=== PATIENT | male | born 1960 | race African-American/Black ===

== ENCOUNTER 2019-07-31 05:07 | Inpatient (IN) | payer OTHER, SELFPAY ==
[2019-07-31 05:28] LABS: Actual Bicarbonate (HCO3a) 11.4 mEq/L (22-28); Analyzer IN Cardio ER; Base Excess (BEa) -13.4 mEq/L (-2.0 to +3.0); Calcium, Ionized 0.99 mmol/L (1.12-1.30); Hemoglobin (Hb) 9.7 g/dL (14.0-18.0); O2 Tension (PaO2) 83.8 mmHg (80.0-100.0)
[2019-07-31 05:43] LABS: CO2 Tension 23.9 mmHg (35.0-45.0)
[2019-07-31 05:44] LABS: Puncture Site LRA
[2019-07-31 05:45] LABS: ALV-art Gradient 135.875 (0-20)
[2019-07-31 05:46] LABS: Bacteria/HPF 3+ HPF (None Seen); Bilirubin Negative (Negative); Blood, Urine 1+ (Negative); Clarity Turbid (Clear); Glucose, Urine (Dipstick) 100 mg/dL (Negative); Leukocyte 75 Leu/uL (Negative); Nitrite Negative (Negative); Protein, Urine (Dipstick) 300 mg/dL (Neg-Trace); Squamous Epithelial None Seen HPF (0-3); Urobilinogen Normal mg/dL (Less than 2)
[2019-07-31 05:52] LABS: Yeast-Budding None Seen HPF (None Seen)
--- NOTE | 2019-07-31 06:02 | PDOC.FPRHP ---
- History of Present Illness Chief Complaint: SOB History of Present Illness: Mr. Pereira is a 59yo AAM with a PMH of HTN, CHF, DMII, and renal disease who presents to the [facility] ER via transfer from [place] for respiratory distress and hypertensive emergency. He reports increasing shortness of breath over the last 3 days that acutely worsened and woke him from sleep last night and increasing LE edema over the last week. He is in town from [place] visiting his mother. He has a known history of CHF and was recently increased to 80mg po Lasix BID. He states he has had an upper respiratory infection with cough and sputum production for the last 1-2 weeks. He is currently wearing BiPAP and breathing well, but appears uncomfortable. ED Course: In [place]: Solumedrol 125mg, DuoNeb x3, Zosyn, Lasix 160mg IV, Nitro drip , ASA 325 In [place]: Nitro drip - Allergies/Adverse Reactions Allergies Allergy/AdvReac Type Severity Reaction Status Date / Time No Known Drug Allergies Allergy Verified 07/31/19 07:27 - Home Medications Medication Instructions Recorded Confirmed Type Atorvastatin Calcium [Lipitor] 10 mg PO DAILY 07/31/19 07/31/19 History Calcium Acetate [Phoslo] 1,334 mg PO TID-WM 07/31/19 07/31/19 History Furosemide [Lasix] 80 mg PO BID 07/31/19 07/31/19 History Insulin NPH Hum/Reg Insulin HM 20 unit SC AC 07/31/19 07/31/19 History [Novolin 70/30] Insulin NPH Hum/Reg Insulin HM 25 unit SC AC 07/31/19 07/31/19 History [Novolin 70/30] Sodium Bicarbonate 650 mg PO TID 07/31/19 07/31/19 History - History PMHx: HTN Diabetes mellitus (on 70/30 12am, 10pm) HLD CHF, diagnosed a couple months ago PSHx: None FHx: Diabetes and HTN run in the family. Social: Lives in [place], PCP is in [place] (Dr. Burch). Visiting his mother who lives in [place]. Current tobacco use, 1 pack q 2 days x 45 years. No illicit drug use. Former alcohol use. - Review of Systems General: denies: fever/chills, weight/appetite/sleep changes Eyes: denies: eye pain, vision changes ENT: reports: nasal congestion, rhinorrhea Respiratory: reports: cough, congestion, shortness of breath Cardiovascular: reports: edema, paroxysmal nocturnal dyspnea, orthopnea. denies : chest pain, palpitation Gastrointestinal: denies: nausea, vomiting, diarrhea, constipation Genitourinary: denies: incontinence, dysuria, polyuria Skin: denies: rashes, lesions Musculoskeletal: denies: pain, tenderness, stiffness Neurological: denies: numbness, syncope, seizure, weakness Psychological: denies: anxiety, depression - Vital signs Pulse: 87 (Regular), Resp: 22 (Labored), Temp: 98.0 (Oral), Pain: 0 (Constant), O2 sat: 100 on (Bipap), Time: 07/31/2019 05:09. Weight 72.5kg - Physical Exam Constitutional: awake, alert and oriented -Constitutional: Visibly working to breath, speaking in short sentences, unable to lie in the bed. HEENT: normocephalic and atraumatic, PERRLA, EOMI, conjunctiva clear, grossly normal vision, grossly normal hearing, MMM Neck: supple, trachea midline -Neck: Elevated JVD Heart: RRR, normal S1/S2, no murmurs/rubs/gallops, pulses present -Heart: Pitting edema to the level of the abdomen -Lungs: Labored breathing on CPAP, Tachypneic, Expiratory wheezes heard throughout, coarse breath sounds with significant upper airway noise due to CPAP/BiPap Abdomen: soft, non-tender Musculoskeletal: normal structure, normal tone, ROM grossly normal Neurological: no focal deficit, normal sensation Skin: no rash/lesions, good turgor, capillary refill <2 seconds Heme/Lymphatic: no unusual bruising or bleeding, no purpura, no petechia Psychiatric: normal mood and affect, good judgment and insight, intact recent and remote memory FMR H&P: Results - Labs Result Diagrams: 07/31/19 05:51 Lab results: ABG pH 7.30 (7.35-7.45) L 07/31/19 05:24 ABG pCO2 23.9 mmHg (35.0-45.0) L* 07/31/19 05:24 ABG pO2 83.8 mmHg (80.0-100.0) 07/31/19 05:24 Urine Ketones Negative mg/dL (Negative) 07/31/19 05:30 Urine Blood 1+ (Negative) A 07/31/19 05:30 Urine Nitrite Negative (Negative) 07/31/19 05:30 Ur Leukocyte Esterase 75 Marcus/uL (Negative) A 07/31/19 05:30 Urine RBC 4-6 HPF (0-3) A 07/31/19 05:30 Urine WBC 11-20 HPF (0-3) A 07/31/19 05:30 Ur Squamous Epith Cells None Seen HPF (0-3) 07/31/19 05:30 Urine Bacteria 3+ HPF (None Seen) A 07/31/19 05:30 - EKG Interpretation EKG: Nonspecific T wave changes, t wave inversions anteriorly, prolonged AZ interval with 1st degree AV block FMR H&P: A/P - Problem List (1) Acute respiratory failure Current Visit: Yes Status: Acute Code(s): J96.00 - ACUTE RESPIRATORY FAILURE , UNSP W HYPOXIA OR HYPERCAPNIA (2) Acute exacerbation of CHF (congestive heart failure) Current Visit: Yes Status: Acute Code(s): I50.9 - HEART FAILURE, UNSPECIFIED (3) Suspected chronic obstructive pulmonary disease based on initial evaluation Current Visit: Yes Status: Acute Code(s): J44.9 - CHRONIC OBSTRUCTIVE PULMONARY DISEASE, UNSPECIFIED (4) Hypertensive emergency Current Visit: Yes Status: Acute Code(s): I16.1 - HYPERTENSIVE EMERGENCY (5) Metabolic acidosis Current Visit: Yes Status: Acute Code(s): E87.2 - ACIDOSIS (6) Chronic kidney disease (CKD) Current Visit: Yes Status: Acute Code(s): N18.9 - CHRONIC KIDNEY DISEASE, UNSPECIFIED (7) Diabetes mellitus Current Visit: Yes Status: Acute Code(s): E11.9 - TYPE 2 DIABETES MELLITUS WITHOUT COMPLICATIONS - Plan Acute respiratory failure 2/2 CHF exacerbation -Patient in obvious respiratory failure on arrival to [place] ER, arrived to [facility] on BiPap. -On Lasix 80mg po BID at home, started on 80mg IV BID. Will closely monitor fluid status -Strict I/O, Daily weights, HF consult. -BiPap for ventilatory support. Discussed intubation with the patient and he desires all resuscitative measures. -ECHO ordered Hypertensive emergency -BP 220s/120s on arrival, elevated troponin of 0.099 -On Nitroglycerine drip to be titrated with goal of SBP of 160. -Will continue home medications, hold BB NSTEMI type II -Demand ischemia evident with elevated troponin and end organ damage, likely 2/ 2 CHF exacerbation. -Trend troponins -Consider cardiology consult if troponin continues to trend upwards. -EKG changes - T wave inversions, and 1st degree heart block (unknown if acute) Suspected COPD -Patient has 20-30 pack year history. No formal diagnosis of COPD has been made that he is aware of -Scheduled DuoNebs, prn albuterol nebs for wheezing -IV solumedrol -Levaquin (also covering for suspected PNA) Suspected RLL PNA -CXR has not been read, however clinical and historical findings suggestive of PNA. -Will cover with Levaquin, renally dosed Chronic kidney disease, stage V vs acute renal failure vs acute on chronic -He has known kidney disease, however stage is not known. -Will monitor BMP closely -FeUrea ordered -Nephrology consulted -Discussed potential need for dialysis with patient. -Phosphorous pending Type II Diabetes -A1c pending. Will restart home insulin regimen, mod SSI and hypoglycemia protocol. Non-anion gap metabolic acidosis -Lactic acid 1.6. Continue to monitor bicarb. -Nephrology consulted Normocytic anemia -Iron studies pending -Hb electrophoresis ordered -Risk factors for colon cancer, patient will need colonoscopy outpatient on discharge. HLD -Continue home medications HTN -Continue home medications -hold BB in acute HF exacerbation First degree heart block Noted on EKG. Monitor on telemetry. Disposition/LOS: Dispo: Guarded, inpatient, LOS likely > 48 hours. Code: Full PCP: VINCENT Burch in [place] VTE: SCDs FMR H&P: Upper Level - Pertinent history 59 year old AA male presents with sudden onset respiratory distress. Patient reports that he has had a cough productive of green sputum for the last 2 weeks. He denies associated fever or chills. Patient states that for the last week he has noted increase in lower extremity swelling. He is taking Lasix BID, but reports missing an occasional dose. Patient states that he woke up in the middle of the night acutely short of breath which prompted his visit to the ED. Patient lives in [place] but is in town visiting family. He states that he has never become short of breath like this before. He has never required BiPAP or intubation. Patient states that he was diagnosed with HF months ago at a hospital in [place]. He reports good compliance with medications. He states that he has elevated BP and is on medications. His BPs at home run upwards of 160 s. Patient denies any chest pain, N/V/D, dysuria, muscle aches or pains. Patient is a current -1 PPD every 2 day smoker. He has been smoking since he was 15 years old. He denies a diagnosis of COPD and is not currently on any inhalers at home. Patient does not follow with a formal service waiter or marketing executive. Patient reports known kidney disease. He follows with nephrology in [place], but he reports no recent discussion regarding need for dialysis. He states that he urinates approximately 4x/day and has been urinating about the same as normal over the last several days. - Pertinent findings General: Alert and oriented x3. Mild respiratory distress. HEENT: MMM. Sclera clear. Card: RRR. No appreciable murmurs. Resp: Wheezing diffusely throughout. Rales in right anterior lung base. Abdomen: Soft, non-tender, palpable fluid wave Extremities: 2+ pitting edema to level of abdomen bilaterally Skin: No ecchymosis noted - Plan Date/Time: 07/31/19 0600 IPatty, have evaluated this patient and agree with findings/plan as outlined by international relations professor resident. Pertinent changes/additions are listed here. A/P: Hypertensive emergency: Patient with fulminant heart failure, non-specific EKG changes, and elevated troponins. Will continue to trend troponins. Patient started on nitro drip with goal BP at 1 hr 180/120 and goal BP <160/110 for the remaining 23 hours. Will restart oral medications and titrate off of drip as tolerated. Suspect poor compliance with medications at home. Will order echo to further evaluate functional cardiac status. Acute respiratory failure 2/2 acute CHF exacerbation and pulmonary edema/COPD exacerbation: Patient on high dose IV Lasix. Monitor urine output closely. Strict I/Os. If not having adequate urine output, may need to consider dialysis. Discussed potential need for dialysis with patient. Patient currently on BiPAP. Discussed potential need for intubation should respiratory status worsen. Patient agreeable to intubation if necessary. Pulmonology consulted, appreciate recs. Will start patient on levoquin for suspected RLL PNA and COPD exacerbation. Will initiate steroids and duoneb treatments. Continue home medications for heart failure. Hold BB in acute exacerbation. BNP 1999. Suspect RLL PNA: Physical exam and CXR consistent with RLL PNA. Infiltrate noted on CXR. Started patient on levoquin, renally dosed. Procal pending. Continue to monitor respiratory status. Metabolic acidosis, non-anion gap: Lactic acid 1.6. Continue to monitor bicarb. Nephrology consulted, appreciate recs. NSTEMI type II: Demand ischemia, likely 2/2 heart failure exacerbation. Continue to trend troponin. CKD stage V vs. Acute renal failure: Uncertain of baseline kidney function. May be acute on chronic renal failure. Discussed potential need for dialysis. Continue to monitor electrolytes and fluid status. Nephrology consulted; appreciate recs. Will check phosphorous. Continue home medications. First degree heart block: Noted on EKG. Monitor on telemetry. Normocytic anemia: Will obtain iron studies. H/H 05/02. Will also obtain electrophoresis given AA and normocytic anemia. Continue to trend. Patient in need of outpatient screening colonoscopy. HLD: Continue home medications HTN: See above for hypertensive emergency. Diabetes type II: Will check HgA1c. Continue home medications. SSI. CC diet. Code status: Full, discussed with patient DVT PPX: SCD's Dispo: Admit to ICU. Continue to monitor respiratory status closely.
[2019-07-31 06:20] LABS: Anion Gap 18 mmol/L (10-20); BUN (Urea Nitrogen) 71 mg/dL (8.4-25.7); Calc. Creatinine Clearance 0 mL/min (70-130); Calcium 7.3 mg/dL (7.8-10.44); Carbon Dioxide 15 mmol/L (22-29); Chloride 105 mmol/L (98-107); Estimated GFR-MDRD 7; Glucose 245 mg/dL (70-105); Potassium 5.4 mmol/L (3.5-5.1); Sodium 133 mmol/L (136-145)
[2019-07-31 06:25] LABS: Troponin I 0.172 ng/mL (< 0.028)
[2019-07-31] MEDS ORDERED: Albuterol Sulfate 2.5 mg/3 ml Neb NEB PRN (06:27)
[2019-07-31] MEDS ORDERED: Ondansetron ODT 4 MG TAB PO PRN (06:27)
[2019-07-31] MEDS ORDERED: Acetaminophen 325 MG TAB PO PRN (06:27)
[2019-07-31] MEDS ORDERED: Acetaminophen 325 MG Suppository PR PRN (06:27)
[2019-07-31] MEDS ORDERED: Nitroglycerin 50 MG/250 ML BOT 250 ML IVPB SCH (06:45)
[2019-07-31] MEDS ORDERED: Dextrose 50% Abboject 50 ML SYRINGE SLOW IVP PRN ×2 (07:41→13:18)
[2019-07-31] MEDS ORDERED: Dextrose 5% in Water 1,000 ML IV PRN (07:41)
[2019-07-31 07:45] LABS: Medtox Reader # READER 1
[2019-07-31 07:46] LABS: Amphetamine Not Detected (NotDetected); Barbiturates Screen Not Detected (NotDetected); Benzodiazepine Screen Not Detected (NotDetected); Cocaine Metabolite Screen Not Detected (NotDetected); Medtox Control Line Valid? VALID (VALID); Methadone Not Detected (NotDetected); Methamphetamine Not Detected (NotDetected); Opiate Screen Not Detected (NotDetected); Oxycodone Screen Not Detected (NotDetected); Phencyclidine (PCP) Not Detected (NotDetected); THC/Cannabinoid Screen Not Detected (NotDetected); Tricyclic Screen Not Detected (NotDetected)
[2019-07-31] MEDS: Calcium Acetate 667 MG CAP PO SCH ×3 (08:52→16:55)
[2019-07-31] MEDS: Atorvastatin Calcium 10 MG TAB PO SCH (08:56)
[2019-07-31] MEDS: Sodium Bicarbonate Tab 325 MG TAB PO SCH ×3 (08:56→22:03)
[2019-07-31] MEDS ORDERED: Amlodipine 10 MG TAB PO SCH (09:00)
[2019-07-31] MEDS: HumuLIN 70/30 (300 UNITS/3 ML VIAL) SC SCH ×2 (09:07→22:04)
[2019-07-31 09:39] LABS: Troponin I 0.296 ng/mL (< 0.028)
[2019-07-31 09:42] LABS: Iron 37 ug/dL (65-175); Iron Binding Capacity, Total 239 mcg/dL (261-462)
[2019-07-31 09:55] LABS: Anion Gap 20 mmol/L (10-20); BUN (Urea Nitrogen) 76 mg/dL (8.4-25.7); Calc. Creatinine Clearance 10 mL/min (70-130); Calcium 7.5 mg/dL (7.8-10.44); Carbon Dioxide 12 mmol/L (22-29); Chloride 106 mmol/L (98-107); Estimated GFR-MDRD 7; Glucose 287 mg/dL (70-105); Potassium 5.6 mmol/L (3.5-5.1); Sodium 132 mmol/L (136-145)
[2019-07-31] MEDS: niCARdipine 25 MG in Sodium Chloride 0.9% 250 ML 240 ML IVPB SCH ×3 (10:44→17:02)
[2019-07-31] MEDS: HumaLOG 300 UNITS/3 ML VIAL SC PRN ×2 (11:29→16:59)
[2019-07-31] MEDS ORDERED: HumuLIN 70/30 (300 UNITS/3 ML VIAL) SC SCH (11:30)
[2019-07-31 11:58] LABS: Phosphorus 5.3 mg/dL (2.3-4.7)
[2019-07-31] MEDS ORDERED: methylPREDNISolone Sod Succ 40 MG VIAL IVP SCH (12:00)
[2019-07-31 12:09] LABS: Anion Gap 21 mmol/L (10-20); BUN (Urea Nitrogen) 78 mg/dL (8.4-25.7); Calc. Creatinine Clearance 10 mL/min (70-130); Calcium 7.6 mg/dL (7.8-10.44); Carbon Dioxide 10 mmol/L (22-29); Chloride 106 mmol/L (98-107); Estimated GFR-MDRD 7; Glucose 351 mg/dL (70-105); Potassium 4.8 mmol/L (3.5-5.1); Sodium 132 mmol/L (136-145)
[2019-07-31 12:11] LABS: Troponin I 0.369 ng/mL (< 0.028)
[2019-07-31 13:20] LABS: Hemoglobin A1c 6.3 % (4.0-6.0)
[2019-07-31] MEDS: Furosemide 40 MG/4 ML VIAL SLOW IVP SCH (13:33)
--- NOTE | 2019-07-31 13:35 | CON ---
DATE OF CONSULTATION: 07/31/2019 TIME SPENT: 35 minutes of critical care time. REASON FOR CONSULTATION: Respiratory failure related to fluid overload. HISTORY OF PRESENT ILLNESS: This is a 59-year-old male, who presented to the [facility] with shortness of breath and acute on chronic renal failure. He was placed on BiPAP, but that has now been weaned off. He has been on a nitroglycerin drip for control of elevated blood pressure. PAST MEDICAL HISTORY: 1. Hypertension. 2. Diabetes mellitus. 3. Hyperlipidemia. 4. Congestive heart failure. PAST SURGICAL HISTORY: None. FAMILY MEDICAL HISTORY: Remarkable for diabetes and hypertension. SOCIAL HISTORY: He smokes a pack per day for the last 45 years. He lives in [place]. Gets medical care in [place] when he can. Does not consume alcohol. Does not use illicit drugs. He is retired. REVIEW OF SYSTEMS: Remarkable for shortness of breath and chills. Otherwise, 12-point review of systems negative. MEDICATIONS: Prior to admission; 1. Carvedilol. 2. Norvasc. 3. Furosemide. 4. Lipitor. 5. 70/30 insulin. PHYSICAL EXAMINATION: VITAL SIGNS: Temperature 98, pulse 67, blood pressure 163/83, and O2 saturation 99%. HEENT: Unremarkable. NECK: No adenopathy or JVD. LUNGS: Coarse breath sounds with crackles bilaterally. CARDIOVASCULAR: S1 and S2. Regular. ABDOMEN: Soft and nontender to palpation. EXTREMITIES: No clubbing or cyanosis. Trace edema throughout. LABORATORY DATA: ABG; pH of 7.30, pCO2 of 23, and pO2 of 83. Sodium 132, potassium 5.6, chloride 106, CO2 of 12, BUN 76, creatinine 9.1, and glucose 287. Troponin 0.02. Urinalysis shows active sediment with proteinuria and glucosuria. ASSESSMENT: 1. Acute on chronic renal failure with hyperkalemia and fluid overload as well as metabolic acidosis. 2. Acute respiratory failure, fluid overload. RECOMMENDATIONS: 1. Nephrology consultation and consideration for dialysis. 2. Switch the nitroglycerin to nicardipine for blood pressure control. 3. Discontinue the methylprednisolone as that will adversely affect his blood pressure and make his diabetes worse. I do not think we are dealing with the COPD exacerbation. 4. Nebulization treatments as needed. Job ID: [id number]
[2019-07-31 16:10] LABS: Troponin I 0.411 ng/mL (< 0.028)
--- NOTE | 2019-07-31 16:17 | CON ---
DATE OF CONSULTATION: 07/31/2019 CONSULTING PHYSICIAN: Dr. Loyd. REASON FOR CONSULTATION: Chronic kidney disease. REASON FOR ADMISSION: Shortness of breath. HISTORY OF PRESENT ILLNESS: This is a 59-year-old male, who has history of hypertension, CAD, type 2 diabetes, who came to the hospital with shortness of breath. He does have chronic kidney disease. He is a poor historian. He had been following with a physician from [place] and he was told that his kidneys are not doing well, but he has been admitted for few days and his creatinine was not getting better and Nephrology consulted. The patient is also fluid overloaded. PAST MEDICAL HISTORY: Positive for CKD, hypertension, type 2 diabetes, and CHF. PAST SURGICAL HISTORY: None. HOME MEDICATIONS: Include; 1. Lipitor. 2. PhosLo. 3. Lasix. 4. Insulin 70/30. 5. Sodium bicarbonate. ALLERGIES: NO KNOWN DRUG ALLERGIES. SOCIAL HISTORY: No smoking, alcohol, or illicit drugs abuse. FAMILY HISTORY: No history of any kidney disease. REVIEW OF SYSTEMS: CONSTITUTIONAL: Negative for weight loss or gain, ability to conduct usual activities. SKIN: Negative for rash, itching. EYES: Negative for double vision, pain. ENT/MOUTH: Negative for nose bleeding, neck stiffness, pain, tenderness. CARDIOVASCULAR: Negative for palpitations, dyspnea on exertion, orthopnea. RESPIRATORY: Negative for shortness of breath, wheezing, cough, hemoptysis, fever or night sweats. GASTROINTESTINAL: Negative for poor appetite, abdominal pain, heartburn, nausea, vomiting, constipation, or diarrhea. GENITOURINARY: Negative for urgency, frequency, dysuria, nocturia. MUSCULOSKELETAL: Negative for pain, swelling. NEUROLOGIC/PSYCHIATRIC: Negative for anxiety, depression. ALLERGY/IMMUNOLOGIC: Negative for skin rash, bleeding tendency. PHYSICAL EXAMINATION: GENERAL: Reveals a well-built male, in no apparent distress. VITAL SIGNS: Temperature 97.5, pulse 73, respiratory rate 20, and blood pressure 148/67. HEENT: Atraumatic, normocephalic. Oral mucosa is moist. NECK: Supple. CARDIOVASCULAR: S1 and S2. Rate and rhythm regular. RESPIRATORY: Clear. GASTROINTESTINAL: Abdomen is soft. MUSCULOSKELETAL: 1+ edema. DERMATOLOGIC: No skin rash. NEUROLOGIC: Alert and awake. PSYCHIATRIC: Mood and affect are normal. LABORATORY DATA: Potassium 4.8, BUN is 78, creatinine is 9.02, and GFR of 7. ASSESSMENT AND PLAN: 1. Chronic kidney disease, stage 5, most likely not getting better. The patient needs dialysis at this point. We will check renal ultrasound. We will consult Surgery. 2. Acidosis. 3. Hyponatremia. 4. Edema, controlled. 5. Anemia. Plan is to start on dialysis. We will consult Surgery. We will follow. We will check renal ultrasound. Thank you for the consult. Job ID: [id number]
[2019-07-31] MEDS ORDERED: NIFEdipine XL 60 MG TAB PO SCH (17:30)
[2019-07-31] MEDS ORDERED: Aspirin 81 mg Enteric Coated Tablet PO SCH (17:45)
[2019-07-31] MEDS ORDERED: Carvedilol 6.25 MG TAB PO SCH (17:45)
[2019-07-31] MEDS: hydrALAZINE 25 MG TAB PO SCH ×2 (17:51→23:55)
[2019-07-31 18:18] LABS: Anion Gap 18 mmol/L (10-20); BUN (Urea Nitrogen) 77 mg/dL (8.4-25.7); Calc. Creatinine Clearance 10 mL/min (70-130); Calcium 7.8 mg/dL (7.8-10.44); Carbon Dioxide 14 mmol/L (22-29); Chloride 105 mmol/L (98-107); Estimated GFR-MDRD 7; Glucose 221 mg/dL (70-105); Potassium 4.6 mmol/L (3.5-5.1); Sodium 132 mmol/L (136-145)
--- NOTE | 2019-07-31 19:44 | ULT ---
BILATERAL RENAL ULTARSOUND: History: Acute kidney injury. Evaluate for obstruction. Technique: Multiplanar grayscale and color doppler images were obtained in a renal ultrasound. FINDINGS: The kidneys are normal in echogenicity without hydronephrosis or calculi and measure 9.7 and 10.0 cm in length on the right and left, respectively. There is a small anechoic cyst in the left kidney werner uring 1.7 cm in size. The urinary bladder is decompressed by a Duran catheter. A small right pleural effusion is incidental ly seen. A trace amount of ascites is seen adjacent to the liver. IMPRESSION: Left renal cyst. POS: C
--- NOTE | 2019-07-31 19:57 | CON ---
DATE OF CONSULTATION: 07/31/2019 REASON FOR CONSULTATION: Depressed left ventricular function, abnormal echocardiogram, shortness of breath, end-stage renal disease. HISTORY OF PRESENT ILLNESS: Mr. Montero is a delightful 59-year-old gentleman. He has a history of renal insufficiency in the past and according to the chart, some history of congestive heart failure. The patient states he has been doing well up until the last three days he has been progressively more short of breath and finally, difficulty breathing woke him from sleep and he came to the emergency room. The patient has been maintained on Lasix 80 mg twice a day as an outpatient. He also had upper respiratory infection with cough and sputum production. He does smoke. He says he has decided he is going to quit smoking now. Does not use any alcohol. In the emergency room, he got Solu-Medrol, DuoNeb, Lasix, nitroglycerin drip. The patient had no chest pain or pressure. He has never had this similar episode of difficulty breathing according to the patient. MEDICATIONS: At home included: 1. Insulin. 2. Sodium bicarbonate. 3. Furosemide. 4. Atorvastatin. 5. Amlodipine 10 mg a day. 6. Carvedilol 25 mg twice a day. REVIEW OF SYSTEMS: CONSTITUTIONAL: No significant weight gain or loss. VISION: No changes. HEARING: No changes. PULMONARY: Positive shortness of breath. CARDIAC: No chest pain. Positive for shortness of breath. GASTROINTESTINAL: No nausea, vomiting, or diarrhea. SKIN: No rashes. NEUROLOGICAL: No unilateral weakness or numbness. PSYCHIATRIC: No unusual depression or anxiety. PHYSICAL EXAMINATION: GENERAL: This is a very pleasant gentleman. He is on a nicardipine drip. Despite that, his blood pressure is 159/75, pulse is 77. LUNGS: Clear. CARDIAC: Normal S1, normal S2. ABDOMEN: Soft, nontender. EXTREMITIES: No clubbing or cyanosis. He has mild to moderate peripheral edema. SKIN: Warm and dry. PERTINENT LABORATORY DATA: Troponin level peak so far is 0.411. His creatinine is 9 and potassium is 4.8. Sodium 132. Hemoglobin A1c 6.3, glucose 251. EKG, sinus rhythm, looks like an old anterior infarct with Q-waves in leads V2 through V4. The echocardiogram showed ejection fraction of 35% to 40%. The apex is akinetic. ASSESSMENT: 1. Acute renal failure. 2. Congestive heart failure with apex akinesis, ejection fraction 35% to 40%. 3. Increased troponin, probably demand ischemia on top of renal failure. Troponin is normally renally cleared; therefore, the levels are slightly increased. Almost certainly, he has coronary artery disease with the location of akinesis of his heart. 4. Hypertension. PLAN: 1. Add Procardia XL. 2. Add hydralazine. 3. Can resume carvedilol. 4. Dialysis tomorrow. 5. Ultimately consider catheterization. Presently, the patient is in some degree of heart failure with some rales on examination. It does not appear like he has had an acute occlusion, looks like he probably has had an occlusion of his LAD at some time in the past. We will follow with you. Job ID: [id number]
--- NOTE | 2019-07-31 20:28 | ULT ---
UPPER EXTREMITY VEIN MAPPING: Date: 07-31-19 History: Dialysis access planning. Technique: Multiplanar grayscale sonographic imaging of the vascular structures of bilateral upper ex tremities obtained with color flow and spectral analysis. FINDINGS: The internal jugular vein, subclavian vein, and axillary vein is patent bilaterally. RIGHT UPPER EXTREMITY BRACHIAL ARTERY: 5.7 mm RADIAL ARTERY: 3.1 mm ULNAR ARTERY: 2.2 mm CEPHALIC VEIN Proximal Arm: 2.3 mm Mid Arm: 0.5 mm Distal Arm: 0.7 mm Antecubital Fossa: 1.1 mm Proximal Forearm: 0.6 mm Mid Forearm: 0.7 mm Distal Forearm: 0.6 mm BASILIC VEIN Proximal Arm: 5.2 mm Mid Arm: 5.8 mm Distal Arm: 6.4 mm Antecubital Fossa: 4.9 mm Proximal Forearm: 2.1 mm Mid Forearm: 0.5 mm Distal Forearm: 1.1 mm LEFT UPPER EXTREMITY BRACHIAL ARTERY: 5.6 mm RADIAL ARTERY: 3.1 mm ULNAR ARTERY: 1.5 mm BASILAR VEIN Proximal Arm: 4.2 mm Mid Arm: 8.3 mm Distal Arm: 3.3 mm Antecubital Fossa: 3.2 mm Proximal Forearm: 0.8 mm Mid Forearm: 0.7 mm Distal Forearm: 0.7 mm CEPHALIC VEIN Proximal Arm: 3.5 mm Mid Arm: 3.1 mm Distal Arm: 2.8 mm Antecubital Fossa: thrombosis with thickened quezada and IV in place Proximal Forearm: not seen secondary to IV bandaging Mid Forearm: 0.6 mm Distal Forearm: 0.7 mm IMPRESSION: Vascular mapping of bilateral upper extremities as detailed above. Of note, there is an IV within the cephalic vein in the left antecubital fossa with associated thrombus and thickened quezada. The cephal ic vein on the left distal to the elbow proximally is not well seen secondary to IV bandaging. POS: [facility]
[2019-08-01] MEDS: HumaLOG 300 UNITS/3 ML VIAL SC PRN ×2 (01:04→18:22)
[2019-08-01 04:23] LABS: Anion Gap 16 mmol/L (10-20); BUN (Urea Nitrogen) 81 mg/dL (8.4-25.7); Calc. Creatinine Clearance 10 mL/min (70-130); Calcium 7.8 mg/dL (7.8-10.44); Carbon Dioxide 15 mmol/L (22-29); Chloride 106 mmol/L (98-107); Estimated GFR-MDRD 7; Glucose 97 mg/dL (70-105); Potassium 4.5 mmol/L (3.5-5.1); Sodium 132 mmol/L (136-145)
[2019-08-01 04:35] LABS: HBSAB Concentration 1.59 mIU/mL; HBSAg Index 0.23 S/CO (0-0.99); Hep B Core Total Ab Non-Reactive (NonReactive); Hep B Core Total Index 0.07 S/CO (0-0.79); Hep B Surf AB Non-Reactive (NonReactive); Hep B Surf Ag Non-Reactive S/CO (NonReactive); Hep C IgG Ab Non-Reactive (NonReactive); Hep C Index 0.07 S/CO (0-0.79)
[2019-08-01] MEDS: Furosemide 40 MG/4 ML VIAL SLOW IVP SCH ×2 (05:05→17:22)
--- NOTE | 2019-08-01 06:48 | PDOC.FM ---
- Subjective Subjective: pt resting comfortably in bed, dyspnea has improved. denies any cough or chest pain - Objective Vital Signs & Weight: Vital Signs (12 hours) Temp Pulse Resp BP Pulse Ox 08/01/19 04:00 97.8 F 08/01/19 03:05 76 16 100 08/01/19 00:00 98.0 F 07/31/19 23:55 75 143/70 H 07/31/19 23:30 75 18 97 07/31/19 20:00 98.1 F 98 07/31/19 19:17 72 20 98 Weight Weight 84 kg Most Recent Monitor Data Heart Rate from ECG 76 NIBP 151/74 NIBP BP-Mean 99 Respiration from ECG 25 SpO2 98 I&O: 07/30/19 07/31/19 08/01/19 06:59 06:59 06:59 Intake Total 2299 Output Total 1360 Balance 939 Result Diagrams: 08/01/19 03:12 Phys Exam - Physical Examination Constitutional: NAD HEENT: moist MMs Neck: no JVD rales Cardiovascular: RRR Gastrointestinal: no distention Musculoskeletal: no edema, pulses present Neurological: moves all 4 limbs Psychiatric: normal affect Skin: no rash Dx/Plan (1) Acute exacerbation of CHF (congestive heart failure) Code(s): I50.9 - HEART FAILURE, UNSPECIFIED Status: Acute (2) Acute respiratory failure Code(s): J96.00 - ACUTE RESPIRATORY FAILURE, UNSP W HYPOXIA OR HYPERCAPNIA Status: Acute (3) Chronic kidney disease (CKD) Code(s): N18.9 - CHRONIC KIDNEY DISEASE, UNSPECIFIED Status: Acute (4) Diabetes mellitus Code(s): E11.9 - TYPE 2 DIABETES MELLITUS WITHOUT COMPLICATIONS Status: Acute (5) Hypertensive emergency Code(s): I16.1 - HYPERTENSIVE EMERGENCY Status: Acute (6) Metabolic acidosis Code(s): E87.2 - ACIDOSIS Status: Acute (7) Suspected chronic obstructive pulmonary disease based on initial evaluation Code(s): J44.9 - CHRONIC OBSTRUCTIVE PULMONARY DISEASE, UNSPECIFIED Status: Acute - Plan Plan: Acute respiratory failure 2/2 CHF exacerbation, improved - POA with CXR + for fluid overload, BNP>2000 - Echo reveals EF 35-40%, akinetic apex - lasix 80mg IV BID - Cardiology consulted, considering cath Hypertensive emergency, resolved -BP 220s/120s on arrival, elevated troponin -Nicardipine, BB resumed NSTEMI - elevated on admission, continues to be elevated. - most likely from fluid overload, C is being considered COPD -Patient has 20-30 pack year history. No formal diagnosis of COPD has been made that he is aware of -Scheduled DuoNebs, prn albuterol nebs for wheezing FAUSTINO on CKDIV vs CKDV -not improved - dialysis today TIIDM - insulin 70/30, mod SSI - hyperglycemia, increase basal Non-anion gap metabolic acidosis -Lactic acid 1.6. Continue to monitor bicarb. -Nephrology consulted Normocytic anemia -Iron studies, Hb electrophoresis ordered -Risk factors for colon cancer, patient will need colonoscopy outpatient on discharge. HLD -Continue home medications HTN -Continue home medications First degree heart block - monitor Disposition/LOS: dialysis today, continue supportive care Code: Full PCP: VINCENT Burch in [place] VTE: SCDs
[2019-08-01] MEDS ORDERED: CEFAZOLIN 2 GM in Premix Bag 1 BAG IVPB SCH (07:45)
[2019-08-01] MEDS: NIFEdipine XL 60 MG TAB PO SCH (08:07)
[2019-08-01] MEDS: Calcium Acetate 667 MG CAP PO SCH ×3 (08:07→17:21)
[2019-08-01] MEDS: Carvedilol 6.25 MG TAB PO SCH ×2 (08:07→17:21)
[2019-08-01] MEDS: Aspirin 81 mg Enteric Coated Tablet PO SCH (08:08)
[2019-08-01] MEDS: HumuLIN 70/30 (300 UNITS/3 ML VIAL) SC SCH ×2 (08:08→19:44)
[2019-08-01] MEDS: hydrALAZINE 25 MG TAB PO SCH ×3 (08:08→19:41)
[2019-08-01] MEDS: Atorvastatin Calcium 10 MG TAB PO SCH (08:11)
[2019-08-01] MEDS: Sodium Bicarbonate Tab 325 MG TAB PO SCH ×3 (08:15→19:58)
--- NOTE | 2019-08-01 08:54 | PRG ---
DATE OF SERVICE: 08/01/2019 SUBJECTIVE: The patient is doing reasonably well. He is expecting dialysis catheter placement later today. He has no complaints at the current time and is off oxygen. OBJECTIVE: VITAL SIGNS: His temperature is 98.6, pulse 69, blood pressure 154/75, O2 saturation 97%. HEENT: Unremarkable. NECK: No adenopathy or JVD. CHEST: Clear anteriorly. CARDIAC: S1 and S2. Regular. ABDOMEN: Soft. EXTREMITIES: No edema. LABORATORY DATA: Sodium 132, potassium 4.5, BUN 81, creatinine 9.2, and bicarbonate 15. ASSESSMENT: 1. Acute on chronic renal failure. 2. Status post respiratory failure from fluid overload. 3. Possible underlying chronic obstructive pulmonary disease. 4. Systolic heart failure with EF 35% to 40%. PLAN: Dialysis catheter is going to be placed today, and he will start on dialysis. He can be transferred to the telemetry unit. We will follow peripherally. Job ID: [id number]
[2019-08-01] MEDS ORDERED: NIFEdipine XL 60 MG TAB PO SCH (09:00)
[2019-08-01] MEDS ORDERED: Lidocaine 1% PF 5 ML VIAL ONE (09:52)
[2019-08-01] MEDS ORDERED: PROPOFOL 200 MG/20 ML VIAL ONE (09:52)
[2019-08-01] MEDS ORDERED: CEFAZOLIN 1 GM VIAL ONE (09:53)
--- NOTE | 2019-08-01 11:42 | PRG ---
DATE OF SERVICE: 08/01/2019 SUBJECTIVE: Patient was seen and examined at bedside and overnight events noted. Patient denies any shortness of breath or chest pain or palpitation. No history of nausea or vomiting or diarrhea or fever or chills or cramps. OBJECTIVE: GENERAL: This is a well-built male, in no apparent distress. VITAL SIGNS: Temperature 98.6. Heart rate 74. Respiratory rate . Blood pressure 160/84. HEENT: Atraumatic, normocephalic. Oral mucosa is moist NECK: Supple. CARDIOVASCULAR: S1, S2 heard. Rate and rhythm regular. RESPIRATORY: Clear to auscultation. GASTROINTESTINAL: Abdomen is soft. MUSCULOSKELETAL: No tenderness. No edema. DERMATOLOGIC: No skin rash. NEUROLOGIC: Alert and awake and oriented X3. No focal neurologic deficits. Moving all the extremities. PSYCHIATRIC: Mood and affect normal. LABORATORY DATA: Potassium 4.5, BUN is 81, and creatinine is 9.2. ASSESSMENT AND PLAN: 1. End-stage renal disease. Plan to start on dialysis today. Dialysis access will be placed by Surgery. Surgery consulted, vein mapping done. 2. Acidosis. 3. Hyponatremia. 4. Edema. 5. Anemia of chronic disease. 6. Plan to start on dialysis. Dialysis nurse notified. Job ID: [id number]
--- NOTE | 2019-08-01 14:56 | CON ---
DATE OF CONSULTATION: HISTORY OF PRESENT ILLNESS: Randall Montero is a 59-year-old black male with diabetes and hypertension, presents with fluid overload, renal failure, in need of dialysis access. He has been seen by Dr. Gonzalez and Dr. Valdovinos. I have been asked to see him regarding placement of a hemodialysis catheter. He had ultrasound vein mapping performed yesterday. He had an antecubital IV left removed. Ultrasound vein mapping yesterday revealed cephalic vein, right 2.3 mm x 0.5 mm x 0.7 mm x 1.1 mm, AC basilic vein 5.2 x 5.8 x 6.4 x 4.9 mm. Left upper extremity cephalic vein 3.5 x 3.1 x 2.8 thrombus thickened [place]. IV in place antecubital left. Basilic vein, left, 4.2 x 8.3 x 3.3. SOCIAL HISTORY: Tobacco, 1/2 pack per day. He quit a few days ago. Alcohol, none for 6 months. OUTPATIENT MEDICATIONS: Carvedilol 25 mg b.i.d., amlodipine 10 mg daily, insulin 25 units subcu a.c., insulin 20 subcu a.c., sodium bicarbonate 650 t.i.d., PhosLo 1334 mg p.o. t.i.d. with meals, furosemide 80 mg b.i.d., atorvastatin 10 mg a day. PAST SURGICAL HISTORY: Noncontributory. PAST MEDICAL HISTORY: Diabetes mellitus, hypertension, end-stage renal disease. REVIEW OF SYSTEMS: Noncontributory. PHYSICAL EXAMINATION: VITAL SIGNS: Height 5 foot 10 inches, weight 185 pounds, blood pressure 165/74, pulse 75. HEAD, EARS, EYES, NOSE, AND THROAT: Unremarkable. LUNGS: Clear to auscultation. CARDIAC: Rhythm rate without murmur or gallop. ABDOMEN: Soft, nontender. EXTREMITIES: No radial pulses. Bandage, left AC. IV, left hand. LABORATORY DATA: As noted above. ASSESSMENT/PLAN: 1. End-stage renal disease. Plan placement of a hemodialysis catheter in a central line. We will plan this today. Later this hospitalization or as an outpatient, plan placement of left arm fistula, possible graft. It is unfortunate that iatrogenic thrombus of his AC due to antecubital IV that I asked to be removed immediately as I was consulted today. This may be obligate him to a prosthetic graft or staged procedure. 2. Diabetes mellitus. 3. Hypertension. Job ID: [id number]
[2019-08-01] MEDS ORDERED: Midazolam HCl 2 mg/2 ml Vial ONE (15:04)
[2019-08-01] MEDS ORDERED: Fentanyl 100 MCG/2 ML VIAL ONE (15:04)
[2019-08-01] MEDS ORDERED: Heparin 10,000 UNITS/1 ML VIAL ONE (15:05)
[2019-08-01] MEDS ORDERED: Lidocaine 1% w/Epinephrine 1:100K 20 ML VIAL ONE (15:05)
[2019-08-01] MEDS ORDERED: Bupivacaine PF 0.5% 30 ML VIAL ONE (15:05)
[2019-08-01] MEDS ORDERED: Sodium Chloride 0.9% 30 ML ONE (15:06)
[2019-08-01] MEDS ORDERED: Dextrose 50% Abboject 50 ML SYRINGE ONE (15:40)
[2019-08-01] MEDS ORDERED: Promethazine HCl 25 MG/ML VIAL IM PRN (16:26)
[2019-08-01] MEDS ORDERED: Ondansetron HCl/PF 4 MG/2 ML Vial IVP PRN (16:26)
[2019-08-01] MEDS ORDERED: Promethazine HCl 25 MG/ML VIAL SLOW IVP PRN (16:26)
--- NOTE | 2019-08-01 16:48 | OP ---
DATE OF PROCEDURE: 08/01/2019 PREOPERATIVE DIAGNOSES: 1. End-stage renal disease. 2. Needs to initiate dialysis. POSTOPERATIVE DIAGNOSES: 1. End-stage renal disease. 2. Needs to initiate dialysis. PROCEDURES PERFORMED: 1. Right IJ cuffed tunneled hemodialysis catheter. 2. Left IJ central line. ANESTHESIA: TIVA and local with 0.5% Marcaine 30 mL, mixed with 1% Xylocaine with epinephrine 30 mL, fluoroscopy and ultrasound used. DESCRIPTION OF PROCEDURE: The patient was taken to the operating room, where under intravenous sedation, neck and chest were prepared with ChloraPrep and draped in routine fashion. Local anesthetic mixture was infiltrated into the skin and subcutaneous tissue about the operative site. Using ultrasound guidance, the left and right internal jugular veins were cannulated with trocar and catheter. J-wire was threaded. Trocar and catheter were removed. Skin site was enlarged sharply on both sides. Stab incision was made over the right chest. On the left side, Seldinger technique used to place a triple-lumen catheter, removing the J-wire, securing with 3-0 nylon suture and each port aspirated blood, flushed with saline solution and sterile dressing applied. On the right side, cuffed tunneled hemodialysis catheter was tunneled between the 2 incisions, placed the fabric cuff beneath the skin exit site and catheter was secured with 2 interrupted sutures of 3-0 nylon and sterile dressing applied. Smaller and medium size dilators placed over the J-wire into the internal jugular vein, removed. Dilator and Peel-Away sheath placed over the J-wire into the superior vena cava. Dilator and J-wire were removed. Catheter placed with Peel-Away sheath. Peel-Away sheath removed. Fluoroscopically, both catheters were noted to be in good position. Each port aspirated blood, flushed with saline solution and heparinized saline solution with 1000 units of heparin per mL, indicating the volume of the port. Platysma was approximated with 4-0 Monocryl, skin with subdermal 4-0 Monocryl, and [place] glue applied. The patient tolerated the procedure well. Job ID: [id number]
--- NOTE | 2019-08-01 16:51 | RAD ---
EXAM: CHEST ONE VIEW HISTORY: Central line placement. COMPARISON: 07/31/2019 FINDINGS: There has been interval placement of a left internal jugular vein central venous catheter with tip ov erlying the cavoatrial junction. There has also been interval placement of a tunneled right internal jugular vein hemodialysis catheter with tip overlying the expected location of the SVC. The cardiac silhouette is magnified by projection but stable in size. Pulmonary vasculature is at the upper limits of normal. There is mild increase in right perihilar interstitial and alveolar opacities which may be related to asymmetric pulmonary edema versus pneumonia. Follow-up to resolution is recommended. Vascular calcifications are seen in the thoracic aorta. Metallic density overlies the lo wer mediastinum likely due to overlying artifact. No other interval change. IMPRESSION: 1. Interval placement of tunneled right internal jugular vein hemodialysis catheter and left internal jugular vein central venous catheter without evidence of a pneumothorax. 2. Right perihilar interstitial and alveolar opacities which may be related to asymmetric pulmonary e antonio versus pneumonia. Follow-up to resolution is recommended.
[2019-08-01] MEDS ORDERED: Acetaminophen 500 MG TAB PO PRN (19:14)
[2019-08-01] MEDS ORDERED: traMADol HCl 50 MG TAB PO PRN (19:14)
[2019-08-01] MEDS ORDERED: Atorvastatin Calcium 20 MG TAB PO SCH (21:30)
--- NOTE | 2019-08-01 22:05 | PRG ---
DATE OF SERVICE: 08/01/2019 SUBJECTIVE: Mr. Montero is doing well. No complaints. He has accesses placed today. OBJECTIVE: VITAL SIGNS: His blood pressure is improved 142/73, pulse is 70 and sinus. LUNGS: Clear. CARDIAC: Normal S1, normal S2. ASSESSMENT: 1. End-stage renal disease. 2. Hypertension, markedly improved. 3. Likely has underlying coronary artery disease with a previous apical infarct. PLAN: 1. He is on carvedilol 12.5 mg twice a day. 2. He is on hydralazine 25 mg 3 times a day. 3. He is on Procardia XL 60 mg a day. 4. He is on aspirin. 5. He is on statins. Job ID: [id number]
[2019-08-02 04:47] LABS: Anion Gap 14 mmol/L (10-20); BUN (Urea Nitrogen) 87 mg/dL (8.4-25.7); Calc. Creatinine Clearance 10 mL/min (70-130); Calcium 7.5 mg/dL (7.8-10.44); Carbon Dioxide 18 mmol/L (22-29); Cardiac Risk 2.2 (Less than 4.5); Chloride 108 mmol/L (98-107); Cholesterol 110 mg/dl (< 200 Desired); Estimated GFR-MDRD 7; Glucose 69 mg/dL (70-105); HDL Cholesterol 49 mg/dL (>60 Neg Risk); LDL Cholesterol, Calculated 53 mg/dL; Potassium 4.9 mmol/L (3.5-5.1); Sodium 135 mmol/L (136-145); Triglycerides 42 mg/dL (Less than 150)
[2019-08-02] MEDS: Furosemide 40 MG/4 ML VIAL SLOW IVP SCH (05:14)
--- NOTE | 2019-08-02 07:10 | PDOC.FM ---
- Subjective Subjective: pt resting comfortably in bed, receiving a breathing treatment. denies SOB or chest pain - Objective Vital Signs & Weight: Vital Signs (12 hours) Temp Pulse Resp BP Pulse Ox 08/02/19 03:00 97.8 F 08/02/19 02:29 73 16 98 08/01/19 23:00 98 F 08/01/19 22:26 70 16 96 08/01/19 20:00 97 08/01/19 19:41 71 142/75 H 08/01/19 19:15 71 18 99 Weight Weight 82.9 kg Most Recent Monitor Data Heart Rate from ECG 71 NIBP 154/76 NIBP BP-Mean 102 Respiration from ECG 14 SpO2 99 I&O: 08/01/19 08/02/19 08/03/19 06:59 06:59 06:59 Intake Total 2299 1400 Output Total 1360 1975 Balance 939 -575 Result Diagrams: 08/03/19 04:40 08/03/19 04:40 Phys Exam - Physical Examination Constitutional: NAD HEENT: moist MMs Neck: supple ronchi Cardiovascular: RRR Gastrointestinal: soft Musculoskeletal: pulses present, edema present Neurological: moves all 4 limbs Lymphatic: no nodes Psychiatric: normal affect Skin: no rash Dx/Plan (1) Acute exacerbation of CHF (congestive heart failure) Code(s): I50.9 - HEART FAILURE, UNSPECIFIED Status: Acute (2) Acute respiratory failure Code(s): J96.00 - ACUTE RESPIRATORY FAILURE, UNSP W HYPOXIA OR HYPERCAPNIA Status: Acute (3) Chronic kidney disease (CKD) Code(s): N18.9 - CHRONIC KIDNEY DISEASE, UNSPECIFIED Status: Acute (4) Diabetes mellitus Code(s): E11.9 - TYPE 2 DIABETES MELLITUS WITHOUT COMPLICATIONS Status: Acute (5) Hypertensive emergency Code(s): I16.1 - HYPERTENSIVE EMERGENCY Status: Acute (6) Metabolic acidosis Code(s): E87.2 - ACIDOSIS Status: Acute (7) Suspected chronic obstructive pulmonary disease based on initial evaluation Code(s): J44.9 - CHRONIC OBSTRUCTIVE PULMONARY DISEASE, UNSPECIFIED Status: Acute - Plan Plan: Acute respiratory failure 2/2 CHF exacerbation, improved - POA with CXR + for fluid overload, BNP>2000 - Echo reveals EF 35-40%, akinetic apex - lasix 80mg IV BID - Cardiology consulted, considering cath Hypertensive emergency, resolved -BP 220s/120s on arrival, elevated troponin -Nifedipine, BB resumed NSTEMI - elevated on admission, continues to be elevated. - most likely from fluid overload, C is being considered COPD -Patient has 20-30 pack year history. No formal diagnosis of COPD has been made that he is aware of -Scheduled DuoNebs, prn albuterol nebs for wheezing FAUSTINO on CKDIV vs CKDV -not improved -nephro consulted, dialysis initiated TIIDM - insulin 70/30, mod SSI - accuchecks ACHS Non-anion gap metabolic acidosis -Lactic acid 1.6. Continue to monitor bicarb. Normocytic anemia -Iron studies, Hb electrophoresis ordered -Risk factors for colon cancer, patient will need colonoscopy outpatient on discharge. HLD -Continue home medications HTN -Continue home medications First degree heart block - monitor Dispo: dialysis for fluid removal Code: Full PCP: VINCENT - Dr Burch in [place] VTE: SCDs Addendum - Attending - Attending Attestation Date/Time: 08/04/19 [id number] I personally evaluated the patient and discussed the management with Dr. Garcia I agree with the History, Examination, Assessment and Plan documented above with any addition or exceptions noted below.
[2019-08-02] MEDS: Calcium Acetate 667 MG CAP PO SCH ×3 (08:04→15:47)
[2019-08-02] MEDS: Aspirin 81 mg Enteric Coated Tablet PO SCH (08:04)
[2019-08-02] MEDS: HumuLIN 70/30 (300 UNITS/3 ML VIAL) SC SCH ×2 (09:21→21:25)
[2019-08-02] MEDS: Carvedilol 6.25 MG TAB PO SCH ×2 (09:21→11:01)
[2019-08-02] MEDS: Sodium Bicarbonate Tab 325 MG TAB PO SCH ×3 (09:22→21:25)
[2019-08-02] MEDS: hydrALAZINE 25 MG TAB PO SCH ×5 (09:22→21:24)
[2019-08-02] MEDS: NIFEdipine XL 60 MG TAB PO SCH ×2 (09:22→11:01)
[2019-08-02] MEDS ORDERED: Tuberculin PPD 0.1 ML VIAL I-DERMAL SCH ×2 (12:45→14:00)
--- NOTE | 2019-08-02 13:15 | PRG ---
DATE OF SERVICE: 08/02/2019 SUBJECTIVE: Patient was seen and examined at bedside and overnight events noted. Patient denies any shortness of breath or chest pain or palpitation. No history of nausea or vomiting or diarrhea or fever or chills or cramps. OBJECTIVE: GENERAL: This is a well-built male, in no apparent distress. VITAL SIGNS: Temperature 98.3. Heart rate 82. Respiratory rate blood pressure 188/90. HEENT: Atraumatic, normocephalic. Oral mucosa is moist NECK: Supple. CARDIOVASCULAR: S1, S2 heard. Rate and rhythm regular. RESPIRATORY: Clear to auscultation. GASTROINTESTINAL: Abdomen is soft. MUSCULOSKELETAL: No tenderness. No edema. DERMATOLOGIC: No skin rash. NEUROLOGIC: Alert and awake and oriented X3. No focal neurologic deficits. Moving all the extremities. PSYCHIATRIC: Mood and affect normal. LABORATORY DATA: Potassium 4.9, BUN is 87, and creatinine is 9.5. ASSESSMENT AND PLAN: 1. End-stage renal disease. Plan to start on dialysis. I appreciate help from Surgery. 2. Acidosis. 3. Hyponatremia. 4. Edema. 5. Anemia of chronic disease. Plan to continue dialysis as tolerated. Follow with Case Management for outpatient placement. Job ID: [id number]
[2019-08-02] MEDS ORDERED: hydrALAZINE 25 MG TAB PO SCH ×2 (14:00→17:15)
[2019-08-02] MEDS: HumaLOG 300 UNITS/3 ML VIAL SC PRN (15:48)
[2019-08-02] MEDS ORDERED: CEFAZOLIN 2 GM in Premix Bag 1 BAG IVPB SCH (18:00)
--- NOTE | 2019-08-02 19:28 | PDOC.CPN ---
- Subjective Date: 08/02/19 Time: 19:32 Interval history: The pt seen and examined. No overnight events. No cardiac complaints. - Objective Allergies/Adverse Reactions: Allergies Allergy/AdvReac Type Severity Reaction Status Date / Time No Known Drug Allergies Allergy Verified 07/31/19 07:27 Visit Medications: Current Medications Acetaminophen (Tylenol) 1,000 mg PO Q6H PRN PRN Reason: Moderate to Severe Pain (6-10) Albuterol Sulfate (Ventolin) 2.5 mg NEB [id number] PRN PRN Reason: SOB &/or Wheezing Albuterol/Ipratropium (Duoneb) 3 ml NEB [id number] [facility] Last Admin: 08/02/19 19:17 Dose: 3 ml Aspirin (Ecotrin) 81 mg PO DAILY [facility] Last Admin: 08/02/19 08:04 Dose: 81 mg Atorvastatin Calcium (Lipitor) 20 mg PO HS [facility] Calcium Acetate (Phoslo) 1,334 mg PO TID-WM [facility] Last Admin: 08/02/19 15:47 Dose: 1,334 mg Carvedilol (Coreg) 25 mg PO BID [facility] Dextrose/Water (Dextrose 50%) 25 gm SLOW IVP PRN PRN PRN Reason: Hypoglycemia Dextrose/Water (Dextrose 50%) 25 gm SLOW IVP PRN PRN PRN Reason: Hypoglycemia Epoetin Quincy-epbx (Retacrit) 10,000 unit IVP MoWeFr [facility] Glucagon (Glucagon) 1 mg IM PRN PRN PRN Reason: Hypoglycemia Hydralazine HCl (Apresoline) 50 mg PO TID [facility] Dextrose/Water (D5w) 1,000 mls @ 0 mls/hr IV .Q0M PRN PRN Reason: Hypoglycemia Nicardipine HCl 25 mg/ Sodium (Chloride) 250 mls @ 0 mls/hr IVPB INF CAROLY[facility]; Protocol Last Admin: 07/31/19 17:02 Dose: 250 mls Cefazolin Sodium/Dextrose 2 gm (/ Device) 50 mls @ 100 mls/hr IVPB ONCALL-OR [facility] Stop: 08/03/19 23:59 Insulin Human Isoph/Insulin Regular (Humulin 70/30) 25 units SC HS [facility] Last Admin: 08/01/19 19:44 Dose: 25 unit Insulin Human Isoph/Insulin Regular (Humulin 70/30) 20 units SC QAM [facility] Last Admin: 08/02/19 09:21 Dose: Not Given Insulin Human Lispro (Humalog) 0 units SC .MODERATE SLIDING SC PRN PRN Reason: Moderate Correctional Scale Last Admin: 08/01/19 18:22 Dose: 4 units Insulin Human Lispro (Humalog) 0 units SC .AGGRESSIVE SLIDING PRN PRN Reason: Aggressive Correctional Scale Last Admin: 08/02/19 15:48 Dose: 6 unit Nifedipine (Procardia Xl) 60 mg PO DAILY [facility] Last Admin: 08/02/19 11:01 Dose: 60 mg Read Ppd Test Site 0 each PO 0900 [facility] Stop: 08/04/19 09:01 Ondansetron HCl (Zofran Odt) 4 mg PO Q6H PRN PRN Reason: Nausea/Vomiting Sodium Bicarbonate (Bicarbonate, Sodium) 650 mg PO TID [facility] Last Admin: 08/02/19 15:47 Dose: 650 mg Tramadol HCl (Ultram) 50 mg PO Q4H PRN PRN Reason: Severe Pain (7-10) Vital Signs & Weight: Vital Signs Temp Pulse Resp BP BP Pulse Ox 08/02/19 19:17 88 16 98 08/02/19 16:49 98.7 F 79 10 L 167/79 H 99 08/02/19 15:11 80 18 08/02/19 14:09 77 172/84 H 08/02/19 13:56 77 172/84 H 08/02/19 11:13 98.3 F 08/02/19 11:07 77 20 08/02/19 11:01 76 194/89 H 08/02/19 10:57 76 194/89 H 08/02/19 08:00 98.2 F 08/02/19 07:45 98 08/02/19 07:44 71 16 Weight 180 lb 1.883 oz - Physical Exam General: alert & oriented x3 HEENT: mucus membranes moist Neck: supple neck Cardiac: regular rate and rhythm, S1/S2 Lungs: clear to auscultation, decreased breath sounds Neuro: cranial nerve 2-12 intact Abdomen: unremarkable Extremities: other: (swelling Lt arm) - Labs Result Diagrams: 08/02/19 03:30 Troponin/CKMB Troponin I 0.411 ng/mL (< 0.028) H* 07/31/19 15:36 - Telemetry Sinus rhythms and dysrhythmias: other (SR with 1st AVB) - Assessment/Plan Assessment/Plan: 1. Acute on chronic Systolic HF with EF 35-40% - Stable; on Coreg; on HD; not on DIANA/ARB due to hx of CKD 2. HTN - Coreg was increased to 25mg BID and Hydralazine was increased to 50mg TID from tonight 3. ESRD with HD - 4. DM - 5. COPD - 6. Current Smoker - smoking cessation education given to the pt MAR reviewed * Dr Gonzalez's pt * Echo in 07/2019 with EF 35-40%, akinetic [place], mod LVH, mod dilated LA, mild MR and TR, and dilated IVC * possible cardiac cath by Dr Babin? Pt. seen and eval. by me. I agree with the A/P by the [employer].Chest clear. RRR.Continue to adjust meds for maximal therapy.
[2019-08-02] MEDS: Carvedilol 25 MG TAB PO SCH (21:24)
[2019-08-02] MEDS: Atorvastatin Calcium 20 MG TAB PO SCH (21:24)
[2019-08-03 05:38] LABS: #Eosinphils 0.1 thou/uL (0.0-0.7); #Lymphocytes 1.2 thou/uL (1.20-3.40); #Monocytes 0.6 thou/uL (0.11-0.59); #Neutrophils 5.1 thou/uL (1.40-6.50); %Basophils 0.5 % (0.0-1.0); %Eosinophils 1.9 % (0.0-10.0); %Lymphocytes 16.6 % (21.0-51.0); %Monocytes 7.8 % (0.0-10.0); %Neutrophils 73.1 % (42.0-75.0); Hemoglobin 7.2 g/dL (14.0-18.0); Mean Corpuscular HGB CONC 31.8 g/dL (32.0-36.0); Mean Corpuscular Hemoglobin 26.8 pg (27.0-31.0); Mean Corpuscular Volume 84.2 fL (78.0-98.0); Mean Platelet Volume 9.3 fL (7.4-10.4); Platelet Count 231 thou/uL (130-400); RBC Distribution Width 17.3 % (11.5-14.5); Red Blood Cell (RBC) Count 2.68 mill/uL (4.70-6.10)
[2019-08-03 05:42] LABS: Anion Gap 12 mmol/L (10-20); BUN (Urea Nitrogen) 67 mg/dL (8.4-25.7); Calc. Creatinine Clearance 11 mL/min (70-130); Carbon Dioxide 22 mmol/L (22-29); Chloride 106 mmol/L (98-107); Estimated GFR-MDRD 8; Glucose 259 mg/dL (70-105); Potassium 4.4 mmol/L (3.5-5.1); Sodium 136 mmol/L (136-145)
--- NOTE | 2019-08-03 07:03 | PDOC.FM ---
- Subjective Subjective: pt resting comfortably in bed, denies chest pain/sob - Objective Vital Signs & Weight: Vital Signs (12 hours) Temp Pulse Resp BP BP Pulse Ox 08/03/19 03:15 98.8 F 74 18 173/81 H 99 08/03/19 02:51 18 08/02/19 22:38 74 20 98 08/02/19 21:24 76 156/73 H 08/02/19 19:28 98.2 F 76 18 156/73 H 100 08/02/19 19:17 88 16 98 Weight Weight 82.282 kg Most Recent Monitor Data Heart Rate from ECG 78 NIBP 156/71 NIBP BP-Mean 99 Respiration from ECG 20 SpO2 100 I&O: 08/02/19 08/03/19 08/04/19 06:59 06:59 06:59 Intake Total 1400 760 Output Total 1975 750 Balance -575 10 Result Diagrams: 08/03/19 04:40 08/03/19 04:40 Phys Exam - Physical Examination Constitutional: NAD HEENT: moist MMs Neck: supple Respiratory: clear to auscultation bilateral Cardiovascular: RRR Musculoskeletal: no edema Neurological: moves all 4 limbs Psychiatric: normal affect Dx/Plan (1) Acute exacerbation of CHF (congestive heart failure) Code(s): I50.9 - HEART FAILURE, UNSPECIFIED Status: Acute (2) Acute respiratory failure Code(s): J96.00 - ACUTE RESPIRATORY FAILURE, UNSP W HYPOXIA OR HYPERCAPNIA Status: Acute (3) Chronic kidney disease (CKD) Code(s): N18.9 - CHRONIC KIDNEY DISEASE, UNSPECIFIED Status: Acute (4) Diabetes mellitus Code(s): E11.9 - TYPE 2 DIABETES MELLITUS WITHOUT COMPLICATIONS Status: Acute (5) Hypertensive emergency Code(s): I16.1 - HYPERTENSIVE EMERGENCY Status: Acute (6) Metabolic acidosis Code(s): E87.2 - ACIDOSIS Status: Acute (7) Suspected chronic obstructive pulmonary disease based on initial evaluation Code(s): J44.9 - CHRONIC OBSTRUCTIVE PULMONARY DISEASE, UNSPECIFIED Status: Acute - Plan Plan: Acute respiratory failure 2/2 CHF exacerbation, improved - POA with CXR + for fluid overload, BNP>2000 - Echo reveals EF 35-40%, akinetic apex - lasix 80mg IV BID - Cardiology consulted, considering cath Hypertensive emergency, resolved -BP 220s/120s on arrival, elevated troponin -Nifedipine, BB resumed NSTEMI - elevated on admission, continues to be elevated. - most likely from fluid overload, [facility] is being considered COPD -Patient has 20-30 pack year history. No formal diagnosis of COPD has been made that he is aware of -Scheduled DuoNebs, prn albuterol nebs for wheezing FAUSTINO on CKDIV vs CKDV -not improved -nephro consulted, dialysis initiated TIIDM - insulin 70/30, mod SSI - accuchecks ACHS Non-anion gap metabolic acidosis -Lactic acid 1.6. Continue to monitor bicarb. Normocytic anemia -Iron studies, Hb electrophoresis ordered -Risk factors for colon cancer, patient will need colonoscopy outpatient on discharge. HLD -Continue home medications HTN -Continue home medications First degree heart block - monitor Dispo: dialysis for fluid removal Code: Full PCP: VINCENT Burch in [place] VTE: SCDs
[2019-08-03] MEDS: NIFEdipine XL 60 MG TAB PO SCH ×2 (09:31→20:49)
[2019-08-03] MEDS: Sodium Bicarbonate Tab 325 MG TAB PO SCH ×3 (09:31→20:49)
[2019-08-03] MEDS: Carvedilol 25 MG TAB PO SCH ×2 (09:32→20:49)
[2019-08-03] MEDS: Aspirin 81 mg Enteric Coated Tablet PO SCH (09:32)
[2019-08-03] MEDS: Calcium Acetate 667 MG CAP PO SCH ×3 (09:32→17:17)
[2019-08-03] MEDS: HumuLIN 70/30 (300 UNITS/3 ML VIAL) SC SCH ×2 (09:33→21:51)
[2019-08-03] MEDS: hydrALAZINE 25 MG TAB PO SCH ×3 (11:08→20:48)
[2019-08-03] MEDS: EPOETIN ALFA-EPBX (ESRD) 10,000 UNIT/ML VIAL IVP SCH (12:50)
--- NOTE | 2019-08-03 13:53 | PRG ---
DATE OF SERVICE: 08/03/2019 SUBJECTIVE: Patient was seen and examined at bedside and overnight events noted. Patient denies any shortness of breath or chest pain or palpitation. No history of nausea or vomiting or diarrhea or fever or chills or cramps. OBJECTIVE: GENERAL: This is a well-built male, in no apparent distress. VITAL SIGNS: Temperature 98.2. Heart rate 75. Respiratory rate 18. Blood pressure 211/91. HEENT: Atraumatic, normocephalic. Oral mucosa is moist NECK: Supple. CARDIOVASCULAR: S1, S2 heard. Rate and rhythm regular. RESPIRATORY: Clear to auscultation. GASTROINTESTINAL: Abdomen is soft. MUSCULOSKELETAL: No tenderness. No edema. DERMATOLOGIC: No skin rash. NEUROLOGIC: Alert and awake and oriented X3. No focal neurologic deficits. Moving all the extremities. PSYCHIATRIC: Mood and affect normal. LABORATORY DATA: Potassium is 4.4, BUN is 67, and creatinine is 8.3. ASSESSMENT AND PLAN: 1. End-stage renal disease. Continue on dialysis as tolerated. 2. Acidosis, hyponatremia. 3. Edema. 4. Anemia of chronic disease. 5. Hypertension. We will titrate medication. Plan to continue on dialysis. Follow with Case Management for outpatient placement. Plan to place PD catheter also during this admission as the patient is interested in PD. Job ID: [id number]
--- NOTE | 2019-08-03 15:38 | PDOC.CPN ---
- Subjective Date: 08/03/19 Time: 15:39 Interval history: The pt seen and examined. No overnight events. No cardiac complaints. - Objective Allergies/Adverse Reactions: Allergies Allergy/AdvReac Type Severity Reaction Status Date / Time No Known Drug Allergies Allergy Verified 07/31/19 07:27 Visit Medications: Current Medications Acetaminophen (Tylenol) 1,000 mg PO Q6H PRN PRN Reason: Moderate to Severe Pain (6-10) Albuterol Sulfate (Ventolin) 2.5 mg NEB [id number] PRN PRN Reason: SOB &/or Wheezing Albuterol/Ipratropium (Duoneb) 3 ml NEB D1OH-UI [facility] Last Admin: 08/03/19 14:52 Dose: Not Given Aspirin (Ecotrin) 81 mg PO DAILY [facility] Last Admin: 08/03/19 09:32 Dose: 81 mg Atorvastatin Calcium (Lipitor) 20 mg PO HS [facility] Last Admin: 08/02/19 21:24 Dose: 20 mg Calcium Acetate (Phoslo) 1,334 mg PO TID-WM [facility] Last Admin: 08/03/19 11:25 Dose: Not Given Carvedilol (Coreg) 25 mg PO BID [facility] Last Admin: 08/03/19 09:32 Dose: 25 mg Dextrose/Water (Dextrose 50%) 25 gm SLOW IVP PRN PRN PRN Reason: Hypoglycemia Dextrose/Water (Dextrose 50%) 25 gm SLOW IVP PRN PRN PRN Reason: Hypoglycemia Epoetin Quincy-epbx (Retacrit) 10,000 unit IVP MoWeFr [facility] Last Admin: 08/03/19 12:50 Dose: 10,000 unit Glucagon (Glucagon) 1 mg IM PRN PRN PRN Reason: Hypoglycemia Hydralazine HCl (Apresoline) 100 mg PO TID [facility] Dextrose/Water (D5w) 1,000 mls @ 0 mls/hr IV .Q0M PRN PRN Reason: Hypoglycemia Nicardipine HCl 25 mg/ Sodium (Chloride) 250 mls @ 0 mls/hr IVPB INF [facility]; Protocol Last Admin: 07/31/19 17:02 Dose: 250 mls Cefazolin Sodium/Dextrose 2 gm (/ Device) 50 mls @ 100 mls/hr IVPB ONCALL-OR [facility] Stop: 08/03/19 23:59 Insulin Human Isoph/Insulin Regular (Humulin 70/30) 25 units SC HS [facility] Last Admin: 08/02/19 21:25 Dose: Not Given Insulin Human Isoph/Insulin Regular (Humulin 70/30) 20 units SC QAM [facility] Last Admin: 08/03/19 09:33 Dose: Not Given Insulin Human Lispro (Humalog) 0 units SC .MODERATE SLIDING SC PRN PRN Reason: Moderate Correctional Scale Last Admin: 08/01/19 18:22 Dose: 4 units Insulin Human Lispro (Humalog) 0 units SC .AGGRESSIVE SLIDING PRN PRN Reason: Aggressive Correctional Scale Last Admin: 08/02/19 15:48 Dose: 6 unit Nifedipine (Procardia Xl) 60 mg PO BID [facility] Read Ppd Test Site 0 each PO 0900 [facility] Stop: 08/04/19 09:01 Ondansetron HCl (Zofran Odt) 4 mg PO Q6H PRN PRN Reason: Nausea/Vomiting Sodium Bicarbonate (Bicarbonate, Sodium) 650 mg PO TID [facility] Last Admin: 08/03/19 15:33 Dose: 650 mg Tramadol HCl (Ultram) 50 mg PO Q4H PRN PRN Reason: Severe Pain (7-10) Vital Signs & Weight: Vital Signs Temp Pulse Pulse Pulse Resp BP BP 08/03/19 15:34 76 204/93 H 08/03/19 15:29 98.0 F 76 18 08/03/19 13:01 77 80 226/102 H 08/03/19 11:41 98.2 F 75 18 08/03/19 11:08 76 209/98 H 08/03/19 10:55 76 20 08/03/19 09:31 76 200/93 H 08/03/19 09:10 98.2 F 76 18 08/03/19 08:22 08/03/19 07:38 08/03/19 07:36 78 20 BP BP Pulse Ox 08/03/19 15:34 08/03/19 15:29 204/93 H 99 08/03/19 13:01 190/87 H 08/03/19 11:41 211/91 H 98 08/03/19 11:08 08/03/19 10:55 97 08/03/19 09:31 08/03/19 09:10 200/93 H 99 08/03/19 08:22 99 08/03/19 07:38 98 08/03/19 07:36 98 Weight 181 lb 6.4 oz - Physical Exam General: alert & oriented x3 HEENT: mucus membranes moist Neck: supple neck Cardiac: regular rate and rhythm, S1/S2 Lungs: clear to auscultation Neuro: cranial nerve 2-12 intact Extremities: no edema - Labs Result Diagrams: 08/03/19 04:40 08/03/19 04:40 Troponin/CKMB Troponin I 0.411 ng/mL (< 0.028) H* 07/31/19 15:36 - Telemetry Sinus rhythms and dysrhythmias: sinus rhythm - Assessment/Plan Assessment/Plan: 1. Acute on chronic Systolic HF with EF 35-40% - Stable; on Coreg; on HD; not on DIANA/ARB due to hx of CKD 2. HTN - will increase from 50mg to 100mg TID from tonight 3. ESRD with HD - HD today 4. DM - 5. COPD - stable with RA 6. Current Smoker - smoking cessation education given to the pt MAR reviewed * Dr Gonzalez's pt * Echo in 07/2019 with EF 35-40%, akinetic [place], mod LVH, mod dilated LA, mild MR and TR, and dilated IVC * possible cardiac cath by Dr Gonzalez? Pt. seen and eval. by me. I agree with the A/P by the [employer].Tolerating dialysis. Decreased lower leg edema. Chest clear. RRR. gjmays
[2019-08-03] MEDS: Atorvastatin Calcium 20 MG TAB PO SCH (20:49)
[2019-08-03] MEDS: HumaLOG 300 UNITS/3 ML VIAL SC PRN (22:12)
--- NOTE | 2019-08-04 07:02 | PDOC.FM ---
- Subjective Subjective: pt resting comfortably in bed, denies chest pain or sob - Objective Vital Signs & Weight: Vital Signs (12 hours) Temp Pulse Resp BP BP Pulse Ox 08/04/19 05:15 98.4 F 71 18 153/71 H 96 08/04/19 02:33 75 16 93 L 08/03/19 22:40 68 16 97 08/03/19 20:49 76 168/76 H 08/03/19 20:48 76 168/76 H 08/03/19 20:20 98.6 F 76 18 168/76 H Weight Weight 80.83 kg Most Recent Monitor Data Heart Rate from ECG 78 NIBP 156/71 NIBP BP-Mean 99 Respiration from ECG 20 SpO2 100 I&O: 08/02/19 08/03/19 08/04/19 06:59 06:59 06:59 Intake Total 1400 1240 1100 Output Total 1975 1300 2240 Balance - Result Diagrams: 08/03/19 04:40 08/03/19 04:40 Phys Exam - Physical Examination Constitutional: NAD HEENT: moist MMs Neck: no JVD Respiratory: clear to auscultation bilateral Cardiovascular: no significant murmur Gastrointestinal: no distention Musculoskeletal: no edema, pulses present Psychiatric: normal affect Skin: no rash Dx/Plan (1) Acute exacerbation of CHF (congestive heart failure) Code(s): I50.9 - HEART FAILURE, UNSPECIFIED Status: Acute (2) Acute respiratory failure Code(s): J96.00 - ACUTE RESPIRATORY FAILURE, UNSP W HYPOXIA OR HYPERCAPNIA Status: Acute (3) Chronic kidney disease (CKD) Code(s): N18.9 - CHRONIC KIDNEY DISEASE, UNSPECIFIED Status: Acute (4) Diabetes mellitus Code(s): E11.9 - TYPE 2 DIABETES MELLITUS WITHOUT COMPLICATIONS Status: Acute (5) Hypertensive emergency Code(s): I16.1 - HYPERTENSIVE EMERGENCY Status: Acute (6) Metabolic acidosis Code(s): E87.2 - ACIDOSIS Status: Acute (7) Suspected chronic obstructive pulmonary disease based on initial evaluation Code(s): J44.9 - CHRONIC OBSTRUCTIVE PULMONARY DISEASE, UNSPECIFIED Status: Acute - Plan Plan: Acute respiratory failure 2/2 CHF exacerbation, improved - POA with CXR + for fluid overload, BNP>2000 - Echo reveals EF 35-40%, akinetic apex - lasix 80mg IV BID - Cardiology consulted, considering cath Hypertensive emergency, resolved -BP 220s/120s on arrival, elevated troponin -Nifedipine, BB resumed NSTEMI - elevated on admission, continues to be elevated. - most likely from fluid overload, C is being considered COPD -Patient has 20-30 pack year history. No formal diagnosis of COPD has been made that he is aware of -Scheduled DuoNebs, prn albuterol nebs for wheezing FAUSTINO on CKDIV vs CKDV -not improved -nephro consulted, dialysis initiated TIIDM - insulin 70/30, mod SSI - accuchecks ACHS Non-anion gap metabolic acidosis -Lactic acid 1.6. Continue to monitor bicarb. Normocytic anemia -Iron studies, Hb electrophoresis ordered -Risk factors for colon cancer, patient will need colonoscopy outpatient on discharge. HLD -Continue home medications HTN -Continue home medications First degree heart block - monitor Dispo: set up outpt dialysis Code: Full PCP: VINCENT Burch in [place] VTE: SCDs
[2019-08-04] MEDS: Sodium Bicarbonate Tab 325 MG TAB PO SCH ×3 (08:57→20:33)
[2019-08-04] MEDS: Calcium Acetate 667 MG CAP PO SCH ×3 (08:58→16:48)
[2019-08-04] MEDS: Carvedilol 25 MG TAB PO SCH ×2 (08:58→20:35)
[2019-08-04] MEDS: NIFEdipine XL 60 MG TAB PO SCH ×2 (08:58→20:33)
[2019-08-04] MEDS: Aspirin 81 mg Enteric Coated Tablet PO SCH (08:58)
[2019-08-04] MEDS: hydrALAZINE 25 MG TAB PO SCH ×3 (08:58→20:35)
[2019-08-04] MEDS: HumuLIN 70/30 (300 UNITS/3 ML VIAL) SC SCH ×2 (08:59→21:35)
[2019-08-04] MEDS ORDERED: READ PPD TEST SITE PO SCH (09:00)
[2019-08-04] MEDS ORDERED: Morphine 2 MG/ML SYRINGE ONE (10:16)
[2019-08-04 12:31] LABS: #Eosinphils 0.2 thou/uL (0.0-0.7); #Lymphocytes 0.8 thou/uL (1.20-3.40); #Monocytes 0.4 thou/uL (0.11-0.59); #Neutrophils 4.6 thou/uL (1.40-6.50); %Basophils 0.3 % (0.0-1.0); %Eosinophils 3.4 % (0.0-10.0); %Lymphocytes 13.6 % (21.0-51.0); %Monocytes 7.1 % (0.0-10.0); %Neutrophils 75.5 % (42.0-75.0); White Blood Cell (WBC) Count 6.1 thou/uL (4.8-10.8)
[2019-08-04 12:54] LABS: Anion Gap 11 mmol/L (10-20); BUN (Urea Nitrogen) 33 mg/dL (8.4-25.7); Calc. Creatinine Clearance 16 mL/min (70-130); Calcium 6.7 mg/dL (7.8-10.44); Carbon Dioxide 27 mmol/L (22-29); Chloride 100 mmol/L (98-107); Estimated GFR-MDRD 12; Glucose 227 mg/dL (70-105); Potassium 4.4 mmol/L (3.5-5.1); Sodium 134 mmol/L (136-145)
[2019-08-04 13:03] LABS: Hemoglobin 7.4 g/dL (14.0-18.0); Mean Corpuscular HGB CONC 31.9 g/dL (32.0-36.0); Mean Corpuscular Hemoglobin 26.4 pg (27.0-31.0); Mean Corpuscular Volume 82.8 fL (78.0-98.0); Mean Platelet Volume 9.5 fL (7.4-10.4); Platelet Count 201 thou/uL (130-400); RBC Distribution Width 16.5 % (11.5-14.5); Red Blood Cell (RBC) Count 2.81 mill/uL (4.70-6.10)
[2019-08-04 13:04] LABS: Hypochromia SLIGHT = 6-15 cells (100X) (0-5/hpf); MDiff Complete? YES; Platelet Morphology Comment Appears Adequate; Polychromasia SLIGHT = 2-3 cells (100X) (0-2/hpf); Schistocytes MODERATE= 6-15 cells (100X) (0-1/hpf)
[2019-08-04] MEDS: HumaLOG 300 UNITS/3 ML VIAL SC PRN (13:22)
[2019-08-04 15:10] LABS: Hemoglobin A2 1.8 % (1.8-3.2); Hemoglobin F 0 % (0.0-2.0); Interpretation Note: (.)
--- NOTE | 2019-08-04 15:33 | PRG ---
DATE OF SERVICE: 08/04/2019 SUBJECTIVE: Patient was seen and examined at bedside and overnight events noted. Patient denies any shortness of breath or chest pain or palpitation. No history of nausea or vomiting or diarrhea or fever or chills or cramps. OBJECTIVE: GENERAL: This is a well-built male, in no apparent distress. VITAL SIGNS: Temperature 97.7. Heart rate 69. Respiratory rate 16. Blood pressure 152/72. HEENT: Atraumatic, normocephalic. Oral mucosa is moist NECK: Supple. CARDIOVASCULAR: S1, S2 heard. Rate and rhythm regular. RESPIRATORY: Clear to auscultation. GASTROINTESTINAL: Abdomen is soft. MUSCULOSKELETAL: No tenderness. No edema. DERMATOLOGIC: No skin rash. NEUROLOGIC: Alert and awake and oriented X3. No focal neurologic deficits. Moving all the extremities. PSYCHIATRIC: Mood and affect normal. LABORATORY DATA: Potassium is 4.4, BUN is 33, creatinine is 5.8. ASSESSMENT AND PLAN: 1. End-stage renal disease. Continue on hemodialysis as tolerated. 2. Acidosis, edema. 3. Anemia of chronic disease. 4. History of hypertension. Plan to continue on dialysis. We will have PD catheter if tolerated. Job ID: [id number]
--- NOTE | 2019-08-04 15:44 | PDOC.CPN ---
- Subjective Date: 08/04/19 Time: 15:44 Interval history: No new issues. No angina, no SOB. - Review of Systems General: denies: fever/chills, weight/appetite/sleep changes, night sweats, fatigue Respiratory: denies: cough, congestion, shortness of breath, exercise intolerance Cardiovascular: denies: chest pain, palpitation, edema, paroxysmal nocturnal dyspnea, orthopnea Gastrointestinal: denies: nausea, vomiting, diarrhea, constipation, abd pain, GI bleeding Musculoskeletal: denies: pain, tenderness, stiffness, swelling, arthritis/ arthralgias Neurological: denies: numbness, syncope, seizure, weakness - Objective Allergies/Adverse Reactions: Allergies Allergy/AdvReac Type Severity Reaction Status Date / Time No Known Drug Allergies Allergy Verified 07/31/19 07:27 Visit Medications: Current Medications Acetaminophen (Tylenol) 1,000 mg PO Q6H PRN PRN Reason: Moderate to Severe Pain (6-10) Albuterol Sulfate (Ventolin) 2.5 mg NEB [id number] PRN PRN Reason: SOB &/or Wheezing Albuterol/Ipratropium (Duoneb) 3 ml NEB [id number] [facility] Last Admin: 08/04/19 14:55 Dose: 3 ml Aspirin (Ecotrin) 81 mg PO DAILY [facility] Last Admin: 08/04/19 08:58 Dose: 81 mg Atorvastatin Calcium (Lipitor) 20 mg PO HS [facility] Last Admin: 08/03/19 20:49 Dose: 20 mg Calcium Acetate (Phoslo) 1,334 mg PO TID-[facility] [place] Last Admin: 08/04/19 12:08 Dose: 1,334 mg Carvedilol (Coreg) 25 mg PO BID [facility] Last Admin: 08/04/19 08:58 Dose: 25 mg Dextrose/Water (Dextrose 50%) 25 gm SLOW IVP PRN PRN PRN Reason: Hypoglycemia Dextrose/Water (Dextrose 50%) 25 gm SLOW IVP PRN PRN PRN Reason: Hypoglycemia Epoetin Quincy-epbx (Retacrit) 10,000 unit IVP MoWeFr [facility] Last Admin: 08/03/19 12:50 Dose: 10,000 unit Glucagon (Glucagon) 1 mg IM PRN PRN PRN Reason: Hypoglycemia Hydralazine HCl (Apresoline) 100 mg PO TID [facility] Last Admin: 08/04/19 15:23 Dose: 100 mg Dextrose/Water (D5w) 1,000 mls @ 0 mls/hr IV .Q0M PRN PRN Reason: Hypoglycemia Nicardipine HCl 25 mg/ Sodium (Chloride) 250 mls @ 0 mls/hr IVPB INF [facility]; Protocol Last Admin: 07/31/19 17:02 Dose: 250 mls Insulin Human Isoph/Insulin Regular (Humulin 70/30) 25 units SC HS [facility] Last Admin: 08/03/19 21:51 Dose: Not Given Insulin Human Isoph/Insulin Regular (Humulin 70/30) 20 units SC QAM [facility] Last Admin: 08/04/19 08:59 Dose: Not Given Insulin Human Lispro (Humalog) 0 units SC .AGGRESSIVE SLIDING PRN PRN Reason: Aggressive Correctional Scale Last Admin: 08/04/19 13:22 Dose: 6 unit Insulin Human Lispro (Humalog) 0 units SC .BEDTIME SLIDING SC PRN; Protocol PRN Reason: BEDTIME SLIDING SCALE Last Admin: 08/03/19 22:12 Dose: 3 unit Nifedipine (Procardia Xl) 60 mg PO BID [facility] Last Admin: 08/04/19 08:58 Dose: 60 mg Ondansetron HCl (Zofran Odt) 4 mg PO Q6H PRN PRN Reason: Nausea/Vomiting Sodium Bicarbonate (Bicarbonate, Sodium) 650 mg PO TID [facility] Last Admin: 08/04/19 15:22 Dose: 650 mg Tramadol HCl (Ultram) 50 mg PO Q4H PRN PRN Reason: Severe Pain (7-10) Vital Signs & Weight: Vital Signs Temp Pulse Resp BP BP Pulse Ox 08/04/19 15:25 98.4 F 70 18 168/79 H 99 08/04/19 15:23 70 168/79 H 08/04/19 14:55 70 18 100 08/04/19 11:55 97.7 F 69 16 152/72 H 97 08/04/19 11:33 68 20 100 08/04/19 08:58 78 157/72 H 08/04/19 08:52 98.7 F 78 18 157/72 H 97 08/04/19 08:35 97 08/04/19 07:30 69 18 100 08/04/19 05:15 98.4 F 71 18 153/71 H 96 Weight 178 lb 3.2 oz - Physical Exam General: alert & oriented x3 HEENT: mucus membranes moist Neck: supple neck Cardiac: regular rate and rhythm Lungs: clear to auscultation Neuro: grossly intact Abdomen: active bowel sounds Extremities: 1+ LE edema Skin: clear Musculoskeletal: no pain - Labs Result Diagrams: 08/04/19 12:17 08/04/19 12:17 Troponin/CKMB Troponin I 0.411 ng/mL (< 0.028) H* 07/31/19 15:36 - Telemetry Sinus rhythms and dysrhythmias: sinus rhythm - Assessment/Plan Assessment/Plan: 1. Acute on chronic Systolic HF with EF 35-40% 2. HTN 3. ESRD on HD 4. DM 5. COPD 6. Current Smoker PLAN: - CV stable. - Plan to do fistula tomorrow. - Will need further risk stratification once more stable. Currently asymptomatic. - Currently prohibitive to do LHC given anemia.
--- NOTE | 2019-08-04 16:40 | PRG ---
DATE OF SERVICE: 08/04/2019 Mr. Montero is seen today. Plan is for a right arm dialysis fistula. He reminds me today that he is left-handed. His ultrasound vein mapping reveals a thrombus, iatrogenic, for IV access, left antecubital area. Cephalic vein is superior on the left. Cephalic vein is poor on the right, although there is no thrombus. Basilic vein is superior on the right. Plan is for right arm primary fistula, possible dialysis graft. It is possible he may need a secondary stage basilic vein transposition pending operative findings. He understands risks and benefits and consents. Job ID: [id number]
[2019-08-04] MEDS: Atorvastatin Calcium 20 MG TAB PO SCH (20:35)
[2019-08-05] MEDS: hydrALAZINE 25 MG TAB PO SCH ×3 (05:32→21:04)
[2019-08-05] MEDS: Aspirin 81 mg Enteric Coated Tablet PO SCH (05:33)
[2019-08-05] MEDS: Sodium Bicarbonate Tab 325 MG TAB PO SCH ×3 (05:33→21:03)
[2019-08-05] MEDS: Carvedilol 25 MG TAB PO SCH ×2 (05:33→21:03)
[2019-08-05] MEDS: NIFEdipine XL 60 MG TAB PO SCH ×2 (05:34→21:04)
[2019-08-05] MEDS: Calcium Acetate 667 MG CAP PO SCH ×3 (07:40→19:43)
[2019-08-05] MEDS: HumuLIN 70/30 (300 UNITS/3 ML VIAL) SC SCH ×2 (07:41→21:06)
[2019-08-05 08:07] LABS: #Eosinphils 0.3 thou/uL (0.0-0.7); #Monocytes 0.3 thou/uL (0.11-0.59); #Neutrophils 4.9 thou/uL (1.40-6.50); %Basophils 0.5 % (0.0-1.0); %Eosinophils 4.9 % (0.0-10.0); %Lymphocytes 15.6 % (21.0-51.0); %Neutrophils 75.1 % (42.0-75.0); Hemoglobin 7.4 g/dL (14.0-18.0); Mean Corpuscular HGB CONC 33.6 g/dL (32.0-36.0); Mean Corpuscular Hemoglobin 28.2 pg (27.0-31.0); Mean Platelet Volume 9.2 fL (7.4-10.4); Platelet Count 214 thou/uL (130-400); RBC Distribution Width 16.2 % (11.5-14.5); Red Blood Cell (RBC) Count 2.61 mill/uL (4.70-6.10); White Blood Cell (WBC) Count 6.5 thou/uL (4.8-10.8)
[2019-08-05 08:18] LABS: Anion Gap 13 mmol/L (10-20); BUN (Urea Nitrogen) 30 mg/dL (8.4-25.7); Calc. Creatinine Clearance 18 mL/min (70-130); Calcium 7.2 mg/dL (7.8-10.44); Carbon Dioxide 26 mmol/L (22-29); Chloride 101 mmol/L (98-107); Estimated GFR-MDRD 14; Glucose 146 mg/dL (70-105); Potassium 3.6 mmol/L (3.5-5.1); Sodium 136 mmol/L (136-145)
--- NOTE | 2019-08-05 08:29 | PDOC.FM ---
- Subjective Subjective: pt undergoing fistula creation this morning. no acute events overnight - Objective Vital Signs & Weight: Vital Signs (12 hours) Temp Pulse Resp BP BP Pulse Ox 08/05/19 05:34 68 174/83 H 08/05/19 05:32 68 174/83 H 08/05/19 03:51 98.0 F 68 18 174/83 H 98 08/05/19 02:10 68 16 99 08/04/19 23:48 68 163/77 H 08/04/19 22:10 69 16 98 08/04/19 20:35 74 175/83 H 08/04/19 20:33 74 175/83 H Weight Weight 81.329 kg Most Recent Monitor Data Heart Rate from ECG 78 NIBP 156/71 NIBP BP-Mean 99 Respiration from ECG 20 SpO2 100 I&O: 08/04/19 08/05/19 08/06/19 06:59 06:59 06:59 Intake Total 1415 1520 Output Total 2540 1200 Balance -1125 320 Result Diagrams: 08/05/19 07:34 08/05/19 07:34 Dx/Plan (1) Acute exacerbation of CHF (congestive heart failure) Code(s): I50.9 - HEART FAILURE, UNSPECIFIED Status: Acute (2) Acute respiratory failure Code(s): J96.00 - ACUTE RESPIRATORY FAILURE, UNSP W HYPOXIA OR HYPERCAPNIA Status: Acute (3) Chronic kidney disease (CKD) Code(s): N18.9 - CHRONIC KIDNEY DISEASE, UNSPECIFIED Status: Acute (4) Diabetes mellitus Code(s): E11.9 - TYPE 2 DIABETES MELLITUS WITHOUT COMPLICATIONS Status: Acute (5) Hypertensive emergency Code(s): I16.1 - HYPERTENSIVE EMERGENCY Status: Acute (6) Metabolic acidosis Code(s): E87.2 - ACIDOSIS Status: Acute (7) Suspected chronic obstructive pulmonary disease based on initial evaluation Code(s): J44.9 - CHRONIC OBSTRUCTIVE PULMONARY DISEASE, UNSPECIFIED Status: Acute - Plan Plan: Acute respiratory failure 2/2 CHF exacerbation, improved - POA with CXR + for fluid overload, BNP>2000 - Echo reveals EF 35-40%, akinetic apex - lasix 80mg IV BID - Cardiology consulted, appreciate recs Hypertensive emergency, resolved -BP 220s/120s on arrival, elevated troponin -Nifedipine, BB resumed NSTEMI - trop elevated on admission - most likely from fluid overload COPD -nebs prn CKDV -not improved -nephro consulted, dialysis initiated - R arm fistula today, set up for outpt PD TIIDM - insulin 70/30, mod SSI - accuchecks ACHS Normocytic anemia -Iron studies, Hb electrophoresis ordered -Risk factors for colon cancer, patient will need colonoscopy outpatient on discharge. HLD -Continue home medications HTN -Continue home medications Dispo: set up outpt dialysis Code: Full PCP: VINCENT Burch in [place] VTE: SCDs
[2019-08-05] MEDS ORDERED: Bupivacaine PF 0.5% 30 ML VIAL ONE ×2 (09:18→15:59)
[2019-08-05] MEDS ORDERED: Heparin 10,000 UNITS/1 ML VIAL ONE ×2 (09:49→17:05)
[2019-08-05] MEDS ORDERED: PROPOFOL 200 MG/20 ML VIAL ONE (10:47)
[2019-08-05] MEDS ORDERED: Lidocaine 1% PF 5 ML VIAL ONE ×2 (10:47→16:29)
[2019-08-05] MEDS ORDERED: Lidocaine 1% w/Epinephrine 1:100K 20 ML VIAL ONE (15:59)
[2019-08-05] MEDS ORDERED: Protamine Sulfate 250 MG/25 ML VIAL ONE (15:59)
[2019-08-05] MEDS ORDERED: Ioversol 68 % 50 ML VIAL ONE (15:59)
[2019-08-05] MEDS ORDERED: Heparin 5,000 UNITS/ML VIAL ONE (15:59)
[2019-08-05] MEDS ORDERED: Fentanyl 100 MCG/2 ML VIAL ONE (16:29)
--- NOTE | 2019-08-05 17:01 | PRG ---
DATE OF SERVICE: 08/05/2019 SUBJECTIVE: Patient was seen and examined at bedside and overnight events noted. Patient denies any shortness of breath or chest pain or palpitation. No history of nausea or vomiting or diarrhea or fever or chills or cramps. OBJECTIVE: GENERAL: This is a well-built male, in no apparent distress. VITAL SIGNS: Temperature 97.5. Heart rate 72. Respiratory rate 18. Blood pressure 137/66. HEENT: Atraumatic, normocephalic. Oral mucosa is moist NECK: Supple. CARDIOVASCULAR: S1, S2 heard. Rate and rhythm regular. RESPIRATORY: Clear to auscultation. GASTROINTESTINAL: Abdomen is soft. MUSCULOSKELETAL: No tenderness. No edema. DERMATOLOGIC: No skin rash. NEUROLOGIC: Alert and awake and oriented X3. No focal neurologic deficits. Moving all the extremities. PSYCHIATRIC: Mood and affect normal. LABORATORY DATA: Potassium is 3.6, BUN is 30, and creatinine 5.1. ASSESSMENT AND PLAN: 1. End-stage renal disease. Continue dialysis as tolerated. 2. Edema, controlled. 3. Hypertension. 4. Anemia. We will continue on dialysis as tolerated. Job ID: [id number]
[2019-08-05] MEDS ORDERED: Midazolam HCl 2 mg/2 ml Vial ONE (17:03)
[2019-08-05] MEDS ORDERED: Protamine Sulfate 50 MG/5 ML VIAL ONE (18:33)
[2019-08-05] MEDS ORDERED: Ondansetron HCl/PF 4 MG/2 ML Vial IVP PRN (18:51)
[2019-08-05] MEDS: Atorvastatin Calcium 20 MG TAB PO SCH (21:03)
[2019-08-05] MEDS: EPOETIN ALFA-EPBX (ESRD) 10,000 UNIT/ML VIAL IVP SCH (21:08)
--- NOTE | 2019-08-05 21:44 | OP ---
DATE OF PROCEDURE: 08/05/2019 PREOPERATIVE DIAGNOSIS: End-stage renal disease. POSTOPERATIVE DIAGNOSIS: End-stage renal disease. PROCEDURE: Right arm primary arteriovenous fistula, perforating branch antecubital vein to proximal radial artery outflow primary cephalic vein although communication to the basilic vein. Note cephalic vein on gross exam appeared to be small, although it accepted a coronary dilator up to 3.5. Basilic vein communication left intact due to uncertainty about the more proximal cephalic vein based on vein mapping, we will await to see how it matures. ANESTHESIA: Regional, TIVA. DESCRIPTION OF PROCEDURE: The patient was taken to the operating room where under intravenous sedation and regional anesthesia, right upper extremity was prepared with ChloraPrep and draped in routine fashion. A longitudinal incision was made in the proximal volar forearm below the antecubital fossa, carried down through skin and subcutaneous tissue, antecubital vein dissected free. There seemed to be a larger basilic vein then appreciated on ultrasound vein mapping preoperatively. The perforating branch antecubital vein dissected free and there seemed to be some obstruction when I probed it after dividing branches with clips and spatulating it. There was an acute obstruction as it communicated with the confluence of the cephalic and basilic vein. For this reason, the antecubital vein was dissected free and interrogated, passing coronary dilators from 2 mm to a 3.5 mm coronary dilator without obstruction. It had more than adequate backflow. The patient had been given 6000 units heparin intravenously and antecubital vein proximal artery anastomosis created after an arteriotomy of 2 cm made with using continuous suture of 6-0 Prolene for the anastomosis, released the clamps noting good Doppler signal throughout the cephalic vein outflow. The patient tolerated the procedure well without complications. Good hemostasis noted. The patient given 25 mg of protamine intravenously by Anesthesia. Subcutaneous tissue was approximated with 3-0 Monocryl, skin with subdermal 4-0 Monocryl and Olean glue applied. Job ID: [id number]
[2019-08-05] MEDS ORDERED: HumuLIN 70/30 (300 UNITS/3 ML VIAL) SC SCH ×3 (22:30→23:45)
[2019-08-06] MEDS ORDERED: hydrALAZINE 10 MG TAB PO PRN (00:17)
[2019-08-06 02:19] LABS: Bacteria/HPF None Seen HPF (None Seen); Bilirubin Negative (Negative); Blood, Urine 1+ (Negative); Clarity Clear (Clear); Glucose, Urine (Dipstick) 200 mg/dL (Negative); Leukocyte Negative Leu/uL (Negative); Nitrite Negative (Negative); Protein, Urine (Dipstick) Greater than 600 mg/dL (Neg-Trace); Squamous Epithelial 0-3 HPF (0-3); Urobilinogen Normal mg/dL (Less than 2)
[2019-08-06 02:26] LABS: Anion Gap 11 mmol/L (10-20); BUN (Urea Nitrogen) 22 mg/dL (8.4-25.7); Calc. Creatinine Clearance 21 mL/min (70-130); Calcium 7.1 mg/dL (7.8-10.44); Carbon Dioxide 29 mmol/L (22-29); Chloride 101 mmol/L (98-107); Estimated GFR-MDRD 17; Glucose 178 mg/dL (70-105); Potassium 4.5 mmol/L (3.5-5.1); Sodium 136 mmol/L (136-145)
[2019-08-06 02:46] LABS: Anisocytosis SLIGHT = 6-15 cells (100X) (0-5/hpf); Band 17 % (5-11); Eosinophils 1 % (0-10); Hemoglobin 7.3 g/dL (14.0-18.0); Lymphocytes 1 % (21-51); MDiff Complete? YES; Mean Corpuscular HGB CONC 31.7 g/dL (32.0-36.0); Mean Corpuscular Hemoglobin 26.2 pg (27.0-31.0); Mean Corpuscular Volume 82.6 fL (78.0-98.0); Mean Platelet Volume 9.9 fL (7.4-10.4); Neutrophil 81 % (42-75); Platelet Count 203 thou/uL (130-400); RBC Distribution Width 16.4 % (11.5-14.5); Red Blood Cell (RBC) Count 2.78 mill/uL (4.70-6.10); White Blood Cell (WBC) Count 10.9 thou/uL (4.8-10.8)
--- NOTE | 2019-08-06 06:40 | PDOC.FM ---
- Subjective Subjective: pt resting comfortably in bed, denies chest pain or sob - Objective Vital Signs & Weight: Vital Signs (12 hours) Temp Pulse Resp BP BP Pulse Ox 08/06/19 06:00 99.1 F 08/06/19 03:36 100.5 F H 99 18 165/75 H 98 08/06/19 01:15 101 F H 85 20 156/71 H 08/06/19 00:40 88 175/81 H 08/05/19 23:55 100.7 F H 86 24 H 189/87 H 08/05/19 23:30 98.5 F 87 22 H 08/05/19 23:00 98.5 F 87 24 H 179/79 H 94 L 08/05/19 21:04 74 163/74 H 08/05/19 19:45 97.3 F L 70 20 169/81 H 97 Weight Weight 79.1 kg Most Recent Monitor Data Heart Rate from ECG 78 NIBP 156/71 NIBP BP-Mean 99 Respiration from ECG 20 SpO2 100 I&O: 08/04/19 08/05/19 08/06/19 06:59 06:59 06:59 Intake Total 1415 1520 480 Output Total 2540 1200 350 Balance -1125 320 130 Result Diagrams: 08/06/19 01:41 08/06/19 01:41 Phys Exam - Physical Examination Constitutional: NAD HEENT: moist MMs Neck: no JVD Respiratory: clear to auscultation bilateral Cardiovascular: no significant murmur Gastrointestinal: non-tender Musculoskeletal: pulses present Neurological: moves all 4 limbs Psychiatric: normal affect Dx/Plan (1) Acute exacerbation of CHF (congestive heart failure) Code(s): I50.9 - HEART FAILURE, UNSPECIFIED Status: Acute (2) Acute respiratory failure Code(s): J96.00 - ACUTE RESPIRATORY FAILURE, UNSP W HYPOXIA OR HYPERCAPNIA Status: Acute (3) Chronic kidney disease (CKD) Code(s): N18.9 - CHRONIC KIDNEY DISEASE, UNSPECIFIED Status: Acute (4) Diabetes mellitus Code(s): E11.9 - TYPE 2 DIABETES MELLITUS WITHOUT COMPLICATIONS Status: Acute (5) Hypertensive emergency Code(s): I16.1 - HYPERTENSIVE EMERGENCY Status: Acute (6) Metabolic acidosis Code(s): E87.2 - ACIDOSIS Status: Acute (7) Suspected chronic obstructive pulmonary disease based on initial evaluation Code(s): J44.9 - CHRONIC OBSTRUCTIVE PULMONARY DISEASE, UNSPECIFIED Status: Acute - Plan Plan: Acute respiratory failure 2/2 CHF exacerbation, improved - POA with CXR + for fluid overload, BNP>2000 - Echo reveals EF 35-40%, akinetic apex - lasix 80mg IV BID - Cardiology consulted, appreciate recs Hypertensive emergency, resolved -BP 220s/120s on arrival, elevated troponin -Nifedipine, BB resumed NSTEMI - trop elevated on admission - most likely from fluid overload COPD -nebs prn CKDV -not improved -nephro consulted, dialysis initiated - R arm fistula, set up for outpt PD TIIDM - insulin 70/30, mod SSI - accuchecks ACHS Normocytic anemia -Iron studies, Hb electrophoresis ordered -Risk factors for colon cancer, patient will need colonoscopy outpatient on discharge. HLD -Continue home medications HTN -Continue home medications Dispo: set up outpt dialysis Code: Full PCP: VINCENT Burch in [place] VTE: SCDs
[2019-08-06] MEDS: HumuLIN 70/30 (300 UNITS/3 ML VIAL) SC SCH ×2 (09:27→21:46)
[2019-08-06] MEDS: Calcium Acetate 667 MG CAP PO SCH ×3 (09:28→17:27)
[2019-08-06] MEDS: Aspirin 81 mg Enteric Coated Tablet PO SCH (09:29)
[2019-08-06] MEDS: hydrALAZINE 25 MG TAB PO SCH ×3 (09:29→21:46)
[2019-08-06] MEDS: NIFEdipine XL 60 MG TAB PO SCH ×2 (09:29→21:46)
[2019-08-06] MEDS: Carvedilol 25 MG TAB PO SCH ×2 (09:30→21:46)
[2019-08-06] MEDS: Sodium Bicarbonate Tab 325 MG TAB PO SCH ×3 (09:30→21:45)
--- NOTE | 2019-08-06 10:29 | RAD ---
PORTABLE CHEST ONE VIEW: 08/06/2019 12:47 a.m. HISTORY: Fever and cough. COMPARISON: 08/01/2019 FINDINGS: A right sided dialysis catheter and a left sided central line are again seen. The heart size is enlar ged but stable. Interstitial and alveolar opacities in the lower lung zones show no significant inter telma change. No pneumothoraces or large effusions are seen. POS: [facility]
--- NOTE | 2019-08-06 11:50 | PRG ---
DATE OF SERVICE: 08/06/2019 I have examined the patient and discussed the case with Dr. Felix Garcia. I agree with his assessment and plan. Job ID: [id number]
[2019-08-06] MEDS: HumaLOG 300 UNITS/3 ML VIAL SC PRN ×2 (12:25→21:40)
--- NOTE | 2019-08-06 14:50 | PRG ---
DATE OF SERVICE: 08/06/2019 SUBJECTIVE: Patient was seen and examined at bedside and overnight events noted. Patient denies any shortness of breath or chest pain or palpitation. No history of nausea or vomiting or diarrhea or fever or chills or cramps. OBJECTIVE: GENERAL: This is a well-built male, in no apparent distress. VITAL SIGNS: Temperature 98.2. Heart rate 71. Respiratory rate 18. Blood pressure 138/67. HEENT: Atraumatic, normocephalic. Oral mucosa is moist NECK: Supple. CARDIOVASCULAR: S1, S2 heard. Rate and rhythm regular. RESPIRATORY: Clear to auscultation. GASTROINTESTINAL: Abdomen is soft. MUSCULOSKELETAL: No tenderness. No edema. DERMATOLOGIC: No skin rash. NEUROLOGIC: Alert and awake and oriented X3. No focal neurologic deficits. Moving all the extremities. PSYCHIATRIC: Mood and affect normal. LABORATORY DATA: Potassium 4.5, BUN is 22, creatinine is 4.4. ASSESSMENT AND PLAN: 1. End-stage renal disease. Continue on hemodialysis as tolerated. 2. Edema, we will remove fluid. 3. Hypertension. 4. Anemia of chronic disease. Plan to continue on dialysis as tolerated. Job ID: [id number]
[2019-08-06] MEDS: Atorvastatin Calcium 20 MG TAB PO SCH (21:46)
[2019-08-07 05:31] LABS: Anion Gap 11 mmol/L (10-20); BUN (Urea Nitrogen) 27 mg/dL (8.4-25.7); Calc. Creatinine Clearance 15 mL/min (70-130); Calcium 7.4 mg/dL (7.8-10.44); Carbon Dioxide 27 mmol/L (22-29); Chloride 101 mmol/L (98-107); Estimated GFR-MDRD 12; Glucose 151 mg/dL (70-105); Potassium 4.1 mmol/L (3.5-5.1); Sodium 135 mmol/L (136-145)
[2019-08-07 05:32] LABS: #Eosinphils 0.4 thou/uL (0.0-0.7); #Lymphocytes 0.7 thou/uL (1.20-3.40); #Monocytes 0.6 thou/uL (0.11-0.59); #Neutrophils 4.5 thou/uL (1.40-6.50); %Basophils 0.1 % (0.0-1.0); %Eosinophils 5.9 % (0.0-10.0); %Lymphocytes 12.1 % (21.0-51.0); %Monocytes 9.3 % (0.0-10.0); %Neutrophils 72.5 % (42.0-75.0); Hemoglobin 6.9 g/dL (14.0-18.0); Mean Corpuscular HGB CONC 31.8 g/dL (32.0-36.0); Mean Corpuscular Hemoglobin 26.8 pg (27.0-31.0); Mean Corpuscular Volume 84.3 fL (78.0-98.0); Mean Platelet Volume 9.4 fL (7.4-10.4); Platelet Count 201 thou/uL (130-400); RBC Distribution Width 16.4 % (11.5-14.5); Red Blood Cell (RBC) Count 2.59 mill/uL (4.70-6.10); White Blood Cell (WBC) Count 6.1 thou/uL (4.8-10.8)
--- NOTE | 2019-08-07 06:42 | PDOC.FM ---
- Subjective Subjective: pt resting comfortably in bed, denies fever/chills, sob - Objective Vital Signs & Weight: Vital Signs (12 hours) Temp Pulse Resp BP BP Pulse Ox 08/07/19 03:52 98.5 F 69 16 142/68 H 94 L 08/06/19 21:46 76 183/85 H 08/06/19 20:00 99.8 F H 75 16 183/85 H 98 Weight Weight 79.878 kg Most Recent Monitor Data Heart Rate from ECG 78 NIBP 156/71 NIBP BP-Mean 99 Respiration from ECG 20 SpO2 100 I&O: 08/05/19 08/06/19 08/07/19 06:59 06:59 06:59 Intake Total 0620 049 0900 Output Total 1200 350 500 Balance 320 130 700 Result Diagrams: 08/07/19 04:43 08/07/19 04:43 Phys Exam - Physical Examination Constitutional: NAD HEENT: moist MMs Neck: no JVD Respiratory: clear to auscultation bilateral Cardiovascular: no significant murmur Gastrointestinal: no distention Musculoskeletal: no edema Neurological: non-focal Psychiatric: normal affect Skin: no rash Dx/Plan (1) Acute exacerbation of CHF (congestive heart failure) Code(s): I50.9 - HEART FAILURE, UNSPECIFIED Status: Acute (2) Acute respiratory failure Code(s): J96.00 - ACUTE RESPIRATORY FAILURE, UNSP W HYPOXIA OR HYPERCAPNIA Status: Acute (3) Chronic kidney disease (CKD) Code(s): N18.9 - CHRONIC KIDNEY DISEASE, UNSPECIFIED Status: Acute (4) Diabetes mellitus Code(s): E11.9 - TYPE 2 DIABETES MELLITUS WITHOUT COMPLICATIONS Status: Acute (5) Hypertensive emergency Code(s): I16.1 - HYPERTENSIVE EMERGENCY Status: Acute (6) Metabolic acidosis Code(s): E87.2 - ACIDOSIS Status: Acute (7) Suspected chronic obstructive pulmonary disease based on initial evaluation Code(s): J44.9 - CHRONIC OBSTRUCTIVE PULMONARY DISEASE, UNSPECIFIED Status: Acute - Plan Plan: Acute respiratory failure 2/2 CHF exacerbation, improved - POA with CXR + for fluid overload, BNP>2000 - Echo reveals EF 35-40%, akinetic apex - lasix 80mg IV BID - Cardiology consulted, appreciate recs Fever - labs wnl, U/BCx NGTD - monitor and give tylenol Hypertensive emergency, resolved -BP 220s/120s on arrival, elevated troponin -Nifedipine, BB resumed NSTEMI - trop elevated on admission - most likely from fluid overload COPD -nebs prn CKDV -not improved -nephro consulted, dialysis initiated - R arm fistula, set up for outpt PD TIIDM - insulin 70/30, mod SSI - accuchecks ACHS Normocytic anemia -Iron studies, Hb electrophoresis wnl -Risk factors for colon cancer, patient will need colonoscopy outpatient on discharge. - below 7, consider replacement with dialysis HLD -Continue home medications HTN -Continue home medications Dispo: set up outpt dialysis Code: Full PCP: VINCENT Burch in [place] VTE: SCDs
[2019-08-07] MEDS: Calcium Acetate 667 MG CAP PO SCH ×2 (08:56→12:04)
[2019-08-07] MEDS: hydrALAZINE 25 MG TAB PO SCH ×3 (09:00→19:58)
[2019-08-07] MEDS: Aspirin 81 mg Enteric Coated Tablet PO SCH (09:00)
[2019-08-07] MEDS: NIFEdipine XL 60 MG TAB PO SCH ×2 (09:00→19:58)
[2019-08-07] MEDS: Sodium Bicarbonate Tab 325 MG TAB PO SCH ×2 (09:01→15:19)
[2019-08-07] MEDS: Carvedilol 25 MG TAB PO SCH ×2 (09:01→19:57)
[2019-08-07] MEDS: HumuLIN 70/30 (300 UNITS/3 ML VIAL) SC SCH ×2 (09:01→20:00)
[2019-08-07] MEDS: HumaLOG 300 UNITS/3 ML VIAL SC PRN ×3 (09:04→20:54)
--- NOTE | 2019-08-07 10:49 | PRG ---
DATE OF SERVICE: 08/07/2019 I have examined the patient. I have discussed his care with Dr. Felix Garcia and agree with his assessment and plan. Job ID: [id number]
[2019-08-07] MEDS: Isosorbide Dinitrate 20 MG TAB PO SCH ×2 (15:20→19:59)
--- NOTE | 2019-08-07 16:48 | PRG ---
DATE OF SERVICE: 08/07/2019 SUBJECTIVE: Patient was seen and examined at bedside and overnight events noted. Patient denies any shortness of breath or chest pain or palpitation. No history of nausea or vomiting or diarrhea or fever or chills or cramps. OBJECTIVE: GENERAL: This is a well-built male, in no apparent distress. VITAL SIGNS: Temperature 98.2, heart rate 65, respiratory rate 18, and blood pressure 132/65. HEENT: Atraumatic, normocephalic. Oral mucosa is moist NECK: Supple. CARDIOVASCULAR: S1, S2 heard. Rate and rhythm regular. RESPIRATORY: Clear to auscultation. GASTROINTESTINAL: Abdomen is soft. MUSCULOSKELETAL: No tenderness. No edema. DERMATOLOGIC: No skin rash. NEUROLOGIC: Alert and awake and oriented X3. No focal neurologic deficits. Moving all the extremities. PSYCHIATRIC: Mood and affect normal. LABORATORY DATA: Potassium 4.1, BUN is 27, and creatinine is 5.9. ASSESSMENT AND PLAN: 1. End-stage renal disease. Continue on dialysis as tolerated. We will continue dialysis on Thursday, Thursday, and Thursday. 2. Anemia. Plan is to transfuse tomorrow. We will plan for 2 units, but most likely may need only 1 unit. 3. Edema, controlled. 4. Hypertension. 5. Continue KIMBERLY as tolerated. 6. We will consider to have a blood transfusion tomorrow. Job ID: [id number]
[2019-08-07] MEDS: Atorvastatin Calcium 20 MG TAB PO SCH (19:58)
[2019-08-08 04:31] LABS: #Eosinphils 0.3 thou/uL (0.0-0.7); #Lymphocytes 1.1 thou/uL (1.20-3.40); #Monocytes 0.6 thou/uL (0.11-0.59); #Neutrophils 4.3 thou/uL (1.40-6.50); %Basophils 0.3 % (0.0-1.0); %Eosinophils 5.4 % (0.0-10.0); %Lymphocytes 16.7 % (21.0-51.0); %Monocytes 9.4 % (0.0-10.0); %Neutrophils 68.3 % (42.0-75.0); Hemoglobin 6.7 g/dL (14.0-18.0); Mean Corpuscular HGB CONC 31.6 g/dL (32.0-36.0); Mean Corpuscular Hemoglobin 26.6 pg (27.0-31.0); Mean Corpuscular Volume 84.5 fL (78.0-98.0); Mean Platelet Volume 9.5 fL (7.4-10.4); Platelet Count 197 thou/uL (130-400); RBC Distribution Width 16.3 % (11.5-14.5); White Blood Cell (WBC) Count 6.3 thou/uL (4.8-10.8)
[2019-08-08 04:34] LABS: Anion Gap 10 mmol/L (10-20); BUN (Urea Nitrogen) 32 mg/dL (8.4-25.7); Calc. Creatinine Clearance 13 mL/min (70-130); Calcium 7.2 mg/dL (7.8-10.44); Carbon Dioxide 27 mmol/L (22-29); Chloride 99 mmol/L (98-107); Estimated GFR-MDRD 10; Glucose 179 mg/dL (70-105); Potassium 4.4 mmol/L (3.5-5.1); Sodium 132 mmol/L (136-145)
--- NOTE | 2019-08-08 07:11 | PDOC.FM ---
- Subjective Subjective: pt resting comfortably in bed, denies chest pain. reports increasing fatigue/ sob while walking - Objective Vital Signs & Weight: Vital Signs (12 hours) Temp Pulse Resp BP BP BP Pulse Ox 08/08/19 04:20 98.1 F 68 16 131/63 97 08/08/19 00:00 62 18 133/62 97 08/07/19 20:00 98.9 F 75 18 134/65 97 08/07/19 19:58 79 137/65 Weight Weight 80.739 kg Most Recent Monitor Data Heart Rate from ECG 78 NIBP 156/71 NIBP BP-Mean 99 Respiration from ECG 20 SpO2 100 I&O: 08/07/19 08/08/19 08/09/19 06:59 06:59 06:59 Intake Total 1200 1280 Output Total 500 350 Balance 700 930 Result Diagrams: 08/08/19 03:35 08/08/19 03:35 Phys Exam - Physical Examination Constitutional: NAD HEENT: moist MMs Neck: no JVD Respiratory: clear to auscultation bilateral Cardiovascular: no significant murmur Gastrointestinal: no distention Musculoskeletal: pulses present Neurological: moves all 4 limbs Psychiatric: normal affect Skin: no rash Dx/Plan (1) Acute exacerbation of CHF (congestive heart failure) Code(s): I50.9 - HEART FAILURE, UNSPECIFIED Status: Acute (2) Acute respiratory failure Code(s): J96.00 - ACUTE RESPIRATORY FAILURE, UNSP W HYPOXIA OR HYPERCAPNIA Status: Acute (3) Chronic kidney disease (CKD) Code(s): N18.9 - CHRONIC KIDNEY DISEASE, UNSPECIFIED Status: Acute (4) Diabetes mellitus Code(s): E11.9 - TYPE 2 DIABETES MELLITUS WITHOUT COMPLICATIONS Status: Acute (5) Hypertensive emergency Code(s): I16.1 - HYPERTENSIVE EMERGENCY Status: Acute (6) Metabolic acidosis Code(s): E87.2 - ACIDOSIS Status: Acute (7) Suspected chronic obstructive pulmonary disease based on initial evaluation Code(s): J44.9 - CHRONIC OBSTRUCTIVE PULMONARY DISEASE, UNSPECIFIED Status: Acute - Plan Plan: Acute respiratory failure 2/2 CHF exacerbation, improved - POA with CXR + for fluid overload, BNP>2000 - Echo reveals EF 35-40%, akinetic apex - lasix 80mg IV BID - Cardiology consulted, appreciate recs Fever - labs wnl, U/BCx NGTD - monitor and give tylenol Hypertensive emergency, resolved -BP 220s/120s on arrival, elevated troponin -Nifedipine, BB resumed NSTEMI - trop elevated on admission - most likely from fluid overload COPD -nebs prn CKDV -not improved -nephro consulted, dialysis initiated - R arm fistula, set up for outpt TIIDM - insulin 70/30, mod SSI - accuchecks ACHS Normocytic anemia -Iron studies, Hb electrophoresis wnl -Risk factors for colon cancer, patient will need colonoscopy outpatient on discharge. - below 7, transfuse with dialysis today HLD -Continue home medications HTN -Continue home medications Dispo: transfuse with dialysis today, otherwise stable for dc with outpt dialysis Code: Full PCP: VINCENT Burch in [place] VTE: SCDs Addendum - Attending - Attending Attestation Date/Time: 08/08/19 2645 I personally evaluated the patient and discussed the management with Dr. Garcia. I agree with the History, Examination, Assessment and Plan documented above with any addition or exceptions noted below. Seen in dialysis and doing well, in good spirits.
[2019-08-08] MEDS ORDERED: Heparin 10,000 UNITS/1 ML VIAL ONE (09:29)
[2019-08-08] MEDS: EPOETIN ALFA-EPBX (ESRD) 10,000 UNIT/ML VIAL IVP SCH (13:01)
[2019-08-08] MEDS: Aspirin 81 mg Enteric Coated Tablet PO SCH (13:44)
[2019-08-08] MEDS: NIFEdipine XL 60 MG TAB PO SCH ×2 (13:44→20:05)
[2019-08-08] MEDS: Carvedilol 25 MG TAB PO SCH ×2 (13:44→20:05)
[2019-08-08] MEDS: Isosorbide Dinitrate 20 MG TAB PO SCH ×3 (13:45→20:06)
[2019-08-08] MEDS: hydrALAZINE 25 MG TAB PO SCH ×3 (13:45→20:05)
[2019-08-08] MEDS: HumuLIN 70/30 (300 UNITS/3 ML VIAL) SC SCH ×2 (13:45→23:07)
--- NOTE | 2019-08-08 16:30 | PRG ---
DATE OF SERVICE: 08/08/2019 SUBJECTIVE: Patient was seen and examined at bedside and overnight events noted. Patient denies any shortness of breath or chest pain or palpitation. No history of nausea or vomiting or diarrhea or fever or chills or cramps. OBJECTIVE: GENERAL: This is a well-built male, in no apparent distress. VITAL SIGNS: Temperature 97.9. Heart rate 80. Respiratory rate 16. Blood pressure 168/79. HEENT: Atraumatic, normocephalic. Oral mucosa is moist NECK: Supple. CARDIOVASCULAR: S1, S2 heard. Rate and rhythm regular. RESPIRATORY: Clear to auscultation. GASTROINTESTINAL: Abdomen is soft. MUSCULOSKELETAL: No tenderness. No edema. DERMATOLOGIC: No skin rash. NEUROLOGIC: Alert and awake and oriented X3. No focal neurologic deficits. Moving all the extremities. PSYCHIATRIC: Mood and affect normal. LABORATORY DATA: Potassium 4.4, BUN is 32, and creatinine is 6.8. Hemoglobin is 6.7. ASSESSMENT AND PLAN: 1. End-stage renal disease, started on hemodialysis. The patient is also interested in peritoneal dialysis. Plan is to put peritoneal dialysis catheter tomorrow. I did talk with Dr. Shukla. 2. Anemia, status post transfusion. Monitor hemoglobin. 3. Edema, controlled. 4. Hypertension. 5. Overall stable. Had dialysis today, tolerated, was seen during dialysis. Follow with Surgery for PD catheter placement and follow with Case Management for outpatient placement for dialysis. Most likely, the clinic will be ready for him on Thursday. Plan is to have PD catheter tomorrow on 08/09/2019 and dialysis on Thursday and possible discharge if stable. We will follow. Job ID: [id number]
[2019-08-08] MEDS: HumaLOG 300 UNITS/3 ML VIAL SC PRN (17:36)
[2019-08-08] MEDS: Atorvastatin Calcium 20 MG TAB PO SCH (20:06)
[2019-08-09 04:05] LABS: #Eosinphils 0.3 thou/uL (0.0-0.7); #Lymphocytes 1.2 thou/uL (1.20-3.40); #Monocytes 0.7 thou/uL (0.11-0.59); #Neutrophils 5.3 thou/uL (1.40-6.50); %Basophils 0.4 % (0.0-1.0); %Eosinophils 4.2 % (0.0-10.0); %Lymphocytes 16.2 % (21.0-51.0); %Monocytes 9.1 % (0.0-10.0); %Neutrophils 70.2 % (42.0-75.0); Hemoglobin 8.7 g/dL (14.0-18.0); Mean Corpuscular HGB CONC 32.3 g/dL (32.0-36.0); Mean Corpuscular Hemoglobin 27.3 pg (27.0-31.0); Mean Corpuscular Volume 84.4 fL (78.0-98.0); Mean Platelet Volume 9.6 fL (7.4-10.4); Platelet Count 181 thou/uL (130-400); RBC Distribution Width 15.2 % (11.5-14.5); White Blood Cell (WBC) Count 7.6 thou/uL (4.8-10.8)
[2019-08-09 04:23] LABS: Anion Gap 10 mmol/L (10-20); BUN (Urea Nitrogen) 17 mg/dL (8.4-25.7); Calc. Creatinine Clearance 19 mL/min (70-130); Calcium 7.4 mg/dL (7.8-10.44); Carbon Dioxide 30 mmol/L (22-29); Chloride 101 mmol/L (98-107); Estimated GFR-MDRD 15; Glucose 154 mg/dL (70-105); Potassium 4.5 mmol/L (3.5-5.1); Sodium 136 mmol/L (136-145)
--- NOTE | 2019-08-09 06:57 | PDOC.FM ---
- Subjective Subjective: pt out of room for PD catheter placement. no events reported overnight - Objective Vital Signs & Weight: Vital Signs (12 hours) Temp Pulse Resp BP BP Pulse Ox 08/09/19 03:21 98.4 F 69 16 156/75 H 96 08/08/19 23:54 69 157/74 H 08/08/19 20:05 80 165/86 H 08/08/19 20:00 98.5 F 75 18 165/86 H 96 Weight Weight 78.3 kg Most Recent Monitor Data Heart Rate from ECG 78 NIBP 156/71 NIBP BP-Mean 99 Respiration from ECG 20 SpO2 100 I&O: 08/07/19 08/08/19 08/09/19 06:59 06:59 06:59 Intake Total 1200 1280 460 Output Total 500 350 550 Balance 700 930 -90 Result Diagrams: 08/09/19 03:50 08/09/19 03:50 Dx/Plan (1) Acute exacerbation of CHF (congestive heart failure) Code(s): I50.9 - HEART FAILURE, UNSPECIFIED Status: Acute (2) Acute respiratory failure Code(s): J96.00 - ACUTE RESPIRATORY FAILURE, UNSP W HYPOXIA OR HYPERCAPNIA Status: Acute (3) Chronic kidney disease (CKD) Code(s): N18.9 - CHRONIC KIDNEY DISEASE, UNSPECIFIED Status: Acute (4) Diabetes mellitus Code(s): E11.9 - TYPE 2 DIABETES MELLITUS WITHOUT COMPLICATIONS Status: Acute (5) Hypertensive emergency Code(s): I16.1 - HYPERTENSIVE EMERGENCY Status: Acute (6) Metabolic acidosis Code(s): E87.2 - ACIDOSIS Status: Acute (7) Suspected chronic obstructive pulmonary disease based on initial evaluation Code(s): J44.9 - CHRONIC OBSTRUCTIVE PULMONARY DISEASE, UNSPECIFIED Status: Acute - Plan Plan: Acute respiratory failure 2/2 CHF exacerbation, improved - POA with CXR + for fluid overload, BNP>2000 - Echo reveals EF 35-40%, akinetic apex - lasix 80mg IV BID - Cardiology consulted, appreciate recs Fever - labs wnl, U/BCx NGTD - monitor and give tylenol Hypertensive emergency, resolved -BP 220s/120s on arrival, elevated troponin -Nifedipine, BB resumed NSTEMI - trop elevated on admission - most likely from fluid overload COPD -nebs prn CKDV -not improved -nephro consulted, dialysis initiated - R arm fistula, set up for outpt TIIDM - insulin 70/30, mod SSI - accuchecks ACHS Normocytic anemia -Iron studies, Hb electrophoresis wnl -Risk factors for colon cancer, patient will need colonoscopy outpatient on discharge. - hb improved after transfusion HLD -Continue home medications HTN -Continue home medications Dispo: otherwise stable for dc when outpt dialysis available Code: Full PCP: VINCENT Burch in [place] VTE: SCDs Addendum - Attending - Attending Attestation Date/Time: 08/09/19 8684 I personally evaluated the patient and discussed the management with the team. I agree with the History, Examination, Assessment and Plan documented above with any addition or exceptions noted below. Cardiology planning on cath tomorrow d/t low EF and suspicion for vessel disease. PD cath also planned. Patient doing well, without cp/sob/n/v/f/c. Unremarkable CV/plum exam.
[2019-08-09] MEDS: hydrALAZINE 25 MG TAB PO SCH ×3 (07:09→20:50)
[2019-08-09] MEDS: HumuLIN 70/30 (300 UNITS/3 ML VIAL) SC SCH ×2 (07:10→20:55)
[2019-08-09] MEDS: Isosorbide Dinitrate 20 MG TAB PO SCH ×3 (07:10→20:49)
[2019-08-09] MEDS: Carvedilol 25 MG TAB PO SCH ×2 (07:10→20:50)
[2019-08-09] MEDS: Aspirin 81 mg Enteric Coated Tablet PO SCH (07:10)
[2019-08-09] MEDS: NIFEdipine XL 60 MG TAB PO SCH ×2 (07:10→20:49)
[2019-08-09] MEDS ORDERED: Communication Order-Pharmacy FS SCH (10:30)
--- NOTE | 2019-08-09 10:50 | PRG ---
DATE OF SERVICE: 08/09/2019 SUBJECTIVE: Mr. Montero is doing well. No chest pain or pressure. The patient underwent transfusion with 2 units of packed red blood cells yesterday. His hemoglobin is now up to 8.7. OBJECTIVE: VITAL SIGNS: On examination, his blood pressure 145/70 and pulse 68 and regular. LUNGS: Clear. CARDIAC: Normal S1 and normal S2. ABDOMEN: Soft and nontender. EXTREMITIES: Warm and dry. No clubbing or cyanosis. There is no edema. Pedal pulses are palpable. ASSESSMENT: 1. End-stage renal disease. 2. Depressed left ventricular function with ejection fraction 35% to 40% with akinesis of the apex. 3. Hypertension, controlled. 4. Anemia, improved after packed red blood cells. PLAN: Recommend cardiac catheterization to define the coronary anatomy. The echocardiogram suggests coronary artery disease with regional wall motion abnormalities with akinesis of the apex. Discussed risks of catheterization including stroke, heart attack, iodine allergy, loss of blood supply to leg or kidney, stent thrombosis, stent restenosis. Serious complications including even myocardial infarction and . The patient understands and wished to proceed. Also discussed that he is making a small amount of urine, this could reduce his urine output in the future, but however, looks like the patient has end-stage renal disease. Therefore, he will need long-term dialysis regardless whether he has a catheterization or not. Job ID: [id number]
[2019-08-09] MEDS: HumaLOG 300 UNITS/3 ML VIAL SC PRN ×2 (11:29→17:21)
--- NOTE | 2019-08-09 12:56 | PRG ---
DATE OF SERVICE: 08/09/2019 SUBJECTIVE: Patient was seen and examined at bedside and overnight events noted. Patient denies any shortness of breath or chest pain or palpitation. No history of nausea or vomiting or diarrhea or fever or chills or cramps. OBJECTIVE: GENERAL: This is a well-built male, in no apparent distress. VITAL SIGNS: Temperature 97. Heart rate 65. Respiratory rate 16. Blood pressure 134/66. HEENT: Atraumatic, normocephalic. Oral mucosa is moist NECK: Supple. CARDIOVASCULAR: S1, S2 heard. Rate and rhythm regular. RESPIRATORY: Clear to auscultation. GASTROINTESTINAL: Abdomen is soft. MUSCULOSKELETAL: No tenderness. No edema. DERMATOLOGIC: No skin rash. NEUROLOGIC: Alert and awake and oriented X3. No focal neurologic deficits. Moving all the extremities. PSYCHIATRIC: Mood and affect normal. LABORATORY DATA: Potassium is 4.5, BUN is 17, creatinine is 4.7. ASSESSMENT AND PLAN: 1. End-stage renal disease. Continue on hemodialysis as tolerated. 2. Anemia. 3. Edema. 4. Hypertension. The patient refused to have PD dialysis catheter placement. Follow up with Case Management for outpatient placement. We will follow. Job ID: [id number]
--- NOTE | 2019-08-09 17:51 | PRG ---
DATE OF SERVICE: 08/09/2019 Randall Montero is doing well today. He has a good thrill and a bruit in his right arm fistula, placed on 08/05/2019, outflow cephalic vein only, although there is communication in basilic vein retrograde, but anatomically, primary outflow is cephalic vein, inflow proximal radial artery. Dr. Valdovinos contacted me and asked me to consider placing a laparoscopic peritoneal dialysis catheter. The patient, however, did not want to do this at this time, although he is interested in peritoneal dialysis. Dr. Gonzalez is planning cardiac catheterization in the morning. The patient is having dialysis tomorrow. At this point, I will see him as needed. He should follow up in my office in 3 to 4 weeks. At that time, we can discuss peritoneal dialysis. Please call if necessary. Central line should be removed prior to discharge. Job ID: [id number]
[2019-08-09] MEDS: Atorvastatin Calcium 20 MG TAB PO SCH (20:50)
[2019-08-10] MEDS: NIFEdipine XL 60 MG TAB PO SCH (05:37)
[2019-08-10] MEDS: hydrALAZINE 25 MG TAB PO SCH ×3 (05:37→20:47)
[2019-08-10] MEDS: Aspirin 81 mg Enteric Coated Tablet PO SCH (05:37)
[2019-08-10] MEDS: Carvedilol 25 MG TAB PO SCH ×2 (05:38→20:47)
[2019-08-10] MEDS: Isosorbide Dinitrate 20 MG TAB PO SCH ×3 (05:38→20:47)
[2019-08-10] MEDS ORDERED: Diazepam 5 MG TAB PO SCH (06:00)
[2019-08-10] MEDS ORDERED: Sodium Chloride 0.9% 1,000 ML IV SCH (06:00)
[2019-08-10] MEDS ORDERED: Heparin (Artline) 1,000 ML ONE (06:32)
[2019-08-10] MEDS ORDERED: Midazolam HCl 2 mg/2 ml Vial ONE (07:09)
[2019-08-10] MEDS ORDERED: Fentanyl 100 MCG/2 ML VIAL ONE (07:10)
[2019-08-10] MEDS ORDERED: Nitroglycerin 100MG/250ML BOT 0 ML ONE (07:25)
[2019-08-10] MEDS ORDERED: Acetaminophen/Codeine 30-300mg Tablet PO PRN (07:55)
[2019-08-10] MEDS ORDERED: Sodium Chloride 0.9% 200 ML IV PRN (07:55)
[2019-08-10] MEDS ORDERED: Nitroglycerin 0.4 MG TAB (25 Tab Bottle) SL PRN (07:55)
--- NOTE | 2019-08-10 08:12 | PDOC.FM ---
- Subjective Subjective: pt resting comfortably in bed, denies chest pain or sob - Objective Vital Signs & Weight: Vital Signs (12 hours) Temp Pulse Resp BP BP BP Pulse Ox 08/10/19 08:05 97.7 F 63 17 144/73 H 100 08/10/19 05:37 66 162/74 H 08/10/19 03:26 99.2 F 66 18 128/64 97 08/09/19 20:50 71 143/67 H 08/09/19 20:49 71 143/67 H Weight Weight 79.197 kg Most Recent Monitor Data Heart Rate from ECG 78 NIBP 156/71 NIBP BP-Mean 99 Respiration from ECG 20 SpO2 100 I&O: 08/09/19 08/10/19 08/11/19 06:59 06:59 06:59 Intake Total 460 Output Total 550 30 Balance -90 -30 Result Diagrams: 08/11/19 04:40 08/11/19 04:40 Phys Exam - Physical Examination Constitutional: NAD HEENT: moist MMs Respiratory: clear to auscultation bilateral Cardiovascular: RRR Gastrointestinal: no distention Psychiatric: normal affect Dx/Plan (1) Acute exacerbation of CHF (congestive heart failure) Code(s): I50.9 - HEART FAILURE, UNSPECIFIED Status: Acute (2) Acute respiratory failure Code(s): J96.00 - ACUTE RESPIRATORY FAILURE, UNSP W HYPOXIA OR HYPERCAPNIA Status: Acute (3) Chronic kidney disease (CKD) Code(s): N18.9 - CHRONIC KIDNEY DISEASE, UNSPECIFIED Status: Acute (4) Diabetes mellitus Code(s): E11.9 - TYPE 2 DIABETES MELLITUS WITHOUT COMPLICATIONS Status: Acute (5) Hypertensive emergency Code(s): I16.1 - HYPERTENSIVE EMERGENCY Status: Acute (6) Metabolic acidosis Code(s): E87.2 - ACIDOSIS Status: Acute (7) Suspected chronic obstructive pulmonary disease based on initial evaluation Code(s): J44.9 - CHRONIC OBSTRUCTIVE PULMONARY DISEASE, UNSPECIFIED Status: Acute - Plan Plan: Acute respiratory failure 2/2 CHF exacerbation, improved - POA with CXR + for fluid overload, BNP>2000 - Echo reveals EF 35-40%, akinetic apex - lasix 80mg IV BID - Cardiology consulted, appreciate recs - cath today Fever - labs wnl, U/BCx NGTD - monitor and give tylenol Hypertensive emergency, resolved -BP 220s/120s on arrival, elevated troponin -Nifedipine, BB resumed NSTEMI - trop elevated on admission - most likely from fluid overload COPD -nebs prn CKDV -not improved -nephro consulted, dialysis initiated - R arm fistula, set up for outpt TIIDM - insulin 70/30, mod SSI - accuchecks ACHS Normocytic anemia -Iron studies, Hb electrophoresis wnl -Risk factors for colon cancer, patient will need colonoscopy outpatient on discharge. - hb improved after transfusion HLD -Continue home medications HTN -Continue home medications Dispo: cath today, likely dc tomorrow with outpt dialysis placement Code: Full PCP: VINCENT - Dr Burch in [place] VTE: SCDs Addendum - Attending - Attending Attestation Date/Time: 08/11/19 1201 I personally evaluated the patient and discussed the management with Dr. Garcia on 08/10. I agree with the History, Examination, Assessment and Plan documented above with any addition or exceptions noted below.
[2019-08-10 08:41] LABS: #Eosinphils 0.3 thou/uL (0.0-0.7); #Lymphocytes 1.1 thou/uL (1.20-3.40); #Monocytes 0.5 thou/uL (0.11-0.59); #Neutrophils 6.5 thou/uL (1.40-6.50); %Basophils 0.4 % (0.0-1.0); %Eosinophils 3.3 % (0.0-10.0); %Neutrophils 77.3 % (42.0-75.0); Hemoglobin 8.4 g/dL (14.0-18.0); Mean Corpuscular HGB CONC 32.3 g/dL (32.0-36.0); Mean Corpuscular Volume 86.7 fL (78.0-98.0); Platelet Count 188 thou/uL (130-400); RBC Distribution Width 15.2 % (11.5-14.5); Red Blood Cell (RBC) Count 3.01 mill/uL (4.70-6.10); White Blood Cell (WBC) Count 8.3 thou/uL (4.8-10.8)
[2019-08-10 08:57] LABS: Anion Gap 11 mmol/L (10-20); BUN (Urea Nitrogen) 25 mg/dL (8.4-25.7); Calc. Creatinine Clearance 15 mL/min (70-130); Calcium 6.9 mg/dL (7.8-10.44); Carbon Dioxide 27 mmol/L (22-29); Chloride 100 mmol/L (98-107); Estimated GFR-MDRD 12; Glucose 150 mg/dL (70-105); Potassium 4.5 mmol/L (3.5-5.1); Sodium 133 mmol/L (136-145)
[2019-08-10] MEDS ORDERED: Heparin 10,000 UNITS/1 ML VIAL ONE (13:17)
[2019-08-10] MEDS ORDERED: Iopamidol 370 76% 100 ML VIAL ONE (13:28)
[2019-08-10] MEDS: EPOETIN ALFA-EPBX (ESRD) 10,000 UNIT/ML VIAL IVP SCH (14:34)
--- NOTE | 2019-08-10 18:51 | PRG ---
DATE OF SERVICE: 08/10/2019 SUBJECTIVE: Patient was seen and examined at bedside and overnight events noted. Patient denies any shortness of breath or chest pain or palpitation. No history of nausea or vomiting or diarrhea or fever or chills or cramps. OBJECTIVE: GENERAL: This is a well-built male, in no apparent distress. VITAL SIGNS: Temperature 97. Heart rate 70. Respiratory rate 16. Blood pressure 175/84. HEENT: Atraumatic, normocephalic. Oral mucosa is moist NECK: Supple. CARDIOVASCULAR: S1, S2 heard. Rate and rhythm regular. RESPIRATORY: Clear to auscultation. GASTROINTESTINAL: Abdomen is soft. MUSCULOSKELETAL: No tenderness. No edema. DERMATOLOGIC: No skin rash. NEUROLOGIC: Alert and awake and oriented X3. No focal neurologic deficits. Moving all the extremities. PSYCHIATRIC: Mood and affect normal. LABORATORY DATA: Potassium 4.5, BUN is 25, and creatinine is 5.8. ASSESSMENT AND PLAN: 1. End-stage renal disease, continue dialysis as tolerated. 2. Anemia of chronic disease. 3. Edema, we will remove fluid with dialysis. 4. Hypertension. We will titrate medications. Plan to continue on dialysis. We will up titrate blood pressure medications. Job ID: [id number]
[2019-08-10] MEDS: NIFEdipine XL 90 MG TAB PO SCH (20:47)
[2019-08-10] MEDS: Atorvastatin Calcium 20 MG TAB PO SCH (20:48)
[2019-08-11 05:15] LABS: #Eosinphils 0.2 thou/uL (0.0-0.7); #Lymphocytes 1.4 thou/uL (1.20-3.40); #Monocytes 0.6 thou/uL (0.11-0.59); #Neutrophils 6.4 thou/uL (1.40-6.50); %Basophils 0.5 % (0.0-1.0); %Eosinophils 1.8 % (0.0-10.0); %Lymphocytes 15.9 % (21.0-51.0); %Monocytes 7.5 % (0.0-10.0); %Neutrophils 74.3 % (42.0-75.0); Hemoglobin 8.6 g/dL (14.0-18.0); Mean Corpuscular HGB CONC 32.7 g/dL (32.0-36.0); Mean Corpuscular Hemoglobin 28.3 pg (27.0-31.0); Mean Corpuscular Volume 86.6 fL (78.0-98.0); Mean Platelet Volume 9.2 fL (7.4-10.4); Platelet Count 198 thou/uL (130-400); RBC Distribution Width 15.4 % (11.5-14.5); Red Blood Cell (RBC) Count 3.05 mill/uL (4.70-6.10); White Blood Cell (WBC) Count 8.6 thou/uL (4.8-10.8)
[2019-08-11 05:37] LABS: Anion Gap 10 mmol/L (10-20); BUN (Urea Nitrogen) 13 mg/dL (8.4-25.7); Calc. Creatinine Clearance 22 mL/min (70-130); Calcium 7.3 mg/dL (7.8-10.44); Carbon Dioxide 30 mmol/L (22-29); Chloride 98 mmol/L (98-107); Estimated GFR-MDRD 18; Glucose 191 mg/dL (70-105); Potassium 3.8 mmol/L (3.5-5.1); Sodium 134 mmol/L (136-145)
--- NOTE | 2019-08-11 08:34 | PDOC.FM ---
- Subjective Subjective: pt sitting up eating at bedside, denies chest pain or sob - Objective Vital Signs & Weight: Vital Signs (12 hours) Temp Pulse Resp BP Pulse Ox 08/11/19 03:41 98.5 F 69 18 139/66 94 L 08/10/19 20:47 80 Weight Weight 81.4 kg Most Recent Monitor Data Heart Rate from ECG 78 NIBP 156/71 NIBP BP-Mean 99 Respiration from ECG 20 SpO2 100 I&O: 08/10/19 08/11/19 08/12/19 06:59 06:59 06:59 Intake Total 360 Output Total 30 500 Balance -30 -140 Result Diagrams: 08/11/19 04:40 08/11/19 04:40 Phys Exam - Physical Examination Constitutional: NAD HEENT: moist MMs Neck: no JVD Gastrointestinal: no distention Musculoskeletal: no edema Neurological: moves all 4 limbs Psychiatric: normal affect Skin: no rash Dx/Plan (1) Acute exacerbation of CHF (congestive heart failure) Code(s): I50.9 - HEART FAILURE, UNSPECIFIED Status: Acute (2) Acute respiratory failure Code(s): J96.00 - ACUTE RESPIRATORY FAILURE, UNSP W HYPOXIA OR HYPERCAPNIA Status: Acute (3) Chronic kidney disease (CKD) Code(s): N18.9 - CHRONIC KIDNEY DISEASE, UNSPECIFIED Status: Acute (4) Diabetes mellitus Code(s): E11.9 - TYPE 2 DIABETES MELLITUS WITHOUT COMPLICATIONS Status: Acute (5) Hypertensive emergency Code(s): I16.1 - HYPERTENSIVE EMERGENCY Status: Acute (6) Metabolic acidosis Code(s): E87.2 - ACIDOSIS Status: Acute (7) Suspected chronic obstructive pulmonary disease based on initial evaluation Code(s): J44.9 - CHRONIC OBSTRUCTIVE PULMONARY DISEASE, UNSPECIFIED Status: Acute - Plan Plan: Acute respiratory failure 2/2 CHF exacerbation, improved - POA with CXR + for fluid overload, BNP>2000 - Echo reveals EF 35-40%, akinetic apex - lasix 80mg IV BID - Cardiology consulted, appreciate recs - [facility] wnl Hypertensive emergency, resolved -BP 220s/120s on arrival, elevated troponin -Nifedipine, BB resumed NSTEMI - trop elevated on admission - most likely from fluid overload COPD -nebs prn CKDV -not improved -nephro consulted, dialysis initiated - R arm fistula, set up for outpt TIIDM - insulin 70/30, mod SSI - accuchecks ACHS Normocytic anemia -Iron studies, Hb electrophoresis wnl - stable hb HLD -Continue home medications HTN -Continue home medications Dispo: stable for dc when outpt dialysis is available Code: Full PCP: VINCENT - Dr Burch in [place] VTE: SCDs Addendum - Attending - Attending Attestation Date/Time: 08/11/19 1202 I personally evaluated the patient and discussed the management with Dr. Garcia. I agree with the History, Examination, Assessment and Plan documented above with any addition or exceptions noted below. D/c today if possible.
[2019-08-11] MEDS: Isosorbide Dinitrate 20 MG TAB PO SCH ×3 (09:46→21:14)
[2019-08-11] MEDS: Carvedilol 25 MG TAB PO SCH ×2 (09:46→21:14)
[2019-08-11] MEDS: hydrALAZINE 25 MG TAB PO SCH ×3 (09:46→21:14)
[2019-08-11] MEDS: NIFEdipine XL 90 MG TAB PO SCH (09:46)
[2019-08-11] MEDS ORDERED: traMADol HCl 50 MG TAB PO PRN (10:18)
--- NOTE | 2019-08-11 10:49 | PRG ---
DATE OF SERVICE: SUBJECTIVE: Mr. Montero is feeling well. He underwent hemodialysis yesterday. No complaints. His blood pressure was high yesterday, did not get his morning medicines, but pressure this morning was 139/66 and then 165/78. OBJECTIVE: LUNGS: Clear. CARDIAC: Normal S1 and S2. ASSESSMENT: 1. Hypertension with hypertensive heart disease. 2. No obstructive coronary artery disease by catheterization. No significant atherosclerotic disease in the coronaries. 3. Mild peripheral vascular disease. 4. End-stage renal disease. PLAN: The patient is on, 1. Procardia XL 60 mg twice a day. His pressure was high yesterday because he did not get his morning medicines. 2. Coreg 25 mg twice a day. 3. Hydralazine 100 mg 3 times a day. 4. Isosorbide 20 mg 3 times a day. Okay with me to be released home. See us in the office in about 3 weeks. Job ID: [id number]
[2019-08-11] MEDS: HumaLOG 300 UNITS/3 ML VIAL SC PRN (12:10)
[2019-08-11 12:49] VITALS: BMI 25.7
--- NOTE | 2019-08-11 13:06 | PRG ---
DATE OF SERVICE: 08/11/2019 SUBJECTIVE: Patient was seen and examined at bedside and overnight events noted. Patient denies any shortness of breath or chest pain or palpitation. No history of nausea or vomiting or diarrhea or fever or chills or cramps. OBJECTIVE: GENERAL: This is a well-built male, in no acute distress. VITAL SIGNS: Temperature 98.1. Heart rate 68. Respiratory rate 16. Blood pressure 147/70. HEENT: Atraumatic, normocephalic. Oral mucosa is moist NECK: Supple. CARDIOVASCULAR: S1, S2 heard. Rate and rhythm regular. RESPIRATORY: Clear to auscultation. GASTROINTESTINAL: Abdomen is soft. MUSCULOSKELETAL: No tenderness. No edema. DERMATOLOGIC: No skin rash. NEUROLOGIC: Alert and awake and oriented X3. No focal neurologic deficits. Moving all the extremities. PSYCHIATRIC: Mood and affect normal. LABORATORY DATA: Potassium 3.8, BUN is 13, and creatinine is 4.1. ASSESSMENT AND PLAN: 1. End-stage renal disease. Continue dialysis as tolerated. 2. Anemia of chronic disease. 3. Edema, controlled. 4. Hypertension. Follow with Case Management for outpatient dialysis placement. I encouraged the patient to have call the admissions department to give necessary financial information to expedite the discharge process and outpatient dialysis placement, bedside nurse also notified. Job ID: [id number]
[2019-08-11] MEDS: NIFEdipine XL 60 MG TAB PO SCH (21:14)
[2019-08-11] MEDS: Atorvastatin Calcium 20 MG TAB PO SCH (21:14)
[2019-08-12 03:58] LABS: #Eosinphils 0.2 thou/uL (0.0-0.7); #Lymphocytes 1.5 thou/uL (1.20-3.40); #Monocytes 0.7 thou/uL (0.11-0.59); %Basophils 0.5 % (0.0-1.0); %Eosinophils 2.5 % (0.0-10.0); %Lymphocytes 15.4 % (21.0-51.0); %Monocytes 7.3 % (0.0-10.0); %Neutrophils 74.2 % (42.0-75.0); Hemoglobin 8.7 g/dL (14.0-18.0); Mean Corpuscular HGB CONC 32.2 g/dL (32.0-36.0); Mean Corpuscular Hemoglobin 27.6 pg (27.0-31.0); Mean Platelet Volume 9.5 fL (7.4-10.4); Platelet Count 185 thou/uL (130-400); RBC Distribution Width 15.9 % (11.5-14.5); Red Blood Cell (RBC) Count 3.14 mill/uL (4.70-6.10); White Blood Cell (WBC) Count 9.4 thou/uL (4.8-10.8)
[2019-08-12 04:17] LABS: Anion Gap 10 mmol/L (10-20); BUN (Urea Nitrogen) 18 mg/dL (8.4-25.7); Calc. Creatinine Clearance 17 mL/min (70-130); Carbon Dioxide 28 mmol/L (22-29); Chloride 97 mmol/L (98-107); Estimated GFR-MDRD 14; Glucose 132 mg/dL (70-105); Potassium 3.9 mmol/L (3.5-5.1); Sodium 131 mmol/L (136-145)
--- NOTE | 2019-08-12 08:24 | PDOC.FM ---
- Subjective Subjective: pt eating at bedside, denies cp or sob - Objective Vital Signs & Weight: Vital Signs (12 hours) Temp Pulse Resp BP BP Pulse Ox 08/12/19 07:34 97.7 F 67 16 167/79 H 99 08/12/19 03:39 98 F 68 18 149/71 H 97 08/11/19 21:14 73 Weight Admit Weight 83.3 kg Weight 81 kg Most Recent Monitor Data Heart Rate from ECG 78 NIBP 156/71 NIBP BP-Mean 99 Respiration from ECG 20 SpO2 100 I&O: 08/11/19 08/12/19 08/13/19 06:59 06:59 06:59 Intake Total 360 970 Output Total 500 Balance -140 970 Result Diagrams: 08/12/19 03:45 08/12/19 03:45 Phys Exam - Physical Examination Constitutional: NAD HEENT: moist MMs Neck: no JVD Gastrointestinal: no distention Musculoskeletal: no edema Neurological: moves all 4 limbs Psychiatric: normal affect Skin: no rash Dx/Plan (1) Acute exacerbation of CHF (congestive heart failure) Code(s): I50.9 - HEART FAILURE, UNSPECIFIED Status: Acute (2) Acute respiratory failure Code(s): J96.00 - ACUTE RESPIRATORY FAILURE, UNSP W HYPOXIA OR HYPERCAPNIA Status: Acute (3) Chronic kidney disease (CKD) Code(s): N18.9 - CHRONIC KIDNEY DISEASE, UNSPECIFIED Status: Acute (4) Diabetes mellitus Code(s): E11.9 - TYPE 2 DIABETES MELLITUS WITHOUT COMPLICATIONS Status: Acute (5) Hypertensive emergency Code(s): I16.1 - HYPERTENSIVE EMERGENCY Status: Acute (6) Metabolic acidosis Code(s): E87.2 - ACIDOSIS Status: Acute (7) Suspected chronic obstructive pulmonary disease based on initial evaluation Code(s): J44.9 - CHRONIC OBSTRUCTIVE PULMONARY DISEASE, UNSPECIFIED Status: Acute - Plan Plan: Acute respiratory failure 2/2 CHF exacerbation, improved - POA with CXR + for fluid overload, BNP>2000 - Echo reveals EF 35-40%, akinetic apex - lasix 80mg IV BID - Cardiology consulted, appreciate recs - [facility] wnl Hypertensive emergency, resolved -BP 220s/120s on arrival, elevated troponin -Nifedipine, BB resumed NSTEMI - trop elevated on admission - most likely from fluid overload COPD -nebs prn CKDV -not improved -nephro consulted, dialysis initiated - R arm fistula, set up for outpt TIIDM - insulin 70/30, mod SSI - accuchecks ACHS Normocytic anemia -Iron studies, Hb electrophoresis wnl - stable hb HLD -Continue home medications HTN -Continue home medications Dispo: stable for dc when outpt dialysis is available Code: Full PCP: VINCENT Burch in [place] VTE: SCDs Addendum - Attending - Attending Attestation Date/Time: 08/12/19 0904 I personally evaluated the patient and discussed the management with Dr. Garcia. I agree with the History, Examination, Assessment and Plan documented above with any addition or exceptions noted below. No cp/sob/n/v/f/c. Still ok for d /c pending dialysis chair outpatient.
[2019-08-12] MEDS: EPOETIN ALFA-EPBX (ESRD) 10,000 UNIT/ML VIAL IVP SCH (12:15)
[2019-08-12] MEDS: hydrALAZINE 25 MG TAB PO SCH ×3 (12:51→21:37)
[2019-08-12] MEDS: Isosorbide Dinitrate 20 MG TAB PO SCH ×3 (12:51→21:38)
[2019-08-12] MEDS: NIFEdipine XL 60 MG TAB PO SCH ×2 (12:58→21:40)
[2019-08-12] MEDS: Carvedilol 25 MG TAB PO SCH ×2 (12:58→21:37)
--- NOTE | 2019-08-12 14:36 | PRG ---
DATE OF SERVICE: 08/12/2019 SUBJECTIVE: Patient was seen and examined at bedside and overnight events noted. Patient denies any shortness of breath or chest pain or palpitation. No history of nausea or vomiting or diarrhea or fever or chills or cramps. OBJECTIVE: GENERAL: This is a well-built man in no apparent distress. VITAL SIGNS: Temperature 97.7. Heart rate 67. Respiratory rate 18. Blood pressure 169/67. HEENT: Atraumatic, normocephalic. Oral mucosa is moist NECK: Supple. CARDIOVASCULAR: S1, S2 heard. Rate and rhythm regular. RESPIRATORY: Clear to auscultation. GASTROINTESTINAL: Abdomen is soft. MUSCULOSKELETAL: No tenderness. No edema. DERMATOLOGIC: No skin rash. NEUROLOGIC: Alert and awake and oriented X3. No focal neurologic deficits. Moving all the extremities. PSYCHIATRIC: Mood and affect normal. LABORATORY DATA: Potassium 3.9, BUN is 18, creatinine is 5.2. ASSESSMENT AND PLAN: 1. End-stage renal disease. Continue dialysis as tolerated. 2. Edema. 3. Hypertension. 4. Anemia. 5. We will continue to monitor renal function. Continue dialysis as tolerated. Follow with Case Management for outpatient placement. Job ID: [id number]
[2019-08-12] MEDS ORDERED: Heparin 10,000 UNITS/ 10 ML VIAL ONE (15:06)
[2019-08-12] MEDS: HumaLOG 300 UNITS/3 ML VIAL SC PRN (17:55)
[2019-08-12] MEDS: Atorvastatin Calcium 20 MG TAB PO SCH (21:37)
[2019-08-13] MEDS: HumaLOG 300 UNITS/3 ML VIAL SC PRN ×2 (05:47→18:02)
[2019-08-13 06:37] LABS: #Eosinphils 0.2 thou/uL (0.0-0.7); #Lymphocytes 1.3 thou/uL (1.20-3.40); #Monocytes 0.6 thou/uL (0.11-0.59); #Neutrophils 7.6 thou/uL (1.40-6.50); %Basophils 0.5 % (0.0-1.0); %Eosinophils 2.1 % (0.0-10.0); %Lymphocytes 13.5 % (21.0-51.0); %Monocytes 5.8 % (0.0-10.0); %Neutrophils 78.1 % (42.0-75.0); Hemoglobin 9.1 g/dL (14.0-18.0); Mean Corpuscular HGB CONC 31.6 g/dL (32.0-36.0); Mean Corpuscular Hemoglobin 27.9 pg (27.0-31.0); Mean Corpuscular Volume 88.2 fL (78.0-98.0); Mean Platelet Volume 9.6 fL (7.4-10.4); Platelet Count 197 thou/uL (130-400); RBC Distribution Width 16.5 % (11.5-14.5); Red Blood Cell (RBC) Count 3.24 mill/uL (4.70-6.10); White Blood Cell (WBC) Count 9.7 thou/uL (4.8-10.8)
[2019-08-13 06:58] LABS: Anion Gap 12 mmol/L (10-20); BUN (Urea Nitrogen) 18 mg/dL (8.4-25.7); Calc. Creatinine Clearance 19 mL/min (70-130); Calcium 7.2 mg/dL (7.8-10.44); Carbon Dioxide 26 mmol/L (22-29); Chloride 101 mmol/L (98-107); Estimated GFR-MDRD 16; Glucose 178 mg/dL (70-105); Potassium 4.6 mmol/L (3.5-5.1); Sodium 134 mmol/L (136-145)
--- NOTE | 2019-08-13 07:46 | PDOC.FM ---
- Subjective Subjective: Seen at bedside. Pt in good spirits today. No new complaints - Objective Vital Signs & Weight: Vital Signs (12 hours) Temp Pulse Resp BP BP BP Pulse Ox 08/13/19 04:30 98.9 F 77 19 172/74 H 96 08/12/19 23:50 98.2 F 77 19 158/77 H 97 08/12/19 21:40 80 08/12/19 21:37 80 08/12/19 21:15 96 08/12/19 20:00 98.4 F 80 20 177/78 H 96 Weight Admit Weight 83.3 kg Weight 77.7 kg Most Recent Monitor Data Heart Rate from ECG 78 NIBP 156/71 NIBP BP-Mean 99 Respiration from ECG 20 SpO2 100 I&O: 08/12/19 08/13/19 08/14/19 06:59 06:59 06:59 Intake Total 970 1050 Balance 970 1050 Result Diagrams: 08/13/19 06:03 08/13/19 06:03 Phys Exam - Physical Examination Constitutional: NAD HEENT: moist MMs Neck: no JVD Respiratory: clear to auscultation bilateral Cardiovascular: RRR, no significant murmur Gastrointestinal: positive bowel sounds Neurological: moves all 4 limbs Psychiatric: A&O x 3 Dx/Plan (1) Acute exacerbation of CHF (congestive heart failure) Code(s): I50.9 - HEART FAILURE, UNSPECIFIED Status: Acute (2) Acute respiratory failure Code(s): J96.00 - ACUTE RESPIRATORY FAILURE, UNSP W HYPOXIA OR HYPERCAPNIA Status: Acute (3) Chronic kidney disease (CKD) Code(s): N18.9 - CHRONIC KIDNEY DISEASE, UNSPECIFIED Status: Acute (4) Diabetes mellitus Code(s): E11.9 - TYPE 2 DIABETES MELLITUS WITHOUT COMPLICATIONS Status: Acute (5) Hypertensive emergency Code(s): I16.1 - HYPERTENSIVE EMERGENCY Status: Acute (6) Metabolic acidosis Code(s): E87.2 - ACIDOSIS Status: Acute (7) Suspected chronic obstructive pulmonary disease based on initial evaluation Code(s): J44.9 - CHRONIC OBSTRUCTIVE PULMONARY DISEASE, UNSPECIFIED Status: Acute - Plan Plan: ESRD - Outpt bed pending -nephro consulted, dialysis initiated Acute respiratory failure 2/2 CHF exacerbation, resolved Hypertensive emergency, resolved -continue current meds NSTEMI, resolved - trop elevated on admission - most likely from fluid overload COPD -nebs prn TIIDM - insulin 70/30, mod SSI - accuchecks ACHS Normocytic anemia - stable hb HLD -Continue home medications HTN -Continue home medications Code: Full PCP: VINCENT Burch in [place] VTE: SCDs Dispo: stable for dc when outpt dialysis is available Addendum - Attending - Attending Attestation Date/Time: 08/13/19 1207 I personally evaluated the patient and discussed the management with Dr. High I agree with the History, Examination, Assessment and Plan documented above with any addition or exceptions noted below.
[2019-08-13] MEDS: NIFEdipine XL 60 MG TAB PO SCH ×2 (08:21→20:43)
[2019-08-13] MEDS: hydrALAZINE 25 MG TAB PO SCH ×3 (08:21→20:44)
[2019-08-13] MEDS: Isosorbide Dinitrate 20 MG TAB PO SCH ×3 (08:21→20:43)
[2019-08-13] MEDS: Carvedilol 25 MG TAB PO SCH ×2 (08:21→20:44)
--- NOTE | 2019-08-13 14:06 | PRG ---
DATE OF SERVICE: 08/13/2019 SUBJECTIVE: Patient was seen and examined at bedside and overnight events noted. Patient denies any shortness of breath or chest pain or palpitation. No history of nausea or vomiting or diarrhea or fever or chills or cramps. OBJECTIVE: GENERAL: This is a well-built male, in no apparent distress. VITAL SIGNS: Temperature 98.2. Heart rate 65. Respiratory rate 18. Blood pressure 133/65. HEENT: Atraumatic, normocephalic. Oral mucosa is moist NECK: Supple. CARDIOVASCULAR: S1, S2 heard. Rate and rhythm regular. RESPIRATORY: Clear to auscultation. GASTROINTESTINAL: Abdomen is soft. MUSCULOSKELETAL: No tenderness. No edema. DERMATOLOGIC: No skin rash. NEUROLOGIC: Alert and awake and oriented X3. No focal neurologic deficits. Moving all the extremities. PSYCHIATRIC: Mood and affect normal. LABORATORY DATA: Potassium 4.6, BUN is 18, creatinine is 4.5. ASSESSMENT AND PLAN: 1. End-stage renal disease. Continue dialysis as tolerated. 2. Edema, we will remove fluid. 3. Hypertension. 4. Anemia. Plan to continue on dialysis as tolerated. Job ID: [id number]
[2019-08-13] MEDS: Atorvastatin Calcium 20 MG TAB PO SCH (20:44)
[2019-08-14 06:44] LABS: #Basophils 0.1 thou/uL (0.0-0.2); #Eosinphils 0.2 thou/uL (0.0-0.7); #Lymphocytes 1.1 thou/uL (1.20-3.40); #Monocytes 0.6 thou/uL (0.11-0.59); %Basophils 0.7 % (0.0-1.0); %Eosinophils 2.2 % (0.0-10.0); %Lymphocytes 12.3 % (21.0-51.0); %Neutrophils 77.8 % (42.0-75.0); Hemoglobin 8.9 g/dL (14.0-18.0); Mean Corpuscular HGB CONC 32.3 g/dL (32.0-36.0); Mean Corpuscular Hemoglobin 28.5 pg (27.0-31.0); Mean Corpuscular Volume 88.2 fL (78.0-98.0); Mean Platelet Volume 9.4 fL (7.4-10.4); Platelet Count 203 thou/uL (130-400); RBC Distribution Width 16.8 % (11.5-14.5); Red Blood Cell (RBC) Count 3.11 mill/uL (4.70-6.10)
--- NOTE | 2019-08-14 06:48 | PDOC.FM ---
- Subjective Subjective: Seen at bedside, no specific complaints. No concerns from pt. - Objective Vital Signs & Weight: Vital Signs (12 hours) Temp Pulse Resp BP BP Pulse Ox 08/14/19 05:00 98.7 F 68 16 162/73 H 98 08/13/19 20:44 66 08/13/19 20:43 66 08/13/19 19:30 98 08/13/19 19:12 97.7 F 66 20 162/75 H 98 Weight Admit Weight 83.3 kg Weight 80.739 kg Most Recent Monitor Data Heart Rate from ECG 78 NIBP 156/71 NIBP BP-Mean 99 Respiration from ECG 20 SpO2 100 I&O: 08/12/19 08/13/19 08/14/19 06:59 06:59 06:59 Intake Total 970 1050 2130 Output Total 80 Balance 970 1050 2049 Result Diagrams: 08/14/19 06:30 08/14/19 06:30 Phys Exam - Physical Examination Constitutional: NAD HEENT: moist MMs Respiratory: clear to auscultation bilateral Cardiovascular: RRR, no significant murmur Gastrointestinal: no distention Musculoskeletal: no edema Neurological: moves all 4 limbs Psychiatric: A&O x 3 Dx/Plan (1) Acute exacerbation of CHF (congestive heart failure) Code(s): I50.9 - HEART FAILURE, UNSPECIFIED Status: Acute (2) Acute respiratory failure Code(s): J96.00 - ACUTE RESPIRATORY FAILURE, UNSP W HYPOXIA OR HYPERCAPNIA Status: Acute (3) Chronic kidney disease (CKD) Code(s): N18.9 - CHRONIC KIDNEY DISEASE, UNSPECIFIED Status: Acute (4) Diabetes mellitus Code(s): E11.9 - TYPE 2 DIABETES MELLITUS WITHOUT COMPLICATIONS Status: Acute (5) Hypertensive emergency Code(s): I16.1 - HYPERTENSIVE EMERGENCY Status: Acute (6) Metabolic acidosis Code(s): E87.2 - ACIDOSIS Status: Acute (7) Suspected chronic obstructive pulmonary disease based on initial evaluation Code(s): J44.9 - CHRONIC OBSTRUCTIVE PULMONARY DISEASE, UNSPECIFIED Status: Acute - Plan Plan: ESRD - Outpt bed pending - continue HD here until he is able to dc Acute respiratory failure 2/2 CHF exacerbation, resolved Hypertensive emergency, resolved NSTEMI, resolved COPD -nebs prn DM2 - insulin 70/30, mod SSI - accuchecks ACHS Normocytic anemia - stable hb HLD -Continue home medications HTN -Continue home medications Code: Full PCP: VINCENT Burch in [place] VTE: SCDs Dispo: stable for dc when outpt dialysis is available Addendum - Attending - Attending Attestation Date/Time: 08/14/19 1116 I personally evaluated the patient and discussed the management with I agree with the History, Examination, Assessment and Plan documented above with any addition or exceptions noted below.Awaiting outpatient chair for dialysis looking at [facility].
[2019-08-14 07:01] LABS: Anion Gap 13 mmol/L (10-20); BUN (Urea Nitrogen) 27 mg/dL (8.4-25.7); Calc. Creatinine Clearance 16 mL/min (70-130); Calcium 7.2 mg/dL (7.8-10.44); Carbon Dioxide 24 mmol/L (22-29); Chloride 100 mmol/L (98-107); Estimated GFR-MDRD 13; Glucose 164 mg/dL (70-105); Potassium 4.9 mmol/L (3.5-5.1); Sodium 132 mmol/L (136-145)
[2019-08-14] MEDS: NIFEdipine XL 60 MG TAB PO SCH ×2 (08:00→20:04)
[2019-08-14] MEDS: Carvedilol 25 MG TAB PO SCH ×2 (08:00→20:02)
[2019-08-14] MEDS: hydrALAZINE 25 MG TAB PO SCH ×3 (08:00→20:03)
[2019-08-14] MEDS: Isosorbide Dinitrate 20 MG TAB PO SCH ×3 (08:00→20:04)
[2019-08-14] MEDS: HumaLOG 300 UNITS/3 ML VIAL SC PRN (11:53)
--- NOTE | 2019-08-14 12:12 | PRG ---
DATE OF SERVICE: 08/14/2019 SUBJECTIVE: Patient was seen and examined at bedside and overnight events noted. Patient denies any shortness of breath or chest pain or palpitation. No history of nausea or vomiting or diarrhea or fever or chills or cramps. OBJECTIVE: GENERAL: This is a well-built male, in no apparent distress. VITAL SIGNS: Temperature 98.4. Heart rate 65. Respiratory rate 18. Blood pressure 145/60. HEENT: Atraumatic, normocephalic. Oral mucosa is moist. NECK: Supple. CARDIOVASCULAR: S1, S2 heard. Rate and rhythm regular. RESPIRATORY: Clear to auscultation. GASTROINTESTINAL: Abdomen is soft. MUSCULOSKELETAL: No tenderness. No edema. DERMATOLOGIC: No skin rash. NEUROLOGIC: Alert and awake and oriented x3. No focal neurologic deficits. Moving all the extremities. PSYCHIATRIC: Mood and affect normal. LABORATORY DATA: Potassium 4.9, BUN is 27, and creatinine is 5.5. ASSESSMENT AND PLAN: 1. End-stage renal disease. Continue on dialysis Thursday, Thursday, and Thursday. 2. Edema, remove fluid. 3. Hypertension. 4. Anemia of chronic disease. Plan to continue on dialysis as tolerated. Job ID: [id number]
[2019-08-14] MEDS: Atorvastatin Calcium 20 MG TAB PO SCH (20:02)
--- NOTE | 2019-08-15 06:26 | PDOC.FM ---
- Subjective Subjective: NAEO. Patient reports he is feeling well this AM. Reports some LE edema but denies any chest pain or SOB. Is ready for dialysis today. - Objective MAR Reviewed: Yes Vital Signs & Weight: Vital Signs (12 hours) Temp Pulse Resp BP BP BP Pulse Ox 08/15/19 00:00 97 08/14/19 23:43 98.5 F 64 18 149/70 H 97 08/14/19 20:04 67 138/67 08/14/19 20:03 67 138/67 08/14/19 20:00 98.2 F 67 18 138/67 95 Weight Admit Weight 83.3 kg Weight 81.1 kg Most Recent Monitor Data Heart Rate from ECG 78 NIBP 156/71 NIBP BP-Mean 99 Respiration from ECG 20 SpO2 100 I&O: 08/13/19 08/14/19 08/15/19 06:59 06:59 06:59 Intake Total 1050 2129 2039 Output Total 80 30 Balance 1050 2049 2009 Result Diagrams: 08/15/19 06:14 08/15/19 06:45 Phys Exam - Physical Examination Constitutional: NAD HEENT: moist MMs Neck: supple, full ROM Respiratory: no wheezing, no rales, no rhonchi, clear to auscultation bilateral Cardiovascular: RRR, no significant murmur Musculoskeletal: edema present (trace pitting edema up to mid calves in B/L LEs) Neurological: non-focal, moves all 4 limbs Psychiatric: normal affect, A&O x 3 Skin: no rash, normal turgor Dx/Plan (1) ESRD (end stage renal disease) on dialysis Code(s): N18.6 - END STAGE RENAL DISEASE; Z99.2 - DEPENDENCE ON RENAL DIALYSIS Status: Acute (2) Suspected chronic obstructive pulmonary disease based on initial evaluation Code(s): J44.9 - CHRONIC OBSTRUCTIVE PULMONARY DISEASE, UNSPECIFIED Status: Acute - Plan Plan: ESRD - Outpt bed pending - continue HD here until he is able to dc COPD -nebs prn DM2 - A1c 6.3 on 07/31. Per home meds take NPH 20U AC but patient reports he - insulin 70/30, mod SSI - accuchecks ACHS Normocytic anemia - Likely 2/2 ESRD - stable hgb since admission HLD -Continue home medications HTN -Continue home medications Acute respiratory failure 2/2 CHF exacerbation, resolved Hypertensive emergency, resolved NSTEMI, resolved Code: Full PCP: VINCENT Burch in [place] VTE: SCDs Dispo: D/c today with plans for HD at [facility] in [place] later this afternoon.
[2019-08-15 06:28] LABS: RBC Distribution Width 16.5 % (11.5-14.5)
[2019-08-15 07:06] LABS: Hemoglobin 8.9 g/dL (14.0-18.0); Red Blood Cell (RBC) Count 3.11 mill/uL (4.70-6.10)
[2019-08-15 07:07] LABS: Mean Corpuscular Volume 88.5 fL (78.0-98.0)
[2019-08-15 07:08] LABS: Mean Corpuscular HGB CONC 32.2 g/dL (32.0-36.0); Mean Corpuscular Hemoglobin 28.5 pg (27.0-31.0); Platelet Count 207 thou/uL (130-400)
[2019-08-15 07:09] LABS: %Neutrophils 74.9 % (42.0-75.0); Mean Platelet Volume 8.9 fL (7.4-10.4)
[2019-08-15 07:10] LABS: %Basophils 0.9 % (0.0-1.0); %Lymphocytes 12.2 % (21.0-51.0)
[2019-08-15 07:11] LABS: #Monocytes 0.7 thou/uL (0.11-0.59)
[2019-08-15 07:12] LABS: #Basophils 0.1 thou/uL (0.0-0.2); #Eosinphils 0.2 thou/uL (0.0-0.7)
[2019-08-15 07:20] LABS: Anion Gap 13 mmol/L (10-20); BUN (Urea Nitrogen) 36 mg/dL (8.4-25.7); Calc. Creatinine Clearance 14 mL/min (70-130); Calcium 7.1 mg/dL (7.8-10.44); Carbon Dioxide 23 mmol/L (22-29); Chloride 98 mmol/L (98-107); Estimated GFR-MDRD 11; Glucose 190 mg/dL (70-105); Potassium 4.9 mmol/L (3.5-5.1); Sodium 129 mmol/L (136-145)
[2019-08-15] MEDS ORDERED: NPH, Human Insulin Isophane 300 UNIT/3 ML VIAL SC SCH (07:30)
[2019-08-15] MEDS: hydrALAZINE 25 MG TAB PO SCH (07:59)
[2019-08-15] MEDS: Isosorbide Dinitrate 20 MG TAB PO SCH (07:59)
[2019-08-15] MEDS: Carvedilol 25 MG TAB PO SCH (07:59)
[2019-08-15 08:59] VITALS: TEMP 98.6
[2019-08-15] MEDS: NIFEdipine XL 60 MG TAB PO SCH (10:29)
[2019-08-15 10:35] VITALS: BP 146/77
--- NOTE | 2019-08-15 11:08 | PRG ---
DATE OF SERVICE: 08/15/2019 SUBJECTIVE: A 59-year-old male, being seen for end-stage renal disease. The patient denied nausea, vomiting, or chest pain. OBJECTIVE: CONSTITUTIONAL: On exam, the patient is awake and alert. VITAL SIGNS: Afebrile. Pulse 64, breathing 16, blood pressure 146/77. GENERAL APPEARANCE AND MENTAL STATUS: Fair. HEAD/NECK: Normocephalic. Atraumatic. EYES: EOMI. No deformity. EARS: Clear. No ulcers. NOSE: Intact. No lesions. MOUTH: Clear. No discharge. THROAT: Clear. No exudate. LUNGS: Clear. No crackles. CARDIAC: S1, S2. No rub. ABDOMEN: Benign. Bowel sounds positive. GENITALIA/RECTUM: Duran absent. BACK/EXTREMITIES: Edema 0+. NEUROLOGICAL: Alert and motor intact. SKIN: LYMPHATICS: LABORATORY DATA: Reviewed. ASSESSMENT AND PLAN: 1. Stage 6 chronic kidney disease, continue hemodialysis. 2. Hypertension, stable. 3. Anemia, stable. 4. Medication based on GFR, appropriate. Job ID: [id number]
--- NOTE | 2019-08-16 11:30 | DIS ---
DATE OF ADMISSION: 07/31/2019 DATE OF DISCHARGE: 08/15/2019 RESIDENT: Angeles Concepcion MD ADMITTING ATTENDING: Juan Griggs MD DISCHARGE ATTENDING: George Haji MD CONSULTS: 1. Cardiology, Dr. Viet Gonzalez. 2. General Surgery, Dr. Jeff Shukla. 3. Nephrology, Dr. Jhony Valdovinos. 4. Pulmonology, Dr. Júnior Flor. PROCEDURES: 1. Left heart catheterization on 07/31/2019, which was notable for normal coronary arteries and 40% stenosis of the right iliac artery, nonobstructive. 2. Renal ultrasound on 07/31/2019, which showed a small anechoic 1.7 cm left renal cyst. 3. Marking ultrasound obtained for dialysis access planning. 4. Echocardiogram on 07/31/2019, which was notable for an ejection fraction estimated at 35% to 40% with an akinetic apex and moderate concentric left ventricular hypertrophy as well as mild dilatation of the left atrium. Mild MR was present without evidence of mitral valve stenosis as well as mild TR. 5. Chest x-ray obtained on 08/01/2019, which was notable for interval placement of a tunneled right IJ hemodialysis catheter and left IJ central venous catheter without evidence of pneumothorax. Right perihilar interstitial alveolar opacities, which may be related to asymmetric pulmonary edema versus pneumonia. A followup resolution recommended. 6. Right IJ cuffed tunneled hemodialysis catheter and left IJ central line placement done on 08/01/2019. 7. Right arm primary arteriovenous fistula, perforating branch antecubital vein to proximal radial artery outflow primary cephalic vein, although communication to the basilic vein. Procedure was done on 08/05/2019. 8. Chest x-ray on 08/06/2019 significant for an enlarged, but stable heart with interstitial alveolar opacities in the lower lung zones showing no significant interval change. No pneumothoraces or large effusions are seen. PRIMARY DIAGNOSES: 1. Acute hypoxic respiratory failure secondary to a congestive heart failure exacerbation. 2. Hypertensive emergency. 3. Dxt-SW-ncrxryxdd myocardial infarction, type 2. 4. Suspected chronic obstructive pulmonary disease. 5. First-degree heart block. 6. Suspected right lower lobe pneumonia. SECONDARY DIAGNOSES: 1. Normocytic anemia. 2. Type 2 diabetes. 3. Hyperlipidemia. 4. Hypertension. DISCHARGE MEDICATIONS: 1. Calcium acetate 1334 mg p.o. t.i.d. with meals. 2. Sodium bicarbonate 650 mg p.o. t.i.d. 3. Lasix 80 mg p.o. b.i.d. 4. Atorvastatin 10 mg p.o. daily. 5. Carvedilol 25 mg p.o. b.i.d. 6. Hydralazine 100 mg p.o. t.i.d. 7. Isordil 20 mg p.o. t.i.d. 8. Nifedipine 60 mg p.o. b.i.d. 9. Nitroglycerin 0.4 mg sublingual q.5 minutes p.r.n. 10. Insulin NPH or Novolin 70/30, 10 units subcu before meals. 11. Novolin 70/30, 6 units subcu at bedtime. DISCONTINUED MEDICATIONS: 1. Novolin 70/30, 20 units subcu before meals. 2. Novolin 70/30, 25 units subcu before meals. 3. Amlodipine 10 mg p.o. daily. HOSPITAL COURSE: The patient is a 59-year-old gentleman with past medical history significant for hypertension, CHF, diabetes mellitus 2, and CKD, who presented to [facility] Emergency Department via transfer from [place] after presenting there with a chief complaint of respiratory distress in association with a productive cough for the last 2 weeks. In addition, the patient noticed that over the course of the week prior to presentation, he had increased edema in his lower extremities. On the night of presentation, the patient reports he woke up acutely short of breath, which prompted his visit to the [place] ER, where he was initially found to be extremely hypertensive with a blood pressure of 225/128 and tachypneic, breathing approximately 30 times a minute. Initially, he was noted to be saturating 100% on CPAP, which had to be placed en route to the ER as the patient was in significant respiratory distress upon arrival of EMS with labored breathing and rales in his bilateral lungs. Upon arrival in the ER, a chest x-ray was obtained, which showed a right hilar infiltrate and routine lab work including a CBC, ABG, CMP, UA, and UDS, were obtained, which were notable for hemoglobin of 9, metabolic acidosis with pH 7.3, pCO2 of 23.9, a PO2 of 83.8, and a bicarb of 11.4, BUN and creatinine of 70 and 9.29. Estimated GFR of 7, a troponin of 0.099 and a BNP of 2930.5. He was therefore given 125 mg of Solu-Medrol, 3 nebulized DuoNebs, IV Zosyn, 160 mg of IV Lasix, 325 of aspirin and placed on a nitroglycerin drip due to his extremely elevated blood pressure. The decision was then made to transfer the patient to [facility] in [place] for continued management. The patient arrived to [facility] on BiPAP and a nitroglycerin drip and was admitted to the ICU for close monitoring of his respiratory status. Later that day, the patient was seen by Pulmonology, Nephrology, and Cardiology for his respiratory distress, acute renal failure and CHF exacerbation with possible NSTEMI as his troponins up trended over the course of the day. Regarding his possible COPD exacerbation, Pulmonology was consulted, who did not feel the patient was suffering from COPD, but actually acute on chronic renal failure with fluid overload in conjunction with a CHF exacerbation, all of which were contributing to his acute respiratory failure. Regarding his acute renal failure on CKD, Nephrology was consulted, who recommended planning to start the patient on hemodialysis and General Surgery, Dr. Jeff Shukla was consulted to obtain hemodialysis access for the patient. On 08/01/2019, temporary dialysis access was placed in the patient's right IJ as noted above, and on 08/05/2019, the patient had a permanent access obtained via a right arm primary AV fistula. The patient was continually dialyzed as per the records of Nephrology for the remainder of his hospital stay and was discharged once accepted at [facility] in [place] for continued outpatient hemodialysis. Regarding his CHF exacerbation and NSTEMI, the patient underwent a right heart catheterization on 07/31/[address] Viet Gonzalez and no coronary artery disease was detected. In addition, he also had an echo obtained on 07/31/2019, which did show a heart failure with reduced ejection fraction estimated to be 35% to 40%. The patient was followed closely by Cardiology for the remainder of his hospital stay. He was aggressively diuresed with both medications and hemodialysis. By the date of discharge, he was stable on the medical floor with no signs of volume overload and was instructed to follow up with cardiac rehab in [place] within 1 to 2 weeks of discharge as well as Dr. Viet Gonzalez on 08/18/2019 at 1:00 p.m. DISPOSITION: Stable. DISCHARGE INSTRUCTIONS: 1. Location: Home. 2. Diet: Heart healthy diet, low-sodium diet, fluid restriction diet, renal diet, diabetic diet. 3. Activity: As tolerated, no restrictions. 4. Followup: The patient was instructed to follow up with his PCP within 10 days of discharge, [facility] clinic at 4:45 p.m. on the date of discharge, Cardiac rehab within 1 to 2 weeks of discharge, Dr. Jeff Shukla within 2 to 3 weeks of discharge, Dr. Júnior Flor when convenient for the patient, and Dr. Jhony Valdovinos as instructed, and Dr. Viet Gonzalez on 08/18/2019 at 1:00 p.m. Job ID: [id number]
== END 2019-08-15 11:51 | disposition home or self-care (01) | DRG 264 ==
LOC: ERS 05:07 → CCU 06:51 → 2NO 08-02 17:06 → T4-B 08-12 21:15
PROVIDERS: ADMIT Family Medicine; ATTEND Family Medicine
PROC: 0JH63XZ Insertion of Tunneled Vascular Access Device into Chest Subcutaneous Tissue and Fascia, Percutaneous Approach (ICD-10-PCS; 2019-08-01)
PROC: 05HN33Z Insertion of Infusion Device into Left Internal Jugular Vein, Percutaneous Approach (ICD-10-PCS; 2019-08-01)
PROC: 05HM33Z Insertion of Infusion Device into Right Internal Jugular Vein, Percutaneous Approach (ICD-10-PCS; 2019-08-01)
PROC: 031B0ZF Bypass Right Radial Artery to Lower Arm Vein, Open Approach (ICD-10-PCS; principal; 2019-08-05)
PROC: 5A1D70Z Performance of Urinary Filtration, Intermittent, Less than 6 Hours Per Day (ICD-10-PCS; 2019-08-05)
PROC: 30233N1 Transfusion of Nonautologous Red Blood Cells into Peripheral Vein, Percutaneous Approach (ICD-10-PCS; 2019-08-08)
PROC: B2111ZZ Fluoroscopy of Multiple Coronary Arteries using Low Osmolar Contrast (ICD-10-PCS; 2019-08-10)
DX: I13.2 Hypertensive heart and chronic kidney disease with heart failure and with stage 5 chronic kidney disease, or end stage renal disease (principal); J96.00 Acute respiratory failure, unspecified whether with hypoxia or hypercapnia; I21.A1 Myocardial infarction type 2; J18.9 Pneumonia, unspecified organism; N18.6 End stage renal disease; I50.23 Acute on chronic systolic (congestive) heart failure; I16.1 Hypertensive emergency; E87.2 Acidosis; N17.9 Acute kidney failure, unspecified; E87.1 Hypo-osmolality and hyponatremia; E11.22 Type 2 diabetes mellitus with diabetic chronic kidney disease; E78.00 Pure hypercholesterolemia, unspecified; I25.10 Atherosclerotic heart disease of native coronary artery without angina pectoris; E87.5 Hyperkalemia; E78.5 Hyperlipidemia, unspecified; J44.9 Chronic obstructive pulmonary disease, unspecified; D63.1 Anemia in chronic kidney disease; I44.0 Atrioventricular block, first degree; F17.210 Nicotine dependence, cigarettes, uncomplicated; Z79.4 Long term (current) use of insulin
CPT/HCPCS: 36415; 36416; 36430; 51702; 71045; 76770; 76942; 80048; 80061; 80306; 81001; 81003; 81015; 82010; 82570; 82728; 82805; 83021; 83036; 83540; 83550; 83970; 84100; 84145; 84540; 85025; 86580; 86704; 86706; 86803; 86850; 86900; 86901; 87040; 87086; 87340; 90935; 93005; 93306; 93454; 93798; 93970; 94640; 94660; 96365; 99152; C1752; C1769; G0257; G0365; J0690; J1644; J1815; J1940; J1956; J2001; J2250; J2270; J2704; J2720; J3010; J7050; J7620; P9016; Q5105; Q9967; S0020

== ENCOUNTER 2019-09-08 07:00 | Day surgery (SDC) | payer OTHER ==
[2019-09-07 08:25] VITALS: BMI 24.4
[2019-09-08] MEDS ORDERED: FLU VACC QS2019-20(6MOS UP)/PF 60 MCG/0.5 ML SYRINGE IM ONE (09:00)
--- NOTE | 2019-09-08 10:06 | SPC ---
Dialysis fistulogram right upper arm Sonographic guided vascular access HISTORY: Renal failure. New right upper arm dialysis fistula FINDINGS: After explaining the procedure and answering all questions, sonographic survey of the right upper arm was performed. A large patent cephalic vein and large patent basilic vein were imaged sonographically. Some collaterals were seen but were not felt to be significant based on sonogram. The arterial anastomosis was seen to be widely patent sonographically. Sterile technique, buffered local anesthesia, sonographic guidance, and a 22-gauge needle were used i n attempts to access the cephalic vein fistula at the level of the antecubital fossa. This location was chosen for best visualization of the entirety of the cephalic fistula and best ability to reflux the antecubital vein, arterial anastomosis, and basilic outflow. Good blood return was obtained with a 22-gauge needle. As wire was placed, however, it would never fo llowed the expected course of the cephalic fistula. The [place] dilator/sheath was carefully placed and a small amount of contrast injected. The catheter tip was not within the cephalic fistula. It may have been within a tiny branch or outside of the vein. Small amount of contrast was used to confirm this. The [place] sheath was removed. Blood immediately began to accumulate under the skin surface and adrien und the cephalic fistula, significantly compressing the lumen. Additional attempts to access the cephalic vein were unsuccessful, likely due to significant luminal compression. Eventually, a total of 4000 units heparin was administered IV due to the luminal compression. Sonographic guidance was then used to access the basilic outflow at the level of the distal humeral s haft. 4 [place] sheath was placed for imaging. The basilic fistula is widely patent with a small collateral vein immediately superior to the main basilic vein. Superior vena cava was patent. Reflux angiography showed limited visualization of the arterial anastomosis, but this was because of the vigorous arterial inflow. The arterial anastomosis was seen to be widely patent at sonography. The antecubital vein was partially opacified, although the cephalic fistula was not well opacified. T he sheath was removed and hemostasis obtained using direct pressure. Patient tolerated the procedure well and was dismissed in good condition. Fluoroscopy time 4.5 minutes. IMPRESSION: Basilic vein and outflow of the dialysis fistula is widely patent on sonography and angio graphy. No evidence of venous outflow obstruction. While the cephalic vein fistula was seen to be widely patent on sonogram, successful access for angio graphy was never achieved. As detailed above, early manipulation with access attempt caused hematoma around the vein and likely compressed the lumen to a point that it was not accessible. The c ause for difficulty in access is not clear, possibly the wire extending into a small collateral. As we go forward, if the cephalic vein matures appropriately, no short-term follow-up imaging would l ikely be necessary. Otherwise, however, please consider repeat fistulogram of the cephalic vein. At that time, access more centrally, at the level of the mid to distal humeral shaft, should be consider ed, as the access at the level of the distal humeral shaft was unsuccessful today.
[2019-09-08] MEDS ORDERED: Iopamidol 300 61% 100 ML VIAL FS ONE (13:27)
== END 2019-09-08 09:40 | disposition home or self-care (01) ==
LOC: SPEC 07:00
PROVIDERS: ATTEND Specialist
PROC: B51W1ZZ Fluoroscopy of Dialysis Shunt/Fistula using Low Osmolar Contrast (ICD-10-PCS; principal; 2019-09-08)
DX: I13.2 Hypertensive heart and chronic kidney disease with heart failure and with stage 5 chronic kidney disease, or end stage renal disease (principal); E11.22 Type 2 diabetes mellitus with diabetic chronic kidney disease; N18.6 End stage renal disease; I50.9 Heart failure, unspecified; D63.1 Anemia in chronic kidney disease; F17.200 Nicotine dependence, unspecified, uncomplicated; E78.5 Hyperlipidemia, unspecified; I25.2 Old myocardial infarction; I25.10 Atherosclerotic heart disease of native coronary artery without angina pectoris; Z79.4 Long term (current) use of insulin; Z79.899 Other long term (current) drug therapy
CPT/HCPCS: 36901; Q9967

== ENCOUNTER 2019-10-18 09:21 | Day surgery (SDC) | payer OTHER ==
--- NOTE | 2019-10-17 08:06 | HP ---
HISTORY OF PRESENT ILLNESS: Randall Montero is a 59-year-old male patient. On August 05, had a right arm fistula established with a small cephalic vein noted. He had a recent fistulogram noting inadequate cephalic vein and basilic vein transposition fistula as necessary. He dialyzes on Thursday, Thursday, and Thursday at 1 to 2 p.m. at [facility] in [place]. He understands the risks and benefits of the procedure and consents. Plan under regional anesthesia, TIVA versus general anesthetic choice. Followed by Dr. Valdovinos, surety bond agent. MEDICATIONS: 1. Carvedilol. 2. . 3. Hydralazine. 4. Insulin. 5. Isosorbide. 6. Nifedipine. PAST MEDICAL HISTORY: End-stage renal disease, on maintenance dialysis; diabetes mellitus; hypertension. PAST SURGICAL HISTORY: Laparoscopic PD catheter catheter placement, right arm fistula on August 05, September 08, 2019. SOCIAL HISTORY: Tobacco cessation. Alcohol, none. Drug use, none. REVIEW OF SYSTEMS: Noncontributory. PHYSICAL EXAMINATION: VITAL SIGNS: 165 pounds, 70 inches, 147/67, heart rate 68, 98.4 degrees. HEAD, EARS, EYES, NOSE, AND THROAT: Unremarkable. LUNGS: Clear to auscultation. No wheezing. CARDIAC: Regular rhythm without murmur or gallop. ABDOMEN: Soft and nontender. EXTREMITIES: Unremarkable. Right upper extremity, good thrill and bruit, basilic vein outflow. Poor cephalic vein structures. ASSESSMENT AND PLAN: End-stage renal disease, needs basilic vein transposition fistula in right arm. Anesthesia is discussed. Risks and benefits discussed. Questions answered. Job ID: [id number]
[2019-10-17 15:43] VITALS: BMI 23.6
[2019-10-18] MEDS ORDERED: Lidocaine 1% PF 5 ML VIAL ONE (10:04)
[2019-10-18] MEDS ORDERED: Ondansetron PF 4 MG/2 ML Vial ONE (10:04)
[2019-10-18] MEDS ORDERED: Glycopyrrolate 0.2 MG/ML 5 ML SYRINGE ONE (10:04)
[2019-10-18] MEDS ORDERED: Rocuronium Bromide 10 MG/ML (10ML VIAL) ONE (10:04)
[2019-10-18] MEDS ORDERED: PROPOFOL 200 MG/20 ML VIAL ONE (10:04)
[2019-10-18 10:11] LABS: #Basophils 0.1 thou/uL (0.0-0.2); #Eosinphils 0.1 thou/uL (0.0-0.7); #Lymphocytes 1.1 thou/uL (1.20-3.40); #Monocytes 0.4 thou/uL (0.11-0.59); #Neutrophils 4.3 thou/uL (1.40-6.50); %Basophils 0.9 % (0.0-1.0); %Eosinophils 2.2 % (0.0-10.0); %Monocytes 6.8 % (0.0-10.0); %Neutrophils 72.2 % (42.0-75.0); Hemoglobin 11.4 g/dL (14.0-18.0); Mean Corpuscular HGB CONC 31.9 g/dL (32.0-36.0); Mean Corpuscular Hemoglobin 28.7 pg (27.0-31.0); Mean Corpuscular Volume 89.8 fL (78.0-98.0); Mean Platelet Volume 9.4 fL (7.4-10.4); Platelet Count 158 thou/uL (130-400); RBC Distribution Width 15.9 % (11.5-14.5); Red Blood Cell (RBC) Count 3.99 mill/uL (4.70-6.10)
[2019-10-18 10:23] LABS: Anion Gap 14 mmol/L (10-20); BUN (Urea Nitrogen) 30 mg/dL (8.4-25.7); Calc. Creatinine Clearance 13 mL/min (70-130); Calcium 8.6 mg/dL (7.8-10.44); Carbon Dioxide 27 mmol/L (22-29); Chloride 102 mmol/L (98-107); Estimated GFR-MDRD 10; Glucose 194 mg/dL (70-105); Potassium 4.2 mmol/L (3.5-5.1); Sodium 139 mmol/L (136-145)
[2019-10-18] MEDS ORDERED: Bupivacaine PF 0.5% 30 ML VIAL ONE (11:28)
[2019-10-18] MEDS ORDERED: Heparin 5,000 UNITS/ML VIAL ONE (11:28)
[2019-10-18] MEDS ORDERED: Protamine Sulfate 50 MG/5 ML VIAL ONE (11:28)
[2019-10-18] MEDS ORDERED: Lidocaine 1% w/Epinephrine 1:100K 20 ML VIAL ONE (11:28)
[2019-10-18] MEDS ORDERED: Fentanyl 250 MCG/5 ML VIAL ONE (11:39)
[2019-10-18] MEDS ORDERED: Bupivacaine 0.25% HCL 30 ML VIAL ONE (12:36)
[2019-10-18] MEDS ORDERED: Heparin 10,000 UNITS/1 ML VIAL ONE (12:43)
--- NOTE | 2019-10-18 15:41 | OP ---
DATE OF PROCEDURE: 10/18/2019 PREOPERATIVE DIAGNOSES: Desires peritoneal dialysis, end-stage renal disease, malfunction of dialysis fistula right arm, and need a basilic vein transposition fistula. POSTOPERATIVE DIAGNOSES: Desires peritoneal dialysis, end-stage renal disease, malfunction of dialysis fistula right arm, and need a basilic vein transposition fistula. PROCEDURES PERFORMED: Laparoscopic peritoneal dialysis catheter. Double cuffed pigtail. Right arm basilic vein transposition fistula. ANESTHESIA: General, local 0.5% Marcaine 30 mL mixed with 0.25% Marcaine with 30 mL mixed with 1% Xylocaine with epinephrine 20 mL. DESCRIPTION OF PROCEDURE: The patient was taken to the operating room, where under general anesthesia, abdomen and right upper extremity were prepared with ChloraPrep and draped in routine fashion. Local anesthetic was infiltrated in the skin and subcutaneous tissue about the operative sites. Bilateral subcostal far lateral incision was made. Pneumoperitoneum to 15 mmHg was obtained with a Veress needle, replaced with a 5 port, video laparoscope inserted. There were omental adhesions to the upper abdomen, preventing the omentum reach into the pelvis. Thus, omentopexy was not necessary. A stab incision was made in the left lower quadrant, and a counter incision was made periumbilical. An 8 mm port was placed under laparoscopic visualization directed caudally in the subcutaneous tissue of the rectus sheath, penetrating the abdominal wall inferiorly and caudally and threading the double cuffed pigtail peritoneal dialysis catheter through this port, placing the internal cuff in the rectus sheath and removed with an 8 mm port. Through the counter incision, [place] dissected was placed through the planned exit site into the counter incision. The [place] dissector was placed grasping the catheter placed in external cuff beneath the skin exit site. Subcutaneous tissue was approximated with 4-0 Monocryl, skin with subdermal 4-0 Monocryl and catheter was flushed with heparinized saline solution 1000 units of heparin per mL, 10 mL, and sterile dressing applied as pneumoperitoneum reduced. All instruments were removed, and all skin incisions were approximated with interrupted subdermal 4-0 Monocryl and [place] glue applied. Attention was then turned to the right upper arm, where incision was made from the proximal volar forearm to the axilla, carried down through skin and subcutaneous tissue, and medial upper arm preserving nerves, dissecting the basilic vein, dividing branches between 4-0 silk ties and clips, mobilized the vein marking it with a marker, and creating a new tunnel anteriorly with a 12 mm head on a Teetee-Wick tunneler. Once a new tunnel was created, the patient was given 6000 units of heparin intravenously. After adequate circulation time, the origin of the basilic vein beyond the arterial anastomosis, transected, ligated with 2-0 silk ties and flushed with heparinized saline solution, noting to be patent and it was brought up to the tunneler and brought through the no tunnel and injected with heparinized saline solution and it flushed well without problems. The stump of the cephalic vein had been dissected free and stump ligated with 2-0 silk ties and branches were divided between clips and stump mobilized for lengthening and end-to-end vein anastomosis was created with continuous suture of 6-0 Prolene after spatulating both ends. After completing the anastomosis, vascular clamps were released and there was good flow in the fistula. The patient given 50 mg of protamine by Anesthesia. Good hemostasis ensured with cautery and clips and 4-0 silk ties and Surgicel applied. Subcutaneous tissue was approximated with 3-0 Monocryl, skin with marianela. Sterile dressing was applied. The patient tolerated the procedure well. Job ID: [id number]
== END 2019-10-18 16:18 | disposition home or self-care (01) ==
LOC: SDC 09:21
PROVIDERS: ATTEND Specialist
PROC: 0WHG43Z Insertion of Infusion Device into Peritoneal Cavity, Percutaneous Endoscopic Approach (ICD-10-PCS; principal; 2019-10-18)
PROC: 05S Upper Veins, Reposition (ICD-10-PCS; principal; 2019-10-18)
DX: T82.9XXA Unspecified complication of cardiac and vascular prosthetic device, implant and graft, initial encounter (principal); I12.0 Hypertensive chronic kidney disease with stage 5 chronic kidney disease or end stage renal disease; E11.22 Type 2 diabetes mellitus with diabetic chronic kidney disease; N18.6 End stage renal disease; Z79.4 Long term (current) use of insulin; Z79.899 Other long term (current) drug therapy
CPT/HCPCS: 36415; 36416; 80048; 85025; J0690; J1644; J2001; J2405; J2704; J2720; J3010; S0020

== ENCOUNTER 2020-06-15 19:31 | Inpatient (IN) | payer OTHER ==
[2020-06-15 20:39] LABS: #Basophils 0.1 thou/uL (0.0-0.2); #Eosinphils 0.1 thou/uL (0.0-0.7); #Lymphocytes 1.1 thou/uL (1.20-3.40); #Monocytes 0.3 thou/uL (0.11-0.59); #Neutrophils 4.5 thou/uL (1.40-6.50); %Basophils 0.9 % (0.0-1.0); %Eosinophils 1.9 % (0.0-10.0); %Lymphocytes 17.9 % (21.0-51.0); %Monocytes 4.9 % (0.0-10.0); %Neutrophils 74.4 % (42.0-75.0); Hemoglobin 11.2 g/dL (14.0-18.0); Mean Corpuscular HGB CONC 32.8 g/dL (32.0-36.0); Mean Corpuscular Hemoglobin 29.2 pg (27.0-31.0); Mean Platelet Volume 9.6 fL (7.4-10.4); Platelet Count 183 thou/uL (130-400); RBC Distribution Width 13.5 % (11.5-14.5); Red Blood Cell (RBC) Count 3.85 mill/uL (4.70-6.10)
[2020-06-15 21:01] LABS: ALT (SGPT) 19 U/L (8-55); AST (SGOT) 23 U/L (5-34); Alkaline Phosphatase 46 U/L (40-110); Anion Gap 16 mmol/L (10-20); BUN (Urea Nitrogen) 51 mg/dL (8.4-25.7); Bilirubin, Total 0.2 mg/dL (0.2-1.2); Calc. Creatinine Clearance 0 mL/min (70-130); Calcium 8.4 mg/dL (7.8-10.44); Carbon Dioxide 23 mmol/L (22-29); Chloride 93 mmol/L (98-107); Estimated GFR-MDRD 5; Globulin 2.5 g/dL (2.4-3.5); Glucose 511 mg/dL (70-105); Magnesium 1.8 mg/dL (1.6-2.6); Potassium 3.2 mmol/L (3.5-5.1); Protein, Total 5.5 g/dL (6.0-8.3); Sodium 129 mmol/L (136-145)
[2020-06-15 21:04] LABS: Bilirubin Negative (Negative); Blood, Urine 1+ (Negative); Clarity Turbid (Clear); Glucose, Urine (Dipstick) Greater than 1000 mg/dL (Negative); Ketone, Urine Negative (Negative); Leukocyte 500 Leu/uL (Negative); Nitrite Negative (Negative); Protein, Urine (Dipstick) 200 mg/dL (Neg-Trace); Renal Epithelial 0-3 HPF (None Seen); Specific Gravity, Urine 1.011 (1.002-1.036); Urobilinogen Normal mg/dL (Less than 2); WBC/HPF Greater than 50 HPF (0-3)
--- NOTE | 2020-06-15 21:06 | RAD ---
CHEST ONE VIEW: 08/15/19 COMPARISON: 08/06/19. HISTORY: Shortness of breath. FINDINGS: Atherosclerosis of the aortic knob. Normal cardiac silhouette. Pulmonary vessels and hilum are normal . Costophrenic angles are clear. Stable aeration of the left lung. Patchy opacities in the right lung base may represent developing interstitial edema. No pneumothorax or acute osseous abnormalities. IMPRESSION: Possible developing interstitial edema in the right lung base. In the appropriate clinical setting, i nterstitial pneumonitis cannot be excluded. POS: PPP
[2020-06-15 21:08] LABS: Bacteria/HPF 1+ HPF (None Seen)
[2020-06-15 21:10] LABS: Trichomonas/HPF 1+ HPF (None Seen)
--- NOTE | 2020-06-15 21:15 | CT ---
PET CT WITHOUT CONTRAST: 06/15/20 COMPARISON: 06/13/20 HISTORY: Altered mental status. FINDINGS: No parenchymal hemorrhage. No extra-axial hematoma. No midline shift. Basilar cisterns are patent. Br ain volume is age appropriate. Cortical cruz-white matter differentiation is preserved. No hydrocepha marly. Remote lacunar infarct involving the right castillo radiata, left aspect of the mid brain and flash . Adequate aeration of the paranasal sinuses. Stable sclerosis of the bilateral mastoid air cells. Intact calvarium. IMPRESSION: No acute intracranial process. POS: PPP
[2020-06-15 21:22] LABS: CKMB 3.1 ng/mL (0-6.6)
[2020-06-15] MEDS ORDERED: cefTRIAXone\\ROCEPHIN 1 GM VIAL ONE (21:36)
[2020-06-15] MEDS ORDERED: Insulin Regular 300 UNITS/3 ML VIAL ONE (21:36)
[2020-06-15] MEDS ORDERED: Potassium Chloride 20 MEQ TAB ONE (21:50)
[2020-06-15] MEDS ORDERED: Aspirin 325 MG TAB ONE (22:04)
[2020-06-15 23:59] LABS: Troponin I 0.178 ng/mL (< 0.028)
[2020-06-16 00:29] VITALS: BMI 22.9
[2020-06-16] MEDS ORDERED: NIFEdipine XL 60 MG TAB PO SCH (01:00)
[2020-06-16] MEDS ORDERED: hydrALAZINE 25 MG TAB PO SCH (01:00)
[2020-06-16] MEDS ORDERED: Insulin Glargine 10 UNITS in Pre-Filled Syringe 1 EACH SC SCH (01:00)
[2020-06-16] MEDS ORDERED: Labetalol HCl 100 MG/20 ML VIAL SLOW IVP PRN (01:52)
[2020-06-16] MEDS ORDERED: Acetaminophen 650 MG Suppository PR PRN (01:52)
[2020-06-16] MEDS ORDERED: Ondansetron PF 4 MG/2 ML Vial IVP PRN (01:52)
[2020-06-16] MEDS ORDERED: Calcium Carbonate 500 MG ChewTAB PO PRN (01:52)
[2020-06-16] MEDS ORDERED: Acetaminophen 325 MG TAB PO PRN (01:52)
[2020-06-16] MEDS ORDERED: HYDROcodone/Acetaminophen 5/325 mg Tablet PO PRN (01:52)
[2020-06-16] MEDS ORDERED: Ondansetron ODT 4 MG TAB PO PRN (01:52)
--- NOTE | 2020-06-16 02:02 | PDOC.HHP ---
Hospitalist HPI - History of Present Illness altered mental state History of Present Illness: Case of an 60y/o male with pmhx of esrd on P/D, hypertension, diabetes type 2, hyperlipidemia and CHF who comes to hospital due to episode of altered mental state. Patient was on his usual state of health until today when reports that they were eating dinner and patient began to stare off into space and buck me unresponsive with a blank stare. She thought he may be having an episode of hypoglycemia since this has happened before and gave him some food. she states his mental status improve, however once again had another episode. She says he had a episode similar last year and they thought it was related to his blood sugar. EMS reported blood sugar of 467 upon arrival. They also reported the patient was hypertensive and given 3 sprays of nitroglycerin, nitroglycerin paste was applied to his chest wall and labetalol 10 mg IV was given. during my evaluation pt was alert and ox3. he states that he does remember feeling confused and dizzy before becoming unresponsive. denies any slur speech or motor/ sensorial focal deficit Hospitalist ROS - Review of Systems All other systems reviewed; all pertinent +/- noted in HPI/Subj Hospitalist History - Past Surgical History Other Surgical History: polyp removed - Family History Family History: reports: diabetes mellitus, hypertension - Social History Smoking Status: Former smoker Alcohol: reports: Occassional Drugs: reports: none Living Situation: With Family - Exam General Appearance: NAD, awake alert Eye: PERRL, anicteric sclera ENT: normocephalic atraumatic, no oropharyngeal lesions Neck: supple, symmetric, no JVD Heart: RRR, no murmur, no gallops Respiratory: CTAB, no wheezes, no rales, no ronchi Gastrointestinal: soft, non-tender, non-distended, normal bowel sounds Gastrointestinal - other findings: peritoneal dyalysis Extremities: no cyanosis, no clubbing, no edema Skin: normal turgor, no lesions, no rashes Neurological: cranial nerve grossly intact, normal sensation to touch, no weakness Musculoskeletal: normal tone, normal strength, no muscle wasting Psychiatric: normal affect, normal behavior, A&O x 3 Hospitalist Results - Labs Result Diagrams: 06/15/20 20:25 06/15/20 20:25 Lab results: WBC 6.0 thou/uL (4.8-10.8) 06/15/20 20:25 Hgb 11.2 g/dL (14.0-18.0) L 06/15/20 20:25 Hct 34.2 % (42.0-52.0) L 06/15/20 20:25 MCV 89.0 fL (78.0-98.0) 06/15/20 20:25 Plt Count 183 thou/uL (130-400) 06/15/20 20:25 Neutrophils % 74.4 % (42.0-75.0) 06/15/20 20:25 Sodium 129 mmol/L (136-145) L 06/15/20 20:25 Potassium 3.2 mmol/L (3.5-5.1) L 06/15/20 20:25 Chloride 93 mmol/L (98-107) L 06/15/20 20:25 Carbon Dioxide 23 mmol/L (22-29) 06/15/20 20:25 BUN 51 mg/dL (8.4-25.7) H 06/15/20 20:25 Creatinine 11.87 mg/dL (0.7-1.3) H 06/15/20 20:25 Glucose 511 mg/dL (70-105) H 06/15/20 20:25 Calcium 8.4 mg/dL (7.8-10.44) 06/15/20 20:25 Total Bilirubin 0.2 mg/dL (0.2-1.2) 06/15/20 20:25 AST 23 U/L (5-34) 06/15/20 20:25 ALT 19 U/L (8-55) 06/15/20 20:25 Alkaline Phosphatase 46 U/L (40-110) 06/15/20 20:25 CK-MB (CK-2) 3.1 ng/mL (0-6.6) 06/15/20 20:25 Troponin I 0.178 ng/mL (< 0.028) H 06/15/20 23:23 Serum Total Protein 5.5 g/dL (6.0-8.3) L 06/15/20 20:25 Albumin 3.0 g/dL (3.5-5.0) L 06/15/20 20:25 Urine Ketones Negative mg/dL (Negative) 06/15/20 20:45 Urine Blood 1+ (Negative) A 06/15/20 20:45 Urine Nitrite Negative (Negative) 06/15/20 20:45 Ur Leukocyte Esterase 500 Marcus/uL (Negative) A 06/15/20 20:45 Urine RBC 4-6 HPF (0-3) A 06/15/20 20:45 Urine WBC Greater than 50 HPF (0-3) A 06/15/20 20:45 Ur Squamous Epith Cells 4-6 HPF (0-3) A 06/15/20 20:45 Urine Bacteria 1+ HPF (None Seen) A 06/15/20 20:45 Hospitalist H&P A/P - Problem (1) Altered mental state Code(s): R41.82 - ALTERED MENTAL STATUS, UNSPECIFIED Status: Acute (2) Diabetes mellitus Code(s): E11.9 - TYPE 2 DIABETES MELLITUS WITHOUT COMPLICATIONS Status: Acute (3) ESRD (end stage renal disease) on dialysis Code(s): N18.6 - END STAGE RENAL DISEASE; Z99.2 - DEPENDENCE ON RENAL DIALYSIS Status: Acute (4) UTI (urinary tract infection) Status: Acute (5) HLD (hyperlipidemia) Code(s): E78.5 - HYPERLIPIDEMIA, UNSPECIFIED Status: Acute (6) CHF (congestive heart failure) Code(s): I50.9 - HEART FAILURE, UNSPECIFIED Status: Acute - Plan Plan: Case of an 60y/o male with the stated pmhx who presents with episode of altered mental stated altered mental state - unclear source for episode. could be TIA vs metabolic vs seizure vs infection - head ct negative. does show all lacunar infarcts - will r/o TIA w mri, echo and carotid doppler - started on secondary prevention w asa + statin - neurologist consulted - pt / ot / speech - evaluated metabolic causes with cmp, tsh ammonia - cardiac monitoring - permissive htn uti - u/a consistent with uti - could be the cause for disorientation - on rocephin - f/u u/c DM - long acting insulin - ss + acc esrd on P/D - continue tx - nephrology consulted elevated troponin - likely chronically elevated in setting on esrd - will trend
[2020-06-16 03:13] LABS: Troponin I 0.233 ng/mL (< 0.028)
[2020-06-16] MEDS ORDERED: Dextrose 5% in Water 1,000 ML IV PRN (03:49)
[2020-06-16] MEDS ORDERED: HumaLOG 300 UNITS/3 ML VIAL SC PRN (03:49)
[2020-06-16] MEDS ORDERED: Dextrose 50% Abboject 50 ML SYRINGE SLOW IVP PRN (03:49)
[2020-06-16 05:13] LABS: Hemoglobin A1c 9.9 % (4.0-6.0)
[2020-06-16 05:29] LABS: ALT (SGPT) 16 U/L (8-55); AST (SGOT) 21 U/L (5-34); Albumin 2.6 g/dL (3.5-5.0); Alkaline Phosphatase 38 U/L (40-110); Anion Gap 14 mmol/L (10-20); BUN (Urea Nitrogen) 54 mg/dL (8.4-25.7); Bilirubin, Total 0.2 mg/dL (0.2-1.2); Calc. Creatinine Clearance 7 mL/min (70-130); Carbon Dioxide 21 mmol/L (22-29); Chloride 98 mmol/L (98-107); Cholesterol 134 mg/dl (< 200 Desired); Estimated GFR-MDRD 5; Globulin 2.4 g/dL (2.4-3.5); Glucose 125 mg/dL (70-105); HDL Cholesterol 44 mg/dL (>60 Neg Risk); LDL Cholesterol, Calculated 74 mg/dL; Sodium 130 mmol/L (136-145); Triglycerides 82 mg/dL (Less than 150)
[2020-06-16 05:44] LABS: Potassium 2.9 mmol/L (3.5-5.1)
[2020-06-16 06:00] LABS: Band 6 % (5-11); Eosinophils 3 % (0-10); Hemoglobin 10.4 g/dL (14.0-18.0); Lymphocytes 24 % (21-51); MDiff Complete? YES; Mean Corpuscular HGB CONC 32.3 g/dL (32.0-36.0); Mean Corpuscular Volume 89.8 fL (78.0-98.0); Mean Platelet Volume 9.4 fL (7.4-10.4); Monocytes 4 % (0-10); Neutrophil 63 % (42-75); Platelet Count 173 thou/uL (130-400); RBC Distribution Width 13.5 % (11.5-14.5); Red Blood Cell (RBC) Count 3.56 mill/uL (4.70-6.10); White Blood Cell (WBC) Count 6.5 thou/uL (4.8-10.8)
[2020-06-16] MEDS: Potassium Chloride 20 MEQ TAB PO SCH ×2 (07:46→10:54)
[2020-06-16] MEDS ORDERED: Enoxaparin Sodium 30 MG/0.3 ML SYRINGE SC SCH (09:00)
--- NOTE | 2020-06-16 09:21 | ULT ---
BILATERAL CAROTID DUPLEX ULTRASOUND: HISTORY: Transient ischemic attack TECHNIQUE: Grayscale, color-flow and spectral Doppler ultrasound imaging of the extracranial carotid artery syst ems and vertebral arteries was performed bilaterally. FINDINGS: Cardiac: Significant atherosclerotic disease involving the carotid artery. There is a combination of calcified and noncalcified plaque. Left carotid: Significant atherosclerotic disease involving the carotid artery. This combination of c alcified and noncalcified plaque. The peak systolic velocity in the right ICA measures 58.3 cm/s. The peak systolic velocity in the ri ght CCA measures 79.5 cm/s. The peak systolic velocity in the left ICA measures 59.4 cm/s. The peak systolic velocity in the l eft CCA measures 100.5 cm/s. The right IC/CC ration is0.73. The left IC/CC ratio is 0.59. Vertebral flow: Neither vertebral arteries appreciated . IMPRESSION: 1. No hemodynamically significant stenosis of the left or right carotid artery. 2. Neither vertebral artery is appreciated.
[2020-06-16] MEDS: Aspirin 325 mg Enteric Coated Tablet PO SCH (10:54)
[2020-06-16 13:34] LABS: Hep B Surf Ag Non-Reactive S/CO (NonReactive)
--- NOTE | 2020-06-16 13:39 | PDOC.EEG ---
Neurology EEG Report - Report Report: This EEG was performed using 24 channel [employer] video digital EEG machine with 24 disc electrodes. This was an extended 2 hours 6 minutes of EEG recording. Digital analysis of the EEG was done for Ronny and seizure detection which revealed no abnormalities. Background: The posterior background rhythm is 7-8 Hz. Minimal reactivity with eye opening and closure. Photic stimulation: No response seen with photic stimulation. Hyperventilation: Not performed. Sleep: No stage change was observed. EEG diagnosis: Irregular theta activity seen throughout the recording. Clinical Interpretation: This EEG is consistent with mild to moderate generalized cerebral dysfunction.
--- NOTE | 2020-06-16 13:47 | PDOC.HOSPP ---
- Subjective Encounter Date: 06/16/20 - Objective Vital Signs & Weight: Vital Signs (12 hours) Temp Pulse Resp BP Pulse Ox 06/16/20 11:56 98 F 71 14 97 06/16/20 10:30 98 06/16/20 08:00 98 F 58 L 12 175/83 H 98 06/16/20 03:59 97.9 F 64 18 176/81 H 98 Weight Weight 155 lb 9.6 oz I&O: 06/15/20 06/16/20 06/17/20 06:59 06:59 06:59 Intake Total 240 Balance 240 Result Diagrams: 06/16/20 04:52 06/16/20 04:52 Additional Labs: Accuchecks 06/16/20 06/16/20 06/15/20 10:25 05:34 23:59 POC Glucose 106 H 108 H 241 H 06/15/20 06/15/20 06/15/20 22:24 21:17 20:11 POC Glucose 379 H 443 H 469 H Hospitalist ROS - Medication Medications: Active Medications Generic Name Dose Route Start Last Admin Trade Name Mauricioq PRN Reason Stop Dose Admin Aspirin 325 mg 06/16/20 09:00 06/16/20 10:54 Aspirin 325 Mg Enteric Coated Tablet PO 325 mg DAILY CAROLYNN Administration - Exam General Appearance: awake alert ENT: normocephalic atraumatic Neck: supple, no JVD Heart - other findings: Bradycardia Respiratory: CTAB, normal chest expansion Gastrointestinal: soft, non-tender Neurological: cranial nerve grossly intact, no new deficit Hosp A/P (1) Acute metabolic encephalopathy Code(s): G93.41 - METABOLIC ENCEPHALOPATHY Status: Acute (2) Hypertensive urgency Code(s): I16.0 - HYPERTENSIVE URGENCY Status: Acute (3) Bradycardia Code(s): R00.1 - BRADYCARDIA, UNSPECIFIED Status: Acute (4) Diabetes mellitus Code(s): E11.9 - TYPE 2 DIABETES MELLITUS WITHOUT COMPLICATIONS Status: Acute (5) ESRD (end stage renal disease) on dialysis Code(s): N18.6 - END STAGE RENAL DISEASE; Z99.2 - DEPENDENCE ON RENAL DIALYSIS Status: Acute (6) UTI (urinary tract infection) Status: Acute - Plan MRI of the brain is pending. EEG did not show any seizure activity. Continue permissive hypertension until CVA is ruled out. Continue IV Rocephin and follow urine culture results. Bradycardia is present intermittently. Check twelve-lead EKG.
--- NOTE | 2020-06-16 14:19 | CON ---
NEUROLOGY CONSULTATION DATE OF CONSULTATION: 06/16/2020 REASON FOR CONSULTATION: Altered mental status. HISTORY OF PRESENT ILLNESS: Mr. Randall Knowles is a 60-year-old male with medical history significant for end-stage renal disease on peritoneal dialysis, hypertension, diabetes mellitus type 2, hyperlipidemia, congestive heart failure, presented to the hospital with altered mental status. The patient was in his usual health until yesterday when he was eating at the dinner table and started staring off in space and became unresponsive with a blank stare. The history is taken from the at the bedside. Per , she thought he was having an episode of hypoglycemia and gave him some food, where she says the mental status improved and then he had another episode of confusion which she thought was related to the blood sugars, she called the EMS. EMS reported the blood sugar was 467 on arrival. He was also hypertensive and was given nitroglycerin paste and presented to the emergency room, where he is back to the baseline. The patient denies any focal weakness, focal paresthesias, nausea, vomiting, headache, chest pain, abdominal pain, recent illness or recent exposure to COVID or vertigo associated with the episode. REVIEW OF SYSTEMS: All systems were reviewed and were negative except the pertinent positives and negatives mentioned in the HPI. PAST MEDICAL HISTORY: End-stage renal disease, hypertension, diabetes mellitus, hyperlipidemia, congestive heart failure. PAST SURGICAL HISTORY: Polyp removal. FAMILY HISTORY: Diabetes, hypertension. SOCIAL HISTORY: Former smoker. Lives with family. Denies illegal drug use. ALLERGIES: NKDA Vital Signs & Weight: Vital Signs (12 hours) Temp Pulse Resp BP Pulse Ox 06/16/20 11:56 98 F 71 14 97 06/16/20 10:30 98 06/16/20 08:00 98 F 58 L 12 175/83 H 98 06/16/20 03:59 97.9 F 64 18 176/81 H 98 Weight Weight 155 lb 9.6 oz I&O: 06/15/20 06/16/20 06/17/20 06:59 06:59 06:59 Intake Total 240 Balance 240 Additional Labs: Accuchecks 06/16/20 06/16/20 06/15/20 10:25 05:34 23:59 POC Glucose 106 H 108 H 241 H 06/15/20 06/15/20 06/15/20 22:24 21:17 20:11 POC Glucose 379 H 443 H 469 H Active Medications Generic Name Dose Route Start Last Admin Trade Name Nena PRN Reason Stop Dose Admin Aspirin 325 mg 06/16/20 09:00 06/16/20 10:54 Aspirin 325 Mg Enteric Coated Tablet PO 325 mg DAILY CAROLYNN Administration - Exam General Appearance: awake alert ENT: normocephalic atraumatic Neck: supple, no JVD Heart - other findings: Bradycardia Respiratory: CTAB, normal chest expansion Gastrointestinal: soft, non-tender Neurological: Mental status; the patient is alert and oriented to person, time, and his date of , but he thinks he is at some place which according to the where he is staying. Speech is clear. Motor; muscle tone and bulk are normal. Moving all 4 extremities equally and symmetrically. Strength 5/5 bilaterally. Sensory intact. Cerebellar, finger-nose testing intact. Gait deferred due to patient's safety reasons. Cranial nerves 2 through 12 intact. DATA REVIEWED: I reviewed the labs which were significant for anemia. Hemoglobin of 11.2, hematocrit of 34.2. Hyponatremia, sodium 129 and hypokalemia, potassium 3.2. He also has high BUN 51 and creatinine 11.87 and hyperglycemia of 511. Lab results: WBC 6.0 thou/uL (4.8-10.8) 06/15/20 20:25 Hgb 11.2 g/dL (14.0-18.0) L 06/15/20 20:25 Hct 34.2 % (42.0-52.0) L 06/15/20 20:25 MCV 89.0 fL (78.0-98.0) 06/15/20 20:25 Plt Count 183 thou/uL (130-400) 06/15/20 20:25 Neutrophils % 74.4 % (42.0-75.0) 06/15/20 20:25 Sodium 129 mmol/L (136-145) L 06/15/20 20:25 Potassium 3.2 mmol/L (3.5-5.1) L 06/15/20 20:25 Chloride 93 mmol/L (98-107) L 06/15/20 20:25 Carbon Dioxide 23 mmol/L (22-29) 06/15/20 20:25 BUN 51 mg/dL (8.4-25.7) H 06/15/20 20:25 Creatinine 11.87 mg/dL (0.7-1.3) H 06/15/20 20:25 Glucose 511 mg/dL (70-105) H 06/15/20 20:25 Calcium 8.4 mg/dL (7.8-10.44) 06/15/20 20:25 Total Bilirubin 0.2 mg/dL (0.2-1.2) 06/15/20 20:25 AST 23 U/L (5-34) 06/15/20 20:25 ALT 19 U/L (8-55) 06/15/20 20:25 Alkaline Phosphatase 46 U/L (40-110) 06/15/20 20:25 CK-MB (CK-2) 3.1 ng/mL (0-6.6) 06/15/20 20:25 Troponin I 0.178 ng/mL (< 0.028) H 06/15/20 23:23 Serum Total Protein 5.5 g/dL (6.0-8.3) L 06/15/20 20:25 Albumin 3.0 g/dL (3.5-5.0) L 06/15/20 20:25 Urine Ketones Negative mg/dL (Negative) 06/15/20 20:45 Urine Blood 1+ (Negative) A 06/15/20 20:45 Urine Nitrite Negative (Negative) 06/15/20 20:45 Ur Leukocyte Esterase 500 Marcus/uL (Negative) A 06/15/20 20:45 Urine RBC 4-6 HPF (0-3) A 06/15/20 20:45 Urine WBC Greater than 50 HPF (0-3) A 06/15/20 20:45 Ur Squamous Epith Cells 4-6 HPF (0-3) A 06/15/20 20:45 Urine Bacteria 1+ HPF (None Seen) A 06/15/20 20:45 ASSESSMENT AND PLAN: (1) Acute metabolic encephalopathy Code(s): G93.41 - METABOLIC ENCEPHALOPATHY Status: Acute (2) Hypertensive urgency Code(s): I16.0 - HYPERTENSIVE URGENCY Status: Acute (3) Bradycardia Code(s): R00.1 - BRADYCARDIA, UNSPECIFIED Status: Acute (4) Diabetes mellitus Code(s): E11.9 - TYPE 2 DIABETES MELLITUS WITHOUT COMPLICATIONS Status: Acute (5) ESRD (end stage renal disease) on dialysis Code(s): N18.6 - END STAGE RENAL DISEASE; Z99.2 - DEPENDENCE ON RENAL DIALYSIS Status: Acute (6) UTI (urinary tract infection) Status: Acute This is a 60-year-old male with a history of end-stage renal disease, hypertension, hyperlipidemia, and diabetes mellitus, presented with episodes of altered mental status. Altered mental status seems to be multifactorial, most likely secondary to metabolic abnormalities including hyperglycemia, hyponatremia, and hypokalemia, and also infectious etiology of the UTI, however, intracranial pathology could not be completely ruled out. EEG completed and reviewed, which was negative for underlying seizure activity. Consider MRI of the brain to rule out acute intracranial process. Neuro checks every 4 4 hours. Strict control of blood pressure and blood glucose. Continue home medications. Continue medical management per primary team and Nephrology. We will continue to follow. Thank you for the consult. Job ID: [id number] MTDD
[2020-06-16] MEDS ORDERED: hydrALAZINE 20 MG/ML VIAL SLOW IVP STA (14:58)
[2020-06-16] MEDS ORDERED: Potassium Chloride 20 MEQ TAB PO SCH (15:00)
[2020-06-16] MEDS: hydrALAZINE 25 MG TAB PO SCH ×2 (15:05→20:58)
[2020-06-16 15:12] LABS: #Basophils 0.1 thou/uL (0.0-0.2); #Eosinphils 0.2 thou/uL (0.0-0.7); #Lymphocytes 1.8 thou/uL (1.20-3.40); #Monocytes 0.4 thou/uL (0.11-0.59); #Neutrophils 5.3 thou/uL (1.40-6.50); %Basophils 1.1 % (0.0-1.0); %Eosinophils 2.1 % (0.0-10.0); %Lymphocytes 23.2 % (21.0-51.0); %Monocytes 5.5 % (0.0-10.0); %Neutrophils 68.1 % (42.0-75.0); Hemoglobin 13.2 g/dL (14.0-18.0); Mean Corpuscular HGB CONC 32.7 g/dL (32.0-36.0); Mean Corpuscular Hemoglobin 28.6 pg (27.0-31.0); Mean Corpuscular Volume 87.7 fL (78.0-98.0); Mean Platelet Volume 9.7 fL (7.4-10.4); Platelet Count 226 thou/uL (130-400); RBC Distribution Width 13.5 % (11.5-14.5); Red Blood Cell (RBC) Count 4.61 mill/uL (4.70-6.10); White Blood Cell (WBC) Count 7.7 thou/uL (4.8-10.8)
[2020-06-16 15:21] LABS: INR-International Normal Ratio 0.9; PTT 25.3 sec (22.9-36.1); Prothrombin Time 12.3 sec (12.0-14.7)
[2020-06-16 15:22] LABS: D-Dimer Test 1.45 *mcg/mL (0.27-0.43)
[2020-06-16 15:23] LABS: Lactic Acid 1.2 mmol/L (0.5-2.2)
[2020-06-16 15:44] LABS: ALT (SGPT) 22 U/L (8-55); AST (SGOT) 27 U/L (5-34); Albumin 3.4 g/dL (3.5-5.0); Alkaline Phosphatase 53 U/L (40-110); Anion Gap 20 mmol/L (10-20); BUN (Urea Nitrogen) 53 mg/dL (8.4-25.7); Bilirubin, Total 0.3 mg/dL (0.2-1.2); CK (CPK) 215 U/L (30-200); Calc. Creatinine Clearance 7 mL/min (70-130); Carbon Dioxide 20 mmol/L (22-29); Chloride 96 mmol/L (98-107); Estimated GFR-MDRD 5; Globulin 3.3 g/dL (2.4-3.5); Glucose 197 mg/dL (70-105); Potassium 3.7 mmol/L (3.5-5.1); Protein, Total 6.7 g/dL (6.0-8.3); Sodium 132 mmol/L (136-145)
--- NOTE | 2020-06-16 16:26 | MRI ---
EXAM: BRAIN MRI WITHOUT CONTRAST: 06/16/20 HISTORY: Transient ischemic attack. COMPARISON: None. FINDINGS: There is motion degradation on multiple sequences, limiting evaluation. Calvarium has a normal t1 marrow signal intensity. Midline brain parenchymal structures are unremarka ble. There is evidence of cavitation involving the mid brain and flash likely due to remote lacunar in farct. No evidence of hemorrhage on the axial gradient echo sequence. No parenchymal mass, mass effec t or midline shift. Age appropriate atrophy. Cortical cruz-white matter differentiation is preserved. There are T2 and FLAIR white matter hyperintensities compatible with chronic small vessel ischemic ch edison. Central arterial flow voids are maintained. Absent restricted diffusion. IMPRESSION: 1. Absent restricted diffusion. No acute infarct. 2. Age appropriate atrophy. 3. Chronic small vessel ischemic change in the white matter. POS: OFF
[2020-06-16] MEDS ORDERED: Amlodipine 10 MG TAB PO SCH ×2 (17:45→21:00)
[2020-06-16 20:50] LABS: SARS-CoV-2 MS2 Positive; SARS-CoV-2 N Gene Negative; SARS-CoV-2 S Gene Negative; SARS-CoV-2 by NAA Not Detected (NotDetected); SARS-CoV-2 orf1ab Negative
[2020-06-16] MEDS: Atorvastatin Calcium 40 MG TAB PO SCH (20:58)
[2020-06-16] MEDS: Enoxaparin Sodium 30 MG/0.3 ML SYRINGE SC SCH (20:59)
--- NOTE | 2020-06-16 21:02 | CON ---
DATE OF CONSULTATION: 06/16/2020 REASON FOR CONSULTATION: End-stage renal disease evaluation. REASON FOR ADMISSION: Altered mentation. HISTORY OF PRESENT ILLNESS: A 60-year-old male with history of end-stage renal disease, on peritoneal dialysis; hypertension; diabetes; hyperlipidemia, came to the hospital with altered mentation and speech problems. The patient started having some slurring of speech and family called EMS and was sent to the hospital. He recently had hypercalcemia, this seems to be resolved, but his sugar was also elevated and he gets PD at home. This morning when I saw him, he was feeling better. He was talking. He is not confused. He said he probably got some dizzy, was not sure what is happening. PAST MEDICAL HISTORY: Positive for end-stage renal disease, on peritoneal dialysis; diabetes; hypertension; hyperlipidemia; CHF. PAST SURGICAL HISTORY: PD catheter placement. HOME MEDICATIONS: Reviewed. ALLERGIES: NO KNOWN DRUG ALLERGIES. SOCIAL HISTORY: No smoking, alcohol, or illicit drugs. FAMILY HISTORY: No history of kidney disease. REVIEW OF SYSTEMS: CONSTITUTIONAL: Negative for weight loss or gain, ability to conduct usual activities. SKIN: Negative for rash, itching. EYES: Negative for double vision, pain. ENT/MOUTH: Negative for nose bleeding, neck stiffness, pain, tenderness. CARDIOVASCULAR: Negative for palpitations, dyspnea on exertion, orthopnea. RESPIRATORY: Negative for shortness of breath, wheezing, cough, hemoptysis, fever or night sweats. GASTROINTESTINAL: Negative for poor appetite, abdominal pain, heartburn, nausea, vomiting, constipation, or diarrhea. GENITOURINARY: Negative for urgency, frequency, dysuria, nocturia. MUSCULOSKELETAL: Negative for pain, swelling. NEUROLOGIC/PSYCHIATRIC: Negative for anxiety, depression. ALLERGY/IMMUNOLOGIC: Negative for skin rash, bleeding tendency. PHYSICAL EXAMINATION: GENERAL: This is a well-built man, in no apparent distress. VITAL SIGNS: blood pressure 166/79. HEENT: Atraumatic, normocephalic. Oral mucosa moist. NECK: Supple. CV: S1, S2. Rate and rhythm regular. RESPIRATORY: Clear. GI: Abdomen is soft. MUSCULOSKELETAL: No tenderness. No edema. DERMATOLOGIC: No skin rash. NEUROLOGIC: Alert and awake. PSYCHIATRIC: Normal mood and affect LABORATORY DATA: Hemoglobin is 13.2, potassium 3.7, BUN is 53, and creatinine is 11.1. ASSESSMENT AND PLAN: 1. End-stage renal disease. We will have PD tonight. PD orders given. We will also ask the nurse to send PD fluid for Gram stain culture per protocol given the possibility of UTI. 2. Pyuria. Follow up cultures and continue antibiotics. 3. Edema. 4. Hypertension. 5. Anemia of chronic disease. PLAN: Adjust blood pressure medicines and PD fluid for culture and sensitivity and Gram stain. We will continue to follow. We will have PD as tolerated. Job ID: [id number]
[2020-06-16] MEDS: cefTRIAXone\\ROCEPHIN 1 GM in Sodium Chloride 0.9% 100 ML IVPB SCH (22:21)
[2020-06-16] MEDS: Insulin Glargine 20 UNITS in Pre-Filled Syringe 1 EACH SC SCH (22:22)
[2020-06-17 05:40] LABS: #Eosinphils 0.1 thou/uL (0.0-0.7); #Lymphocytes 1.2 thou/uL (1.20-3.40); #Monocytes 0.4 thou/uL (0.11-0.59); #Neutrophils 4.2 thou/uL (1.40-6.50); %Basophils 0.1 % (0.0-1.0); %Eosinophils 2.4 % (0.0-10.0); %Lymphocytes 19.7 % (21.0-51.0); %Monocytes 6.1 % (0.0-10.0); %Neutrophils 71.6 % (42.0-75.0); Mean Corpuscular HGB CONC 32.9 g/dL (32.0-36.0); Mean Corpuscular Hemoglobin 29.1 pg (27.0-31.0); Mean Corpuscular Volume 88.3 fL (78.0-98.0); Mean Platelet Volume 9.4 fL (7.4-10.4); Platelet Count 204 thou/uL (130-400); RBC Distribution Width 13.5 % (11.5-14.5); Red Blood Cell (RBC) Count 3.79 mill/uL (4.70-6.10); White Blood Cell (WBC) Count 5.9 thou/uL (4.8-10.8)
[2020-06-17 06:03] LABS: Anion Gap 16 mmol/L (10-20); BUN (Urea Nitrogen) 51 mg/dL (8.4-25.7); Calc. Creatinine Clearance 7 mL/min (70-130); Calcium 7.7 mg/dL (7.8-10.44); Carbon Dioxide 19 mmol/L (22-29); Chloride 98 mmol/L (98-107); Estimated GFR-MDRD 6; Glucose 309 mg/dL (70-105); Potassium 3.5 mmol/L (3.5-5.1); Sodium 129 mmol/L (136-145)
[2020-06-17] MEDS: Amlodipine 10 MG TAB PO SCH (07:59)
[2020-06-17] MEDS: hydrALAZINE 25 MG TAB PO SCH ×3 (07:59→20:32)
[2020-06-17] MEDS: Aspirin 325 mg Enteric Coated Tablet PO SCH (07:59)
[2020-06-17] MEDS ORDERED: FLU VACC QS2020-21(6MOS UP)/PF 60 MCG/0.5 ML SYRINGE IM ONE (09:00)
[2020-06-17 11:06] LABS: RBC Count-Automated (BF) 11 /cu.mm; WBC/Nucleated-Auto (BF) 0 uL
[2020-06-17 11:10] LABS: BF Color Colorless; Body Fluid Source Peritoneal Fluid; Clarity Clear (Clear); Tube # EDTA
--- NOTE | 2020-06-17 12:14 | PDOC.HOSPP ---
- Subjective Encounter Date: 06/17/20 Subjective: The patient is alert and able to follow commands today. - Objective Vital Signs & Weight: Vital Signs (12 hours) Temp Pulse Resp BP Pulse Ox 06/17/20 10:26 202/93 H 06/17/20 08:08 98.1 F 69 20 201/88 H 97 06/17/20 07:59 72 06/17/20 04:00 97.8 F 72 16 182/84 H 98 06/17/20 02:45 66 184/87 H Weight Weight 155 lb 9.6 oz I&O: 06/16/20 06/17/20 06/18/20 06:59 06:59 06:59 Intake Total 240 Balance 240 Result Diagrams: 06/17/20 04:41 06/17/20 04:41 Additional Labs: Accuchecks 06/17/20 06/17/20 06/16/20 10:26 06:27 21:18 POC Glucose 213 H 261 H 280 H 06/16/20 06/16/20 16:50 14:51 POC Glucose 276 H 189 H Hospitalist ROS - Medication Medications: Active Medications Generic Name Dose Route Start Last Admin Trade Name Freq PRN Reason Stop Dose Admin Amlodipine Besylate 10 mg 06/17/20 09:00 06/17/20 07:59 Amlodipine 10 Mg Tab PO 10 mg DAILY CAROLYNN Administration Aspirin 325 mg 06/16/20 09:00 06/17/20 07:59 Aspirin 325 Mg Enteric Coated Tablet PO 325 mg DAILY CAROLYNN Administration Atorvastatin Calcium 40 mg 06/16/20 21:00 06/16/20 20:58 Atorvastatin Calcium 40 Mg Tab PO 40 mg HS CAROLYNN Administration Enoxaparin Sodium 30 mg 06/16/20 21:00 06/16/20 20:59 Enoxaparin Sodium 30 Mg/0.3 Ml Syringe SC 30 mg 2100 CAROLYNN Administration Ceftriaxone Sodium 1 gm/ 100 mls @ 200 mls/hr 06/16/20 22:00 06/16/20 22:21 Sodium Chloride IVPB 100 mls Q24HR CAROLYNN Administration Insulin Glargine 20 units/ 0.2 mls @ 0 mls/hr 06/16/20 21:00 06/16/20 22:22 Miscellaneous Medication SC 0.2 mls HS CAROLYNN Administration Isosorbide Mononitrate 30 mg 06/17/20 09:00 06/17/20 08:00 Isosorbide Mononitrate Er 30 Mg Tab PO 30 mg DAILY CAROLYNN Administration - Exam General Appearance: awake alert ENT: normocephalic atraumatic Neck: supple, no JVD Respiratory: normal chest expansion, no tachypnea Neurological: cranial nerve grossly intact Hosp A/P (1) Acute metabolic encephalopathy Code(s): G93.41 - METABOLIC ENCEPHALOPATHY Status: Acute (2) Hypertensive urgency Code(s): I16.0 - HYPERTENSIVE URGENCY Status: Acute (3) Bradycardia Code(s): R00.1 - BRADYCARDIA, UNSPECIFIED Status: Acute (4) Diabetes mellitus Code(s): E11.9 - TYPE 2 DIABETES MELLITUS WITHOUT COMPLICATIONS Status: Acute (5) ESRD (end stage renal disease) on dialysis Code(s): N18.6 - END STAGE RENAL DISEASE; Z99.2 - DEPENDENCE ON RENAL DIALYSIS Status: Acute (6) UTI (urinary tract infection) Status: Acute - Plan MRI of the brain did not show any acute abnormalities. EEG did not show any seizure activity. His altered mental status likely due to hypertensive encephalopathy. Continue amlodipine, Imdur, hydralazine, and add minoxidil. We are trying to avoid chronotropic medications due to the patient's first- degree heart block. Continue IV Rocephin and follow urine culture results.
[2020-06-17] MEDS ORDERED: Minoxidil 2.5 MG TAB PO SCH (12:30)
--- NOTE | 2020-06-17 14:53 | PRG ---
DATE OF SERVICE: 06/17/2020 SUBJECTIVE: Patient was seen and examined at bedside and overnight events noted. Patient denies any shortness of breath or chest pain or palpitation. No history of nausea or vomiting or diarrhea or fever or chills or cramps. OBJECTIVE: GENERAL: This is well-built male, in no apparent distress. He is feeling much better. was at the bedside. VITAL SIGNS: Temperature 98.1. Heart Rate 69. Respiratory rate 24. Blood pressure 172/79. HEENT: Atraumatic, normocephalic. Oral mucosa is moist. NECK: Supple. CARDIOVASCULAR: S1, S2 heard. Rate and rhythm regular. RESPIRATORY: Clear to auscultation. GASTROINTESTINAL: Abdomen is soft. MUSCULOSKELETAL: No tenderness. No edema. DERMATOLOGIC: No skin rash. NEUROLOGIC: Alert and awake and oriented x3. No focal neurologic deficits. Moving all the extremities. PSYCHIATRIC: Mood and affect normal. LABORATORY DATA: Potassium 3.5, sodium 129, BUN is 51, creatinine is 10.7. ASSESSMENT AND PLAN: 1. End-stage renal disease. We will continue on PD as tolerated. 2. Hyponatremia, limit fluid intake. 3. Pyuria. 4. Edema. 5. Hypertension, getting better. We will remove fluid with dialysis also. 6. Anemia of chronic disease. The patient is feeling better. Continue dialysis. PD fluid also sent for Gram stain and culture to rule out any PD-associated peritonitis, which clinically seems to be less likely. Job ID: [id number]
--- NOTE | 2020-06-17 18:16 | PDOC.NEUPN ---
- Subjective Encounter Date: 06/17/20 Subjective: Patient feels better today. - Objective Vital Signs & Weight: Vital Signs (12 hours) Temp Pulse Resp BP BP Pulse Ox 06/17/20 16:47 97.6 F 80 26 H 175/81 H 99 06/17/20 15:19 74 174/81 H 06/17/20 13:11 98.1 F 69 24 H 172/79 H 98 06/17/20 10:26 202/93 H 06/17/20 08:08 98.1 F 69 20 201/88 H 97 06/17/20 07:59 72 Weight Weight 155 lb 9.6 oz I&O: 06/16/20 06/17/20 06/18/20 06:59 06:59 06:59 Intake Total 240 800 Output Total 2100 Balance 240 -1300 Result Diagrams: 06/17/20 04:41 06/17/20 04:41 Additional Labs: Accuchecks 06/17/20 06/17/20 06/17/20 16:00 10:26 06:27 POC Glucose 118 H 213 H 261 H 06/16/20 21:18 POC Glucose 280 H Radiology Reviewed by me: Yes EKG Reviewed by me: Yes ROS - Review of Systems ROS unobtainable: due to mental status - Medication Medications: Active Medications Generic Name Dose Route Start Last Admin Trade Name Frenataliya PRN Reason Stop Dose Admin Amlodipine Besylate 10 mg 06/17/20 09:00 06/17/20 07:59 Amlodipine 10 Mg Tab PO 10 mg DAILY CAROLYNN Administration Aspirin 325 mg 06/16/20 09:00 06/17/20 07:59 Aspirin 325 Mg Enteric Coated Tablet PO 325 mg DAILY CAROLYNN Administration Atorvastatin Calcium 40 mg 06/16/20 21:00 06/16/20 20:58 Atorvastatin Calcium 40 Mg Tab PO 40 mg HS CAROLYNN Administration Enoxaparin Sodium 30 mg 06/16/20 21:00 06/16/20 20:59 Enoxaparin Sodium 30 Mg/0.3 Ml Syringe SC 30 mg 2100 CAROLYNN Administration Hydralazine HCl 100 mg 06/17/20 15:00 06/17/20 15:19 Hydralazine 25 Mg Tab PO 100 mg TID CAROLYNN Administration Ceftriaxone Sodium 1 gm/ 100 mls @ 200 mls/hr 06/16/20 22:00 06/16/20 22:21 Sodium Chloride IVPB 100 mls Q24HR CAROLYNN Administration Insulin Glargine 20 units/ 0.2 mls @ 0 mls/hr 06/16/20 21:00 06/16/20 22:22 Miscellaneous Medication SC 0.2 mls HS CAROLYNN Administration Insulin Human Lispro 0 units 06/16/20 03:49 06/17/20 12:23 Humalog 300 Units/3 Ml Vial SC 4 unit .MODERATE SLIDING SC PRN Administration Moderate Correctional Scale Isosorbide Mononitrate 30 mg 06/17/20 09:00 06/17/20 08:00 Isosorbide Mononitrate Er 30 Mg Tab PO 30 mg DAILY CAROLYNN Administration - Exam General Appearance: awake alert Eye: PERRL ENT: normocephalic atraumatic Neck: supple Respiratory: CTAB Cardiovascular: RRR Gastrointestinal: soft Extremities: no cyanosis Skin: normal turgor Neurological: no new deficit Musculoskeletal: normal tone, normal strength, no muscle wasting PSYCH: normal affect, normal behavior, oriented to person, oriented to place Results - Labs Result Diagrams: 06/17/20 04:41 06/17/20 04:41 Lab results: WBC 5.9 thou/uL (4.8-10.8) 06/17/20 04:41 Hgb 11.0 g/dL (14.0-18.0) L 06/17/20 04:41 Hct 33.5 % (42.0-52.0) L 06/17/20 04:41 MCV 88.3 fL (78.0-98.0) 06/17/20 04:41 Plt Count 204 thou/uL (130-400) 06/17/20 04:41 Neutrophils % 71.6 % (42.0-75.0) 06/17/20 04:41 Band Neuts % (Manual) 6 % (5-11) 06/16/20 04:52 Sodium 129 mmol/L (136-145) L 06/17/20 04:41 Potassium 3.5 mmol/L (3.5-5.1) 06/17/20 04:41 Chloride 98 mmol/L (98-107) 06/17/20 04:41 Carbon Dioxide 19 mmol/L (22-29) L 06/17/20 04:41 BUN 51 mg/dL (8.4-25.7) H 06/17/20 04:41 Creatinine 10.72 mg/dL (0.7-1.3) H 06/17/20 04:41 Glucose 309 mg/dL (70-105) H 06/17/20 04:41 Lactic Acid 1.2 mmol/L (0.5-2.2) 06/16/20 14:55 Calcium 7.7 mg/dL (7.8-10.44) L 06/17/20 04:41 Total Bilirubin 0.3 mg/dL (0.2-1.2) 06/16/20 14:55 AST 27 U/L (5-34) 06/16/20 14:55 ALT 22 U/L (8-55) 06/16/20 14:55 Alkaline Phosphatase 53 U/L (40-110) 06/16/20 14:55 Ammonia 47 umol/L (18-72) 06/16/20 04:52 Creatine Kinase 215 U/L (30-200) H 06/16/20 14:55 CK-MB (CK-2) 5.0 ng/mL (0-6.6) 06/16/20 14:55 Troponin I 0.251 ng/mL (< 0.028) H 06/16/20 14:55 Serum Total Protein 6.7 g/dL (6.0-8.3) 06/16/20 14:55 Albumin 3.4 g/dL (3.5-5.0) L 06/16/20 14:55 Urine Ketones Negative mg/dL (Negative) 06/15/20 20:45 Urine Blood 1+ (Negative) A 06/15/20 20:45 Urine Nitrite Negative (Negative) 06/15/20 20:45 Ur Leukocyte Esterase 500 Marcus/uL (Negative) A 06/15/20 20:45 Urine RBC 4-6 HPF (0-3) A 06/15/20 20:45 Urine WBC Greater than 50 HPF (0-3) A 06/15/20 20:45 Ur Squamous Epith Cells 4-6 HPF (0-3) A 06/15/20 20:45 Urine Bacteria 1+ HPF (None Seen) A 06/15/20 20:45 - Radiology Interpretation MRI - head Additional Comment: Negative for acute intracranial pathology. PN A/P (1) Acute metabolic encephalopathy Code(s): G93.41 - METABOLIC ENCEPHALOPATHY Status: Acute (2) Altered mental state Code(s): R41.82 - ALTERED MENTAL STATUS, UNSPECIFIED Status: Acute (3) Bradycardia Code(s): R00.1 - BRADYCARDIA, UNSPECIFIED Status: Acute (4) CHF (congestive heart failure) Code(s): I50.9 - HEART FAILURE, UNSPECIFIED Status: Acute (5) HLD (hyperlipidemia) Code(s): E78.5 - HYPERLIPIDEMIA, UNSPECIFIED Status: Acute (6) UTI (urinary tract infection) Status: Acute (7) Acute exacerbation of CHF (congestive heart failure) Code(s): I50.9 - HEART FAILURE, UNSPECIFIED Status: Acute - Plan Daily Plan: PT/OT 60 year old male presented with altered mental status which seems multifactorial due to metabolic and infectious etiology. MRI BRAIN reviewed which was negative for acute intracranial pathology. EEG reviewed which was negative for seizure activity. Neurochecks every 4 hours. Continue home medications. 2D echo showed LVEF 55-60 with no thrombus or PFO. Continue medical management per primary team Strict control of BP and BG. PT/OT/Speech. DVT prophylaxis Plan discussed in detail with the patient and the nursing staff.
[2020-06-17] MEDS: Atorvastatin Calcium 40 MG TAB PO SCH (20:33)
[2020-06-17] MEDS: Insulin Glargine 20 UNITS in Pre-Filled Syringe 1 EACH SC SCH (20:33)
[2020-06-17] MEDS: Enoxaparin Sodium 30 MG/0.3 ML SYRINGE SC SCH (20:33)
[2020-06-17] MEDS: cefTRIAXone\\ROCEPHIN 1 GM in Sodium Chloride 0.9% 100 ML IVPB SCH (22:22)
[2020-06-18 05:50] LABS: #Eosinphils 0.1 thou/uL (0.0-0.7); #Monocytes 0.6 thou/uL (0.11-0.59); #Neutrophils 8.3 thou/uL (1.40-6.50); %Basophils 0.2 % (0.0-1.0); %Eosinophils 0.5 % (0.0-10.0); %Lymphocytes 9.5 % (21.0-51.0); %Monocytes 5.7 % (0.0-10.0); Mean Corpuscular HGB CONC 32.2 g/dL (32.0-36.0); Mean Corpuscular Hemoglobin 28.7 pg (27.0-31.0); Mean Platelet Volume 9.9 fL (7.4-10.4); Platelet Count 236 thou/uL (130-400); RBC Distribution Width 13.7 % (11.5-14.5); Red Blood Cell (RBC) Count 4.52 mill/uL (4.70-6.10); White Blood Cell (WBC) Count 9.9 thou/uL (4.8-10.8)
[2020-06-18 06:03] LABS: Anion Gap 18 mmol/L (10-20); BUN (Urea Nitrogen) 47 mg/dL (8.4-25.7); Calc. Creatinine Clearance 7 mL/min (70-130); Calcium 8.2 mg/dL (7.8-10.44); Carbon Dioxide 20 mmol/L (22-29); Chloride 97 mmol/L (98-107); Estimated GFR-MDRD 6; Glucose 106 mg/dL (70-105); Potassium 3.5 mmol/L (3.5-5.1); Sodium 131 mmol/L (136-145)
[2020-06-18] MEDS: Aspirin 325 mg Enteric Coated Tablet PO SCH (08:03)
[2020-06-18] MEDS: hydrALAZINE 25 MG TAB PO SCH (08:04)
[2020-06-18] MEDS: Amlodipine 10 MG TAB PO SCH (08:05)
[2020-06-18] MEDS ORDERED: Minoxidil 2.5 MG TAB PO SCH (09:00)
--- NOTE | 2020-06-18 11:16 | PRG ---
DATE OF SERVICE: 06/18/2020 SUBJECTIVE: A 60-year-old gentleman being seen for end-stage renal disease. The patient denied nausea, vomiting, or chest pain. PHYSICAL EXAMINATION: General: The patient is awake and alert. Vital Signs: Afebrile, pulse 75, breathing at 16, blood pressure 133/63. HEENT: Head normocephalic and atraumatic. Eyes intact, no ulcers. Nose intact, no ulcers. Ears intact, no ulcers. Neck: Supple. No JVD. Chest: Symmetrical and clear. Cardiovascular: Shows S1 and S2, no rub, no murmur. Gastrointestinal: Abdomen is soft, bowel sounds positive. Extremities: Show no edema or ulcers. Skin: Shows no rash or petechiae. Musculoskeletal: Shows no joint swelling or stiffness. Genitourinary: Shows no Duran or CVA tenderness. Neurologic: Motor intact. Cranial nerves intact. LABORATORY DATA: Labs reviewed. ASSESSMENT AND PLAN: 1. Stage 6 chronic kidney disease, continue PD. 2. Hypertension, stable. 3. Anemia, stable. 4. Medication based on GFR appropriate. Job ID: [id number]
[2020-06-18 11:38] VITALS: TEMP 98.5
--- NOTE | 2020-06-18 12:53 | PDOC.NEUPN ---
- Subjective Encounter Date: 06/18/20 Subjective: Mr. Montero feels much better today. He is oriented to person and place. Blood pressure control has been better since the last 24 hours. at bedside - Objective Vital Signs & Weight: Vital Signs (12 hours) Temp Pulse Resp BP Pulse Ox 06/18/20 11:37 98.5 F 100 16 136/65 99 06/18/20 10:15 133/63 06/18/20 07:46 97.9 F 91 16 212/91 H 98 06/18/20 04:00 97.9 F 84 16 177/79 H 98 Weight Weight 155 lb 9.6 oz I&O: 06/17/20 06/18/20 06/19/20 06:59 06:59 06:59 Intake Total 240 800 Output Total 2100 Balance 240 -1300 Result Diagrams: 06/18/20 05:12 06/18/20 05:12 Additional Labs: Accuchecks 06/18/20 06/17/20 10:43 16:00 POC Glucose 110 H 118 H Radiology Reviewed by me: Yes EKG Reviewed by me: Yes ROS - Review of Systems Constitutional: denies: fever, chills, sweats, weakness, malaise, other Eyes: denies: pain, vision change, conjunctivae inflammation, eyelid inf lammation, redness, other Gastrointestinal: denies: nausea, vomiting, abdominal pain, diarrhea, constipation, melena, hematochezia, other Musculoskeletal: denies: neck pain, shoulder pain, arm pain, back pain, hand pain, leg pain, foot pain, other Neurological: denies: weakness, numbness, incoordination, change in speech, c onfusion, seizures, other All Systems: All other systems reviewed; all pertinent +/- noted in HPI/Subj - Medication Medications: Active Medications Generic Name Dose Route Start Last Admin Trade Name Freq PRN Reason Stop Dose Admin Amlodipine Besylate 10 mg 06/17/20 09:00 06/18/20 08:05 Amlodipine 10 Mg Tab PO 10 mg DAILY CAROLYNN Administration Aspirin 325 mg 06/16/20 09:00 06/18/20 08:03 Aspirin 325 Mg Enteric Coated Tablet PO 325 mg DAILY CAROLYNN Administration Atorvastatin Calcium 40 mg 06/16/20 21:00 06/17/20 20:33 Atorvastatin Calcium 40 Mg Tab PO 40 mg HS CAROLYNN Administration Enoxaparin Sodium 30 mg 06/16/20 21:00 06/17/20 20:33 Enoxaparin Sodium 30 Mg/0.3 Ml Syringe SC 30 mg 2100 CAROLYNN Administration Hydralazine HCl 100 mg 06/17/20 15:00 06/18/20 08:04 Hydralazine 25 Mg Tab PO 100 mg TID CAROLYNN Administration Ceftriaxone Sodium 1 gm/ 100 mls @ 200 mls/hr 06/16/20 22:00 06/17/20 22:22 Sodium Chloride IVPB 100 mls Q24HR CAROLYNN Administration Insulin Glargine 20 units/ 0.2 mls @ 0 mls/hr 06/16/20 21:00 06/17/20 20:33 Miscellaneous Medication SC 0.2 mls HS CAROLYNN Administration Insulin Human Lispro 0 units 06/16/20 03:49 06/17/20 12:23 Humalog 300 Units/3 Ml Vial SC 4 unit .MODERATE SLIDING SC PRN Administration Moderate Correctional Scale Isosorbide Mononitrate 30 mg 06/17/20 09:00 06/18/20 08:05 Isosorbide Mononitrate Er 30 Mg Tab PO 30 mg DAILY CAROLYNN Administration Minoxidil 5 mg 06/18/20 09:00 06/18/20 08:05 Minoxidil 2.5 Mg Tab PO 5 mg DAILY CAROLYNN Administration - Exam General Appearance: awake alert Eye: PERRL ENT: normocephalic atraumatic Neck: supple Respiratory: CTAB Cardiovascular: RRR Gastrointestinal: soft Extremities: no cyanosis Skin: normal turgor Neurological: no focal deficits, no new deficit Musculoskeletal: normal tone, normal strength, no muscle wasting PSYCH: normal affect, normal behavior, oriented to person, oriented to place Results - Labs Result Diagrams: 06/18/20 05:12 06/18/20 05:12 Lab results: WBC 9.9 thou/uL (4.8-10.8) 06/18/20 05:12 Hgb 13.0 g/dL (14.0-18.0) L 06/18/20 05:12 Hct 40.2 % (42.0-52.0) L 06/18/20 05:12 MCV 89.0 fL (78.0-98.0) 06/18/20 05:12 Plt Count 236 thou/uL (130-400) 06/18/20 05:12 Neutrophils % 84.0 % (42.0-75.0) H 06/18/20 05:12 Band Neuts % (Manual) 6 % (5-11) 06/16/20 04:52 Sodium 131 mmol/L (136-145) L 06/18/20 05:12 Potassium 3.5 mmol/L (3.5-5.1) 06/18/20 05:12 Chloride 97 mmol/L (98-107) L 06/18/20 05:12 Carbon Dioxide 20 mmol/L (22-29) L 06/18/20 05:12 BUN 47 mg/dL (8.4-25.7) H 06/18/20 05:12 Creatinine 10.47 mg/dL (0.7-1.3) H 06/18/20 05:12 Glucose 106 mg/dL (70-105) H 06/18/20 05:12 Lactic Acid 1.2 mmol/L (0.5-2.2) 06/16/20 14:55 Calcium 8.2 mg/dL (7.8-10.44) 06/18/20 05:12 Total Bilirubin 0.3 mg/dL (0.2-1.2) 06/16/20 14:55 AST 27 U/L (5-34) 06/16/20 14:55 ALT 22 U/L (8-55) 06/16/20 14:55 Alkaline Phosphatase 53 U/L (40-110) 06/16/20 14:55 Ammonia 47 umol/L (18-72) 06/16/20 04:52 Creatine Kinase 215 U/L (30-200) H 06/16/20 14:55 CK-MB (CK-2) 5.0 ng/mL (0-6.6) 06/16/20 14:55 Troponin I 0.251 ng/mL (< 0.028) H 06/16/20 14:55 Serum Total Protein 6.7 g/dL (6.0-8.3) 06/16/20 14:55 Albumin 3.4 g/dL (3.5-5.0) L 06/16/20 14:55 Urine Ketones Negative mg/dL (Negative) 06/15/20 20:45 Urine Blood 1+ (Negative) A 06/15/20 20:45 Urine Nitrite Negative (Negative) 06/15/20 20:45 Ur Leukocyte Esterase 500 Marcus/uL (Negative) A 06/15/20 20:45 Urine RBC 4-6 HPF (0-3) A 06/15/20 20:45 Urine WBC Greater than 50 HPF (0-3) A 06/15/20 20:45 Ur Squamous Epith Cells 4-6 HPF (0-3) A 06/15/20 20:45 Urine Bacteria 1+ HPF (None Seen) A 06/15/20 20:45 - Radiology Interpretation MRI - head Additional Comment: Negative for acute intracranial pathology PN A/P (1) Acute metabolic encephalopathy Code(s): G93.41 - METABOLIC ENCEPHALOPATHY Status: Acute (2) Altered mental state Code(s): R41.82 - ALTERED MENTAL STATUS, UNSPECIFIED Status: Acute (3) Bradycardia Code(s): R00.1 - BRADYCARDIA, UNSPECIFIED Status: Acute (4) CHF (congestive heart failure) Code(s): I50.9 - HEART FAILURE, UNSPECIFIED Status: Acute (5) HLD (hyperlipidemia) Code(s): E78.5 - HYPERLIPIDEMIA, UNSPECIFIED Status: Acute (6) UTI (urinary tract infection) Status: Acute (7) Acute exacerbation of CHF (congestive heart failure) Code(s): I50.9 - HEART FAILURE, UNSPECIFIED Status: Acute - Plan Daily Plan: plan discussed w/ family, PT/OT, speech therapy, out of bed/ambulate 60 year old male presented with altered mental status which seems multifactorial due to metabolic and infectious etiology. Intracranial process less likely since the MRI of the brain and EEG were negative. Episodes of confusion most likely secondary to hypertensive emergency. Blood pressure control has been good since the last 24 hours. Mental status much improved. MRI BRAIN reviewed which was negative for acute intracranial pathology. EEG reviewed which was negative for seizure activity. Neurochecks every 4 hours. Continue home medications. 2D echo showed LVEF 55-60 with no thrombus or PFO. Continue medical management per primary team Strict control of BP and BG. PT/OT/Speech. DVT prophylaxis Plan discussed in detail with the patient , at bedside and the nursing staff.
[2020-06-18 13:18] VITALS: BP 133/63
--- NOTE | 2020-06-19 01:16 | DIS ---
DATE OF ADMISSION: 06/15/2020 DATE OF DISCHARGE: 06/18/2020 DISCHARGE DIAGNOSES: 1. Acute encephalopathy due to hypertensive emergency. 2. Hypertensive emergency. 3. Bradycardia. 4. Diabetes mellitus, type 2. 5. End-stage renal disease, on dialysis. 6. Urinary tract infection. DISCHARGE MEDICATIONS: 1. Carvedilol 25 mg orally twice daily. 2. Amlodipine 10 mg orally daily. 3. Aspirin 81 mg orally daily. 4. Atorvastatin 10 mg orally daily. 5. Hydralazine 50 mg orally t.i.d. 6. Levemir 10 units subcu b.i.d. 7. Isordil 20 mg orally t.i.d. 8. Minoxidil 5 mg orally daily. 9. Sevelamer 800 mg orally t.i.d. HISTORY OF PRESENT ILLNESS AND HOSPITAL COURSE: The patient is a 60-year-old male, with past medical history of end-stage renal disease, on peritoneal dialysis; diabetes mellitus; and hypertension, who presented to the hospital with episodes of altered mental status during which the patient stares blankly and does not follow commands. Upon arrival, he was found to be hypertensive and hyperglycemic. Workup for CVA was unremarkable, including MRI of the brain, echocardiogram, and CT scan of the head. The patient's blood pressure was brought under control with oral antihypertensive medications and this has led to resolution of his altered mental status. He was also treated for mild UTI that was asymptomatic. At this time, the patient is back to his baseline and all his medications were refilled for discharge. Job ID: [id number]
--- NOTE | 2020-06-19 10:55 | PQF ---
CLINICAL DOCUMENTATION CLARIFICATION FORM: Dear Dr. Abraham Mayberry Date: 06.19.20 Please exercise your independent, professional judgment in responding to the clarification form. Clinical indicators are provided on the bottom of this form for your review. Please check appropriate box(es): Conflicting documentation was noted in the Medical Record; please clarify if patient is being treated/monitored for: [ > ] Acute Exacerbation of CHF [ ] systolic [ ] diastolic [ ] combined systolic/ diastolic [ ] Chronic CHF [ ] systolic [ ] diastolic [ ] combined systolic/ diastolic [ ] Other diagnosis [ ] Unable to determine In addition, please specify: Present on Admission (POA): [ > ] Yes [ ] No [ ] Unable to determine For continuity of documentation, please document condition throughout progress notes and discharge summary. Thank You. To be completed by CDI/Coding staff for physician review: CLINICAL INDICATORS - SIGNS / SYMPTOMS/ LABS / RESULTS AND LOCATION IN EMR 11.14 H&P (FlorentinoPranav): CHF status acute 11.16 PN (Ninfa): Acute Exacerbation of CHF 11.14 Echo: LVEF 55-60% RISK FACTORS / RESULTS AND LOCATION IN EMR 11.14 H&P (GoodPranav): ESRD; HTN; DM TYPE 2; HLD; AND CHF TREATMENT / RESULTS AND LOCATION IN EMR 11.14 ECHO 11.14 H&P (Korey): cardiac monitoring; started on asa and statin; CDS Signature: Arelis Villegas RN, CCDS Phone #: [phone] This is a permanent part of the Medical Record [facility]
--- NOTE | 2020-06-20 06:59 | EKG ---
Test Reason : Blood Pressure : / mmHG Vent. Rate : 085 BPM Atrial Rate : 085 BPM P-R Int : 324 ms QRS Dur : 088 ms QT Int : 384 ms P-R-T Axes : 077 -46 034 degrees QTc Int : 456 ms Sinus rhythm with 1st degree A-V block with frequent Premature ventricular complexes Low voltage QRS Left anterior fascicular block Cannot rule out Anteroseptal infarct (cited on or before 15-JUN-2020) Abnormal ECG Confirmed by NATALIE GALICIA MD ([id number]) on 06/20/2020 6:59:10 AM Referred By: KASEY Confirmed By:NATALIE GALICIA MD
--- NOTE | 2020-06-21 05:54 | PQF ---
CLINICAL DOCUMENTATION CLARIFICATION FORM: Dear : Abraham Mayberry Date / Time: 06/21/2020 0554 Please exercise your independent, professional judgment in responding to the clarification form. Clinical indicators are provided on the bottom of this form for your reviee Please check appropriate box(es): HEART FAILURE: A. TYPE: [ ] Systolic / HFrEF [ >] Diastolic / HFpEF [ ] Combined Systolic / Diastolic [ ] Other diagnosis, please specify [ ] Unable to determine Physician Signature: Date/Time: For continuity of documentation, please document condition throughout progress notes and discharge summary. Thank You. To be completed by CDI/Coding staff for physician review: Present Clinical Indicators - Signs / Symptoms / Labs Results and Location in Medical Record [X] BP 208/98, Pulse 79, Resp 14, Temp 98.2 Vital signs 06/15 [X] CK-Mb 3.1, Troponin 0.1420;0.178 Laboratory 06/15 [X] EF 55-60% Echocardiogram 06/16 dr Ramirez [X] Elevated troponin H&P p4 06/15 Dr Nair [X] CHF exacerbation Physician Documentation 06/20 Dr mayberry [X] Chest Xray: possible developing interstitial edema in the right lung base Chest Xray 06/15 [X] Edema Consult 06/16 Present Risk Factors Results and Location in Medical Record [X] 60 year-old Male H&P p1 06/15 Dr Nair [X] ESRD on PD H&P p1 06/15 Dr Nair [X] HTN H&P p1 06/15 Dr Nair [X] DM H&P p1 06/15 Dr Nair [X] HLD ED Notes 06/15 [X] High cholesterol ED Notes 06/15 [X] Former Smoker ED Notes 06/15 Present Treatments Results and Location in Medical Record [X] Nifedipine 60 mg oral MAR 06/16 [X] Isosorbide Mononitrate 60 mg oral MAR 06/16 [X] Lipitor 40 mg oral MAR 06/16 [X] Aspirin 325 mg oral MAR 06/16 CDS/Gastrointestinal Technician Signature: Veronique Jenningsmahad Phone #: [phone] Date/Time: 06/20/2020 0579 This is a permanent part of the Medical Record [facility], [place]
== END 2020-06-18 13:39 | disposition home or self-care (01) | DRG 77 ==
LOC: ERS 19:31 → 2SE 22:30
PROVIDERS: ADMIT Internal Medicine; ATTEND Internal Medicine
PROC: 3E1M39Z Irrigation of Peritoneal Cavity using Dialysate, Percutaneous Approach (ICD-10-PCS; principal; 2020-06-16)
DX: I67.4 Hypertensive encephalopathy (principal); N18.6 End stage renal disease; I50.33 Acute on chronic diastolic (congestive) heart failure; I16.1 Hypertensive emergency; N39.0 Urinary tract infection, site not specified; I13.2 Hypertensive heart and chronic kidney disease with heart failure and with stage 5 chronic kidney disease, or end stage renal disease; E87.1 Hypo-osmolality and hyponatremia; Z79.4 Long term (current) use of insulin; R00.1 Bradycardia, unspecified; Z20.828 Contact with and (suspected) exposure to other viral communicable diseases; E11.22 Type 2 diabetes mellitus with diabetic chronic kidney disease; E11.65 Type 2 diabetes mellitus with hyperglycemia; E78.5 Hyperlipidemia, unspecified; E78.00 Pure hypercholesterolemia, unspecified; I50.9 Heart failure, unspecified; D63.1 Anemia in chronic kidney disease; Z28.21 Immunization not carried out because of patient refusal; Z99.2 Dependence on renal dialysis; Z87.891 Personal history of nicotine dependence; Z79.899 Other long term (current) drug therapy; Z79.82 Long term (current) use of aspirin
CPT/HCPCS: 36415; 36416; 70450; 70551; 71045; 80048; 80053; 80061; 81003; 81015; 82140; 82550; 82553; 83036; 83605; 83735; 84443; 84484; 85007; 85025; 85027; 85379; 85610; 85730; 87086; 87340; 87635; 89051; 90945; 93005; 93010; 93306; 93880; 95712; 95816; 95819; 95957; 96374; G0257; J0360; J0696; J1650; J1815; J3490; U0003

== ENCOUNTER 2020-06-18 21:57 | Inpatient (IN) | payer OTHER ==
[~2020-06-18 21:57] MED LIST: Iopamidol-370 76% 500 ML 1 ML ONE
[2020-06-18] MEDS ORDERED: Fentanyl 100 MCG/2 ML VIAL ONE (21:59)
[2020-06-18] MEDS ORDERED: Propofol 1,000 MG/100 ML VIAL IV ONE (22:02)
[2020-06-18] MEDS ORDERED: niCARdipine 20MG In NaCl 20 MG/200 ML BAG ONE (22:06)
[2020-06-18 22:25] LABS: Actual Bicarbonate (HCO3a) 19.8 mEq/L (22-28); Analyzer IN Cardio OR; Base Excess (BEa) -2.7 mEq/L (-2.0 to +3.0); Calcium, Ionized (arterial) 0.97 mmol/L (1.12-1.30); Carboxyhemoglobin (COHb) 0.3 gm% (0.0-3.0); Hemoglobin (Hb) 12.2 g/dL (14.0-18.0); O2 Tension (PaO2), arterial 177.8 mmHg (> 80.0); Potassium - ABG Lab 2.82 mmol/L (3.70-5.30); pH, Arterial 7.47 (7.35-7.45)
[2020-06-18 22:27] LABS: #Lymphocytes 0.8 thou/uL (1.20-3.40); #Monocytes 0.7 thou/uL (0.11-0.59); #Neutrophils 12.1 thou/uL (1.40-6.50); %Basophils 0.2 % (0.0-1.0); %Lymphocytes 5.7 % (21.0-51.0); %Monocytes 4.9 % (0.0-10.0); %Neutrophils 89.2 % (42.0-75.0); Hemoglobin 11.7 g/dL (14.0-18.0); Mean Corpuscular HGB CONC 32.6 g/dL (32.0-36.0); Mean Corpuscular Hemoglobin 28.7 pg (27.0-31.0); Mean Corpuscular Volume 88.1 fL (78.0-98.0); Mean Platelet Volume 9.2 fL (7.4-10.4); Platelet Count 225 thou/uL (130-400); RBC Distribution Width 13.7 % (11.5-14.5); Red Blood Cell (RBC) Count 4.08 mill/uL (4.70-6.10); White Blood Cell (WBC) Count 13.6 thou/uL (4.8-10.8)
--- NOTE | 2020-06-18 22:34 | RAD ---
RADIOGRAPH CHEST 1 VIEW: Supine DATE: 06/18/2020 HISTORY: 60-year-old male status post intubation FINDINGS: There is no pulmonary edema. No cardiomegaly.. Supine positioning makes this study insensitive for th e detection of pneumothorax. New endotracheal tube distal tip 6 to 6.5 cm superior to stacy. New esophagogastric tube with side-port visualized in left upper quadrant. New opacification of medial ba se of left lower lobe. The rest of the visualized lung morgan are clear. IMPRESSION: 1) status post intubation 2) new opacification at left lower lobe: Atelectasis versus aspiration. Recommend follow-up
[2020-06-18 22:37] LABS: INR-International Normal Ratio 0.9; Prothrombin Time 12.8 sec (12.0-14.7)
[2020-06-18 22:44] LABS: ALT (SGPT) 15 U/L (8-55); AST (SGOT) 23 U/L (5-34); Albumin 2.9 g/dL (3.5-5.0); Alkaline Phosphatase 42 U/L (40-110); Anion Gap 21 mmol/L (10-20); BUN (Urea Nitrogen) 44 mg/dL (8.4-25.7); Bilirubin, Total 0.2 mg/dL (0.2-1.2); Calc. Creatinine Clearance 0 mL/min (70-130); Calcium 7.3 mg/dL (7.8-10.44); Carbon Dioxide 18 mmol/L (22-29); Chloride 95 mmol/L (98-107); Estimated GFR-MDRD 7; Globulin 2.9 g/dL (2.4-3.5); Glucose 294 mg/dL (70-105); Potassium 3.2 mmol/L (3.5-5.1); Protein, Total 5.8 g/dL (6.0-8.3); Sodium 131 mmol/L (136-145)
--- NOTE | 2020-06-18 22:48 | CT ---
CT BRAIN NONCONTRAST: DATE: 06/18/2020 HISTORY: 60-year-old male with altered mental status. FINDINGS: There is no evidence of acute intra-axial or extra-axial hemorrhage. There is no midline shift or any other mass effect. There is no extra-axial fluid collection. There is no evidence of obstructive hydrocephalus. Calvarium is intact. There is diffuse brain parenchymal volume loss. There are low att enuation areas in the white matter. These are nonspecific, but in a patient of this age, they are probably chronic ischemic white matter changes due to microvascular atherosclerosis. There are old in farctions in the brainstem, more specifically in the flash. Tiny old lacunar infarction of white matter in right castillo radiata. Tiny old lacunar infarction in right thalamus. Asymmetric band of low attenuation around the trigone and occipital horn of right lateral ventricle. Nasopharyngeal airway filled with material, presumably secretions. No other interval change overall since 06/15/2020 . IMPRESSION: 1) No acute intracranial findings. 2) tiny old lacunar infarctions in right thalamus and right cerebral deep white matter. 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 4) involutional changes and chronic ischemic white matter changes. 5) nasopharyngeal airway filled with material, probably secretions.
[2020-06-18 23:05] LABS: CKMB 5.7 ng/mL (0-6.6)
--- NOTE | 2020-06-18 23:13 | CT ---
CT ANGIOGRAM OF BRAIN WITH AND WITHOUT CONTRAST: DATE: 06/18/2020 HISTORY: 60-year-old male with altered mental status COMPARISON: None TECHNIQUE: Noncontrast brain CT performed. Iodinated IV contrast injected. Bolus chasing technique scan performed through the head. Coronal and sagittal 3-D MIP reconstructions. FINDINGS: Heavy atherosclerotic calcification of bilateral carotid siphons. Difficult to evaluate degree of kyle nosis because of the calcifications. No high-grade stenosis, thrombosis, or occlusion, involving M1 segments of MCA's, A1 and A2 segments of ACAs, intracranial vertebrals, basilar or proximal portions of loadmaster and superior cerebellars. Heavy atherosclerotic calcification in bilateral proximal internal carotid arteries, including caroti d bulbs with moderate, approximately 50% stenosis at proximal right internal carotid, and mild stenosis at proximal left internal carotid. Brachiocephalic, bilateral subclavian, and bilateral common carotid arteries, show no high-grade sten osis. IMPRESSION: 1) heavy atherosclerosis of bilateral proximal internal carotid arteries. 2) moderate, 50% stenosis at proximal right internal carotid. 3) no other hemodynamically significant stenosis, thrombosis, or occlusion identified.
--- NOTE | 2020-06-18 23:19 | CT ---
CT ABDOMEN WITH CONTRAST CT PELVIS WITH CONTRAST: DATE: 06/18/2020 HISTORY: 60-year-old male with GI bleed. COMPARISON: None TECHNIQUE: IV injection of iodinated contrast media: administered. Oral contrast media:Not administered FINDINGS: There is a region of consolidation at the left lower lobe with air bronchogram, incompletely imaged. Stomach very distended with fluid. Esophagogastric tube distal tip is in proximal body of the stomach . Large amount of free intraperitoneal fluid throughout the abdominal cavity and pelvic cavity. No focal abnormality identified involving liver, spleen, or right adrenal. Peritoneal dialysis catheter coiled in pelvic cavity. Numerous small calcifications throughout the entire pancreas. Moderate to severe dilation of the entire pancreatic duct caliber of approximate 7 mm. Heavy atherosclerotic calcification of abdominal aorta and all of the iliac arteries, without aneurys m. Suture line around the right colon. No small bowel dilation. No pneumoperitoneum. 2 cm partially exophytic left renal midpole cortical cyst. No hydronephrosis bilaterally. IMPRESSION: 1) moderate to large volume ascites. 2) gastric distention. 3) left lower lobe consolidation: Pneumonia versus aspiration versus atelectasis. 4) signs of chronic pancreatitis: Diffuse pancreatic calcifications. 5) diffuse dilation of the pancreatic duct 6) peritoneal dialysis catheter.
[2020-06-18] MEDS ORDERED: cefTRIAXone\\ROCEPHIN 1 GM VIAL ONE (23:30)
[2020-06-18 23:32] LABS: Puncture Site LRA
[2020-06-18 23:36] LABS: Acetaminophen Less than 6.0 mcg/mL (10.0-30.0); Alcohol Less than 10 mg/dL (Less than 10); Salicylate Less than 8.0 mg/dL (15.0-30.0)
[2020-06-18 23:59] LABS: Bacteria/HPF None Seen HPF (None Seen); Bilirubin Negative (Negative); Blood, Urine 1+ (Negative); Clarity Turbid (Clear); Glucose, Urine (Dipstick) 200 mg/dL (Negative); Ketone, Urine Negative (Negative); Leukocyte 25 Leu/uL (Negative); Nitrite Negative (Negative); Protein, Urine (Dipstick) 200 mg/dL (Neg-Trace); Specific Gravity, Urine 1.013 (1.002-1.036); Squamous Epithelial 0-3 HPF (0-3); Urobilinogen Normal mg/dL (Less than 2); pH, Urine 5.5 (5.0-9.0)
[2020-06-19 00:05] LABS: Amphetamine Not Detected (NotDetected); Barbiturates Screen Not Detected (NotDetected); Benzodiazepine Screen Not Detected (NotDetected); Cocaine Metabolite Screen Not Detected (NotDetected); Medtox Control Line Valid? VALID (VALID); Medtox Reader # READER 4; Methadone Not Detected (NotDetected); Methamphetamine Not Detected (NotDetected); Opiate Screen Not Detected (NotDetected); Oxycodone Screen Not Detected (NotDetected); Phencyclidine (PCP) Not Detected (NotDetected); THC/Cannabinoid Screen Not Detected (NotDetected); Tricyclic Screen Not Detected (NotDetected)
[2020-06-19] MEDS ORDERED: Ventilator Sedation Protocol 1 EACH FS SCH (00:30)
[2020-06-19] MEDS ORDERED: Lorazepam 2 MG/ML VIAL ONE (00:36)
[2020-06-19] MEDS ORDERED: Lorazepam 2 MG/ML VIAL SLOW IVP PRN (01:00)
[2020-06-19] MEDS ORDERED: DISCONTINUE PREVIOUS NARCOTIC PAIN MEDICATIONS AND BENZODIAZEPINES FS SCH (01:00)
[2020-06-19] MEDS ORDERED: Fentanyl BOLUS 250 ML IVPB PRN (01:00)
[2020-06-19] MEDS ORDERED: Propofol BOLUS 1,000 MG/100 ML VIAL IV PRN (01:00)
[2020-06-19] MEDS ORDERED: Morphine 2 MG/ML VIAL SLOW IVP PRN (01:00)
[2020-06-19] MEDS ORDERED: Norepinephrine 8 MG in Dextrose 5% in Water 242 ML IVPB PRN (01:15)
[2020-06-19] MEDS ORDERED: EPINEPHrine 1 MG/10 ML Abboject SYRINGE ONE (01:15)
[2020-06-19 01:28] LABS: Lactic Acid 4.1 mmol/L (0.5-2.2)
[2020-06-19] MEDS ORDERED: Pantoprazole 80 MG, Admixture Fee 1 EACH in Sodium Chloride 0.9% 100 ML IVPB SCH (01:30)
[2020-06-19] MEDS ORDERED: Pantoprazole 40 MG VIAL ONE (01:32)
--- NOTE | 2020-06-19 01:39 | PDOC.BPN ---
- Brief Progress Note [id number] dictated
[2020-06-19] MEDS ORDERED: niCARdipine 25 MG in Sodium Chloride 0.9% 250 ML 240 ML IVPB SCH (02:30)
[2020-06-19] MEDS: Piperacillin/Tazobactam 2.25 GM in Sodium Chloride 0.9% 100 ML IVPB SCH ×3 (03:35→19:44)
[2020-06-19] MEDS: Sodium Chloride 0.9% 1,000 ML IV SCH ×2 (03:38→20:34)
--- NOTE | 2020-06-19 04:18 | HP ---
CHIEF COMPLAINT: Altered mental status. HISTORY OF PRESENT ILLNESS: Mr. Montero is a 60-year-old male with past medical history of end-stage renal disease, on dialysis, who was brought to the emergency room for altered mental status. The patient was just discharged from the hospital after pain admitted for stroke workup and altered mental status. Workup was unremarkable and was told that the patient had hypertensive emergency. Today, patient blood pressure was high with systolic blood pressure more than 200. The patient was intubated and brought to the emergency room. Workup in the emergency room including CT of the brain, no acute finding. The patient was started initially on Cardene drip for elevated blood pressure, but his blood pressure dropped, Cardene discontinued, fentanyl discontinued. ED physician is placing central venous catheter and starting the patient on Levophed. No further history can be obtained this point. It was noted in the emergency room, the patient had coffee-grounds emesis going through the NG tube. PAST MEDICAL HISTORY: Significant for: 1. Diabetes, on insulin. 2. Hyperlipidemia. 3. Hypertension. 4. Congestive heart failure. 5. End-stage renal disease, on peritoneal dialysis. PAST SURGICAL HISTORY: 1. Polyp removal. 2. Fistula to right arm. SOCIAL HISTORY: The patient drinks socially. Former tobacco smoker. Lives at home with family. ALLERGIES: NO KNOWN ALLERGIES. HOME MEDICATIONS: Please see home medication reconciliation form for updated medications. REVIEW OF SYSTEMS: Unable to obtain. The patient is intubated on the ventilator, unresponsive. PHYSICAL EXAMINATION: GENERAL: The patient is intubated and sedated on the ventilator. VITAL SIGNS: Blood pressure was as high as 200/140, latest blood pressure is 84/44, central venous catheter is being placed by ED and pressors will be started, heart rate is 70, temperature is 95.5, oxygen saturation is 100% on ventilator, respiratory rate is 18. HEAD AND NECK: Normocephalic, atraumatic. NECK: Supple. CHEST: Decreased air entry bilaterally. HEART: S1, S2. Regular. Abdomen distended. Bowel sounds present. NEUROLOGIC: Intubated, sedated, unable to assess. PSYCH: Unable to assess. EXTREMITIES: No clubbing or cyanosis. SKIN: No apparent rash. LABORATORY DATA: ABG: pH 7.47, pO2 28, paO2 [address] of the abdomen shows large volume ascites, gastric distention, right lower lobe consolidation, pneumonia versus aspiration, chronic pancreatitis, diffuse dilatation of pancreatic duct, peritoneal dialysis catheter in place. 2. CTA of the head and neck, moderate 50% stenosis of the proximal internal carotid artery. 3. CT of the brain, no acute intracranial findings. Tiny old lacunar infarction in the right thalamus and right cerebral deep white matter. LABORATORY DATA: Sodium was 131, potassium 3.2, BUN is 44, creatinine 9.9, glucose is 294, calcium is 7.3, WBC count is 13.6, hemoglobin 11.7, platelets 225. ASSESSMENT AND PLAN: 1. Acute respiratory failure. 2. Acute encephalopathy ? hypertensive emergency. 3. Hypertensive emergency. Currently patient is hypotensive after starting the Cardene drip. 4. Gastrointestinal bleed ? 5. Cerebrovascular accident, cannot be ruled out. The patient was recently admitted to the hospital and had stroke workup, which was unremarkable. It is possible that his symptoms related to hypertensive emergency. 6. Diabetes mellitus, hyperglycemia. 7. End-stage renal disease, on peritoneal dialysis. 8. Gastrointestinal bleed. PLAN: 1. Admit to ICU. 2. Central venous catheter is being placed by ED physician. 3. Start IV pressors. 4. Continue PPI drip for possible GI bleed. 5. Continue IV PPI drip. 6. Consult GI for evaluation and further recommendations. 7. Monitor hemoglobin and hematocrit. 8. Consult Pulmonary/Supervisor Packing Room for critical care and ventilator management. 9. Consult Neurology for evaluation of further management. 10. To consult Nephrology in a.m., patient is on dialysis. 11. Reconcile home medications. 12. DVT prophylaxis as appropriate. 13. GI prophylaxis, the patient is on IV PPI. 14. Expected length of stay, 2 midnights or more. 15. The patient's condition is critical. Case discussed with the ED physician and with the patient's . Job ID: [id number]
[2020-06-19] MEDS: Propofol 1,000 MG/100 ML VIAL IV PRN ×2 (05:53→23:49)
[2020-06-19] MEDS ORDERED: Piperacillin/Tazobactam 3.375 GM in Sodium Chloride 0.9% 100 ML IVPB SCH (06:00)
[2020-06-19] MEDS: fentaNYL Citrate/PF 2,000 MCG in Sodium Chloride 0.9% 60 ML IV SCH (07:24)
[2020-06-19 08:28] LABS: Actual Bicarbonate (HCO3a) 22.2 mEq/L (22-28); Analyzer IN Cardio ER; Base Excess (BEa) -0.3 mEq/L (-2.0 to +3.0); CO2 Tension 30.2 mmHg (35.0-45.0); Calcium, Ionized (arterial) 0.98 mmol/L (1.12-1.30); Carboxyhemoglobin (COHb) 0.3 gm% (0.0-3.0); Hemoglobin (Hb) 13.3 g/dL (14.0-18.0); O2 Tension (PaO2), arterial 141.2 mmHg (> 80.0); Potassium - ABG Lab 2.93 mmol/L (3.70-5.30); pH, Arterial 7.48 (7.35-7.45)
[2020-06-19 08:34] LABS: Puncture Site RRA
[2020-06-19 08:57] LABS: #Lymphocytes 1.5 thou/uL (1.20-3.40); #Monocytes 0.9 thou/uL (0.11-0.59); #Neutrophils 11.3 thou/uL (1.40-6.50); %Basophils 0.2 % (0.0-1.0); %Eosinophils 0.1 % (0.0-10.0); %Lymphocytes 10.7 % (21.0-51.0); %Monocytes 6.7 % (0.0-10.0); %Neutrophils 82.4 % (42.0-75.0); Hemoglobin 10.6 g/dL (14.0-18.0); Mean Corpuscular HGB CONC 33.3 g/dL (32.0-36.0); Mean Corpuscular Hemoglobin 29.6 pg (27.0-31.0); Mean Corpuscular Volume 88.8 fL (78.0-98.0); Platelet Count 206 thou/uL (130-400); RBC Distribution Width 13.8 % (11.5-14.5); Red Blood Cell (RBC) Count 3.59 mill/uL (4.70-6.10); White Blood Cell (WBC) Count 13.7 thou/uL (4.8-10.8)
[2020-06-19] MEDS ORDERED: Aspirin 300 MG Suppository PR SCH (09:00)
[2020-06-19 09:10] LABS: Lactic Acid 1.7 mmol/L (0.5-2.2)
[2020-06-19 09:17] LABS: ALT (SGPT) 9 U/L (8-55); AST (SGOT) 17 U/L (5-34); Albumin 2.5 g/dL (3.5-5.0); Alkaline Phosphatase 38 U/L (40-110); Anion Gap 15 mmol/L (10-20); BUN (Urea Nitrogen) 50 mg/dL (8.4-25.7); Bilirubin, Total 0.2 mg/dL (0.2-1.2); Calc. Creatinine Clearance 7 mL/min (70-130); Carbon Dioxide 23 mmol/L (22-29); Chloride 97 mmol/L (98-107); Estimated GFR-MDRD 6; Globulin 2.5 g/dL (2.4-3.5); Lipase 22 U/L (8-78); Sodium 132 mmol/L (136-145)
[2020-06-19 09:35] LABS: Glucose 47 mg/dL (70-105); Potassium 2.9 mmol/L (3.5-5.1)
[2020-06-19] MEDS ORDERED: Dextrose 50% Abboject 50 ML SYRINGE ONE ×2 (09:45→15:40)
[2020-06-19] MEDS: Famotidine/PF 20 mg/2ml Vial SLOW IVP SCH (09:48)
[2020-06-19] MEDS ORDERED: Dextrose 5% in Water 1,000 ML IV PRN (10:32)
[2020-06-19] MEDS ORDERED: Potassium Chloride 20 MEQ TAB PO SCH (10:45)
[2020-06-19] MEDS ORDERED: Potassium Chloride 10 MEQ/100 ML PREMIX BAG IVPB SCH (11:15)
--- NOTE | 2020-06-19 12:03 | CON ---
DATE OF CONSULTATION: REASON FOR CONSULTATION: End-stage renal disease, for maintenance dialysis. HISTORY OF PRESENT ILLNESS: This is a very pleasant 60-year-old gentleman, who is currently intubated, presented to the hospital this morning for altered mental status. The patient had a hemoglobin of 10.6 and a potassium of 2.9. PAST MEDICAL HISTORY: Significant for diabetes mellitus, hypertension, hyperlipidemia, congestive heart failure, end-stage renal disease on peritoneal dialysis, history of polyp removal, history of fistula. SOCIAL HISTORY: The patient drinks socially. REVIEW OF SYSTEMS: Unobtainable, the patient is intubated. MEDICATIONS: Home medications list reviewed. Hospital medications list reviewed. PHYSICAL EXAMINATION: GENERAL: The patient is resting, intubated. VITAL SIGNS: Afebrile, pulse 70, breathing 16, and blood pressure 92/46. HEENT: Head normocephalic and atraumatic. Eyes intact, no ulcers. Nose intact, no ulcers. Ears intact, no ulcers. Neck: Supple. No JVD. Chest: Symmetrical and clear. Cardiovascular: Shows S1 and S2, no rub, no murmur. Gastrointestinal: Abdomen is soft, bowel sounds positive. Extremities: Show no edema or ulcers. Skin: Shows no rash or petechiae. Musculoskeletal: Shows no joint swelling or stiffness. Genitourinary: Shows no Duran or CVA tenderness. Neurologic: The patient is resting. LABORATORY DATA: Show potassium is 2.9, sodium 132. ASSESSMENT: Stage 6 chronic kidney disease, continue PD. Hypokalemia, recommend potassium replacement. We will recheck potassium again today. Altered mental status, management per primary team. Job ID: [id number]
--- NOTE | 2020-06-19 12:13 | CT ---
CT ANGIOGRAM OF BRAIN WITH AND WITHOUT CONTRAST: CT ANGIOGRAM OF NECK WITH AND WITHOUT CONTRAST: DATE: 06/18/2020 HISTORY: 60-year-old male with altered mental status COMPARISON: None TECHNIQUE: Noncontrast brain CT performed. Iodinated IV contrast injected. Bolus chasing technique scan performed through the head. Coronal and sagittal 3-D MIP reconstructions. FINDINGS: Heavy atherosclerotic calcification of bilateral carotid siphons. Difficult to evaluate degree of kyle nosis because of the calcifications. No high-grade stenosis, thrombosis, or occlusion, involving M1 segments of MCA's, A1 and A2 segments of ACAs, intracranial vertebrals, basilar or proximal portions of crime victim specialist and superior cerebellars. Heavy atherosclerotic calcification in bilateral proximal internal carotid arteries, including caroti d bulbs with moderate, approximately 50% stenosis at proximal right internal carotid, and mild stenosis at proximal left internal carotid. Brachiocephalic, bilateral subclavian, and bilateral common carotid arteries, show no high-grade sten osis. IMPRESSION: 1) heavy atherosclerosis of bilateral proximal internal carotid arteries. 2) moderate, 50% stenosis at proximal right internal carotid. 3) no other hemodynamically significant stenosis, thrombosis, or occlusion identified. Transcribed Date/Time: 06/19/2020 12:11 PM
--- NOTE | 2020-06-19 12:33 | CON ---
NEUROLOGY CONSULTATION DATE OF CONSULTATION: 06/19/2020 REASON FOR CONSULTATION: Altered mental status. HISTORY OF PRESENT ILLNESS: Mr. Montero is a 60-year-old male with medical history significant for end-stage renal disease, on hemodialysis; hyperlipidemia; malignant hypertension; congestive heart failure; and diabetes mellitus, on insulin; presented to the hospital for altered mental status. The patient was recently discharged yesterday after being admitted for hypertensive emergency and altered mental status. An MRI of the brain was done at the prior visit, which was negative. EEG was also negative. He was also found to have UTI and was treated for labile hypertension, which also improved his mental status yesterday. He was discharged per . As soon as she took him home, he again became extremely confused and so she decided to bring him to the emergency room for further evaluation. In the emergency room, initial blood pressure was more than 200. He was initially started on Cardene drip for elevated blood pressure, but his blood pressure dropped, so Cardene was discontinued and he was started on Levophed and intubated and sedated because of increased agitation. It was also noted in the emergency room, he had coffee-grounds emesis going to the nasogastric tube. REVIEW OF SYSTEMS: Unobtainable due to the patient being intubated. PAST MEDICAL HISTORY: Diabetes mellitus, on insulin; hyperlipidemia; hypertension; congestive heart failure; end-stage renal disease, on peritoneal dialysis. PAST SURGICAL HISTORY: Polyp removal, fistula in the right arm. SOCIAL HISTORY: The patient drinks socially. Former smoker. Lives at home with family. . ALLERGIES: NO KNOWN DRUG ALLERGIES. HOME MEDICATIONS: Please see home medication reconciliation form for updated medications. PHYSICAL EXAMINATION: VITAL SIGNS: The initial blood pressure was 200/140, but however, blood pressure was 136/70, pulse 80, respiratory rate 18. CVS: Regular rate and rhythm. CHEST: Clear. ABDOMEN: Soft. NECK: Supple. NEUROLOGIC: Mental status, the patient is intubated and sedated. When the patient is intubated and has been off Levophed for 1 hour, he opens eyes to verbal stimuli. Follows commands intermittently. Cranial nerves, pupils 4 mm, round, and reactive to light. Face symmetric. Tongue midline. Corneals positive. Cough positive. Motor, muscle tone and bulk are normal. Minimal movement of all 4 extremities seen. Sensory withdraws all 4 extremities to nailbed pressure. Cerebellar, did not cooperate with the testing. Gait deferred due to the patient's safety reasons. DATA REVIEWED: CT scan of the brain, which did not reveal any acute intracranial pathology. He does have an old lacunar infarct in the right thalamus and right cerebral deep white matter. CTA of the head and neck showed moderate stenosis of the proximal internal carotid artery. A CT of the abdomen showed large volume ascites and peritoneal dialysis catheter in place. ASSESSMENT AND PLAN: Mr. Randall Montero is readmitted because of altered mental status secondary to hypertensive emergency. He is currently intubated and sedated. EEG ongoing, which did not reveal any acute ongoing seizure activity. Consider MRI of the brain to assess for acute intracranial process. Neuro checks every 4 hours. Monitor blood pressure and blood glucose. Continue medical management per primary team. Further recommendations will depend on the results of the testing. We will continue to follow. Plan discussed with the and the nursing staff. Thank you for the consult. Job ID: [id number] MTDD
--- NOTE | 2020-06-19 13:54 | MRI ---
MRI brain without IV contrast. Multiplanar and multisequential imaging of brain obtained according to protocol. INDICATIONS: Seizure. Syncopal episode. COMPARISON: MRI brain 06/16/2020 FINDINGS: Ventricles have normal size shape and position. No evidence of restricted diffusion. Mild to moderate chronic ischemic white matter changes appear stable. Evidence of old brainstem infar ct at the level of the flash is stable in appearance. No evidence of mass or edema. Intracranial internal carotid arteries, proximal cerebral arteries, and basilar arteries show normal flow voids. Dural venous sinuses appear patent. Mild mucosal edema in the ethmoid air cells and sphenoid air cells. Orbits appear unremarkable. Bony calvarium and soft tissues of the scalp appear unremarkable. IMPRESSION: Chronic ischemic white matter change and ischemic brainstem changes are stable. No acute process.
--- NOTE | 2020-06-19 14:55 | PDOC.EEG ---
Neurology EEG Report - Report Report: This EEG was performed using 24 channel [employer] video digital EEG machine with 24 disc electrodes. This was an extended 2 hours 5 minutes of EEG recording. Digital analysis of the EEG was done for Ronny and seizure detection which revealed no abnormalities. Background: The posterior background rhythm is not observed Photic stimulation: No response seen with photic stimulation. Hyperventilation: Not performed. Sleep: No stage change was observed. EEG diagnosis: Irregular theta activity seen throughout the recording. Absence of posterior background rhythm. Clinical interpretation: This EEG is consistent with moderate generalized nonspecific cerebral dysfuncti on.
[2020-06-19] MEDS: Dextrose 50% Abboject 50 ML SYRINGE SLOW IVP PRN (15:43)
[2020-06-19] MEDS: Dextrose 10% in Water 1,000 ML IV SCH (15:52)
[2020-06-19 19:06] LABS: Anion Gap 16 mmol/L (10-20); BUN (Urea Nitrogen) 48 mg/dL (8.4-25.7); Calc. Creatinine Clearance 7 mL/min (70-130); Carbon Dioxide 23 mmol/L (22-29); Chloride 98 mmol/L (98-107); Estimated GFR-MDRD 6; Glucose 79 mg/dL (70-105); Potassium 3.8 mmol/L (3.5-5.1); Sodium 133 mmol/L (136-145)
[2020-06-19] MEDS: Pantoprazole 40 MG VIAL IVP SCH (19:44)
[2020-06-19] MEDS ORDERED: Prevnar 13-Val Conj/PF 0.5 ML SYRINGE IM ONE (21:00)
[2020-06-19] MEDS ORDERED: FLU VACC QS2020-21(6MOS UP)/PF 60 MCG/0.5 ML SYRINGE IM ONE (21:00)
--- NOTE | 2020-06-19 22:15 | CON ---
DATE OF CONSULTATION: HISTORY OF PRESENT ILLNESS: The patient is a 60-year-old gentleman with a history of cardiomyopathy, who was admitted with elevated blood pressure, was noted to have an irregular heart rate. The patient has a history of cardiomyopathy. He had a previous ejection fraction in July 2019 of only 35%. The patient was placed on medical therapy. He had a marked improvement in his left ventricular systolic function. The patient has poorly controlled hypertension. He was admitted to the ICU markedly hypertensive. The patient is intubated,and unable to give a coherent history. PAST MEDICAL HISTORY: 1. Cardiomyopathy. 2. Hypertension. 3. Diabetes mellitus. 4. End-stage renal disease. PAST SURGICAL HISTORY: AV fistula surgery. SOCIAL HISTORY: Former smoker. MEDICATIONS: See nursing list. PHYSICAL EXAMINATION: GENERAL: This is an intubated gentleman, who is hypotensive. VITAL SIGNS: Blood pressure 84/40. NECK: No jugular venous distention. LUNGS: Clear to auscultation. HEART: Regular rate and rhythm. Normal S1, S2. ABDOMEN: Distended. EXTREMITIES: Showed trace edema. LABORATORY DATA: White blood count 13.7, hemoglobin 10.6, hematocrit 31.9, platelets are 206. Sodium was 129, potassium 2.9, chloride 97, bicarb 23, BUN 50, creatinine was 10. BNP was 936. EKG significant artifact with frequent premature ventricular contractions. Nonspecific ST-T wave changes. IMPRESSION: 1. Respiratory failure. 2. Hypertensive crisis. 3. History of cardiomyopathy. 4. End-stage renal disease. 5. Cerebrovascular disease. The patient presented with a hypertensive crisis and respiratory failure. At this time, his blood pressure is markedly low. I would restart him on Levophed. He should maintain a blood pressure closer to 120 to 140. We will follow this patient with you through his hospitalization. Critical care note time 30 minutes. Job ID: [id number] MTDD
--- NOTE | 2020-06-19 23:50 | CON ---
DATE OF CONSULTATION: 06/19/2020 HISTORY OF PRESENT ILLNESS: Mr. Montero is a 60-year-old male, who was admitted and required intubation prior to admission in the critical care unit for altered mental status. He is a dialysis patient. Was significantly hypertensive in the emergency department. PAST MEDICAL HISTORY: Remarkable for: 1. Diabetes. 2. Lipid disorder. 3. History of congestive heart failure. 4. End-stage renal disease, on dialysis. 5. History of polypectomy. 6. History of vascular access procedures. SOCIAL HISTORY: Does not smoke, smoked in the past. Does not drink on a daily basis. ALLERGIES: HE HAS NO REPORTED DRUG ALLERGIES. MEDICATIONS: Have been reviewed. FAMILY HISTORY: Negative for lung disease in early age. REVIEW OF SYSTEMS: Not obtainable. PHYSICAL EXAMINATION: VITAL SIGNS: Blood pressure 130/65, heart rate is 70, and respiratory rate is 20. HEENT: Pupils react. Sclerae are anicteric. NECK: Without lymphadenopathy. LUNGS: Clear. HEART: Regular rhythm. ABDOMEN: Soft and nontender. EXTREMITIES: Without asymmetry or edema. LABORATORY DATA: Sodium 132, potassium 2.9, chloride 97, bicarb 22, BUN 50, and creatinine 10.27. White count 13.7, hemoglobin 10.6, and platelets 206. PH 7.48, CO2 of 30, and PO2 of 141. Chest x-ray shows atelectatic changes of the left base. IMPRESSION: Respiratory failure associated with encephalopathy which the etiology is not entirely clear. We will follow the other physicians. He is not weanable until his mental status improves. He has been followed by Neurology as well. Critical care time 30 min. Job ID: [id number] MTDD
--- NOTE | 2020-06-20 04:36 | CON ---
DATE OF CONSULTATION: REASON FOR CONSULT: Coffee-grounds emesis. HISTORY OF PRESENT ILLNESS: Mr. Pereira is a 60-year-old, who recently begun on dialysis the past few months. He was just recently here for altered mental status which was felt related to hypertensive urgency with negative imaging of the brain, heart, and carotids. Apparently, he was back to his baseline as a family member who is with him states, but then after bringing him in just a few days, his symptoms recurred. He became confused and after this began to have some emesis as well and retching. Ultimately, EMS was called and he was brought in and intubated. Again imaging with no acute findings, but was found to have hypertensive urgency again. With his blood pressure medicines, including and then he was apparently placed on pressors at that time. The NG tube was placed and he also had about 700 mL of coffee-ground like emesis return. He has had no overt melena. According to the family, he has had brown stools recently at home. He was recently discharged home on aspirin 81 mg. He has been on no ulcer prophylaxis. No history of reflux or history of bleeding in the past. The patient's family notes that before these episodes recently, he had been eating well and seemed to be adapting to dialysis. He just recently started trying to do some peritoneal dialysis at home. PAST MEDICAL HISTORY: Diabetes, acute renal failure, chronic renal failure, hypertensive urgency, congestive heart failure. PAST SURGICAL HISTORY: Peritoneal dialysis catheter, peripheral dialysis catheter. He has had a polyp removed in the past as well. Surgical history is noted for dialysis fistula in right arm and also PD catheter. Colon surgery right side in the past. SOCIAL HISTORY: Patient drinks socially. Former smoker. Lives at home with family. ALLERGIES: NONE KNOWN. REVIEW OF SYSTEMS: Unable to obtain as he is intubated. MEDICATIONS: At home; 1. Hydralazine. 2. . 3. Minoxidil. 4. Isosorbide. 5. Levemir. 6. Coreg. 7. Lipitor. 8. . 9. Norvasc. Medications here: 1. Tylenol. 2. Pepcid. 3. Famotidine. 4. Fentanyl p.r.n. 5. Ativan. 6. Morphine. 7. Norepinephrine p.r.n. 8. Protonix 40 mg IV q.12. 9. Zosyn. 10. Diprivan. PHYSICAL EXAMINATION: GENERAL: The patient is intubated in the ICU. He cannot give any history. It comes from talking with the family. Nurse notes his pressors are being weaned off. VITAL SIGNS: Heart rate/pulse is 75, blood pressure is 119/57, respirations 18, temperature 98.5. HEENT: Nonicteric. Oropharynx without lesions. He has some black coffee-grounds emesis in the NG suction tube. LUNGS: Clear. HEART: Regular rate and rhythm without clicks, rubs, or murmurs. ABDOMEN: Soft and nontender. There is no rebound. There is no guarding. EXTREMITIES: No clubbing, cyanosis, or edema. LABORATORY DATA: White count last night was 9, yesterday morning it was 13.7 and 8 this morning. Hemoglobin on admission today it is 10.6, platelets are 206. No bands. INR is 1.45 on the , pH 7.48 today, PO2 of 142, bicarb 30.2. Sodium 132, potassium 2.9, BUN and creatinine are 50 and 10.27. Glucose 47, up to 83 now. Lactic acid was 5.6, now 1.7. Calcium 7. Iron was 37 in July 2019. TIBC was low at 239, ferritin was high at 240, all consistent with anemia of chronic disease. Albumin is 2.5, protein is 5. AST and ALT are 17 and 9, alkaline phosphatase 38, lipase is 22. PD fluid was clear on 06/17. Toxicology was negative on 06/18/20. COVID negative on 06/15/20. Abdomen and pelvis CAT scan yesterday at 2200, changes of chronic pancreatitis. Large amount of free intraperitoneal fluid throughout the abdominal cavity consistent with peritoneal dialysis, calcifications in pancreas, moderate to severe dilatation in the anterior pancreatic duct, atherosclerotic vascular disease of the abdominal aorta and iliac vessels. No pneumoperitoneum, suture line of right colon. ASSESSMENT: This is a 60-year-old gentleman, who has been readmitted for hypertensive urgency, for which he was just discharged. He had mental status changes which would make that a hypertensive crisis or emergency. It is unclear why he was readmitted. He has negative drug screen. He admits compliance to medications, although he is trying to start PD and maybe that is not going well. Here in the ER at this time, he had some coffee-grounds emesis. His hemoglobin is about the same as it was last time. I cannot tell what his ulcer prophylaxis was at his last visit. He shows no signs of overt hemorrhage. It seems that his relative hypotensive after getting to the emergency room is iatrogenic from fentanyl and his medications and being weaned off. RECOMMENDATIONS: 1. IV Protonix q.12 hours. We will follow along with you. 2. Chronic pancreatitis by CT, will be addressed at a later time. 3. Evidence of previous right colon resection. Job ID: [id number]
[2020-06-20 04:38] LABS: Band 10 % (5-11); Hemoglobin 9.3 g/dL (14.0-18.0); Hypochromia SLIGHT = 6-15 cells (100X) (0-5/hpf); Lymphocytes 4 % (21-51); MDiff Complete? YES; Mean Corpuscular HGB CONC 32.9 g/dL (32.0-36.0); Mean Corpuscular Volume 88.2 fL (78.0-98.0); Mean Platelet Volume 9.7 fL (7.4-10.4); Monocytes 9 % (0-10); Neutrophil 77 % (42-75); Platelet Count 160 thou/uL (130-400); Platelet Morphology Comment Appears Adequate; RBC Distribution Width 13.7 % (11.5-14.5); Red Blood Cell (RBC) Count 3.21 mill/uL (4.70-6.10); White Blood Cell (WBC) Count 10.4 thou/uL (4.8-10.8)
[2020-06-20 04:48] LABS: ALT (SGPT) 12 U/L (8-55); AST (SGOT) 28 U/L (5-34); Albumin 2.2 g/dL (3.5-5.0); Alkaline Phosphatase 41 U/L (40-110); Anion Gap 16 mmol/L (10-20); BUN (Urea Nitrogen) 45 mg/dL (8.4-25.7); Bilirubin, Total 0.2 mg/dL (0.2-1.2); Calc. Creatinine Clearance 7 mL/min (70-130); Calcium 6.8 mg/dL (7.8-10.44); Carbon Dioxide 22 mmol/L (22-29); Chloride 96 mmol/L (98-107); Estimated GFR-MDRD 6; Globulin 2.5 g/dL (2.4-3.5); Glucose 230 mg/dL (70-105); Potassium 3.6 mmol/L (3.5-5.1); Protein, Total 4.7 g/dL (6.0-8.3); Sodium 130 mmol/L (136-145)
[2020-06-20] MEDS: fentaNYL Citrate/PF 2,000 MCG in Sodium Chloride 0.9% 60 ML IV SCH (06:56)
--- NOTE | 2020-06-20 07:56 | RAD ---
Chest AP view INDICATION: Intubation COMPARISON: June 18, 2020 FINDINGS: Lungs: Left basilar pleural-parenchymal opacity has worsened Cardiac silhouette: Cardiomegaly persists Pulmonary vasculature: Normal Pleural spaces: No pleural effusion or pneumothorax is demonstrated. Upper abdomen: No abnormality seen. Osseous structures: No acute osseous abnormality. Additional findings: ET tube and gastric catheter are unchanged. IMPRESSION: Worsening opacity in the left lower lobe may reflect left lower lobe volume loss, aspiration or pneum onia.
--- NOTE | 2020-06-20 09:23 | PRG ---
DATE OF SERVICE: 06/20/2020 SUBJECTIVE: A 60-year-old gentleman, being seen for end-stage kidney disease. OBJECTIVE: GENERAL: The patient is resting. VITAL SIGNS: Afebrile, pulse 82, breathing at 16, blood pressure 110/60. HEENT: Head normocephalic and atraumatic. Eyes intact, no ulcers. Nose intact, no ulcers. Ears intact, no ulcers. NECK: Supple. No JVD. CHEST: Symmetrical and clear. CARDIOVASCULAR: Shows S1 and S2, no rub, no murmur. GASTROINTESTINAL: Abdomen is soft, bowel sounds positive. EXTREMITIES: Show no edema or ulcers. SKIN: Shows no rash or petechiae. MUSCULOSKELETAL: Shows no joint swelling or stiffness. GENITOURINARY: Shows no Duran or CVA tenderness. NEUROLOGIC: The patient is resting. LABORATORY DATA: Potassium 3.6. ASSESSMENT AND PLAN: 1. Stage 6 chronic kidney disease, stable. 2. Hypertension, stable. 3. Anemia, stable. Medication based on GFR appropriate. Job ID: [id number]
[2020-06-20] MEDS: Piperacillin/Tazobactam 2.25 GM in Sodium Chloride 0.9% 100 ML IVPB SCH ×2 (09:27→20:57)
[2020-06-20] MEDS: Famotidine/PF 20 mg/2ml Vial SLOW IVP SCH (09:28)
[2020-06-20] MEDS: Pantoprazole 40 MG VIAL IVP SCH ×2 (09:28→20:54)
[2020-06-20] MEDS: Aspirin 81 mg Enteric Coated Tablet PO SCH (09:29)
[2020-06-20] MEDS: Sevelamer Carbonate 800 MG TAB PO SCH ×3 (09:29→18:02)
[2020-06-20] MEDS: Atorvastatin Calcium 10 MG TAB PO SCH (09:29)
[2020-06-20] MEDS: Dextrose 10% in Water 1,000 ML IV SCH (12:29)
--- NOTE | 2020-06-20 12:38 | PDOC.NEUPN ---
- Subjective Encounter Date: 06/20/20 Subjective: Mr. Randall Montero is successfully extubated and he is calm and follows commands appropriately. He is oriented to himself and his date of . at bedside. - Objective Vital Signs & Weight: Vital Signs (12 hours) Temp Pulse Resp BP Pulse Ox 06/20/20 08:00 24 H 06/20/20 07:43 87 137/56 L 06/20/20 07:00 98.6 F 06/20/20 06:00 18 06/20/20 04:00 98.9 F 18 411 H 06/20/20 02:14 77 140/52 L 06/20/20 02:00 18 06/20/20 01:00 99 F Weight Admit Weight 143 lb Weight 143 lb 15.39 oz Most Recent Monitor Data Heart Rate from ECG 87 NIBP 164/70 NIBP BP-Mean 101 Respiration from ECG 12 SpO2 96 I&O: 06/19/20 06/20/20 06/21/20 06:59 06:59 06:59 Intake Total 267.6 1523 146 Output Total 830 40 45 Balance -562.4 1483 101 Result Diagrams: 06/20/20 04:00 06/20/20 04:00 Additional Labs: Accuchecks 06/20/20 06/19/20 06/19/20 00:10 22:09 19:20 POC Glucose 152 H 95 73 06/19/20 09:40 POC Glucose 52 L* Radiology Reviewed by me: Yes EKG Reviewed by me: Yes ROS - Review of Systems ROS unobtainable: due to mental status - Medication Medications: Active Medications Generic Name Dose Route Start Last Admin Trade Name Freq PRN Reason Stop Dose Admin Aspirin 81 mg 06/20/20 09:00 06/20/20 09:29 Aspirin 81 Mg Enteric Coated Tablet PO 81 mg DAILY CAROLYNN Administration Atorvastatin Calcium 10 mg 06/20/20 09:00 06/20/20 09:29 Atorvastatin Calcium 10 Mg Tab PO 10 mg DAILY CAROLYNN Administration Dextrose/Water 25 gm 06/19/20 10:32 06/19/20 15:43 Dextrose 50% Abboject 50 Ml Syringe SLOW IVP 25 gm PRN PRN Administration Hypoglycemia Famotidine 20 mg 06/19/20 09:00 06/20/20 09:28 Famotidine/Pf 20 Mg/2ml Vial SLOW IVP 20 mg DAILY CAROLYNN Administration Fentanyl Citrate 2,000 mcg/ 100 mls @ 0 mls/hr 06/18/20 22:15 06/20/20 06:56 Sodium Chloride IV 07/18/20 22:15 100 mls INF CAROLYNN Administration Protocol Per Protocol Sodium Chloride 1,000 mls @ 50 mls/hr 06/19/20 00:30 06/19/20 20:34 Normal Saline 0.9% IV Not Given .Q20H CAROLYNN Piperacillin Sod/Tazobactam 100 mls @ 200 mls/hr 06/19/20 21:00 06/20/20 09:27 Sod 2.25 gm/ Sodium Chloride IVPB 100 mls 0900,2100 CAROLYNN Administration Dextrose/Water 1,000 mls @ 50 mls/hr 06/19/20 16:00 06/20/20 12:29 Dextrose 10% In Water IV Not Given .Q20H CAROLYNN Lorazepam 2 mg 06/19/20 01:00 06/19/20 13:40 Lorazepam 2 Mg/Ml Vial SLOW IVP 07/19/20 01:00 2 mg Q1H PRN Administration Breakthrough agitation Pantoprazole Sodium 40 mg 06/19/20 21:00 06/20/20 09:28 Pantoprazole 40 Mg Vial IVP 40 mg BID CAROLYNN Administration Propofol 1,000 mg 06/19/20 01:00 06/19/20 23:49 Propofol 1,000 Mg/100 Ml Vial IV 07/19/20 01:00 1,000 mg INF PRN Administration TO ACHIEVE GOAL RASS Protocol Sevelamer Carbonate 800 mg 06/20/20 08:00 06/20/20 09:29 Sevelamer Carbonate 800 Mg Tab PO 800 mg TID-WM CAROLYNN Administration Sodium Chloride 10 ml 06/19/20 09:00 06/20/20 09:29 Flush - Normal Saline 10 Ml Syringe IVF Not Given Q12HR CAROLYNN - Exam General Appearance: awake alert Eye: PERRL ENT: normocephalic atraumatic Neck: supple Respiratory: CTAB Cardiovascular: RRR Gastrointestinal: soft Extremities: no cyanosis Skin: normal turgor Neurological: CN's grossly intact, normal sensation to touch, no focal deficits, no new deficit Musculoskeletal: normal tone, normal strength, no muscle wasting PSYCH: normal affect, normal behavior, oriented to person (Still confused at baseline) Results - Labs Result Diagrams: 06/20/20 04:00 06/20/20 04:00 Lab results: WBC 10.4 thou/uL (4.8-10.8) 06/20/20 04:00 Hgb 9.3 g/dL (14.0-18.0) L 06/20/20 04:00 Hct 28.3 % (42.0-52.0) L 06/20/20 04:00 MCV 88.2 fL (78.0-98.0) 06/20/20 04:00 Plt Count 160 thou/uL (130-400) 06/20/20 04:00 Neutrophils % 82.4 % (42.0-75.0) H 06/19/20 08:40 ABG pH 7.48 (7.35-7.45) H 06/19/20 08:16 ABG pCO2 30.2 mmHg (35.0-45.0) L 06/19/20 08:16 ABG pO2 141.2 mmHg (> 80.0) H 06/19/20 08:16 Sodium 130 mmol/L (136-145) L 06/20/20 04:00 Potassium 3.6 mmol/L (3.5-5.1) 06/20/20 04:00 Chloride 96 mmol/L (98-107) L 06/20/20 04:00 Carbon Dioxide 22 mmol/L (22-29) 06/20/20 04:00 BUN 45 mg/dL (8.4-25.7) H 06/20/20 04:00 Creatinine 10.06 mg/dL (0.7-1.3) H 06/20/20 04:00 Glucose 230 mg/dL (70-105) H 06/20/20 04:00 Lactic Acid 1.7 mmol/L (0.5-2.2) 06/19/20 08:40 Calcium 6.8 mg/dL (7.8-10.44) L 06/20/20 04:00 Total Bilirubin 0.2 mg/dL (0.2-1.2) 06/20/20 04:00 AST 28 U/L (5-34) 06/20/20 04:00 ALT 12 U/L (8-55) 06/20/20 04:00 Alkaline Phosphatase 41 U/L (40-110) 06/20/20 04:00 CK-MB (CK-2) 5.7 ng/mL (0-6.6) 06/18/20 21:41 Troponin I 0.226 ng/mL (< 0.028) H 06/18/20 21:41 C-Reactive Protein 2.50 mg/dL (= or < 0.5) H 06/19/20 08:40 B-Natriuretic Peptide 936.2 pg/mL (0-100) H 06/18/20 21:41 Serum Total Protein 4.7 g/dL (6.0-8.3) L 06/20/20 04:00 Albumin 2.2 g/dL (3.5-5.0) L 06/20/20 04:00 Lipase 22 U/L (8-78) 06/19/20 08:40 Urine Ketones Negative mg/dL (Negative) 06/18/20 23:42 Urine Blood 1+ (Negative) A 06/18/20 23:42 Urine Nitrite Negative (Negative) 06/18/20 23:42 Ur Leukocyte Esterase 25 Marcus/uL (Negative) A 06/18/20 23:42 Urine RBC 4-6 HPF (0-3) A 06/18/20 23:42 Urine WBC 4-6 HPF (0-3) A 06/18/20 23:42 Ur Squamous Epith Cells 0-3 HPF (0-3) 06/18/20 23:42 Urine Bacteria None Seen HPF (None Seen) 06/18/20 23:42 - Radiology Interpretation MRI - head Additional Comment: MRI of the brain reviewed which was negative for acute intracranial pathology. PN A/P (1) Altered mental state Code(s): R41.82 - ALTERED MENTAL STATUS, UNSPECIFIED Status: Acute (2) Acute metabolic encephalopathy Code(s): G93.41 - METABOLIC ENCEPHALOPATHY Status: Acute (3) Acute respiratory failure Code(s): J96.00 - ACUTE RESPIRATORY FAILURE, UNSP W HYPOXIA OR HYPERCAPNIA Status: Acute (4) Bradycardia Code(s): R00.1 - BRADYCARDIA, UNSPECIFIED Status: Acute (5) CHF (congestive heart failure) Code(s): I50.9 - HEART FAILURE, UNSPECIFIED Status: Acute (6) Chronic kidney disease (CKD) Code(s): N18.9 - CHRONIC KIDNEY DISEASE, UNSPECIFIED Status: Acute (7) Diabetes mellitus Code(s): E11.9 - TYPE 2 DIABETES MELLITUS WITHOUT COMPLICATIONS Status: Acute - Plan Daily Plan: plan discussed w/ family ( at bedside), PT/OT, speech therapy, DVT proph w/SCDs Mr. Montero is a 60-year-old male with history significant for end-stage renal disease on peritoneal dialysis, hypertension, diabetes, who presented with altered mental status in the setting of hypertensive emergency. He was discharged 2 days ago and came back again with the altered mental status with systolic blood pressure in 200s. He was intubated in the emergency room because he was unable to protect his airway. Currently, he is extubated and following commands appropriately. He still confused at baseline but oriented to his name and his date of . Altered mental status seem more likely secondary to hypertensive encephalopathy in the setting of underlying metabolic etiology. Intracranial process seems less likely because of negative MRI and the EEG. MRI of the brain reviewed which was negative for acute intracranial pathology. EEG reviewed which was negative for ongoing seizure activity. Neurochecks every 4 hours. PT/OT/speech. Continue home medications. Strict control of blood pressure and blood glucose. Continue medical management per primary team and nephrology. Plan discussed in detail with the patient and the patient's at bedside
--- NOTE | 2020-06-20 13:48 | PRG ---
DATE OF SERVICE: 06/20/2020 SUBJECTIVE: Mr. Montero has evidently had a significant improvement in mental status since yesterday. He has been extubated. He feels he is breathing comfortably. He is not currently having any abdominal pain or nausea. There has been no further emesis. He reports his last bowel movement was yesterday and appeared normal and brown in appearance. His hemoglobin did drop a bit further from 10.6 down to 9.3 today. OBJECTIVE: VITAL SIGNS: Temperature 98.6, heart rate 87, blood pressure 164/70, and 96% oxygen saturation on room air. GENERAL: In no acute distress. HEART: Regular rate and rhythm. LUNGS: Clear to auscultation bilaterally. ABDOMEN: Mild distention. Bowel sounds present. Soft, nontender to palpation. EXTREMITIES: 1+ bilateral lower extremity edema. LABORATORY STUDIES: Hemoglobin down to 9.3, WBC normalized to 10.4, and platelets 160. INR 0.9. Sodium 130, potassium 3.6, BUN 45, creatinine 10.06, and glucose 230. LFTs all normal with total bilirubin 0.2, alkaline phosphatase 41, AST 28, ALT 12. Lipase only 22. Urine culture shows no growth at 12 hours. ASSESSMENT AND PLAN: 1. Coffee-ground emesis, single episode. 2. Acute on chronic anemia. Overall, seems consistent with anemia of chronic disease, but he did have significant acute decline over the past couple of days in the context of coffee-ground emesis. 3. Altered mental status, significantly improved. I am not seeing any evidence of overt bleeding over the past day, but he did have significant drop in his H and H over the past couple of days after this episode of coffee-ground emesis. We will go ahead and plan for diagnostic EGD tomorrow. We will give the patient a full liquid diet today, then n.p.o. after midnight for the procedure. Continuing with IV pantoprazole 40 mg q.12 hours in the meantime. Job ID: [id number]
--- NOTE | 2020-06-20 15:32 | PRG ---
DATE OF SERVICE: 06/20/2020 SUBJECTIVE: Randall Montero is more alert today. He is cooperative. Heart rate is in 80s. Vital signs were stable. He passed a leak test. OBJECTIVE: LUNGS: He had bilateral equal breath sounds. HEART: Regular rhythm. ABDOMEN: Soft. EXTREMITIES: Without edema. LABORATORY DATA: White count 10.4, hemoglobin 9.3, platelets 160. Electrolytes are unremarkable. BUN 46, creatinine 10. IMPRESSION: Respiratory failure associated with an encephalopathy. His encephalopathy appears to be improved. There are no new infiltrates on today's chest x-ray. I felt he was a candidate for extubation and this has been done successfully. CRITICAL CARE TIME: 30 minutes. Job ID: [id number]
--- NOTE | 2020-06-20 17:07 | PDOC.HOSPP ---
- Subjective Encounter Date: 06/20/20 Encounter Time: 11:30 Subjective: Patient extubated this morning. Is doing well. - Objective Vital Signs & Weight: Vital Signs (12 hours) Temp Pulse Pulse Pulse Resp BP BP 06/20/20 14:05 94 89 129/46 L 06/20/20 12:00 99.0 F 06/20/20 08:00 24 H 06/20/20 07:43 87 137/56 L 06/20/20 07:00 98.6 F 06/20/20 06:00 18 BP Pulse Ox Pulse Ox 06/20/20 14:05 182/60 H 98 99 06/20/20 12:00 06/20/20 08:00 06/20/20 07:43 06/20/20 07:00 06/20/20 06:00 Weight Admit Weight 143 lb Weight 143 lb 15.39 oz Most Recent Monitor Data Heart Rate from ECG 94 NIBP 171/60 NIBP BP-Mean 97 Respiration from ECG 19 SpO2 100 I&O: 06/19/20 06/20/20 06/21/20 06:59 06:59 06:59 Intake Total 267.6 1523 146 Output Total 830 40 45 Balance -562.4 1483 101 Result Diagrams: 06/20/20 04:00 06/20/20 04:00 Additional Labs: Accuchecks 06/20/20 06/19/20 06/19/20 00:10 22:09 19:20 POC Glucose 152 H 95 73 06/19/20 16:30 POC Glucose 91 Hospitalist ROS - Review of Systems Cardiovascular: denies: chest pain, palpitations, orthopnea, paroxysmal noc. dyspnea, edema, light headedness, other Gastrointestinal: denies: nausea, vomiting, abdominal pain, diarrhea, constipation, melena, hematochezia, other Genitourinary: denies: dysuria, frequency, incontinence, hematuria, retention, other - Medication Medications: Active Medications Generic Name Dose Route Start Last Admin Trade Name Freq PRN Reason Stop Dose Admin Aspirin 81 mg 06/20/20 09:00 06/20/20 09:29 Aspirin 81 Mg Enteric Coated Tablet PO 81 mg DAILY CAROLYNN Administration Atorvastatin Calcium 10 mg 06/20/20 09:00 06/20/20 09:29 Atorvastatin Calcium 10 Mg Tab PO 10 mg DAILY CAROLYNN Administration Dextrose/Water 25 gm 06/19/20 10:32 06/19/20 15:43 Dextrose 50% Abboject 50 Ml Syringe SLOW IVP 25 gm PRN PRN Administration Hypoglycemia Famotidine 20 mg 06/19/20 09:00 06/20/20 09:28 Famotidine/Pf 20 Mg/2ml Vial SLOW IVP 20 mg DAILY CAROLYNN Administration Sodium Chloride 1,000 mls @ 50 mls/hr 06/19/20 00:30 06/19/20 20:34 Normal Saline 0.9% IV Not Given .Q20H CAROLYNN Piperacillin Sod/Tazobactam 100 mls @ 200 mls/hr 06/19/20 21:00 06/20/20 09:27 Sod 2.25 gm/ Sodium Chloride IVPB 100 mls 0900,2100 CAROLYNN Administration Dextrose/Water 1,000 mls @ 50 mls/hr 06/19/20 16:00 06/20/20 12:29 Dextrose 10% In Water IV Not Given .Q20H CAROLYNN Pantoprazole Sodium 40 mg 06/19/20 21:00 06/20/20 09:28 Pantoprazole 40 Mg Vial IVP 40 mg BID CAROLYNN Administration Sevelamer Carbonate 800 mg 06/20/20 08:00 06/20/20 12:43 Sevelamer Carbonate 800 Mg Tab PO 800 mg TID-WM CAROLYNN Administration Sodium Chloride 10 ml 06/19/20 09:00 06/20/20 09:29 Flush - Normal Saline 10 Ml Syringe IVF Not Given Q12HR CAROLYNN - Exam Heart: negative: RRR, no murmur, no gallops, no rubs, normal peripheral pulses, irregular, diminshed peripheral pulses, murmur present, II/IV, III/IV Respiratory: negative: CTAB, no wheezes, no rales, no ronchi, normal chest expansion, no tachypnea, normal percussion, rales, rhonchi, tachypneic, wheezes Gastrointestinal: negative: soft, non-tender, non-distended, normal bowel sounds, no palpable masses, no hepatomegaly, no splenomegaly, no bruit, no guarding, no rigidity, tender to palpation, distended, diminished bowl sounds, voluntary guarding Extremities: negative: no cyanosis, no clubbing, no edema, 1+ LE edema, 2+ LE edema, clubbing Hosp A/P (1) Acute metabolic encephalopathy Code(s): G93.41 - METABOLIC ENCEPHALOPATHY Status: Acute (2) Acute respiratory failure Code(s): J96.00 - ACUTE RESPIRATORY FAILURE, UNSP W HYPOXIA OR HYPERCAPNIA Status: Acute (3) Altered mental state Code(s): R41.82 - ALTERED MENTAL STATUS, UNSPECIFIED Status: Acute (4) Chronic kidney disease (CKD) Code(s): N18.9 - CHRONIC KIDNEY DISEASE, UNSPECIFIED Status: Acute (5) Diabetes mellitus Code(s): E11.9 - TYPE 2 DIABETES MELLITUS WITHOUT COMPLICATIONS Status: Acute (6) ESRD (end stage renal disease) on dialysis Code(s): N18.6 - END STAGE RENAL DISEASE; Z99.2 - DEPENDENCE ON RENAL DIALYSIS Status: Acute (7) HLD (hyperlipidemia) Code(s): E78.5 - HYPERLIPIDEMIA, UNSPECIFIED Status: Acute (8) Hypertensive emergency Code(s): I16.1 - HYPERTENSIVE EMERGENCY Status: Acute (9) Coffee ground emesis Code(s): K92.0 - HEMATEMESIS Status: Acute - Plan Patient initially was on a Cardene drip for hypertensive emergency however his blood pressures dropped and then was put on a Levophed drip. Patient's states that he does take his medication. Patient extubated today oriented x3. Unclear of his etiology for metabolic encephalopathy. Most likely secondary to hypertensive emergency. Patient CT did not show any acute abnormalities. 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 EEG no seizure indicated. Patient did have coffee-ground emesis on PPI plans for EGD in a.m. echo indicating EF 50 to 60%. Patient was started on a D10 drip yesterday given his hypoglycemia will turn it off and see how he does. We will continue to monitor Accu-Cheks every 4 for now. So far cultures are negative we will continue antibiotics another 24 hours and then discontinue. We will hold off on the insulin for now. Patient gets peritoneal dialysis.
[2020-06-20] MEDS: Sodium Chloride 0.9% 1,000 ML IV SCH (18:01)
--- NOTE | 2020-06-21 07:32 | CT ---
PRELIMINARY REPORT/[facility]/EMERGENCY AFTER HOURS PROCEDURE: EXAM: CT Head Without Intravenous Contrast. CLINICAL HISTORY: UNWITNESSED FALL// TECHNIQUE: Axial computed tomography images of the head/brain without intravenous contrast. COMPARISON: None provided. FINDINGS: BRAIN: Foci of encephalomalacia in the right external capsule, left internal capsule, and left flash. No acute intraparenchymal hemorrhage. No mass lesion. No CT evidence for acute territorial infarct. No midline shift or extra-axial collection. VENTRICLES: No hydrocephalus. ORBITS: The orbits are unremarkable. SINUSES AND MASTOIDS: Sinus mucosal thickening. The mastoid air cells are clear. SOFT TISSUES: Upper facial edema and swelling. No radiopaque foreign body is seen. BONES: No acute skull fracture. IMPRESSION: No acute intracranial abnormality. Old lacunar infarcts as above. ELECTRONICALLY SIGNED BY: Solomon Andrade MD Jun 21, 2020 12:52:20 AM [employer] FINAL REPORT HEAD CT WITHOUT CONTRAST: HISTORY: Unwitnessed fall. COMPARISON: None. FINDINGS: Hemorrhage: No intraparenchymal hemorrhage or extra-axial hematoma. Brain parenchyma: Cortical cruz-white matter differentiation is preserved. No mass effect or midline shift. Basilar cisterns are patent.Stable. Medical white matter chronic small vessel ischemic change. Remote lacunar infarct in the right castillo radiata and flash. Ventricular system: Ventricles and sulci are patent and symmetric. Calvarium: Intact. Sinuses and mastoid air cells: Adequate aeration. IMPRESSION: 1. This report is in agreement with initial report by [facility]. 2. No intracranial post traumatic sequelae. Transcribed Date/Time: 06/21/2020 7:44 AM
[2020-06-21 08:29] LABS: Hemoglobin 8.8 g/dL (14.0-18.0); Mean Corpuscular HGB CONC 31.4 g/dL (32.0-36.0); Mean Corpuscular Hemoglobin 27.9 pg (27.0-31.0); Mean Corpuscular Volume 88.7 fL (78.0-98.0); Mean Platelet Volume 9.3 fL (7.4-10.4); Platelet Count 166 thou/uL (130-400); RBC Distribution Width 13.4 % (11.5-14.5); Red Blood Cell (RBC) Count 3.14 mill/uL (4.70-6.10); White Blood Cell (WBC) Count 8.8 thou/uL (4.8-10.8)
--- NOTE | 2020-06-21 08:30 | RAD ---
EXAM: Portable chest PROVIDED CLINICAL HISTORY: Respiratory insufficiency COMPARISON: 06/20/2020 FINDINGS: Interval removal of endotracheal and enteric catheters. Additional interval change with respect to th e prior examination is not apparent. Left basilar pleural-parenchymal opacity is incompletely visualized on the image provided. IMPRESSION: As above.
[2020-06-21] MEDS: Sevelamer Carbonate 800 MG TAB PO SCH ×3 (08:46→17:18)
[2020-06-21 08:52] LABS: ALT (SGPT) 22 U/L (8-55); AST (SGOT) 50 U/L (5-34); Albumin 2.4 g/dL (3.5-5.0); Alkaline Phosphatase 47 U/L (40-110); Anion Gap 15 mmol/L (10-20); BUN (Urea Nitrogen) 47 mg/dL (8.4-25.7); Bilirubin, Total 0.2 mg/dL (0.2-1.2); Calc. Creatinine Clearance 0 mL/min (70-130); Calcium 6.6 mg/dL (7.8-10.44); Carbon Dioxide 25 mmol/L (22-29); Chloride 95 mmol/L (98-107); Estimated GFR-MDRD 6; Globulin 2.5 g/dL (2.4-3.5); Glucose 136 mg/dL (70-105); Magnesium 1.6 mg/dL (1.6-2.6); Protein, Total 4.9 g/dL (6.0-8.3); Sodium 132 mmol/L (136-145)
[2020-06-21 08:54] LABS: Band 3 % (5-11); Bite Cells SLIGHT = 2-5 cells (100X) (0-1/hpf); Hypochromia SLIGHT = 6-15 cells (100X) (0-5/hpf); Lymphocytes 7 % (21-51); MDiff Complete? YES; Monocytes 8 % (0-10); Neutrophil 82 % (42-75); Platelet Morphology Comment Appears Adequate; Polychromasia SLIGHT = 2-3 cells (100X) (0-2/hpf); Schistocytes SLIGHT = 2-5 cells (100X) (0-1/hpf)
[2020-06-21] MEDS: Piperacillin/Tazobactam 2.25 GM in Sodium Chloride 0.9% 100 ML IVPB SCH ×2 (09:20→20:33)
[2020-06-21] MEDS: Famotidine/PF 20 mg/2ml Vial SLOW IVP SCH (09:21)
[2020-06-21] MEDS: Pantoprazole 40 MG VIAL IVP SCH ×2 (09:23→20:34)
[2020-06-21] MEDS: hydrALAZINE 20 MG/ML VIAL SLOW IVP PRN ×2 (09:37→16:21)
[2020-06-21] MEDS ORDERED: PROPOFOL 200 MG/20 ML VIAL ONE (09:42)
--- NOTE | 2020-06-21 11:08 | PRG ---
DATE OF SERVICE: 06/21/2020 SUBJECTIVE: A 60-year-old gentleman being seen for end-stage renal disease. The patient denies any nausea, vomiting, or chest pain. OBJECTIVE: GENERAL: The patient is resting. VITAL SIGNS: Afebrile, pulse 75, breathing at 16, blood pressure 183/70. HEENT: Head normocephalic and atraumatic. Eyes intact, no ulcers. Nose intact, no ulcers. Ears intact, no ulcers. NECK: Supple. No JVD. CHEST: Symmetrical and clear. CARDIOVASCULAR: Shows S1 and S2, no rub, no murmur. GASTROINTESTINAL: Abdomen is soft, bowel sounds positive. EXTREMITIES: Show no edema or ulcers. SKIN: Shows no rash or petechiae. MUSCULOSKELETAL: Shows no joint swelling or stiffness. GENITOURINARY: Shows no Duran or CVA tenderness. NEUROLOGIC: Motor intact. Cranial nerves intact. LABORATORY DATA: Reviewed. ASSESSMENT AND PLAN: 1. Stage 6 chronic kidney disease. Plan peritoneal dialysis. 2. Hypertension. Titrate medication. 3. Anemia, stable. 4. Medication based on GFR, appropriate. Job ID: [id number]
--- NOTE | 2020-06-21 11:46 | OP ---
DATE OF PROCEDURE: 06/21/2020 PROCEDURE PERFORMED: Esophagogastroduodenoscopy with biopsy. PREOPERATIVE DIAGNOSES: Upper gastrointestinal bleed and anemia of acute blood loss. DESCRIPTION OF PROCEDURE: Informed consent was obtained from the patient. He was sedated with total intravenous anesthesia. The bite block was placed and the endoscope was advanced easily to the second portion of the duodenum and retroflexion was performed in the stomach. The esophagus had a circumferential grade D erosive esophagitis of the distal esophagus. There was a 7 mm cratered ulcer in the body of the stomach closer to the greater curvature. There was no stigmata of recent bleeding. There was erythematous gastritis in the body of the stomach. Biopsies were obtained from the antrum and body to rule out Helicobacter pylori. The pylorus and first and second portions of the duodenum were normal. IMPRESSION: 1. 7 mm ulcer in the gastric body without stigmata of recent bleeding. 2. Grade D erosive esophagitis. This appears to be the most likely bleeding source. 3. Erythematous gastritis in the gastric body. Biopsies taken to rule out Helicobacter pylori. RECOMMENDATIONS: 1. Await histopathology. 2. Proton pump inhibitor twice daily. 3. GI will sign off for now. Please call if we can be of assistance. Job ID: [id number]
[2020-06-21] MEDS: Aspirin 81 mg Enteric Coated Tablet PO SCH (12:02)
[2020-06-21] MEDS: Atorvastatin Calcium 10 MG TAB PO SCH (12:02)
--- NOTE | 2020-06-21 13:14 | PRG ---
DATE OF SERVICE: 06/21/2020 SUBJECTIVE: Randall Montero is quick to converse. He is in no distress. He has a sitter in the room with him. OBJECTIVE: VITAL SIGNS: Heart rates in 80s, blood pressure 164/62, respiratory rate is 20. LUNGS: Clear. HEART: Regular rhythm. ABDOMEN: Soft. EXTREMITIES: Without edema. LABORATORY DATA: White count 8.8, hemoglobin 8.8, and platelets 166. Sodium 132, potassium 3, chloride 95, creatinine 10.73, glucose 136, glucose last night was 277, AST was 50, ALT 22, and albumin was 2.4. IMPRESSION: 1. Encephalopathy, resolving, unclear etiology. 2. Status post upper endoscopy with the findings of 7 mm ulcer in the gastric body, erosive esophagitis, and gastritis. 3. Anemia secondary to blood loss, combined with chronic disease. 4. End-stage renal disease. 5. Hypertension. 6. Diabetes. He appears to be stable at this time. We will sign off once he is transferred out of the Critical Care Unit. Job ID: [id number]
--- NOTE | 2020-06-21 15:50 | PDOC.HOSPP ---
- Subjective Encounter Date: 06/21/20 Encounter Time: 11:15 Subjective: pt up in bed appears confused today. at bedside. - Objective Vital Signs & Weight: Vital Signs (12 hours) Temp Pulse Pulse Pulse BP BP BP 06/21/20 09:37 87 197/56 H 06/21/20 09:00 98.8 F 06/21/20 08:19 80 78 195/69 H 190/61 H 06/21/20 08:00 06/21/20 04:00 99.1 F Pulse Ox Pulse Ox Pulse Ox 06/21/20 09:37 06/21/20 09:00 06/21/20 08:19 100 100 06/21/20 08:00 100 06/21/20 04:00 Weight Admit Weight 143 lb Weight 2.289 oz Most Recent Monitor Data Heart Rate from ECG 87 NIBP 174/63 NIBP BP-Mean 100 Respiration from ECG 12 SpO2 98 I&O: 06/20/20 06/21/20 06/22/20 06:59 06:59 06:59 Intake Total 1523 783 Output Total 40 170 0 Balance 1483 613 0 Result Diagrams: 06/21/20 07:48 06/21/20 07:48 Additional Labs: Accuchecks 06/21/20 06/21/20 06/21/20 13:08 08:32 06:14 POC Glucose 149 H 185 H 156 H 06/20/20 06/20/20 06/20/20 23:45 21:11 18:32 POC Glucose 208 H 277 H 249 H 06/19/20 16:30 POC Glucose 91 Hospitalist ROS - Review of Systems Cardiovascular: denies: chest pain, palpitations, orthopnea, paroxysmal noc. dyspnea, edema, light headedness, other Gastrointestinal: denies: nausea, vomiting, abdominal pain, diarrhea, constipation, melena, hematochezia, other Genitourinary: denies: dysuria, frequency, incontinence, hematuria, retention, other - Medication Medications: Active Medications Generic Name Dose Route Start Last Admin Trade Name Freq PRN Reason Stop Dose Admin Aspirin 81 mg 06/20/20 09:00 06/21/20 12:02 Aspirin 81 Mg Enteric Coated Tablet PO Not Given DAILY [facility] Atorvastatin Calcium 10 mg 06/20/20 09:00 06/21/20 12:02 Atorvastatin Calcium 10 Mg Tab PO Not Given DAILY [facility] Dextrose/Water 25 gm 06/19/20 10:32 06/19/20 15:43 Dextrose 50% Abboject 50 Ml Syringe SLOW IVP 25 gm PRN PRN Administration Hypoglycemia Famotidine 20 mg 06/19/20 09:00 06/21/20 09:21 Famotidine/Pf 20 Mg/2ml Vial SLOW IVP 20 mg DAILY CAROLYNN Administration Hydralazine HCl 5 mg 06/21/20 08:28 06/21/20 09:37 Hydralazine 20 Mg/Ml Vial SLOW IVP 5 mg Q6H PRN Administration Blood Pressure Sodium Chloride 1,000 mls @ 50 mls/hr 06/19/20 00:30 06/20/20 18:01 Normal Saline 0.9% IV 1,000 mls .Q20H CAROLYNN Administration Piperacillin Sod/Tazobactam 100 mls @ 200 mls/hr 06/19/20 21:00 06/21/20 09:20 Sod 2.25 gm/ Sodium Chloride IVPB 100 mls 0900,2100 CAROLYNN Administration Pantoprazole Sodium 40 mg 06/19/20 21:00 06/21/20 09:23 Pantoprazole 40 Mg Vial IVP 40 mg BID CAROLYNN Administration Sevelamer Carbonate 800 mg 06/20/20 08:00 06/21/20 12:02 Sevelamer Carbonate 800 Mg Tab PO Not Given TID-WM CAROLYNN Sodium Chloride 10 ml 06/19/20 09:00 06/21/20 12:02 Flush - Normal Saline 10 Ml Syringe IVF Not Given Q12HR CAROLYNN - Exam Neck: negative: supple, symmetric, no JVD, no thyromegaly, no lymphadenopathy, no carotid bruit, JVD Heart: negative: RRR, no murmur, no gallops, no rubs, normal peripheral pulses, irregular, diminshed peripheral pulses, murmur present, II/IV, III/IV Respiratory: negative: CTAB, no wheezes, no rales, no ronchi, normal chest expansion, no tachypnea, normal percussion, rales, rhonchi, tachypneic, wheezes Gastrointestinal: negative: soft, non-tender, non-distended, normal bowel sounds, no palpable masses, no hepatomegaly, no splenomegaly, no bruit, no guarding, no rigidity, tender to palpation, distended, diminished bowl sounds, voluntary guarding Hosp A/P (1) Acute metabolic encephalopathy Code(s): G93.41 - METABOLIC ENCEPHALOPATHY Status: Acute (2) Acute respiratory failure Code(s): J96.00 - ACUTE RESPIRATORY FAILURE, UNSP W HYPOXIA OR HYPERCAPNIA Status: Acute (3) Altered mental state Code(s): R41.82 - ALTERED MENTAL STATUS, UNSPECIFIED Status: Acute (4) Chronic kidney disease (CKD) Code(s): N18.9 - CHRONIC KIDNEY DISEASE, UNSPECIFIED Status: Acute (5) Diabetes mellitus Code(s): E11.9 - TYPE 2 DIABETES MELLITUS WITHOUT COMPLICATIONS Status: Acute (6) ESRD (end stage renal disease) on dialysis Code(s): N18.6 - END STAGE RENAL DISEASE; Z99.2 - DEPENDENCE ON RENAL DIALYSIS Status: Acute (7) HLD (hyperlipidemia) Code(s): E78.5 - HYPERLIPIDEMIA, UNSPECIFIED Status: Acute (8) Hypertensive emergency Code(s): I16.1 - HYPERTENSIVE EMERGENCY Status: Acute (9) Coffee ground emesis Code(s): K92.0 - HEMATEMESIS Status: Acute - Plan Patient initially was on a Cardene drip for hypertensive emergency however his blood pressures dropped and then was put on a Levophed drip. Patient's states that he does take his medication. Patient extubated today oriented x3. Unclear of his etiology for metabolic encephalopathy. Most likely secondary to hypertensive emergency. Patient CT did not show any acute abnormalities. 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 EEG no seizure indicated. Patient did have coffee-ground emesis on PPI plans for EGD in a.m. echo indicating EF 50 to 60%. Patient was started on a D10 drip yesterday given his hypoglycemia will turn it off and see how he does. We will continue to monitor Accu-Cheks every 4 for now. So far cultures are negative we will continue antibiotics another 24 hours and then discontinue. We will hold off on the insulin for now. Patient gets peritoneal dialysis. 06/21 patient appears a little confused today he pulled out his line last night. Patient currently has a sitter. Going for EGD. We will put on as needed's for blood pressure control. We will continue home insulin. Will replace potassium.
[2020-06-21] MEDS: Acetaminophen 325 MG Suppository PR PRN (18:15)
--- NOTE | 2020-06-21 18:39 | PDOC.EVN ---
Event Note - Event Note Event Note: Nursing called, patient spiked fever 102f, tachycardic, recent extubation and EGD. on Zosyn. Will get LA, blood CX and labs.
[2020-06-21 19:19] LABS: #Lymphocytes 0.2 thou/uL (1.20-3.40); #Monocytes 0.5 thou/uL (0.11-0.59); #Neutrophils 8.4 thou/uL (1.40-6.50); %Basophils 0.2 % (0.0-1.0); %Eosinophils 0.2 % (0.0-10.0); %Lymphocytes 2.5 % (21.0-51.0); %Monocytes 5.6 % (0.0-10.0); %Neutrophils 91.4 % (42.0-75.0); Hemoglobin 8.9 g/dL (14.0-18.0); Mean Corpuscular HGB CONC 32.4 g/dL (32.0-36.0); Mean Corpuscular Hemoglobin 28.9 pg (27.0-31.0); Mean Corpuscular Volume 89.2 fL (78.0-98.0); Mean Platelet Volume 9.6 fL (7.4-10.4); Platelet Count 171 thou/uL (130-400); RBC Distribution Width 13.2 % (11.5-14.5); Red Blood Cell (RBC) Count 3.07 mill/uL (4.70-6.10); White Blood Cell (WBC) Count 9.2 thou/uL (4.8-10.8)
[2020-06-21 19:34] LABS: Lactic Acid 0.8 mmol/L (0.5-2.2)
[2020-06-21 19:37] LABS: Anion Gap 20 mmol/L (10-20); BUN (Urea Nitrogen) 51 mg/dL (8.4-25.7); Calc. Creatinine Clearance 0 mL/min (70-130); Calcium 6.5 mg/dL (7.8-10.44); Carbon Dioxide 18 mmol/L (22-29); Chloride 97 mmol/L (98-107); Estimated GFR-MDRD 6; Glucose 136 mg/dL (70-105); Potassium 3.1 mmol/L (3.5-5.1); Sodium 132 mmol/L (136-145)
[2020-06-21 23:28] VITALS: BMI 21.2
[2020-06-21] MEDS: Sodium Chloride 0.9% 1,000 ML IV SCH (23:29)
[2020-06-22] MEDS: hydrALAZINE 20 MG/ML VIAL SLOW IVP PRN (00:13)
[2020-06-22] MEDS: HumaLOG 300 UNITS/3 ML VIAL SC PRN ×2 (00:21→21:54)
[2020-06-22] MEDS: Acetaminophen 325 MG Suppository PR PRN (04:03)
[2020-06-22] MEDS: Dextrose 50% Abboject 50 ML SYRINGE SLOW IVP PRN (04:15)
[2020-06-22 06:13] LABS: #Lymphocytes 0.4 thou/uL (1.20-3.40); %Basophils 0.1 % (0.0-1.0); %Eosinophils 0.3 % (0.0-10.0); %Monocytes 10.2 % (0.0-10.0); %Neutrophils 85.5 % (42.0-75.0); Hemoglobin 9.3 g/dL (14.0-18.0); Mean Corpuscular Hemoglobin 28.8 pg (27.0-31.0); Mean Corpuscular Volume 87.2 fL (78.0-98.0); Mean Platelet Volume 9.6 fL (7.4-10.4); Platelet Count 180 thou/uL (130-400); RBC Distribution Width 13.2 % (11.5-14.5); Red Blood Cell (RBC) Count 3.24 mill/uL (4.70-6.10); White Blood Cell (WBC) Count 9.3 thou/uL (4.8-10.8)
[2020-06-22 06:38] LABS: ALT (SGPT) 30 U/L (8-55); AST (SGOT) 61 U/L (5-34); Albumin 2.6 g/dL (3.5-5.0); Alkaline Phosphatase 48 U/L (40-110); Anion Gap 19 mmol/L (10-20); BUN (Urea Nitrogen) 48 mg/dL (8.4-25.7); Bilirubin, Total 0.3 mg/dL (0.2-1.2); Calc. Creatinine Clearance 7 mL/min (70-130); Calcium 6.8 mg/dL (7.8-10.44); Carbon Dioxide 22 mmol/L (22-29); Chloride 97 mmol/L (98-107); Estimated GFR-MDRD 6; Glucose 133 mg/dL (70-105); Potassium 3.2 mmol/L (3.5-5.1); Protein, Total 5.6 g/dL (6.0-8.3); Sodium 135 mmol/L (136-145)
--- NOTE | 2020-06-22 08:32 | PRG ---
DATE OF SERVICE: 06/22/2020 SUBJECTIVE: A 60-year-old gentleman being seen for end-stage kidney disease. OBJECTIVE: GENERAL: The patient is resting. VITAL SIGNS: Temperature 100, pulse 98, breathing 16, blood pressure 175/68. HEENT: Head normocephalic and atraumatic. Eyes intact, no ulcers. Nose intact, no ulcers. Ears intact, no ulcers. NECK: Supple. No JVD. CHEST: Symmetrical and clear. CARDIOVASCULAR: Shows S1 and S2, no rub, no murmur. GASTROINTESTINAL: Abdomen is soft, bowel sounds positive. EXTREMITIES: Show no edema or ulcers. SKIN: Shows no rash or petechiae. MUSCULOSKELETAL: Shows no joint swelling or stiffness. GENITOURINARY: Shows no Duran or CVA tenderness. NEUROLOGIC: The patient is resting. LABORATORY DATA: Labs showed hemoglobin 9.3. Potassium . ASSESSMENT AND PLAN: 1. Stage 6 chronic kidney disease. Continue PD. 2. Hypokalemia. Recommend 20 mEq of potassium. 3. Anemia, stable. 4. Medication based on GFR appropriate. Job ID: [id number]
--- NOTE | 2020-06-22 08:32 | RAD ---
PORTABLE CHEST: Date: 06/22/2020 HISTORY: CCU follow-up, on ventilator. COMPARISON: 06/21/2020. FINDINGS/IMPRESSION: The lungs are well aerated. Evidence of patchy infiltrate in both lower lobes without significant int erval change. POS: OFF
[2020-06-22] MEDS: Sevelamer Carbonate 800 MG TAB PO SCH ×3 (09:33→17:53)
[2020-06-22] MEDS: Aspirin 81 mg Enteric Coated Tablet PO SCH ×2 (09:37→11:35)
--- NOTE | 2020-06-22 10:13 | PRG ---
DATE OF SERVICE: 06/22/2020 SUBJECTIVE: Randall Montero did well overnight. He is in no distress. He is still intermittently confused, but he will follow commands. OBJECTIVE: VITAL SIGNS: Blood pressure 177/66, heart rate is 82, respiratory rates in the teens. LUNGS: Clear. HEART: Regular rhythm. ABDOMEN: Soft. IMPRESSION: Status post mechanical ventilation for an encephalopathy, presumably related to uncontrolled blood pressure. He still has radiographic abnormalities that could be secondary to slow to resolve pulmonary edema or alveolar hemorrhage associated with his blood pressure. It also could be aspiration mediated, given his encephalopathy. He is on Zosyn. He could be switched to Augmentin. He could be transferred out of the Critical Care Unit. Overall, his physical exam other than his encephalopathy is unchanged. We will sign off on transfer. Job ID: [id number]
[2020-06-22] MEDS: Pantoprazole 40 MG VIAL IVP SCH (10:39)
[2020-06-22] MEDS: Piperacillin/Tazobactam 2.25 GM in Sodium Chloride 0.9% 100 ML IVPB SCH (10:39)
[2020-06-22] MEDS: Atorvastatin Calcium 10 MG TAB PO SCH (10:39)
[2020-06-22] MEDS: Amlodipine 10 MG TAB PO SCH ×2 (10:40→11:35)
[2020-06-22] MEDS: Carvedilol 25 MG TAB PO SCH ×2 (11:33→22:09)
[2020-06-22] MEDS: hydrALAZINE 25 MG TAB PO SCH ×4 (11:35→21:52)
[2020-06-22] MEDS: Isosorbide Dinitrate 20 MG TAB PO SCH ×2 (14:26→21:53)
[2020-06-22] MEDS: Sodium Chloride 0.9% 1,000 ML IV SCH (14:39)
--- NOTE | 2020-06-22 17:35 | PDOC.HOSPP ---
- Subjective Encounter Date: 06/22/20 Encounter Time: 17:00 Subjective: pt up in bed oriented x2 - Objective Vital Signs & Weight: Vital Signs (12 hours) Temp Pulse Pulse Pulse Resp BP BP 06/22/20 16:00 99.4 F 69 18 06/22/20 14:26 68 126/56 L 06/22/20 12:00 99.4 F 06/22/20 11:35 87 176/70 H 06/22/20 11:33 80 76 173/64 H 06/22/20 08:00 06/22/20 07:57 100 F H 06/22/20 07:45 06/22/20 06:00 100.8 F H BP BP Pulse Ox Pulse Ox Pulse Ox 06/22/20 16:00 147/60 H 95 06/22/20 14:26 06/22/20 12:00 06/22/20 11:35 06/22/20 11:33 176/70 H 100 100 06/22/20 08:00 100 06/22/20 07:57 06/22/20 07:45 98 06/22/20 06:00 Weight Admit Weight 143 lb Weight 144 lb 2.917 oz Most Recent Monitor Data Heart Rate from ECG 65 NIBP 126/56 NIBP BP-Mean 79 Respiration from ECG 19 SpO2 99 I&O: 06/21/20 06/22/20 06/23/20 06:59 06:59 06:59 Intake Total 783 530 324 Output Total 170 251 1 Balance 613 279 323 Result Diagrams: 06/22/20 05:56 06/22/20 05:56 Additional Labs: Accuchecks 06/22/20 06/22/20 06/22/20 09:25 05:30 04:12 POC Glucose 144 H 126 H 63 L 06/22/20 06/22/20 06/21/20 04:10 00:20 20:28 POC Glucose 63 L 239 H 159 H 06/19/20 15:40 POC Glucose 18 L* Hospitalist ROS - Review of Systems Cardiovascular: denies: chest pain, palpitations, orthopnea, paroxysmal noc. dyspnea, edema, light headedness, other Gastrointestinal: denies: nausea, vomiting, abdominal pain, diarrhea, constipation, melena, hematochezia, other Genitourinary: denies: dysuria, frequency, incontinence, hematuria, retention, other - Medication Medications: Active Medications Generic Name Dose Route Start Last Admin Trade Name Freq PRN Reason Stop Dose Admin Acetaminophen 650 mg 06/19/20 00:30 06/22/20 04:03 Acetaminophen 325 Mg Suppository NC 650 mg Q6H PRN Administration Fever > 101 or Mild Pain Amlodipine Besylate 10 mg 06/22/20 09:00 06/22/20 11:35 Amlodipine 10 Mg Tab PO 10 mg DAILY CAROLYNN Administration Aspirin 81 mg 06/20/20 09:00 06/22/20 11:35 Aspirin 81 Mg Enteric Coated Tablet PO 81 mg DAILY CAROLYNN Administration Atorvastatin Calcium 10 mg 06/20/20 09:00 06/22/20 10:39 Atorvastatin Calcium 10 Mg Tab PO Not Given DAILY [facility] Carvedilol 25 mg 06/22/20 09:56 06/22/20 11:33 Carvedilol 25 Mg Tab PO 25 mg BID CAROLYNN Administration Dextrose/Water 25 gm 06/19/20 10:32 06/22/20 04:15 Dextrose 50% Abboject 50 Ml Syringe SLOW IVP 25 gm PRN PRN Administration Hypoglycemia Hydralazine HCl 5 mg 06/21/20 08:28 06/22/20 00:13 Hydralazine 20 Mg/Ml Vial SLOW IVP 5 mg Q6H PRN Administration Blood Pressure Hydralazine HCl 50 mg 06/22/20 09:56 06/22/20 16:43 Hydralazine 25 Mg Tab PO Not Given TID [facility] Insulin Human Lispro 0 units 06/20/20 21:30 06/22/20 00:21 Humalog 300 Units/3 Ml Vial SC 4 unit .MODERATE SLIDING SC PRN Administration MODERATE SLIDING SCALE Protocol Isosorbide Dinitrate 20 mg 06/22/20 15:00 06/22/20 14:26 Isosorbide Dinitrate 20 Mg Tab PO Not Given TID CAROLYNN Sevelamer Carbonate 800 mg 06/20/20 08:00 06/22/20 11:33 Sevelamer Carbonate 800 Mg Tab PO 800 mg TID-WM CAROLYNN Administration Sodium Chloride 10 ml 06/19/20 09:00 06/22/20 11:36 Flush - Normal Saline 10 Ml Syringe IVF 10 ml Q12HR CAROLYNN Administration - Exam Neck: negative: supple, symmetric, no JVD, no thyromegaly, no lymphadenopathy, no carotid bruit, JVD Heart: negative: RRR, no murmur, no gallops, no rubs, normal peripheral pulses, irregular, diminshed peripheral pulses, murmur present, II/IV, III/IV Respiratory: negative: CTAB, no wheezes, no rales, no ronchi, normal chest expansion, no tachypnea, normal percussion, rales, rhonchi, tachypneic, wheezes Gastrointestinal: negative: soft, non-tender, non-distended, normal bowel sounds, no palpable masses, no hepatomegaly, no splenomegaly, no bruit, no guarding, no rigidity, tender to palpation, distended, diminished bowl sounds, voluntary guarding Hosp A/P (1) Acute metabolic encephalopathy Code(s): G93.41 - METABOLIC ENCEPHALOPATHY Status: Acute (2) Acute respiratory failure Code(s): J96.00 - ACUTE RESPIRATORY FAILURE, UNSP W HYPOXIA OR HYPERCAPNIA Status: Acute (3) Altered mental state Code(s): R41.82 - ALTERED MENTAL STATUS, UNSPECIFIED Status: Acute (4) Chronic kidney disease (CKD) Code(s): N18.9 - CHRONIC KIDNEY DISEASE, UNSPECIFIED Status: Acute (5) Diabetes mellitus Code(s): E11.9 - TYPE 2 DIABETES MELLITUS WITHOUT COMPLICATIONS Status: Acute (6) ESRD (end stage renal disease) on dialysis Code(s): N18.6 - END STAGE RENAL DISEASE; Z99.2 - DEPENDENCE ON RENAL DIALYSIS Status: Acute (7) HLD (hyperlipidemia) Code(s): E78.5 - HYPERLIPIDEMIA, UNSPECIFIED Status: Acute (8) Hypertensive emergency Code(s): I16.1 - HYPERTENSIVE EMERGENCY Status: Acute (9) Coffee ground emesis Code(s): K92.0 - HEMATEMESIS Status: Acute - Plan Patient initially was on a Cardene drip for hypertensive emergency however his blood pressures dropped and then was put on a Levophed drip. Patient's states that he does take his medication. Patient extubated today oriented x3. Unclear of his etiology for metabolic encephalopathy. Most likely secondary to hypertensive emergency. Patient CT did not show any acute abnormalities. 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 EEG no seizure indicated. Patient did have coffee-ground emesis on PPI plans for EGD in a.m. echo indicating EF 50 to 60%. Patient was started on a D10 drip yesterday given his hypoglycemia will turn it off and see how he does. We will continue to monitor Accu-Cheks every 4 for now. So far cultures are negative we will continue antibiotics another 24 hours and then discontinue. We will hold off on the insulin for now. Patient gets peritoneal dialysis. 06/21 patient appears a little confused today he pulled out his line last night. Patient currently has a sitter. Going for EGD. We will put on as needed's for blood pressure control. We will continue home insulin. Will replace potassium. 06/22 pt had a fever last night. will switch to Augmentin and will monitor for one more night. EGD indicated 7mm ulcer in the gastric body and grade erosive esophagitis. will change ppi to oral. will start pt on home bp meds.
[2020-06-22] MEDS ORDERED: Non-Formulary Item 1 EACH (Insulin Detemir [Levemir Flextouch] 100 UNIT/ML Insuln.Pen) SQ SCH (21:00)
[2020-06-22] MEDS: Amoxicillin/Potassium Clav 875 MG TAB PO SCH (21:53)
[2020-06-22] MEDS: Insulin Glargine 10 UNITS in Pre-Filled Syringe 1 EACH SC SCH (21:53)
[2020-06-23] MEDS ORDERED: Acetaminophen 325 MG TAB PO PRN ×2 (00:07→00:22)
[2020-06-23] MEDS: hydrALAZINE 20 MG/ML VIAL SLOW IVP PRN (00:33)
[2020-06-23 08:14] LABS: Band 18 % (5-11); Hemoglobin 8.7 g/dL (14.0-18.0); Lymphocytes 9 % (21-51); MDiff Complete? YES; Mean Corpuscular HGB CONC 32.3 g/dL (32.0-36.0); Mean Corpuscular Hemoglobin 28.6 pg (27.0-31.0); Mean Corpuscular Volume 88.5 fL (78.0-98.0); Mean Platelet Volume 8.9 fL (7.4-10.4); Monocytes 4 % (0-10); Neutrophil 69 % (42-75); Platelet Count 179 thou/uL (130-400); RBC Distribution Width 13.2 % (11.5-14.5); Red Blood Cell (RBC) Count 3.06 mill/uL (4.70-6.10); White Blood Cell (WBC) Count 6.2 thou/uL (4.8-10.8)
[2020-06-23 08:20] LABS: ALT (SGPT) 32 U/L (8-55); AST (SGOT) 70 U/L (5-34); Albumin 2.5 g/dL (3.5-5.0); Alkaline Phosphatase 42 U/L (40-110); Anion Gap 17 mmol/L (10-20); BUN (Urea Nitrogen) 48 mg/dL (8.4-25.7); Bilirubin, Total 0.2 mg/dL (0.2-1.2); Calc. Creatinine Clearance 6 mL/min (70-130); Calcium 6.5 mg/dL (7.8-10.44); Carbon Dioxide 24 mmol/L (22-29); Chloride 98 mmol/L (98-107); Estimated GFR-MDRD 6; Globulin 2.9 g/dL (2.4-3.5); Glucose 153 mg/dL (70-105); Protein, Total 5.4 g/dL (6.0-8.3); Sodium 136 mmol/L (136-145)
--- NOTE | 2020-06-23 08:48 | RAD ---
Chest one view HISTORY: Pneumonia. Follow-up. COMPARISON: 06/22/2020. FINDINGS: Cardiac silhouette is magnified by projection and upper limits of normal in size. Pulmonary vasculature is unremarkable. Mediastinum is midline with aortic calcification. Subtle patchy areas of ill-defined infiltrate at each lung base are unchanged from the previous exam. No lobar consolidation or evidence of pneumothorax. IMPRESSION : Mild patchy bibasilar infiltrates and other findings are stable.
[2020-06-23] MEDS ORDERED: Potassium Chloride 20 MEQ TAB PO SCH (09:00)
[2020-06-23] MEDS ORDERED: EPOETIN ALFA-EPBX (ESRD) 10,000 UNIT/ML VIAL SC SCH (09:00)
[2020-06-23] MEDS ORDERED: NIFEdipine XL 30 MG TAB PO SCH (09:00)
[2020-06-23] MEDS ORDERED: Minoxidil 2.5 MG TAB PO SCH (09:00)
--- NOTE | 2020-06-23 09:25 | PRG ---
DATE OF SERVICE: 06/23/2020 SUBJECTIVE: Patient was seen and examined at bedside and overnight events noted. Patient denies any shortness of breath or chest pain or palpitation. No history of nausea or vomiting or diarrhea or fever or chills or cramps. OBJECTIVE: GENERAL: This is a well-built male, in no apparent distress. VITAL SIGNS: Temperature 99.8. Heart rate 71. Respiratory rate . Blood pressure 178/69. HEENT: Atraumatic, normocephalic. Oral mucosa is moist. NECK: Supple. CARDIOVASCULAR: S1, S2 heard. Rate and rhythm regular. RESPIRATORY: Clear to auscultation. GASTROINTESTINAL: Abdomen is soft. MUSCULOSKELETAL: No tenderness. No edema. DERMATOLOGIC: No skin rash. NEUROLOGIC: Alert and awake and oriented x3. No focal neurologic deficits. Moving all the extremities. PSYCHIATRIC: Mood and affect normal. LABORATORY DATA: Potassium 3.0, BUN is 48, creatinine is 11.29. ASSESSMENT AND PLAN: 1. End-stage renal disease, on peritoneal dialysis. Continue peritoneal dialysis as tolerated. 2. Hypokalemia. Supplement potassium. 3. Hypertension. Titrate medications. 4. Edema, controlled. 5. Hypocalcemia. 6. Severe hypoalbuminemia. 7. Anemia of chronic disease. We will add Epogen. Encourage protein intake. We will add Nepro. Encourage protein supplements and potassium supplements. We will monitor closely. We will follow. Job ID: [id number]
[2020-06-23] MEDS: Amoxicillin/Potassium Clav 875 MG TAB PO SCH (09:29)
[2020-06-23] MEDS: Atorvastatin Calcium 10 MG TAB PO SCH (09:30)
[2020-06-23] MEDS: hydrALAZINE 25 MG TAB PO SCH ×2 (09:30→16:00)
[2020-06-23] MEDS: Aspirin 81 mg Enteric Coated Tablet PO SCH (09:30)
[2020-06-23] MEDS: Carvedilol 25 MG TAB PO SCH (09:30)
[2020-06-23] MEDS: Isosorbide Dinitrate 20 MG TAB PO SCH ×2 (09:30→16:00)
[2020-06-23] MEDS: Insulin Glargine 10 UNITS in Pre-Filled Syringe 1 EACH SC SCH (09:31)
[2020-06-23 11:26] VITALS: BP 172/61; TEMP 100.3
[2020-06-23] MEDS: Calcium Acetate 667 MG CAP PO SCH ×2 (11:55→16:00)
--- NOTE | 2020-06-23 15:32 | EKG ---
Test Reason : Blood Pressure : / mmHG Vent. Rate : 103 BPM Atrial Rate : 105 BPM P-R Int : 000 ms QRS Dur : 172 ms QT Int : 466 ms P-R-T Axes : 088 022 066 degrees QTc Int : 610 ms Undetermined rhythm Non-specific intra-ventricular conduction block Abnormal ECG Occasional normal sinus beats, frequent PVCs, Deep T wave inversions on all beats Confirmed by MARY MERCADO, JOSHUA Calle ([id number]), international editorial producer JANETTE MAGAÑA ([id number]) on 06/23/2020 3:32:16 PM Referred By: Confirmed By:JOSHUA HERNANDEZ MD
[2020-06-23] MEDS: Sevelamer Carbonate 800 MG TAB PO SCH (16:08)
--- NOTE | 2020-06-23 17:28 | PDOC.HOSPP ---
- Subjective Encounter Date: 06/23/20 Encounter Time: 17:26 Subjective: Mr. Montero was seen today in follow-up of hypertensive urgency and encephalopathy. He says he does not have any complaints today. - Objective Vital Signs & Weight: Vital Signs (12 hours) Temp Pulse Resp BP Pulse Ox 06/23/20 16:00 70 06/23/20 11:26 100.3 F H 70 20 172/61 H 100 06/23/20 07:19 99.8 F H 71 20 178/69 H 96 Weight Admit Weight 143 lb Weight 144 lb Most Recent Monitor Data Heart Rate from ECG 65 NIBP 126/56 NIBP BP-Mean 79 Respiration from ECG 19 SpO2 99 I&O: 06/22/20 06/23/20 06/24/20 06:59 06:59 06:59 Intake Total 530 724 Output Total 251 1 Balance 279 723 Result Diagrams: 06/23/20 07:34 06/23/20 07:34 Additional Labs: Accuchecks 06/23/20 06/23/20 06/23/20 16:27 11:15 04:42 POC Glucose 105 H 174 H 205 H 06/22/20 06/22/20 20:48 18:31 POC Glucose 293 H 160 H Hospitalist ROS - Medication Medications: Active Medications Generic Name Dose Route Start Last Admin Trade Name Mauricioq PRN Reason Stop Dose Admin Acetaminophen 650 mg 06/19/20 00:30 06/22/20 04:03 Acetaminophen 325 Mg Suppository AR 650 mg Q6H PRN Administration Fever > 101 or Mild Pain Acetaminophen 650 mg 06/23/20 00:22 06/23/20 00:33 Acetaminophen 325 Mg Tab PO 650 mg Q4H PRN Administration Headache/Fever or Pain Amoxicillin/Clavulanate Potassium 875 mg 06/22/20 21:00 06/23/20 09:29 Amoxicillin/Potassium Clav 875 Mg Tab PO 875 mg Q12HR CAROLYNN Administration Aspirin 81 mg 06/20/20 09:00 06/23/20 09:30 Aspirin 81 Mg Enteric Coated Tablet PO 81 mg DAILY CAROLYNN Administration Atorvastatin Calcium 10 mg 06/20/20 09:00 06/23/20 09:30 Atorvastatin Calcium 10 Mg Tab PO 10 mg DAILY CAROLYNN Administration Calcium Acetate 1,334 mg 06/23/20 12:00 06/23/20 16:00 Calcium Acetate 667 Mg Cap PO 1,334 mg TID-WM CAROLYNN Administration Carvedilol 25 mg 06/22/20 09:56 06/23/20 09:30 Carvedilol 25 Mg Tab PO 25 mg BID CAROLYNN Administration Dextrose/Water 25 gm 06/19/20 10:32 06/22/20 04:15 Dextrose 50% Abboject 50 Ml Syringe SLOW IVP 25 gm PRN PRN Administration Hypoglycemia Epoetin [place]-epbx 10,000 unit 06/23/20 09:00 06/23/20 09:32 Epoetin [place]-Epbx (Esrd) 10,000 Unit/Ml Vial SC 10,000 unit Q7D CAROLYNN Administration Hydralazine HCl 5 mg 06/21/20 08:28 06/23/20 00:33 Hydralazine 20 Mg/Ml Vial SLOW IVP 5 mg Q6H PRN Administration Blood Pressure Hydralazine HCl 50 mg 06/22/20 09:56 06/23/20 16:00 Hydralazine 25 Mg Tab PO 50 mg TID CAROLYNN Administration Insulin Glargine 10 units/ 0.1 mls @ 0 mls/hr 06/22/20 21:00 06/23/20 09:31 Miscellaneous Medication SC 0.1 mls BID CAROLYNN Administration Insulin Human Lispro 0 units 06/20/20 21:30 06/22/20 21:54 Humalog 300 Units/3 Ml Vial SC 6 unit .MODERATE SLIDING SC PRN Administration MODERATE SLIDING SCALE Protocol Isosorbide Dinitrate 20 mg 06/22/20 15:00 06/23/20 16:00 Isosorbide Dinitrate 20 Mg Tab PO 20 mg TID CAROLYNN Administration Minoxidil 5 mg 06/23/20 09:00 06/23/20 11:56 Minoxidil 2.5 Mg Tab PO 5 mg DAILY CAROLYNN Administration Nifedipine 30 mg 06/23/20 09:00 06/23/20 11:55 Nifedipine Xl 30 Mg Tab PO 30 mg BID CAROLYNN Administration Pantoprazole Sodium 40 mg 06/22/20 21:00 06/23/20 09:30 Pantoprazole 40 Mg Tab PO 40 mg BID CAROLYNN Administration Sodium Chloride 10 ml 06/19/20 09:00 06/23/20 09:31 Flush - Normal Saline 10 Ml Syringe IVF 10 ml Q12HR CAROLYNN Administration - Exam Eye: PERRL, anicteric sclera Heart: RRR, no murmur, no gallops, no rubs, normal peripheral pulses Respiratory: CTAB, no wheezes, no rales, no ronchi, normal chest expansion Gastrointestinal: soft, non-distended, normal bowel sounds Extremities: no cyanosis, no edema Hosp A/P (1) Hypertensive encephalopathy Code(s): I67.4 - HYPERTENSIVE ENCEPHALOPATHY Status: Acute (2) Diabetes mellitus Code(s): E11.9 - TYPE 2 DIABETES MELLITUS WITHOUT COMPLICATIONS Status: Chronic (3) ESRD (end stage renal disease) on dialysis Code(s): N18.6 - END STAGE RENAL DISEASE; Z99.2 - DEPENDENCE ON RENAL DIALYSIS Status: Chronic (4) Hypertensive urgency Code(s): I16.0 - HYPERTENSIVE URGENCY Status: Acute - Plan * Hypertensive Urgency- resolved * HTN- his blood pressure is much improved * He has been transitioned to Procardia, and taken off Amlodipine * ESRD- continue Peritoneal dialysis * Stable for discharge home
--- NOTE | 2020-06-23 18:03 | PDOC.DS.DS ---
Provider - Provider Date of Admission: 06/19/20 00:26 Date of Discharge: 06/23/20 Admitting Provider: Randa Mckeon MD Consultations: Gastroentrology, Nephrology, Pulmonary Primary Care Physician: Nathan Rodríguez Course - Hospital Course Hospital Course: Mr. Montero is a 60-year-old gentleman with a history of end-stage renal disease he is on peritoneal dialysis. He was admitted to the hospital with altered mental status. The full details of which are outlined in the history of present illness. On admission he was found to have an elevated blood pressure so high that he required placement in the ICU on a Cardene drip. Since he is on dialysis his parliamentary archivist was consulted and he was maintained on his regular peritoneal dialysis while in the hospital. He was seen by the pulmonary critical care team due to to his presence in the ICU. He was also noted to have respiratory failure. It is unclear whether or not this was due to flash pulmonary edema atelectasis or aspiration. He was initially placed on IV Zosyn for this and then transitioned to Augmentin p.o. The altered mental status was attributed to hypertensive encephalopathy as he had a complete work-up including a CT angiogram of the brain and [place] is. The CTA showed 50% stenosis at the proximal internal carotid. CT of the brain did not show any acute findings other than the presence of an old lacunar infarct as well as as an old brainstem infarct in the flash as well as some involutional changes. He had an MRI of the brain done following this showing some chronic white matter changes but no acute infarct. He also had an EEG showing moderate generalized nonspecific cerebral dysfunction. He was evaluated by neurology as well. And it appears as if hypertension was the cause and once his blood pressure was rendered in better control his mental status returned to baseline. His hospital course was also complicated by an episode of GI bleed. He was noted to have coffee-ground emesis and the gastroenterology service was consulted. He underwent upper endoscopy which revealed a 7 mm gastric ulcer as well as erosive gastritis. He was placed on IV Protonix twice daily. This was transitioned to p.o. and biopsy for Helicobacter was obtained. He will be discharged home on Protonix twice a day. His blood pressure medications have been adjusted. He has been taken off of amlodipine and placed on Procardia or nifedipine 30 mg twice a day. And he has been instructed to have close monitoring of his blood pressure at home if his b lood pressure tends to run low I have instructed him that the first medication to hold back on would be the Procardia. - Labs Lab Results: 06/23/20 07:34 06/23/20 07:34 Abnormal Lab Results - Last 48 hrs 06/21/20 19:08: Sodium 132 L, Potassium 3.1 L, Chloride 97 L, Carbon Dioxide 18 L, BUN 51 H, Creatinine 11.31 H, Calcium 6.5 L 06/21/20 19:08: RBC 3.07 L, Hgb 8.9 L, Hct 27.4 L, Neutrophils % 91.4 H, Lymphocytes % 2.5 L, Neutrophils # 8.4 H, Lymphocytes # 0.2 L 06/22/20 05:56: Sodium 135 L, Potassium 3.2 L, Chloride 97 L, BUN 48 H, Creatinine 10.54 H, Calcium 6.8 L, AST 61 H, Serum Total Protein 5.6 L, Albumin 2.6 L, Albumin/Globulin Ratio 0.9 L 06/22/20 05:56: RBC 3.24 L, Hgb 9.3 L, Hct 28.2 L, Neutrophils % 85.5 H, Lymphocytes % 4.0 L, Monocytes % 10.2 H, Neutrophils # 8.0 H, Lymphocytes # 0.4 L, Monocytes # 1.0 H 06/23/20 07:34: RBC 3.06 L, Hgb 8.7 L, Hct 27.1 L, Band Neuts % (Manual) 18 H, Lymphocytes % (Manual) 9 L 06/23/20 07:34: Potassium 3.0 L, BUN 48 H, Creatinine 11.29 H, Calcium 6.5 L, AST 70 H, Serum Total Protein 5.4 L, Albumin 2.5 L, Albumin/Globulin Ratio 0.9 L Microbiology - Entire Visit 06/21/20 19:08 Venous blood - Left Arm Blood Culture - Preliminary NO GROWTH AT 48 HOURS 06/21/20 19:08 Venous blood - Left Hand Blood Culture - Preliminary NO GROWTH AT 48 HOURS 06/18/20 23:42 Urine alexis catheter Urine Culture - Final NO GROWTH AT 36 HOURS - Physical Exam Vitals: Vital Signs (12 hours) Temp Pulse Resp BP Pulse Ox 06/23/20 16:00 70 06/23/20 11:26 100.3 F H 70 20 172/61 H 100 06/23/20 07:19 99.8 F H 71 20 178/69 H 96 Weight Admit Weight 143 lb Weight 144 lb Most Recent Monitor Data Heart Rate from ECG 65 NIBP 126/56 NIBP BP-Mean 79 Respiration from ECG 19 SpO2 99 Physical Exam: The patient was seen and examined on the day of discharge. Problem - Problem (1) Hypertensive encephalopathy Code(s): I67.4 - HYPERTENSIVE ENCEPHALOPATHY Status: Acute (2) Diabetes mellitus Code(s): E11.9 - TYPE 2 DIABETES MELLITUS WITHOUT COMPLICATIONS Status: Chronic (3) ESRD (end stage renal disease) on dialysis Code(s): N18.6 - END STAGE RENAL DISEASE; Z99.2 - DEPENDENCE ON RENAL DIALYSIS Status: Chronic (4) Hypertensive urgency Code(s): I16.0 - HYPERTENSIVE URGENCY Status: Acute (5) Erosive gastritis Code(s): K29.60 - OTHER GASTRITIS WITHOUT BLEEDING Status: Acute (6) Gastric ulcer Code(s): K25.9 - GASTRIC ULCER, UNSP ACUTE OR CHRONIC, W/O HEMOR OR PERF Status: Acute (7) GI bleed Code(s): K92.2 - GASTROINTESTINAL HEMORRHAGE, UNSPECIFIED Status: Acute Plan - Discharge Medications Prescriptions: Amoxicillin/Potassium Clav [Augmentin] 875 mg PO Q12HR #6 tab Calcium Acetate [Phoslo] 1,334 mg PO TID- #90 cap NIFEdipine [Procardia XL] 30 mg PO BID #60 tab Pantoprazole [Protonix] 40 mg PO BID #60 tab Home Medications: Medication Instructions Recorded Confirmed Type Aspirin [Ecotrin Low Strength] 81 mg PO DAILY #30 tab 06/18/20 06/19/20 Rx Atorvastatin Calcium [Lipitor] 10 mg PO DAILY #30 tab 06/18/20 06/19/20 Rx Carvedilol [Coreg] 25 mg PO BID #60 tab 06/18/20 06/19/20 Rx Insulin Detemir [Levemir Flextouch] 10 unit SQ BID #1 06/18/20 06/19/20 Rx Isosorbide Dinitrate [Isordil] 20 mg PO TID #60 tab 06/18/20 06/19/20 Rx Minoxidil 5 mg PO DAILY #60 tab 06/18/20 06/19/20 Rx hydrALAZINE HCl [Hydralazine HCl] 50 mg PO TID #90 tablet 06/18/20 06/19/20 Rx Amoxicillin/Potassium Clav 875 mg PO Q12HR #6 tab 06/23/20 Rx [Augmentin] Calcium Acetate [Phoslo] 1,334 mg PO TID-WM #90 cap 06/23/20 Rx NIFEdipine [Procardia XL] 30 mg PO BID #60 tab 06/23/20 Rx Pantoprazole [Protonix] 40 mg PO BID #60 tab 06/23/20 Rx Allergies: No Known Drug Allergies Allergy (Verified 06/19/20 01:13) PER ER NOTES - Discharge Instructions Discharge Instructions:: Follow-up with your Primary Care Provider in 1 week Activity:: Activity as Tolerated Nourishment:: Renal Diet - Follow up Plan Referrals: Chaparrita Dacosta MD [Primary Care Provider] - Disposition: HOME Quality - Care Measures CORE MEASURES:: N/A
== END 2020-06-23 18:30 | disposition home or self-care (01) | DRG 77 ==
LOC: ERS 21:57 → CCU 06-19 00:26 → T4-B 06-22 15:49
PROVIDERS: ADMIT Internal Medicine; ATTEND Internal Medicine
PROC: 5A1945Z Respiratory Ventilation, 24-96 Consecutive Hours (ICD-10-PCS; principal; 2020-06-19)
PROC: 06HY33Z Insertion of Infusion Device into Lower Vein, Percutaneous Approach (ICD-10-PCS; 2020-06-19)
PROC: 3E033XZ Introduction of Vasopressor into Peripheral Vein, Percutaneous Approach (ICD-10-PCS; 2020-06-19)
PROC: 0BH17EZ Insertion of Endotracheal Airway into Trachea, Via Natural or Artificial Opening (ICD-10-PCS; 2020-06-19)
PROC: 3E1M39Z Irrigation of Peritoneal Cavity using Dialysate, Percutaneous Approach (ICD-10-PCS; 2020-06-19)
PROC: 0DB68ZX Excision of Stomach, Via Natural or Artificial Opening Endoscopic, Diagnostic (ICD-10-PCS; 2020-06-21)
PROC: 0DB78ZX Excision of Stomach, Pylorus, Via Natural or Artificial Opening Endoscopic, Diagnostic (ICD-10-PCS; 2020-06-21)
DX: I67.4 Hypertensive encephalopathy (principal); N18.6 End stage renal disease; J96.00 Acute respiratory failure, unspecified whether with hypoxia or hypercapnia; K21.01 Gastro-esophageal reflux disease with esophagitis, with bleeding; I12.0 Hypertensive chronic kidney disease with stage 5 chronic kidney disease or end stage renal disease; I16.1 Hypertensive emergency; I42.9 Cardiomyopathy, unspecified; D62 Acute posthemorrhagic anemia; Z20.828 Contact with and (suspected) exposure to other viral communicable diseases; E11.22 Type 2 diabetes mellitus with diabetic chronic kidney disease; K29.60 Other gastritis without bleeding; K25.9 Gastric ulcer, unspecified as acute or chronic, without hemorrhage or perforation; E78.00 Pure hypercholesterolemia, unspecified; E11.65 Type 2 diabetes mellitus with hyperglycemia; E87.6 Hypokalemia; D63.1 Anemia in chronic kidney disease; E88.09 Other disorders of plasma-protein metabolism, not elsewhere classified; E83.51 Hypocalcemia; R00.1 Bradycardia, unspecified; Z28.21 Immunization not carried out because of patient refusal; Z99.2 Dependence on renal dialysis; Z87.891 Personal history of nicotine dependence; Z78.1 Physical restraint status; Z86.010 Personal history of colon polyps; Z79.899 Other long term (current) drug therapy; Z79.4 Long term (current) use of insulin; Z79.82 Long term (current) use of aspirin
CPT/HCPCS: 31500; 36415; 36416; 36556; 36600; 51702; 70450; 70496; 70498; 70551; 71045; 74177; 80053; 80306; 80307; 81003; 81015; 82553; 82805; 83605; 83690; 83735; 83880; 84484; 85007; 85025; 85027; 85610; 85730; 86140; 87040; 87086; 88305; 88312; 90945; 93005; 94002; 94003; 95712; 95819; 95957; 96361; 96365; 96366; 96367; 96375; 96376; 99292; C9113; G0257; J0171; J0360; J0696; J1815; J2060; J2543; J2704; J3010; J3480; J3490; J7070; Q5105; Q9967; S0028

== ENCOUNTER 2020-07-06 12:55 | Inpatient (IN) | payer OTHER ==
[2020-07-06] MEDS ORDERED: Dexamethasone 10 MG/ML VIAL ONE ×2 (13:31→13:54)
[2020-07-06] MEDS ORDERED: Vancomycin 1 GM/200 ML BAG ONE (13:31)
[2020-07-06 14:55] LABS: SARS-CoV-2 NAA Rapid Test DETECTED (NotDetected)
[2020-07-06 16:26] LABS: CKMB 1.6 ng/mL (0-6.6)
[2020-07-06] MEDS ORDERED: Communication Order-Pharmacy FS PRN (18:00)
[2020-07-06 18:29] LABS: Lactic Acid 2.2 mmol/L (0.5-2.2)
[2020-07-06 18:49] LABS: Critical Call Chem Troponin I RESULT DECREASING; Troponin I 0.558 ng/mL (< 0.028)
[2020-07-06] MEDS: Carvedilol 25 MG TAB PO SCH (20:36)
[2020-07-06] MEDS: NIFEdipine XL 30 MG TAB PO SCH (20:36)
[2020-07-06] MEDS: Cholecalciferol 1,000 UNITS (25 MCG) TAB PO SCH (20:37)
[2020-07-06] MEDS: Heparin 5,000 UNITS/ML VIAL SC SCH (20:37)
[2020-07-06] MEDS ORDERED: Heparin 5,000 UNITS/ML VIAL SC SCH (21:00)
[2020-07-06] MEDS ORDERED: Famotidine 20 MG TAB PO SCH (21:00)
--- NOTE | 2020-07-06 21:54 | CON ---
DATE OF CONSULTATION: 07/06/2020 CONSULTING PHYSICIAN: Dr. Ramirez. REASON FOR CONSULTATION: Acute respiratory failure related to fluid overload. HISTORY OF PRESENT ILLNESS: The patient is a 60-year-old black male, who presents to an outlying ER with shortness of breath. He was placed on BiPAP and shipped here. It is presumed that he is fluid overloaded from missing peritoneal dialysis. He is currently on BiPAP when I am interviewing him and he does not say much. PAST MEDICAL HISTORY: 1. End-stage renal disease, requiring dialysis. It appears he has both hemodialysis access in the right upper extremity and peritoneal dialysis access. 2. Diabetes mellitus. 3. Hyperlipidemia. 4. Congestive heart failure, systolic. 5. Colon polyps. PAST SURGICAL HISTORY: 1. Peritoneal dialysis access. 2. Right forearm dialysis access. 3. Right-sided colon surgery. SOCIAL HISTORY: Drinks socially. Former smoker. ALLERGIES: NONE. REVIEW OF SYSTEMS: Unable to obtain because the patient is obtunded. OUTPATIENT MEDICATIONS: Not known at the time of this dictation. PHYSICAL EXAMINATION: VITAL SIGNS: Blood pressure 120/72; O2 saturation is 100% on BiPAP 10/5, 40% FiO2; pulse 95; respirations 18. GENERAL: The patient appears comfortable on BiPAP with ventilation of about 10 L/minute. HEENT: Unremarkable. NECK: No adenopathy or JVD. LUNGS: A few scattered crackles bilaterally. CARDIOVASCULAR: S1, S2. Regular. ABDOMEN: Soft and nontender. Dialysis catheter noted. EXTREMITIES: Right antecubital fossa, dialysis fistula noted. Otherwise, severe muscle wasting throughout. LABORATORY DATA: White blood cell count 11.8, hematocrit 43, and platelet count 302. Sodium 139, potassium 4.6, chloride 102, CO2 of 19, BUN 104, creatinine 18.2, glucose . His COVID test is positive. IMAGING DATA: CT scan shows scattered bilateral infiltrates. ASSESSMENT A: 1. COVID-19 infection with pneumonia. 2. Doubt fluid overload. 3. Acute hypoxic respiratory failure. PLAN: 1. BiPAP/high-flow oxygen as needed. 2. Dialysis. 3. Vitamin supplementation. 4. Steroids. 5. Anticoagulation. Thank you for the referral. Job ID: [id number]
--- NOTE | 2020-07-06 23:25 | CON ---
DATE OF CONSULTATION: 07/06/2020 CONSULTING PHYSICIAN: ER physician. REASON FOR CONSULTATION: End-stage renal disease evaluation. REASON FOR ADMISSION: Cough. HISTORY OF PRESENT ILLNESS: This is a 60-year-old male with history of end-stage renal disease, hyperlipidemia, hypertension, heart failure, came to the hospital with cough and concerns for COVID and he was actually tested positive for COVID and has been admitted. The patient does peritoneal dialysis at nighttime and Nephrology consulted for maintenance hemodialysis. The patient was hypoxic and he was on BiPAP also. PAST MEDICAL HISTORY: Positive for diabetes, hypertension, hyperlipidemia, congestive heart failure, end-stage renal disease. PAST SURGICAL HISTORY: Dialysis access placement, fistula placement, polyp removal. MEDICATIONS: Reviewed. ALLERGIES: NO KNOWN DRUG ALLERGIES. SOCIAL HISTORY: Drinks socially. Former tobacco user. FAMILY HISTORY: No history of kidney disease. REVIEW OF SYSTEMS: CONSTITUTIONAL: Negative for weight loss or gain, ability to conduct usual activities. SKIN: Negative for rash, itching. EYES: Negative for double vision, pain. ENT/MOUTH: Negative for nose bleeding, neck stiffness, pain, tenderness. CARDIOVASCULAR: Negative for palpitations, dyspnea on exertion, orthopnea. RESPIRATORY: Negative for shortness of breath, wheezing, cough, hemoptysis, fever or night sweats. GASTROINTESTINAL: Negative for poor appetite, abdominal pain, heartburn, nausea, vomiting, constipation, or diarrhea. GENITOURINARY: Negative for urgency, frequency, dysuria, nocturia. MUSCULOSKELETAL: Negative for pain, swelling. NEUROLOGIC/PSYCHIATRIC: Negative for anxiety, depression. ALLERGY/IMMUNOLOGIC: Negative for skin rash, bleeding tendency. PHYSICAL EXAMINATION: GENERAL: The patient on COVID isolation. VITAL SIGNS: Reviewed. LABORATORY DATA: Hemoglobin 13.3, potassium 4.6, BUN 104, creatinine is 18.2. ASSESSMENT AND PLAN: 1. End-stage renal disease. We will continue on peritoneal dialysis as tolerated. We will use 4.25 and 2.5 solution to have some ultrafiltration as there is concern for fluid overload. 2. Fluid overload. We will attempt to remove fluid with dialysis. 3. Acidosis. 4. Hyperglycemia. 5. Hypoalbuminemia. Encourage protein intake. 6. Anemia of chronic disease. 7. Hypertension. 8. Plan to have peritoneal dialysis today and we will follow. Job ID: [id number]
--- NOTE | 2020-07-07 00:47 | HP ---
CONSULTATIONS ON THE CASE: 1. Dr. Jhony Valdovinos, Nephrology. 2. Dr. Ayo Theodore, Cardiology. 3. Dr. Júnior Flor, Pulmonary Critical Care. REASON FOR ADMISSION: Acute hypoxemic respiratory failure. HISTORY OF PRESENT ILLNESS: This is a 60-year-old male gentleman who was recently discharged from the acute care facility for status post hypoxemic respiratory failure, altered mentation, who has past medical history of end-stage renal disease on hemodialysis along with history of hypertension, hyperlipidemia, congestive heart failure with unknown ejection fraction. The patient for his end-stage renal disease actually does peritoneal dialysis. The patient was transferred from the [place] today after being evaluated for respiratory failure and shortness of breath. The patient was found to have a severe shortness of breath and hypoxemia with initial saturation of 70%. Subsequently, the patient was started on noninvasive ventilation, at that point of time had a CT angiogram to rule out any evidence of pulmonary embolism, which was ruled out, though there was evidence of bilateral consolidation more in an interstitial pattern. The patient subsequently was transferred over to [facility] Room, where he was evaluated for COVID-19 PCR analysis, which was positive. The patient at this point of time was evaluated in the emergency room in isolation and does respond to verbal stimuli, though he states he feels weak and lethargic. According to the patient's symptomatology started after he was discharged recently from the hospital, but then got more short of breath in the last 3 to 4 days, but presented to the emergency room early this morning in [place] [facility]. The patient currently is on noninvasive ventilation, being closely monitored and at this point of time, he has been referred to both Pulmonary Critical Care as well as Nephrology Services in regard to his current complaints. Initial evaluation in the ER also showed evidence of elevated troponins, which likely be secondary to type 2 NSTEMI, likely demand ischemia, but Cardiology has been consulted to review and recommend basing on the patient's risk factors. No other current complaints of chest pain, abdominal pain, fever, rigors, chills, nausea, vomiting, diaphoresis, blurring of vision, tingling, numbness, burning micturition, constipation, claudication, anxiety, depression, hematuria, hematochezia, cough, expectoration, syncope, or seizures has been noted. PAST MEDICAL HISTORY: 1. Diabetes mellitus type 2, insulin dependent. 2. Benign essential hypertension. 3. Hyperlipidemia. 4. Congestive heart failure, but the patient's ejection fraction was 55% to 60% from a recent echocardiogram evaluation that was done on 06/16/2020. 5. End-stage renal disease, on peritoneal dialysis. PAST SURGICAL HISTORY: Includes: 1. Colon polyp removal. 2. Fistula to the right arm. SOCIAL HISTORY: The patient drinks socially. Used to smoke before, quit many years ago. Lives at home with family. ALLERGIES: NO KNOWN DRUG ALLERGIES. HOME MEDICATIONS: Per medication reconciliation form, which has not been updated at this point of time. We will follow on the same. REVIEW OF SYSTEMS: Except as documented, all systems reviewed and negative. PHYSICAL EXAMINATION: GENERAL: This is a 60-year-old male gentleman, lying in his hospital bed, on noninvasive ventilation for hypoxemia, has a blood pressure of 160/58 mmHg, heart rate of 110 per minute, respiratory rate of 24 per minute, and saturation of 98% on noninvasive ventilation. Has an airway which is clear. Has a BiPAP in place. HEENT: Atraumatic and normocephalic. NECK: Supple. No bruit. No lymphadenopathy, but JVD is elevated. CVS: S1 and S2. Sinus tachycardia seen. CHEST: Bilateral air entry present. Basilar rhonchi noted. ABDOMEN: Soft and nontender. Bowel sounds are present. EXTREMITIES: No cyanosis. Nonicteric. No clubbing. NEUROLOGIC: The patient is alert and oriented x3. No focal motor or sensory deficits noted. HEMATOLOGIC: No ecchymosis or petechiae. PSYCHIATRIC: No depression. DIAGNOSTICS: CBC and CMP evaluation have been reviewed from [facility]. The patient's COVID testing is positive. Troponins are elevated. We will follow serial trend. Lactic acid level is 2.3. ASSESSMENT: 1. Acute hypoxemic respiratory failure, likely secondary to COVID-19 pneumonia. The patient currently on BiPAP. 2. Acute metabolic encephalopathy, likely secondary to the patient's current hypoxemia. 3. Benign essential hypertension, well controlled. 4. Diabetes mellitus type 2, insulin dependent. 5. End-stage renal disease, on peritoneal dialysis. Dr. Valdovinos of Nephrology has been consulted. 6. COVID-19 pneumonia, for which the patient will be started on Decadron as well as remdesivir. We will consult Dr. Aren Diallo for the same. 7. Congestive heart failure, likely compensated. 8. Hyperlipidemia. PLAN: Discussed in detail of the diagnosis, treatment, and followup with the patient. I reviewed with the patient in regard to starting him on antiviral treatment with remdesivir. Advised about starting the patient on Decadron for COVID-19 pneumonia. I will follow official consultation evaluation by Pulmonary, Nephrology, Cardiology, and Infectious Disease evaluation. We will continue the patient on DVT and GI prophylaxis. I expect the patient to be admitted to the hospital services more than two midnights. Discharge planning will depend on symptom resolution with hypoxemia being treated along with COVID-19 treatment. The patient currently will be in airborne isolation. Condition is critical. Prognosis is guarded. Advanced directives are full code. Job ID: [id number]
[2020-07-07] MEDS ORDERED: Dextrose 5% in Water 1,000 ML IV PRN (02:30)
[2020-07-07] MEDS: Insulin Regular 300 UNITS/3 ML VIAL SC PRN ×3 (03:33→18:26)
[2020-07-07 04:42] LABS: Chloride 93 mmol/L (98-107); Potassium 5.5 mmol/L (3.5-5.1); Sodium 135 mmol/L (136-145)
[2020-07-07 04:43] LABS: Calcium 6.7 mg/dL (7.8-10.44)
[2020-07-07 04:44] LABS: Globulin 5.3 g/dL (2.4-3.5); Protein, Total 7.3 g/dL (6.0-8.3)
[2020-07-07 04:44] LABS: Anisocytosis SLIGHT = 6-15 cells (100X) (0-5/hpf); Band 10 % (5-11); Crenated RBC MODERATE= 6-15 cells (100X) (None Seen); Hemoglobin 11.4 g/dL (14.0-18.0); Large Platelets SLIGHT; Lymphocytes 7 % (21-51); MDiff Complete? YES; Macrocytosis SLIGHT = 6-15 cells (100X) (0-5/hpf); Mean Corpuscular HGB CONC 30.6 g/dL (32.0-36.0); Mean Corpuscular Hemoglobin 29.2 pg (27.0-31.0); Mean Corpuscular Volume 95.6 fL (78.0-98.0); Mean Platelet Volume 11.2 fL (7.4-10.4); Monocytes 1 % (0-10); Neutrophil 82 % (42-75); Platelet Count 238 thou/uL (130-400); Platelet Morphology Comment Appears Adequate; Polychromasia SLIGHT = 2-3 cells (100X) (0-2/hpf); RBC Distribution Width 17.7 % (11.5-14.5); Red Blood Cell (RBC) Count 3.91 mill/uL (4.70-6.10); Schistocytes SLIGHT = 2-5 cells (100X) (0-1/hpf); Vacuoles SLIGHT; White Blood Cell (WBC) Count 8.9 thou/uL (4.8-10.8)
[2020-07-07 04:45] LABS: Bilirubin, Total 0.3 mg/dL (0.2-1.2); Carbon Dioxide 15 mmol/L (22-29)
[2020-07-07 04:46] LABS: Alkaline Phosphatase 54 U/L (40-110)
[2020-07-07 04:47] LABS: Calc. Creatinine Clearance 4 mL/min (70-130)
[2020-07-07 04:49] LABS: AST (SGOT) 84 U/L (5-34); BUN (Urea Nitrogen) 110 mg/dL (8.4-25.7); Glucose 639 mg/dL (70-105)
[2020-07-07 04:50] LABS: ALT (SGPT) 19 U/L (8-55)
[2020-07-07] MEDS ORDERED: Insulin Regular 300 UNITS/3 ML VIAL SC PRN (06:12)
[2020-07-07 06:46] LABS: Anion Gap 33 mmol/L (10-20)
--- NOTE | 2020-07-07 07:56 | PRG ---
DATE OF SERVICE: 07/07/2020 SUBJECTIVE: The patient was on BiPAP last night. He underwent peritoneal dialysis all night. This morning, he is awake, alert, more talkative. He is not using BiPAP this morning. OBJECTIVE: VITAL SIGNS: Temperature 97.3, pulse 70, blood pressure 130/48, and O2 saturations 98% on 4 L. HEENT: Unremarkable. NECK: No adenopathy or JVD. LUNGS: He has some soft, expiratory crackles. CARDIAC: S1 and S2 regular. ABDOMEN: Soft and nontender. Dialysis catheter noted. EXTREMITIES: No edema. LABORATORY DATA: White blood cell count 8.9, hematocrit 37.4, and platelet count 238. Sodium 135, potassium 5.5, chloride 93, CO2 of 15, BUN 110, creatinine 17, and glucose 639. Again, COVID test was positive. Chest x-ray shows some pulmonary edema. ASSESSMENT: 1. COVID-19 infection. 2. Jzqmk-ve-dzqhbln renal failure, suspected peritoneal dialysis, noncompliance. PLAN: 1. Can probably be transferred to the COVID unit. 2. Check inflammatory markers. Job ID: [id number]
[2020-07-07] MEDS: Carvedilol 25 MG TAB PO SCH ×2 (08:24→21:37)
[2020-07-07] MEDS: Ascorbic Acid 500 mg Chewable Tablet PO SCH (08:24)
[2020-07-07] MEDS: Aspirin 81 mg Enteric Coated Tablet PO SCH (08:24)
[2020-07-07] MEDS: Atorvastatin Calcium 10 MG TAB PO SCH (08:24)
[2020-07-07] MEDS: Zinc Sulfate 220 MG CAP PO SCH (08:24)
[2020-07-07] MEDS: Heparin 5,000 UNITS/ML VIAL SC SCH ×3 (08:26→21:54)
[2020-07-07] MEDS: NIFEdipine XL 30 MG TAB PO SCH ×2 (08:27→21:38)
[2020-07-07] MEDS ORDERED: Dexamethasone 6 MG in Sodium Chloride 0.9% 50 ML IVPB SCH (09:00)
[2020-07-07] MEDS ORDERED: NS 0.9% w/ 20 MEQ KCL 1,000 ML IV PRN ×2 (09:26)
[2020-07-07] MEDS ORDERED: D5 1/2 NS w/20 mEq KCL 1,000 ML IV PRN (09:26)
[2020-07-07] MEDS ORDERED: Sodium Chloride 0.9% 1,000 ML IV PRN ×4 (09:26)
[2020-07-07] MEDS ORDERED: Dextrose 5 %-0.45 % NaCl 1,000 ML IV PRN (09:26)
[2020-07-07] MEDS ORDERED: HUMULIN R 100 UNITS in Sodium Chloride 0.9% 100 ML IVPB SCH (09:30)
--- NOTE | 2020-07-07 09:33 | RAD ---
PORTABLE CHEST: HISTORY: Pneumonia followup. COMPARISON: 07/06/2020. FINDINGS/IMPRESSION: Prgnzv-jwbzb-ktob infiltrates in the right lower and left mid and lower lungs slightly more prominent than yesterday. No consolidation or vascular congestion. POS: AGW
[2020-07-07 10:13] LABS: ALT (SGPT) 19 U/L (8-55); AST (SGOT) 79 U/L (5-34); Albumin 2.1 g/dL (3.5-5.0); Alkaline Phosphatase 57 U/L (40-110); Anion Gap 30 mmol/L (10-20); BUN (Urea Nitrogen) 110 mg/dL (8.4-25.7); Bilirubin, Total 0.3 mg/dL (0.2-1.2); Calc. Creatinine Clearance 4 mL/min (70-130); Calcium 6.6 mg/dL (7.8-10.44); Carbon Dioxide 11 mmol/L (22-29); Chloride 96 mmol/L (98-107); Globulin 4.8 g/dL (2.4-3.5); Protein, Total 6.9 g/dL (6.0-8.3); Sodium 133 mmol/L (136-145)
[2020-07-07 10:20] LABS: Glucose 663 mg/dL (70-105)
--- NOTE | 2020-07-07 10:41 | PRG ---
DATE OF SERVICE: 07/07/2020 TIME OF SERVICE: 8:00 a.m. ALLERGIES: NO KNOWN DRUG ALLERGIES. CONSULTATIONS ON THE CASE: 1. Júnior Flor M.D., Pulmonary Critical Care. 2. Jhony Valdovinos M.D., Nephrology. SUBJECTIVE: The patient is seen and evaluated at bedside. The patient is currently not on noninvasive ventilation. He is COVID positive, being treated with Decadron for the same. Troponin elevation likely secondary to demand ischemia. OBJECTIVE: VITAL SIGNS: Heart rate of 68 per minute, respiratory rate of 14 per minute, saturation 99%, blood pressure 144/43 mmHg. Has an airway which is clear. HEENT: Atraumatic, normocephalic. NECK: Supple. No bruit. No lymphadenopathy. CVS: S1, S2. No abnormal rhythms or murmurs. CHEST: Bilateral air entry present. No rhonchi. No wheeze. ABDOMEN: Soft, nontender. Bowel sounds are present. EXTREMITIES: No cyanosis, no edema. NEUROLOGIC: The patient is alert, oriented x3. No focal motor or sensory deficits noted. HEME: No ecchymosis or petechiae. PSYCH: No depression. DIAGNOSTIC STUDIES: WBC is 8.9, hemoglobin 11.4, hematocrit 37.4, platelets are 238. Sodium 135, potassium 5.5, chloride 93, carbon dioxide 15, anion gap is 33, BUN 110, creatinine 17.15. MEDICATIONS: 1. Heparin 5000 units t.i.d. for DVT prophylaxis. 2. Coreg 25 mg b.i.d. 3. Decadron 6 mg daily. 4. Procardia XL 30 mg b.i.d. 5. Pepcid 20 mg daily. This will be discontinued as the patient is a renal patient. 6. Ascorbic acid 1000 mg daily. 7. Aspirin 81 mg daily. 8. Atorvastatin 10 mg daily. ASSESSMENT: 1. Acute hypoxemic respiratory failure, resolved. The patient's noninvasive ventilation has been discontinued for now. 2. COVID-19 pneumonia, but mild without any symptomatology, currently on Decadron. The patient's remdesivir was discontinued because of renal issues per Infectious Disease. 3. Benign essential hypertension. 4. Diabetes mellitus type 2, insulin dependent. 5. End-stage renal disease on peritoneal dialysis daily. Nephrology on consult. 6. Congestive heart failure, compensated. 7. Hyperlipidemia. 8. Hyponatremia, likely dilutional. 9. Hyperkalemia. We will continue peritoneal dialysis as scheduled by Nephrology services. PLAN: Discussed in detail of the diagnosis, treatment, and followup with the patient as well as consultants on the case. The patient's blood sugars high today, likely secondary to dextrose solution use for the patient's peritoneal dialysis. We will start the patient on insulin protocol basing on repeat anion gap evaluation. I reviewed and educated the patient regarding compliance on medications and followup care. Continue to monitor the patient in ICU until hyperglycemia resolves and subsequently transferred to COVID unit. Job ID: [id number]
[2020-07-07] MEDS: Dexamethasone 6 MG in Sodium Chloride 0.9% 50 ML IVPB SCH (11:12)
--- NOTE | 2020-07-07 11:47 | PRG ---
DATE OF SERVICE: 07/07/2020 SUBJECTIVE: The patient on COVID isolation and talked with the bedside nurse. The patient is apparently doing better today, more alert. OBJECTIVE: GENERAL: This is a thin built male and in the COVID isolation. VITAL SIGNS: Temperature 97.3, pulse 64, respiratory rate 18, blood pressure 140/43. HEENT: Atraumatic, normocephalic. NEUROLOGIC: More awake today. LABORATORY DATA: Potassium 4.0, BUN is 110, creatinine is 16.9. ASSESSMENT AND PLAN: 1. End-stage renal disease, on peritoneal dialysis. We will continue on peritoneal dialysis. 2. Hyperglycemia, most likely partly due to the high glucose in the PD-solution 2. 3. Hyponatremia, most likely secondary to hyperglycemia. 4. Acidosis. Agree with closely monitoring and treating hyperglycemia. 5. Elevated BUN. 6. Hypercalcemia. 7. Hypoalbuminemia. We will add Nepro. 8. Anemia. We will add Epogen. 9. COVID-19 infection. Plan is to continue on peritoneal dialysis as tolerated. We will closely monitor. If not getting good cleaning with PD, we will consider a dose of hemodialysis next few days. We will follow. Encourage protein intake and treat hyperglycemia. Plan discussed with Dr. Flor and then the primary team, Dr. Barba. We will follow. Job ID: [id number]
--- NOTE | 2020-07-07 15:07 | CON ---
DATE OF CONSULTATION: HISTORY OF PRESENT ILLNESS: This patient is a 60-year-old gentleman, who presented with altered mental status,after having missed several dialysis treatments. The patient was noted to have an elevated troponin level. The patient is unable to give a coherent history. He was recently in the hospital with a hypertensive crisis. The patient has a known cardiomyopathy. He was apparently in his usual state of health and missed several dialysis treatments. PAST MEDICAL HISTORY: 1. Cardiomyopathy. 2. Hypertension. 3. End-stage renal disease. 4. Diabetes mellitus. PAST SURGICAL HISTORY: AV fistula. SOCIAL HISTORY: Not obtainable. PHYSICAL EXAMINATION: VITAL SIGNS: Blood pressure is 97/43. GENERAL: The patient is somnolent. Physical exam is deferred. LABORATORY RESULTS: Sodium 133, potassium 4.0, chloride 96, bicarbonate 11, BUN 110, and creatinine 16. His white blood cell count is 8.9, hemoglobin 11.4, hematocrit 37.4, and his platelets are 238. IMPRESSION AND PLAN: 1. Altered mental status. 2. Elevated troponin level. 3. COVID positive. 4. End-stage renal disease. 5. History of malignant hypertension. This gentleman was admitted with altered mental status. He is noted to have an elevated troponin level. From a cardiac standpoint, he is on appropriate medication with aspirin and Lipitor. We will follow this patient with you through his hospitalization. Job ID: [id number] [facility]
[2020-07-07 18:23] LABS: Anion Gap 33 mmol/L (10-20); BUN (Urea Nitrogen) 115 mg/dL (8.4-25.7); Calc. Creatinine Clearance 4 mL/min (70-130); Calcium 6.4 mg/dL (7.8-10.44); Carbon Dioxide 12 mmol/L (22-29); Chloride 99 mmol/L (98-107); Glucose 356 mg/dL (70-105); Potassium 5.2 mmol/L (3.5-5.1); Sodium 139 mmol/L (136-145)
[2020-07-07] MEDS ORDERED: Albumin 25% 25 GM/100 ML BOT IVPB SCH (18:30)
[2020-07-07] MEDS ORDERED: Albumin 25% 25 GM/100 ML BOT IVPB PRN (19:13)
[2020-07-07] MEDS: Cholecalciferol 1,000 UNITS (25 MCG) TAB PO SCH (21:54)
[2020-07-08] MEDS ORDERED: Albumin 25% 25 GM/100 ML BOT IVPB PRN (01:09)
[2020-07-08 01:30] LABS: Anion Gap 30 mmol/L (10-20); BUN (Urea Nitrogen) 115 mg/dL (8.4-25.7); Calc. Creatinine Clearance 4 mL/min (70-130); Calcium 6.4 mg/dL (7.8-10.44); Carbon Dioxide 18 mmol/L (22-29); Chloride 96 mmol/L (98-107); Glucose 444 mg/dL (70-105); Potassium 3.5 mmol/L (3.5-5.1); Sodium 140 mmol/L (136-145)
[2020-07-08] MEDS: Insulin Regular 300 UNITS/3 ML VIAL SC PRN ×3 (03:24→23:37)
[2020-07-08 05:40] LABS: Band 17 % (5-11); Burr Cells MODERATE= 6-15 cells (100X) (0-1/hpf); Hemoglobin 9.3 g/dL (14.0-18.0); Lymphocytes 5 % (21-51); MDiff Complete? YES; Mean Corpuscular HGB CONC 31.5 g/dL (32.0-36.0); Mean Corpuscular Hemoglobin 28.2 pg (27.0-31.0); Mean Corpuscular Volume 89.3 fL (78.0-98.0); Mean Platelet Volume 12.1 fL (7.4-10.4); Metamyelocyte 1 % (0-0); Monocytes 1 % (0-10); Neutrophil 76 % (42-75); Platelet Count 223 thou/uL (130-400); RBC Distribution Width 14.2 % (11.5-14.5); Schistocytes SLIGHT = 2-5 cells (100X) (0-1/hpf); White Blood Cell (WBC) Count 14.6 thou/uL (4.8-10.8)
[2020-07-08 07:21] LABS: Anion Gap 28 mmol/L (10-20); BUN (Urea Nitrogen) 114 mg/dL (8.4-25.7); Calc. Creatinine Clearance 4 mL/min (70-130); Calcium 6.5 mg/dL (7.8-10.44); Carbon Dioxide 19 mmol/L (22-29); Chloride 95 mmol/L (98-107); Sodium 139 mmol/L (136-145)
[2020-07-08 07:26] LABS: Glucose 627 mg/dL (70-105)
[2020-07-08] MEDS ORDERED: Insulin Regular 300 UNITS/3 ML VIAL IVP SCH (08:15)
[2020-07-08 08:58] LABS: Hemoglobin A1c 9.9 % (4.0-6.0)
--- NOTE | 2020-07-08 09:13 | PRG ---
DATE OF SERVICE: 07/08/2020 SUBJECTIVE: The patient looks calm. He has no complaints, but I am not sure how situation. OBJECTIVE: VITAL SIGNS: Temperature 97.7 with no fever overnight, pulse 76, blood pressure 113/69, O2 saturation 94% on 2 L. 24-hour intake and output difficult to measure as he is on peritoneal dialysis. HEENT: Unremarkable. NECK: No JVD. LUNGS: Clear to auscultation. CARDIAC: S1, S2. Regular. ABDOMEN: Peritoneal dialysis catheter being infused. EXTREMITIES: No edema. Severe muscle wasting. LABORATORY DATA: White blood cell count 14.6, hematocrit 29.5, and platelet count 223. Sodium 139, potassium 3.0, chloride 95, CO2 of 19, BUN 114, creatinine 15, glucose 627. ASSESSMENT: 1. COVID-19 infection - I do not think he has a bad pneumonia from this. 2. Abrmz-zn-jnmuwcb renal failure. 3. Hyperglycemia secondary to peritoneal being used. PLAN: The patient may end up needing hemodialysis. Also, may need an insulin drip. I would favor stopping the Decadron and observing as this will continue to aggravate his hyperglycemia. I would only restart the Decadron if we see worsening of his pulmonary status. Job ID: [id number]
[2020-07-08] MEDS: Heparin 5,000 UNITS/ML VIAL SC SCH ×3 (09:20→20:08)
[2020-07-08] MEDS: Aspirin 81 mg Enteric Coated Tablet PO SCH (09:20)
[2020-07-08] MEDS: Insulin Glargine 15 UNITS in Pre-Filled Syringe 1 EACH SC SCH (09:20)
[2020-07-08] MEDS: Ascorbic Acid 500 mg Chewable Tablet PO SCH (09:20)
[2020-07-08] MEDS: Atorvastatin Calcium 10 MG TAB PO SCH (09:21)
[2020-07-08] MEDS: Zinc Sulfate 220 MG CAP PO SCH (09:21)
[2020-07-08] MEDS: Dexamethasone 6 MG in Sodium Chloride 0.9% 50 ML IVPB SCH (09:22)
[2020-07-08] MEDS: Carvedilol 25 MG TAB PO SCH ×2 (10:21→20:06)
[2020-07-08] MEDS: NIFEdipine XL 30 MG TAB PO SCH ×2 (10:21→20:10)
[2020-07-08 10:42] LABS: Glucose 323 mg/dL (70-105)
--- NOTE | 2020-07-08 11:07 | RAD ---
PORTABLE CHEST: HISTORY: Pneumonia followup. CCU followup. COMPARISON: 07/07/2020. FINDINGS/IMPRESSION: Hazy bilateral infiltrates suggesting COVID pneumonia again noted. No worsening. Not significantly changed in appearance from yesterday. POS: AGW
[2020-07-08] MEDS ORDERED: Potassium Chloride 20 MEQ TAB PO SCH (12:15)
[2020-07-08 12:27] LABS: Anion Gap 30 mmol/L (10-20); BUN (Urea Nitrogen) 116 mg/dL (8.4-25.7); Calc. Creatinine Clearance 4 mL/min (70-130); Calcium 6.9 mg/dL (7.8-10.44); Carbon Dioxide 16 mmol/L (22-29); Chloride 99 mmol/L (98-107); Glucose 184 mg/dL (70-105); Sodium 142 mmol/L (136-145)
[2020-07-08] MEDS ORDERED: Potassium Chloride 40 MEQ in Sodium Chloride 0.9% 250 ML 250 ML IV SCH (13:00)
[2020-07-08] MEDS: EPOETIN ALFA-EPBX (ESRD) 10,000 UNIT/ML VIAL SC SCH (13:48)
--- NOTE | 2020-07-08 14:09 | PRG ---
DATE OF SERVICE: 07/08/2020 SUBJECTIVE: Patient on COVID isolation and bedside nurse updated about his situation. OBJECTIVE: GENERAL: This is a thin built male, in mild distress. VITAL SIGNS: Temperature 97.7, pulse 71, respiration 18, blood pressure 117/58. HEENT: Atraumatic, normocephalic. NEUROLOGIC: The patient is somnolent mostly, per the nurse. LABORATORY DATA: Potassium 3.0, BUN is 116, creatinine is 16.3. ASSESSMENT AND PLAN: 1. End-stage renal disease, seems like he is not getting good cleaning with PD. Plan is to do hemodialysis given the altered mentation. 2. Altered mentation. 3. Uremia. 4. Anemia of chronic disease. 5. Hypokalemia, we will replace. 6. Edema. 7. Hypoalbuminemia. Continue Nepro supplements. 8. We will plan for hemodialysis until clearance achieved and then continue PD if tolerated and giving good clearance. We will follow. Job ID: [id number]
--- NOTE | 2020-07-08 14:42 | PDOC.HOSPP ---
- Subjective Subjective: Patient was seen examined at bedside. Patient still has some intermittent confusion, but he answer some questions appropriately. His blood glucose, has been in the 600 range. His Decadron was discontinued by pulmonology, as his Covid appears to be doing well as he had no significant respiratory symptoms. Patient was given long-acting Lantus as well as IV insulin, as attempt to prevent him from going to DKA. His blood glucose has been trending down nicely, with the last one was check in 105. However, patient is not eating. Nephrology plan to convert him to hemodialysis later tonight. For that reason, we will start him on gentle IV fluid hydration with D5 NS, as we continue to monitor his glucose closely - Objective Vital Signs & Weight: Vital Signs (12 hours) Temp 07/08/20 04:00 97.7 F Weight Admit Weight 128 lb 8 oz Weight 128 lb 8.472 oz Most Recent Monitor Data Heart Rate from ECG 71 NIBP 117/58 NIBP BP-Mean 77 Respiration from ECG 16 SpO2 100 I&O: 07/07/20 07/08/20 07/09/20 06:59 06:59 06:59 Intake Total 120 470 Output Total 0 0 Balance 120 470 Result Diagrams: 07/08/20 03:38 07/08/20 11:53 Additional Labs: Accuchecks 07/08/20 07/08/20 07/08/20 13:53 13:15 11:52 POC Glucose 105 H 110 H 169 H 07/08/20 11:06 POC Glucose 230 H Radiology Reviewed by me: Yes EKG Reviewed by me: Yes Hospitalist ROS - Medication Medications: Active Medications Generic Name Dose Route Start Last Admin Trade Name Mauricioq PRN Reason Stop Dose Admin Ascorbic Acid 1,000 mg 07/07/20 09:00 07/08/20 09:20 Ascorbic Acid 500 Mg Chewable Tablet PO 1,000 mg DAILY CAROLYNN Administration Aspirin 81 mg 07/07/20 09:00 07/08/20 09:20 Aspirin 81 Mg Enteric Coated Tablet PO 81 mg DAILY CAROLYNN Administration Atorvastatin Calcium 10 mg 07/07/20 09:00 07/08/20 09:21 Atorvastatin Calcium 10 Mg Tab PO 10 mg DAILY CAROLYNN Administration Carvedilol 25 mg 07/06/20 21:00 07/08/20 10:21 Carvedilol 25 Mg Tab PO Not Given BID CAROLYNN Cholecalciferol 5,000 units 07/06/20 21:00 07/07/20 21:54 Cholecalciferol 1,000 Units (25 Mcg) Tab PO 5,000 units HS CAROLYNN Administration Epoetin Quincy-epbx 10,000 unit 07/08/20 12:15 07/08/20 13:48 Epoetin Quincy-Epbx (Esrd) 10,000 Unit/Ml Vial SC 10,000 unit Q7D CAROLYNN Administration Heparin Sodium (Porcine) 5,000 units 07/06/20 21:00 07/08/20 09:20 Heparin 5,000 Units/Ml Vial SC 5,000 units TID CAROLYNN Administration Insulin Glargine 15 units/ 0.15 mls @ 0 mls/hr 07/08/20 09:00 07/08/20 09:20 Miscellaneous Medication SC 0.15 mls QAM CAROLYNN Administration Potassium Chloride 40 meq/ 270 mls @ 67.5 mls/hr 07/08/20 13:00 07/08/20 13:47 Sodium Chloride IV 07/08/20 18:00 270 mls NOW CAROLYNN Administration Insulin Human Regular 0 units 07/07/20 02:30 07/08/20 07:35 Insulin Regular 300 Units/3 Ml Vial SC 13 unit .AGGRESSIVE SLIDING PRN Administration AGGRESSIVE SLIDING SCALE Protocol Nifedipine 30 mg 07/06/20 21:00 07/08/20 10:21 Nifedipine Xl 30 Mg Tab PO Not Given BID CAROLYNN Potassium Chloride 40 meq 07/08/20 12:15 07/08/20 13:47 Potassium Chloride 20 Meq Tab PO 07/08/20 16:00 Not Given NOW [facility] Sodium Chloride 10 ml 07/07/20 21:00 07/08/20 13:47 Flush - Normal Saline 10 Ml Syringe IVF 10 ml Q12HR CAROLYNN Administration Zinc Sulfate 220 mg 07/07/20 09:00 07/08/20 09:21 Zinc Sulfate 220 Mg Cap PO 220 mg DAILY CAROLYNN Administration - Exam General Appearance: NAD Eye: PERRL ENT: normocephalic atraumatic Neck: supple Heart: RRR Gastrointestinal: soft Extremities: no cyanosis Skin: normal turgor Musculoskeletal: normal tone Psychiatric: normal affect, somnolent, lethargic Hosp A/P - Plan Acute metabolic encephalopathy --likely multifactorial from ESRD on PD, now converted into HD and hyperglycemia --Follow clinically. Mental status should improve with hemodialysis, as well as other metabolic derangements ESRD on PD --now converted into hemodialysis. Further mgt as per nephrology COVID-19 infection --appears to be mild, no significant respiratory symptoms --Decadron was discontinued d/t hyperglycemia --appreciate Pul input Diabetes type 2, insulin-dependent with hyperglycemia --Blood glucose has been labile. A1C 9.9. BG was in 600s range. He was given IV insulin in attempt to prevent him going into DKA. Now BG much improved. --Pt is still not tolerate PO, will start him on gentle IVF hydration with D5NS to prevent hypoglycemia. Nephrology plans to start hemodialysis tonight Dyslipidemia --cont statin Acute hypoxic respiratory failure --resolved. sat'ng well on room air
[2020-07-08] MEDS: Dextrose 5 % And 0.9 % NaCl 1,000 ML IV SCH (14:47)
[2020-07-08 18:52] LABS: Anion Gap 28 mmol/L (10-20); BUN (Urea Nitrogen) 110 mg/dL (8.4-25.7); Calc. Creatinine Clearance 4 mL/min (70-130); Calcium 6.6 mg/dL (7.8-10.44); Carbon Dioxide 19 mmol/L (22-29); Chloride 101 mmol/L (98-107); Glucose 117 mg/dL (70-105); Potassium 3.6 mmol/L (3.5-5.1); Sodium 144 mmol/L (136-145)
[2020-07-08] MEDS: Cholecalciferol 1,000 UNITS (25 MCG) TAB PO SCH (20:10)
[2020-07-08] MEDS ORDERED: Insulin Glargine 15 UNITS in Pre-Filled Syringe 1 EACH SC SCH (21:00)
[2020-07-09 00:22] LABS: Anion Gap 28 mmol/L (10-20); BUN (Urea Nitrogen) 112 mg/dL (8.4-25.7); Calc. Creatinine Clearance 4 mL/min (70-130); Calcium 6.5 mg/dL (7.8-10.44); Carbon Dioxide 18 mmol/L (22-29); Chloride 100 mmol/L (98-107); Glucose 160 mg/dL (70-105); Potassium 3.6 mmol/L (3.5-5.1); Sodium 142 mmol/L (136-145)
[2020-07-09 01:06] LABS: HBSAg Index 0.17 S/CO (0-0.99); Hep B Surf Ag Non-Reactive S/CO (NonReactive)
[2020-07-09 01:37] LABS: Glucose 150 mg/dL (70-105)
[2020-07-09 06:35] LABS: Anion Gap 26 mmol/L (10-20); BUN (Urea Nitrogen) 64 mg/dL (8.4-25.7); Calc. Creatinine Clearance 6 mL/min (70-130); Calcium 7.4 mg/dL (7.8-10.44); Carbon Dioxide 20 mmol/L (22-29); Chloride 100 mmol/L (98-107); Glucose 215 mg/dL (70-105); Potassium 3.8 mmol/L (3.5-5.1); Sodium 142 mmol/L (136-145)
[2020-07-09] MEDS: Insulin Regular 300 UNITS/3 ML VIAL SC PRN ×2 (06:45→09:55)
--- NOTE | 2020-07-09 07:48 | PRG ---
DATE OF SERVICE: 07/09/2020 SUBJECTIVE: The patient is doing well. He did not require any noninvasive ventilation last night. He received hemodialysis yesterday. OBJECTIVE: VITAL SIGNS: Temperature 98, pulse 75, blood pressure 135/67, O2 saturation 99% on room air. HEENT: Unremarkable. NECK: No JVD. LUNGS: Clear anteriorly. CARDIAC: S1, S2. Regular. ABDOMEN: Soft. EXTREMITIES: No edema. LABORATORY DATA: Sodium 142, potassium 3.8, chloride 100, CO2 of 20, BUN 64, creatinine 10.4, glucose 215. White blood cell count 14.6. His x-ray shows clearing. ASSESSMENT: 1. COVID-19 infection - I doubt he has pneumonia based on his x-ray. I think what we were seeing before was probably fluid overload. 2. Ksbnx-do-zpwpfzx renal failure with noncompliance with peritoneal dialysis. 3. Resolved hyperglycemia. PLAN: The patient is stable for transfer to the floor. I will leave the dialysis and blood sugar management up to Nephrology and Internal Medicine respectively. I would not treat him with steroids. Pulmonary will be available as needed. Please recall. Job ID: [id number]
--- NOTE | 2020-07-09 08:30 | RAD ---
PORTABLE CHEST: HISTORY: Pneumonia followup. CCU followup. COMPARISON: 07/08/2020. FINDINGS/IMPRESSION: No evidence of consolidation or focal infiltrate. Some hazy interstitial jqxwfk-hnwdx-fbjq opacities in the left mid and right lower lung field. Findings appear stable. No acute interval change. POS: AGW
[2020-07-09] MEDS: Atorvastatin Calcium 10 MG TAB PO SCH (08:41)
[2020-07-09] MEDS: Zinc Sulfate 220 MG CAP PO SCH (08:42)
[2020-07-09] MEDS: NIFEdipine XL 30 MG TAB PO SCH ×2 (08:42→22:21)
[2020-07-09] MEDS: Aspirin 81 mg Enteric Coated Tablet PO SCH (08:42)
[2020-07-09] MEDS: Ascorbic Acid 500 mg Chewable Tablet PO SCH (08:43)
[2020-07-09] MEDS: Heparin 5,000 UNITS/ML VIAL SC SCH ×3 (08:43→22:21)
[2020-07-09] MEDS: Carvedilol 25 MG TAB PO SCH ×2 (08:43→22:22)
[2020-07-09] MEDS: Insulin Glargine 15 UNITS in Pre-Filled Syringe 1 EACH SC SCH (09:54)
--- NOTE | 2020-07-09 10:37 | PRG ---
DATE OF SERVICE: 07/09/2020 SUBJECTIVE: The patient on COVID isolation. OBJECTIVE: GENERAL: This is a thin built male, in no apparent distress. VITAL SIGNS: Temperature 98.0, pulse 75, respiratory rate 18, blood pressure 142/69. LABORATORY DATA: Potassium 3.8, BUN is 64, creatinine is 10.4. ASSESSMENT AND PLAN: 1. End-stage renal disease, had better clearance with hemodialysis yesterday. Plan is to have an extra dialysis today for three hours and then possibly switch to peritoneal dialysis Thursday night if he could tolerate. We will monitor hyperglycemia. 2. Altered mentation seems to be better, but we will give another session of hemodialysis today. 3. Uremia with possible uremic encephalopathy. 4. Anemia of chronic disease. 5. Hypokalemia. We will replace and better. 6. Edema. 7. Hypoalbuminemia. 8. Continue protein supplements. 9. Hypocalcemia, seems to be better. 10. Plan to have a hemodialysis and then switch to PD dialysis if the patient tolerated. We will follow. Job ID: [id number]
[2020-07-09 11:03] LABS: Band 1 % (5-11); Burr Cells SLIGHT = 2-5 cells (100X) (0-1/hpf); Elliptocytes SLIGHT = 2-5 cells (100X) (0-1/hpf); Hemoglobin 11.4 g/dL (14.0-18.0); Lymphocytes 3 % (21-51); MDiff Complete? YES; Mean Corpuscular HGB CONC 31.9 g/dL (32.0-36.0); Mean Corpuscular Hemoglobin 28.3 pg (27.0-31.0); Mean Corpuscular Volume 88.7 fL (78.0-98.0); Neutrophil 96 % (42-75); Platelet Count 291 thou/uL (130-400); Platelet Morphology Comment Appears Adequate; Poikilocytosis MODERATE=16-30 cells (100X) (0-5/hpf); RBC Distribution Width 14.2 % (11.5-14.5); Red Blood Cell (RBC) Count 4.05 mill/uL (4.70-6.10); White Blood Cell (WBC) Count 15.3 thou/uL (4.8-10.8)
--- NOTE | 2020-07-09 13:44 | PQF ---
Q55 2019 [facility] Updated: CLINICAL DOCUMENTATION CLARIFICATION FORM: Dear Dr. Aguirre Date: 07/09/20 Please exercise your independent, professional judgment in responding to the clarification form. Clinical indicators are provided on the bottom of this form for your review. Please check appropriate box(es) to clarify if the following diagnosis has been ruled in our ruled out: SEPSIS [ X ] Ruled in diagnosis [X ] Continue to treat [ ] Resolved [ ] Ruled out diagnosis [ ] Improving [ ] Cannot rule out diagnosis [ ] Other diagnosis [ ] Unable to determine In addition, please specify: Present on Admission (POA): [ X] Yes [ ] No [ ] Unable to determine For continuity of documentation, please document condition throughout progress notes and discharge summary. Thank You. To be completed by CDI/Coding staff for physician review: CLINICAL INDICATORS - SIGNS / SYMPTOMS / LABS / RESULTS AND LOCATION IN MR ER NOTE: "SEPSIS" RR 25 WBC /: 14.6 WBC 07/09: 15.3 BANDS 07/08: 17 LACTIC ACID 07/06: 2.3 RISK FACTORS / RESULTS AND LOCATION IN MR COVID 19 PNEUMONIA (H&P- SURAPARAJU) ACUTE RESPIRATORY FAILURE (H&P) TREATMENTS / RESULTS AND LOCATION IN MR CCU MONITORING BIPAP (INITIATED IN ER) IV VANCOMYCIN (ER) IV FLUIDS (07/08-PRESENT) CDS Signature: Smitha Enriquez RN Phone #: [phone] Date: 07/09/20 This is a permanent part of the Medical Record [facility]
[2020-07-09] MEDS: Dextrose 50% Abboject 50 ML SYRINGE IVP PRN (15:50)
--- NOTE | 2020-07-09 17:58 | PDOC.HOSPP ---
- Subjective Subjective: BG is doing better, but still not eating much. s/p HD last night. d/w nephrology will do another session today and resume PD tomorrow - Objective Vital Signs & Weight: Vital Signs (12 hours) Temp Pulse BP Pulse Ox 07/09/20 16:00 97.4 F L 07/09/20 13:00 97.8 F 07/09/20 08:42 77 128/97 H 07/09/20 08:00 98 F 100 Weight Admit Weight 128 lb 8 oz Weight 128 lb 8.472 oz Most Recent Monitor Data Heart Rate from ECG 86 NIBP 140/60 NIBP BP-Mean 86 Respiration from ECG 29 SpO2 95 I&O: 07/08/20 07/09/20 07/10/20 06:59 06:59 06:59 Intake Total 470 1197 100 Output Total 0 Balance 470 1197 100 Result Diagrams: 07/09/20 10:24 07/09/20 05:58 Additional Labs: Accuchecks 07/09/20 07/09/20 07/08/20 16:09 09:59 23:04 POC Glucose 158 H 314 H 167 H 07/08/20 07/07/20 07/07/20 18:12 05:47 01:48 POC Glucose 116 H Greater than 500 H 437 H 07/07/20 01:47 POC Glucose Greater than 500 H Radiology Reviewed by me: Yes EKG Reviewed by me: Yes Hospitalist ROS - Medication Medications: Active Medications Generic Name Dose Route Start Last Admin Trade Name Freq PRN Reason Stop Dose Admin Ascorbic Acid 1,000 mg 07/07/20 09:00 07/09/20 08:43 Ascorbic Acid 500 Mg Chewable Tablet PO 1,000 mg DAILY CAROLYNN Administration Aspirin 81 mg 07/07/20 09:00 07/09/20 08:42 Aspirin 81 Mg Enteric Coated Tablet PO 81 mg DAILY CAROLYNN Administration Atorvastatin Calcium 10 mg 07/07/20 09:00 07/09/20 08:41 Atorvastatin Calcium 10 Mg Tab PO 10 mg DAILY CAROLYNN Administration Carvedilol 25 mg 07/06/20 21:00 07/09/20 08:43 Carvedilol 25 Mg Tab PO 25 mg BID CAROLYNN Administration Cholecalciferol 5,000 units 07/06/20 21:00 07/08/20 20:10 Cholecalciferol 1,000 Units (25 Mcg) Tab PO 5,000 units HS CAROLYNN Administration Dextrose/Water 25 gm 07/07/20 02:30 07/09/20 15:50 Dextrose 50% Abboject 50 Ml Syringe IVP 25 gm PRN PRN Administration HYPOGLYCEMIA PROTOCOL Epoetin Quincy-epbx 10,000 unit 07/08/20 12:15 07/08/20 13:48 Epoetin Quincy-Epbx (Esrd) 10,000 Unit/Ml Vial SC 10,000 unit Q7D CAROLYNN Administration Heparin Sodium (Porcine) 5,000 units 07/06/20 21:00 07/09/20 15:40 Heparin 5,000 Units/Ml Vial SC 5,000 units TID CAROLYNN Administration Insulin Glargine 15 units/ 0.15 mls @ 0 mls/hr 07/08/20 09:00 07/09/20 09:54 Miscellaneous Medication SC 0.15 mls QAM CAROLYNN Administration Dextrose/Sodium Chloride 1,000 mls @ 50 mls/hr 07/08/20 14:45 07/08/20 14:47 D5 0.9% Ns IV 1,000 mls .Q20H CAROLYNN Administration Insulin Human Regular 0 units 07/07/20 02:30 07/09/20 09:55 Insulin Regular 300 Units/3 Ml Vial SC 11 unit .AGGRESSIVE SLIDING PRN Administration AGGRESSIVE SLIDING SCALE Protocol Nifedipine 30 mg 07/06/20 21:00 07/09/20 08:42 Nifedipine Xl 30 Mg Tab PO 30 mg BID CAROLYNN Administration Sodium Chloride 10 ml 07/07/20 21:00 07/09/20 08:43 Flush - Normal Saline 10 Ml Syringe IVF 10 ml Q12HR CAROLYNN Administration Zinc Sulfate 220 mg 07/07/20 09:00 07/09/20 08:42 Zinc Sulfate 220 Mg Cap PO 220 mg DAILY CAROLYNN Administration - Exam General Appearance: NAD Eye: PERRL ENT: normocephalic atraumatic Neck: supple Heart: RRR Respiratory: CTAB Gastrointestinal: soft, non-tender Neurological - other findings: intermittent confusion Psychiatric: normal affect, normal behavior Hosp A/P - Plan Acute metabolic encephalopathy --likely multifactorial. Improved with HD --follow clinically, transfer out of ICU ESRD on PD --plan for HD again today then resume PD tomorrow. Further mgt as per nephrology COVID-19 infection --appears to be mild, no significant respiratory symptoms --Decadron was discontinued d/t hyperglycemia --appreciate Pul input Diabetes type 2, insulin-dependent with hyperglycemia --Blood glucose has been labile. A1C 9.9. BG now stabilized. Dyslipidemia --cont statin Acute hypoxic respiratory failure --resolved. sat'ng well on room air Sepsis d/t COVID-19 --poa, resolved.
[2020-07-09] MEDS: Dextrose 5 % And 0.9 % NaCl 1,000 ML IV SCH (18:32)
[2020-07-09] MEDS: Cholecalciferol 1,000 UNITS (25 MCG) TAB PO SCH (22:21)
[2020-07-10 06:38] LABS: Hemoglobin 11.5 g/dL (14.0-18.0); Mean Corpuscular HGB CONC 30.9 g/dL (32.0-36.0); Mean Corpuscular Volume 90.5 fL (78.0-98.0); Mean Platelet Volume 10.6 fL (7.4-10.4); Platelet Count 277 thou/uL (130-400); RBC Distribution Width 14.3 % (11.5-14.5); Red Blood Cell (RBC) Count 4.12 mill/uL (4.70-6.10); White Blood Cell (WBC) Count 13.7 thou/uL (4.8-10.8)
[2020-07-10] MEDS: Dextrose 5 % And 0.9 % NaCl 1,000 ML IV SCH ×2 (07:08→15:37)
[2020-07-10 08:08] LABS: Band 14 % (5-11); Lymphocytes 7 % (21-51); MDiff Complete? YES; Monocytes 3 % (0-10); Neutrophil 75 % (42-75); Nucleated RBC 1 % (0); Platelet Morphology Comment Appears Adequate; Polychromasia SLIGHT = 2-3 cells (100X) (0-2/hpf); Reactive Lymphocytes 1 % (0-10); Schistocytes SLIGHT = 2-5 cells (100X) (0-1/hpf)
[2020-07-10] MEDS: Zinc Sulfate 220 MG CAP PO SCH (09:20)
[2020-07-10] MEDS: Ascorbic Acid 500 mg Chewable Tablet PO SCH (09:20)
[2020-07-10] MEDS: Carvedilol 25 MG TAB PO SCH (09:20)
[2020-07-10] MEDS: NIFEdipine XL 30 MG TAB PO SCH (09:20)
[2020-07-10] MEDS: Atorvastatin Calcium 10 MG TAB PO SCH (09:20)
[2020-07-10] MEDS: Aspirin 81 mg Enteric Coated Tablet PO SCH (09:20)
[2020-07-10] MEDS: Heparin 5,000 UNITS/ML VIAL SC SCH ×3 (09:20→20:29)
[2020-07-10] MEDS: Insulin Glargine 15 UNITS in Pre-Filled Syringe 1 EACH SC SCH (09:21)
--- NOTE | 2020-07-10 13:05 | CT ---
Head CT without contrast 07/10/2020: COMPARISON: 06/21/2020 HISTORY: Possible previous stroke TECHNIQUE: Axial CT imaging at 5 mm intervals from vertex through skull base without contrast FINDINGS: The visualized paranasal sinuses and mastoid air cells appear grossly unremarkable. There i s atherosclerotic calcification of the cavernous carotid arteries. No acute osseous abnormality is evident. There is no intracranial hemorrhage, midline shift, or mass effect. There are foci of hypodensity within the flash suggesting areas of prior pontine infarction. IMPRESSION: No intracranial hemorrhage. Findings suggesting prior pontine infarctions. If there is cl inical concern for acute infarction, brain MRI recommended.
[2020-07-10] MEDS: Insulin Regular 300 UNITS/3 ML VIAL SC PRN (13:25)
[2020-07-10] MEDS ORDERED: Sodium Chloride 0.9% 500 ML IV SCH ×2 (14:00→17:00)
[2020-07-10] MEDS ORDERED: Vancomycin HCl 750 MG in Sodium Chloride 0.9% 250 ML 250 ML IVPB SCH (14:15)
[2020-07-10] MEDS ORDERED: HOLD VANCOMYCIN FOR LEVEL >20 FS SCH (14:15)
[2020-07-10] MEDS ORDERED: Vancomycin HCl 250 MG in Sodium Chloride 0.9% 100 ML IVPB SCH (14:15)
[2020-07-10] MEDS ORDERED: Vancomycin 1 GM in Premix Bag 1 BAG IVPB SCH ×2 (14:15→21:00)
[2020-07-10] MEDS ORDERED: Vancomycin HCl 1.25 GM in Sodium Chloride 0.9% 250 ML 250 ML IVPB SCH (14:15)
[2020-07-10] MEDS ORDERED: Vancomycin Sliding Scale 1 EACH FS SCH (14:15)
[2020-07-10] MEDS ORDERED: Vancomycin HCl 500 MG in Sodium Chloride 0.9% 100 ML IVPB SCH (14:15)
[2020-07-10] MEDS: Piperacillin/Tazobactam 2.25 GM in Sodium Chloride 0.9% 100 ML IVPB SCH ×2 (17:06→20:29)
--- NOTE | 2020-07-10 17:26 | PRG ---
DATE OF SERVICE: 07/10/2020 SUBJECTIVE: The patient is seen in the [facility] isolation. The patient remains confused and not able to verbally communicate with me. OBJECTIVE: GENERAL: This is a thin built male, confused. VITAL SIGNS: Temperature 98.3, pulse 83, respiratory rate 20, blood pressure 105/63. HEENT: Atraumatic. NECK: Supple. CV: S1, S2 heard. NEUROLOGIC: Confused. DERMATOLOGIC: No skin rash. LABORATORY DATA: Not done today. ASSESSMENT AND PLAN: 1. End-stage renal disease. Switch to hemodialysis. Plan to have dialysis tomorrow. We will recheck labs in the morning. 2. Altered mentation, not better with correction of uremia, rule out other causes. 3. Recent weight loss. 4. Hypokalemia. 5. Edema. 6. Hypoalbuminemia. 7. Hypocalcemia. Recheck labs in the morning. We will plan for dialysis. Prognosis is poor. The patient remains confused, is less likely from uremia, rule out other causes. Job ID: [id number] [facility]
--- NOTE | 2020-07-10 18:04 | PDOC.HOSPP ---
- Subjective Subjective: Patient remained intermittently confused, after 2 sessions of dialysis. At that reason, CT was done to rule out CVA. There is no evidence of intracranial hemorrhage. However findings suggesting prior pontine infarction. Pt was hypotensive, rec'd his blood pressure meds this AM - Objective Vital Signs & Weight: Vital Signs (12 hours) Pulse 07/10/20 09:20 86 Weight Admit Weight 128 lb 8 oz Weight 128 lb 8.472 oz Most Recent Monitor Data Heart Rate from ECG 87 NIBP 160/131 NIBP BP-Mean 140 Respiration from ECG 31 SpO2 91 I&O: 07/09/20 07/10/20 07/11/20 06:59 06:59 06:59 Intake Total 1197 688 Balance 1197 688 Result Diagrams: 07/10/20 05:59 07/09/20 05:58 Additional Labs: Accuchecks 07/10/20 07/10/20 07/10/20 17:15 12:36 04:01 POC Glucose 93 319 H 276 H 07/09/20 07/09/20 07/09/20 23:41 22:28 21:20 POC Glucose 121 H 69 L 66 L 07/09/20 07/09/20 07/09/20 19:55 18:05 15:43 POC Glucose 70 91 57 L* Hospitalist ROS - Medication Medications: Active Medications Generic Name Dose Route Start Last Admin Trade Name Freq PRN Reason Stop Dose Admin Ascorbic Acid 1,000 mg 07/07/20 09:00 07/10/20 09:20 Ascorbic Acid 500 Mg Chewable Tablet PO 1,000 mg DAILY CAROLYNN Administration Aspirin 81 mg 07/07/20 09:00 07/10/20 09:20 Aspirin 81 Mg Enteric Coated Tablet PO 81 mg DAILY CAROLYNN Administration Atorvastatin Calcium 10 mg 07/07/20 09:00 07/10/20 09:20 Atorvastatin Calcium 10 Mg Tab PO 10 mg DAILY CAROLYNN Administration Cholecalciferol 5,000 units 07/06/20 21:00 07/09/20 22:21 Cholecalciferol 1,000 Units (25 Mcg) Tab PO 5,000 units HS CAROLYNN Administration Dextrose/Water 25 gm 07/07/20 02:30 07/09/20 15:50 Dextrose 50% Abboject 50 Ml Syringe IVP 25 gm PRN PRN Administration HYPOGLYCEMIA PROTOCOL Epoetin Quincy-epbx 10,000 unit 07/08/20 12:15 07/08/20 13:48 Epoetin Quincy-Epbx (Esrd) 10,000 Unit/Ml Vial SC 10,000 unit Q7D CAROLYNN Administration Heparin Sodium (Porcine) 5,000 units 07/06/20 21:00 07/10/20 15:40 Heparin 5,000 Units/Ml Vial SC 5,000 units TID CAROLYNN Administration Insulin Glargine 15 units/ 0.15 mls @ 0 mls/hr 07/08/20 09:00 07/10/20 09:21 Miscellaneous Medication SC 0.15 mls QAM CAROLYNN Administration Dextrose/Sodium Chloride 1,000 mls @ 75 mls/hr 07/10/20 13:51 07/10/20 15:37 D5 0.9% Ns IV 1,000 mls .[id number] CAROLYNN Administration Piperacillin Sod/Tazobactam 100 mls @ 200 mls/hr 07/10/20 14:00 07/10/20 17:06 Sod 2.25 gm/ Sodium Chloride IVPB 100 mls Q8HR CAROLYNN Administration Insulin Human Regular 0 units 07/07/20 02:30 07/10/20 13:25 Insulin Regular 300 Units/3 Ml Vial SC 11 unit .AGGRESSIVE SLIDING PRN Administration AGGRESSIVE SLIDING SCALE Protocol Sodium Chloride 10 ml 07/07/20 21:00 07/10/20 09:21 Flush - Normal Saline 10 Ml Syringe IVF 10 ml Q12HR CAROLYNN Administration Zinc Sulfate 220 mg 07/07/20 09:00 07/10/20 09:20 Zinc Sulfate 220 Mg Cap PO 220 mg DAILY CAROLYNN Administration - Exam General Appearance: NAD Eye: PERRL ENT: normocephalic atraumatic Neck: supple Heart: RRR Respiratory: CTAB Gastrointestinal: soft Extremities: no cyanosis Neurological - other findings: confused Psychiatric: somnolent, lethargic Hosp A/P - Plan Pt is a 60 years old -[place] gentleman with multiple comorbidities including ESRD on PD, hypertension, dyslipidemia, congestive heart failure, who was recently discharged from the hospital for acute respiratory failure and altered mental status. Patient was transferred from [facility], for evaluation of acute hypoxic respiratory failure. He was found to have severe short of breath and hypoxemia with O2 sat reportedly in the 70s. CTA was neg for PE. Acute metabolic encephalopathy --likely multifactorial. Initially thought d/t metabolic; however, not improved after converted to hemodialysis. --CT showed no acute, but prior pontine infarction. Unable to obtain MRI d/t COVID positive --will consult neurology in AM to r/o other causes --transfer to [facility] ESRD on PD --plan for HD again today then resume PD tomorrow. Further mgt as per nephrology COVID-19 infection --appears to be mild, no significant respiratory symptoms --Decadron was discontinued d/t hyperglycemia --appreciate Pul input Diabetes type 2, insulin-dependent with hyperglycemia --Blood glucose has been labile. A1C 9.9. BG now stabilized. Dyslipidemia --cont statin Acute hypoxic respiratory failure --resolved. sat'ng well on room air Hypotension --hold BP meds, IVF Penile discharge --cultures positive for enterococcus and stap aureus on prelim, sensitivity pending --start Zosyn/Vanc empirically, follow sensitivity Sepsis d/t COVID-19 or above problem --poa, resolved.
[2020-07-10] MEDS: Sodium Chloride 0.9% 1,000 ML IV SCH (18:17)
[2020-07-10] MEDS: Cholecalciferol 1,000 UNITS (25 MCG) TAB PO SCH (20:29)
[2020-07-10] MEDS: Dextrose 50% Abboject 50 ML SYRINGE IVP PRN (20:30)
[2020-07-11] MEDS: Sodium Chloride 0.9% 1,000 ML IV SCH (05:02)
[2020-07-11 06:03] LABS: Anion Gap 17 mmol/L (10-20); BUN (Urea Nitrogen) 40 mg/dL (8.4-25.7); Calc. Creatinine Clearance 8 mL/min (70-130); Calcium 6.5 mg/dL (7.8-10.44); Carbon Dioxide 23 mmol/L (22-29); Chloride 103 mmol/L (98-107); Glucose 147 mg/dL (70-105); Potassium 3.4 mmol/L (3.5-5.1); Sodium 140 mmol/L (136-145)
[2020-07-11] MEDS: Piperacillin/Tazobactam 2.25 GM in Sodium Chloride 0.9% 100 ML IVPB SCH ×3 (06:17→21:06)
[2020-07-11 07:25] LABS: Hemoglobin 10.6 g/dL (14.0-18.0); Mean Corpuscular HGB CONC 30.3 g/dL (32.0-36.0); Mean Corpuscular Hemoglobin 27.8 pg (27.0-31.0); Mean Corpuscular Volume 91.6 fL (78.0-98.0); Mean Platelet Volume 10.2 fL (7.4-10.4); Platelet Count 271 thou/uL (130-400); RBC Distribution Width 14.3 % (11.5-14.5); Red Blood Cell (RBC) Count 3.82 mill/uL (4.70-6.10)
[2020-07-11] MEDS: Atorvastatin Calcium 10 MG TAB PO SCH (07:53)
[2020-07-11] MEDS: Zinc Sulfate 220 MG CAP PO SCH (07:53)
[2020-07-11] MEDS: Aspirin 81 mg Enteric Coated Tablet PO SCH (07:53)
[2020-07-11] MEDS: Ascorbic Acid 500 mg Chewable Tablet PO SCH (07:53)
[2020-07-11] MEDS: Dextrose 5 % And 0.9 % NaCl 1,000 ML IV SCH ×2 (08:24→08:52)
[2020-07-11] MEDS: Dexamethasone 4 mg/ml Vial SLOW IVP SCH (08:48)
[2020-07-11] MEDS: Heparin 5,000 UNITS/ML VIAL SC SCH ×3 (08:48→21:05)
[2020-07-11] MEDS ORDERED: Acetaminophen 650 MG Suppository PR PRN (09:48)
[2020-07-11] MEDS ORDERED: Acetaminophen 650 MG Suppository PR SCH (10:00)
[2020-07-11 10:13] LABS: Band 21 % (5-11); Hypochromia SLIGHT = 6-15 cells (100X) (0-5/hpf); Lymphocytes 9 % (21-51); MDiff Complete? YES; Monocytes 2 % (0-10); Neutrophil 67 % (42-75); Nucleated RBC 1 % (0); Platelet Morphology Comment Appears Adequate; Polychromasia SLIGHT = 2-3 cells (100X) (0-2/hpf); Reactive Lymphocytes 1 % (0-10); Schistocytes SLIGHT = 2-5 cells (100X) (0-1/hpf)
[2020-07-11] MEDS ORDERED: Aspirin 300 MG Suppository PR SCH (10:45)
--- NOTE | 2020-07-11 11:56 | RAD ---
CHEST 1 VIEW: Date: 07/11/2020 HISTORY: Worsening hypoxia, COVID pneumonia. COMPARISON: 07/09/2020 exam. FINDINGS: Bilateral lung infiltrates are again noted. There is some worsening to the changes within the left melinda ng. IMPRESSION: Worsening left-sided infiltrative lung changes. POS: DIMAS
--- NOTE | 2020-07-11 12:11 | PRG ---
DATE OF SERVICE: 07/11/2020 SUBJECTIVE: The patient is on COVID isolation. OBJECTIVE: VITAL SIGNS: Temperature 100.8, pulse 91, respiratory rate 20, blood pressure 107/58. LABORATORY DATA: Potassium 3.4, BUN is 40, creatinine is 8.3. ASSESSMENT AND PLAN: 1. End-stage renal disease. Continue on hemodialysis. 2. Altered mentation. 3. Fever. 4. Hypokalemia. 5. Edema. 6. Hypoalbuminemia. 7. Hypocalcemia. Prognosis seems to be poor. We will follow. Job ID: [id number]
--- NOTE | 2020-07-11 17:25 | PDOC.HOSPP ---
- Subjective Subjective: Was seen and examined at bedside. Patient is more lethargic difficult to arouse today as compared to where he was yesterday. He required more oxygen. I have discussed with his and updated her on the phone with regard to his clinical status. Would like to continue with aggressive care, and remains full code. I also curbside neurology. Since patient has active Covid, unable to give get an MRI to confirm with daughter not he had a stroke, and unable to do EEG as well. For now we will continue with supportive care, will give him aspirin rectally as well as statin empirically. - Objective Vital Signs & Weight: Vital Signs (12 hours) Temp Pulse Resp BP Pulse Ox 07/11/20 11:14 100.8 F H 91 20 107/58 L 99 07/11/20 08:00 101.4 F H 94 20 109/56 L 98 07/11/20 06:42 98.9 F 07/11/20 03:50 101.2 F H 94 25 H 104/59 L 97 Weight Admit Weight 128 lb 8 oz Weight 128 lb 8.472 oz Most Recent Monitor Data Heart Rate from ECG 87 NIBP 160/131 NIBP BP-Mean 140 Respiration from ECG 31 SpO2 91 I&O: 07/10/20 07/11/20 07/12/20 06:59 06:59 06:59 Intake Total 688 1720 700 Balance 688 1720 700 Result Diagrams: 07/11/20 05:15 07/11/20 05:15 Additional Labs: Accuchecks 07/11/20 07/10/20 07/10/20 13:15 23:20 21:58 POC Glucose 188 H 117 H 101 H 07/10/20 07/10/20 21:10 17:15 POC Glucose 123 H 93 Radiology Reviewed by me: Yes EKG Reviewed by me: Yes Hospitalist ROS - Medication Medications: Active Medications Generic Name Dose Route Start Last Admin Trade Name Freq PRN Reason Stop Dose Admin Ascorbic Acid 1,000 mg 07/07/20 09:00 07/11/20 07:53 Ascorbic Acid 500 Mg Chewable Tablet PO Not Given DAILY [facility] Atorvastatin Calcium 10 mg 07/07/20 09:00 07/11/20 07:53 Atorvastatin Calcium 10 Mg Tab PO Not Given DAILY [facility] Cholecalciferol 5,000 units 07/06/20 21:00 07/10/20 20:29 Cholecalciferol 1,000 Units (25 Mcg) Tab PO 5,000 units HS CAROLYNN Administration Dexamethasone 6 mg 07/11/20 09:00 07/11/20 08:48 Dexamethasone 4 Mg/Ml Vial SLOW IVP 6 mg DAILY CAROLYNN Administration Dextrose/Water 25 gm 07/07/20 02:30 07/10/20 20:30 Dextrose 50% Abboject 50 Ml Syringe IVP 25 gm PRN PRN Administration HYPOGLYCEMIA PROTOCOL Epoetin Quincy-epbx 10,000 unit 07/08/20 12:15 07/08/20 13:48 Epoetin Quincy-Epbx (Esrd) 10,000 Unit/Ml Vial SC 10,000 unit Q7D CAROLYNN Administration Heparin Sodium (Porcine) 5,000 units 07/06/20 21:00 07/11/20 08:48 Heparin 5,000 Units/Ml Vial SC 5,000 units TID CAROLYNN Administration Dextrose/Water 1,000 mls @ 0 mls/hr 07/07/20 02:30 07/10/20 23:00 D5w IV 1,000 mls INF PRN Administration HYPOGLYCEMIA PROTOCOL As Directed Piperacillin Sod/Tazobactam 100 mls @ 200 mls/hr 07/10/20 14:00 07/11/20 06:17 Sod 2.25 gm/ Sodium Chloride IVPB 100 mls Q8HR CAROLYNN Administration Dextrose/Sodium Chloride 1,000 mls @ 50 mls/hr 07/11/20 08:14 07/11/20 08:52 D5 0.9% Ns IV 1,000 mls .Q20H CAROLYNN Administration Insulin Human Regular 0 units 07/07/20 02:30 07/10/20 13:25 Insulin Regular 300 Units/3 Ml Vial SC 11 unit .AGGRESSIVE SLIDING PRN Administration AGGRESSIVE SLIDING SCALE Protocol Sodium Chloride 10 ml 07/07/20 21:00 07/11/20 08:53 Flush - Normal Saline 10 Ml Syringe IVF Not Given Q12HR CAROLYNN Zinc Sulfate 220 mg 07/07/20 09:00 07/11/20 07:53 Zinc Sulfate 220 Mg Cap PO Not Given DAILY CAROLYNN - Exam General Appearance: NAD, ill appearing Eye: PERRL ENT: normocephalic atraumatic Neck: supple Heart: RRR Respiratory: CTAB Gastrointestinal: soft Musculoskeletal: generalized weakness Psychiatric: somnolent, lethargic Hosp A/P - Plan Pt is a 60 years old -[place]izen [place] gentleman with multiple comorbidities including ESRD on PD, hypertension, dyslipidemia, congestive heart failure, who was recently discharged from the hospital for acute respiratory failure and altered mental status. Patient was transferred from [facility], for evaluation of acute hypoxic respiratory failure. He was found to have severe short of breath and hypoxemia with O2 sat reportedly in the 70s. CTA was neg for PE. Acute metabolic encephalopathy --likely multifactorial. Initially thought d/t metabolic; however, not improved after converted to hemodialysis. --CT showed no acute, but prior pontine infarction. Unable to obtain MRI or EEG d/t COVID positive --will start him on ASA [place], and statin when able to ronnie PO --cont supportive cares. Updated family --poor prognosis ESRD on PD --plan for HD again today then resume PD tomorrow. Further mgt as per nephrology COVID-19 infection --Decadron was discontinued d/t hyperglycemia --appreciate Pul input Diabetes type 2, insulin-dependent with hyperglycemia --Blood glucose has been labile. A1C 9.9. BG now stabilized. Dyslipidemia --cont statin Acute hypoxic respiratory failure --resolved. sat'ng well on room air Hypotension --hold BP meds, IVF Penile discharge --cultures positive for enterococcus and stap aureus on prelim, sensitivity pending --cont Zosyn/Vanc empirically, follow sensitivity Sepsis d/t COVID-19 or above problem --poa, resolved.
[2020-07-11] MEDS: Aspirin 300 MG Suppository PR SCH (21:06)
[2020-07-12] MEDS: Piperacillin/Tazobactam 2.25 GM in Sodium Chloride 0.9% 100 ML IVPB SCH ×3 (05:31→21:35)
[2020-07-12] MEDS: Dextrose 5 % And 0.9 % NaCl 1,000 ML IV SCH (05:32)
[2020-07-12 05:47] LABS: #Lymphocytes 0.8 thou/uL (1.20-3.40); #Monocytes 0.3 thou/uL (0.11-0.59); #Neutrophils 6.8 thou/uL (1.40-6.50); %Basophils 0.2 % (0.0-1.0); %Eosinophils 0.1 % (0.0-10.0); %Lymphocytes 9.6 % (21.0-51.0); %Monocytes 3.6 % (0.0-10.0); %Neutrophils 86.4 % (42.0-75.0); Hemoglobin 9.3 g/dL (14.0-18.0); Mean Corpuscular HGB CONC 30.4 g/dL (32.0-36.0); Mean Corpuscular Hemoglobin 28.5 pg (27.0-31.0); Mean Platelet Volume 10.2 fL (7.4-10.4); Platelet Count 227 thou/uL (130-400); RBC Distribution Width 14.4 % (11.5-14.5); Red Blood Cell (RBC) Count 3.24 mill/uL (4.70-6.10); White Blood Cell (WBC) Count 7.9 thou/uL (4.8-10.8)
[2020-07-12 06:21] LABS: Anion Gap 23 mmol/L (10-20); BUN (Urea Nitrogen) 32 mg/dL (8.4-25.7); CRP (Inflammatory) 25.95 mg/dL (= or < 0.5); Calc. Creatinine Clearance 12 mL/min (70-130); Calcium 6.3 mg/dL (7.8-10.44); Carbon Dioxide 18 mmol/L (22-29); Chloride 102 mmol/L (98-107); Potassium 3.6 mmol/L (3.5-5.1); Sodium 139 mmol/L (136-145)
[2020-07-12 06:24] LABS: Glucose 605 mg/dL (70-105)
[2020-07-12] MEDS: Cholecalciferol 1,000 UNITS (25 MCG) TAB PO SCH ×2 (06:38→20:45)
[2020-07-12] MEDS ORDERED: Aspirin 300 MG Suppository PR SCH (09:00)
[2020-07-12] MEDS: Ascorbic Acid 500 mg Chewable Tablet PO SCH (10:30)
[2020-07-12] MEDS: Dexamethasone 4 mg/ml Vial SLOW IVP SCH (10:30)
[2020-07-12] MEDS: Atorvastatin Calcium 10 MG TAB PO SCH (10:30)
[2020-07-12] MEDS: Heparin 5,000 UNITS/ML VIAL SC SCH ×3 (10:31→20:45)
[2020-07-12] MEDS: Zinc Sulfate 220 MG CAP PO SCH (10:35)
--- NOTE | 2020-07-12 11:55 | PRG ---
DATE OF SERVICE: 07/12/2020 SUBJECTIVE: The patient on COVID isolation. OBJECTIVE: VITAL SIGNS: Temperature 99.0, pulse 92, respiratory rate 18, blood pressure 109/59. LABORATORY DATA: Potassium 3.6, BUN is 32, creatinine is 5.5. ASSESSMENT AND PLAN: 1. End-stage renal disease, on hemodialysis now. We will ask the nurses to have PD catheter care at least once a week for dressing changes and monitoring. 2. Altered mentation not getting any better, less likely from uremia. Agree with the neurological evaluation. 3. Fever. 4. Hypokalemia. 5. COVID-19 infection. 6. Hypoalbuminemia. 7. Hypocalcemia. 8. Overall, labs are better from renal standpoint, but still the patient's mentation not improved. Rule out other causes. The patient has been showing decline in his status over the last few weeks to few months including loss of appetite and loss of muscle mass, so other etiologies needs to be ruled out too. We will follow. Job ID: [id number]
--- NOTE | 2020-07-12 14:17 | PDOC.HOSPP ---
- Subjective Subjective: Patient was seen examined at bedside. He is much more alert today. He is afebrile, currently is on 2 L via nasal cannula. Have updated his sister on the phone today. His CRP has trended down. Leukocytosis resolved. His blood sugar still elevated - Objective Vital Signs & Weight: Vital Signs (12 hours) Temp Pulse Pulse Pulse Resp BP BP 07/12/20 12:15 94 95 136/70 128/67 07/12/20 10:43 98.5 F 94 17 07/12/20 04:08 99.0 F 92 18 BP Pulse Ox Pulse Ox Pulse Ox 07/12/20 12:15 96 100 07/12/20 10:43 140/67 97 07/12/20 04:08 109/59 L 95 Weight Admit Weight 128 lb 8 oz Weight 128 lb 8.472 oz Most Recent Monitor Data Heart Rate from ECG 87 NIBP 160/131 NIBP BP-Mean 140 Respiration from ECG 31 SpO2 91 I&O: 07/11/20 07/12/20 07/13/20 06:59 06:59 06:59 Intake Total 1720 700 Balance 1720 700 Result Diagrams: 07/12/20 05:01 07/12/20 05:01 Additional Labs: Accuchecks 07/12/20 07/12/20 07/12/20 11:52 06:11 01:50 POC Glucose 379 H 391 H 290 H 07/11/20 07/10/20 17:27 20:36 POC Glucose 179 H 147 H Radiology Reviewed by me: Yes EKG Reviewed by me: Yes Hospitalist ROS - Medication Medications: Active Medications Generic Name Dose Route Start Last Admin Trade Name Mauricioq PRN Reason Stop Dose Admin Ascorbic Acid 1,000 mg 07/07/20 09:00 07/12/20 10:30 Ascorbic Acid 500 Mg Chewable Tablet PO Not Given DAILY CAROLYNN Aspirin 300 mg 07/11/20 21:00 07/11/20 21:06 Aspirin 300 Mg Suppository [place] 300 mg HS CAROLYNN Administration Atorvastatin Calcium 10 mg 07/07/20 09:00 07/12/20 10:30 Atorvastatin Calcium 10 Mg Tab PO Not Given DAILY CAROLYNN Cholecalciferol 5,000 units 07/06/20 21:00 07/12/20 06:38 Cholecalciferol 1,000 Units (25 Mcg) Tab PO Not Given HS CAROLYNN Dexamethasone 6 mg 07/11/20 09:00 07/12/20 10:30 Dexamethasone 4 Mg/Ml Vial SLOW IVP 6 mg DAILY CAROLYNN Administration Dextrose/Water 25 gm 07/07/20 02:30 07/10/20 20:30 Dextrose 50% Abboject 50 Ml Syringe IVP 25 gm PRN PRN Administration HYPOGLYCEMIA PROTOCOL Epoetin Quincy-epbx 10,000 unit 07/08/20 12:15 07/08/20 13:48 Epoetin Quincy-Epbx (Esrd) 10,000 Unit/Ml Vial SC 10,000 unit Q7D CAROLYNN Administration Heparin Sodium (Porcine) 5,000 units 07/06/20 21:00 07/12/20 10:31 Heparin 5,000 Units/Ml Vial SC 5,000 units TID CAROLYNN Administration Dextrose/Water 1,000 mls @ 0 mls/hr 07/07/20 02:30 07/10/20 23:00 D5w IV 1,000 mls INF PRN Administration HYPOGLYCEMIA PROTOCOL As Directed Piperacillin Sod/Tazobactam 100 mls @ 200 mls/hr 07/10/20 14:00 07/12/20 05:31 Sod 2.25 gm/ Sodium Chloride IVPB 100 mls Q8HR CAROLYNN Administration Dextrose/Sodium Chloride 1,000 mls @ 50 mls/hr 07/11/20 08:14 07/12/20 05:32 D5 0.9% Ns IV 1,000 mls .Q20H CAROLYNN Administration Insulin Human Regular 0 units 07/07/20 02:30 07/10/20 13:25 Insulin Regular 300 Units/3 Ml Vial SC 11 unit .AGGRESSIVE SLIDING PRN Administration AGGRESSIVE SLIDING SCALE Protocol Sodium Chloride 10 ml 07/07/20 21:00 07/12/20 10:30 Flush - Normal Saline 10 Ml Syringe IVF 10 ml Q12HR CAROLYNN Administration Zinc Sulfate 220 mg 07/07/20 09:00 07/12/20 10:35 Zinc Sulfate 220 Mg Cap PO Not Given DAILY CAROLYNN - Exam General Appearance: NAD Eye: PERRL ENT: normocephalic atraumatic Neck: supple Heart: RRR, no murmur Respiratory: CTAB Gastrointestinal: soft, non-tender, non-distended Neurological: cranial nerve grossly intact Musculoskeletal: normal tone, generalized weakness Psychiatric: normal affect, oriented to person, oriented to place, lethargic Hosp A/P - Plan Pt is a 60 years old -Chinese gentleman with multiple comorbidities including ESRD on PD, hypertension, dyslipidemia, congestive heart failure, who was recently discharged from the hospital for acute respiratory failure and altered mental status. Patient was transferred from [place] [facility], for evaluation of acute hypoxic respiratory failure. He was found to have severe short of breath and hypoxemia with O2 sat reportedly in the 70s. CTA was neg for PE. Acute metabolic encephalopathy --likely multifactorial. Initially thought d/t metabolic; however, not improved after converted to hemodialysis. --CT showed no acute, but prior pontine infarction. Unable to obtain MRI or EEG d/t COVID positive --will start him on ASA [place], and statin when able to ronnie PO --cont supportive cares. Updated family --poor prognosis ESRD on PD --plan for HD again today then resume PD tomorrow. Further mgt as per nephrology COVID-19 infection --Decadron was discontinued d/t hyperglycemia --appreciate Pul input Diabetes type 2, insulin-dependent with hyperglycemia --Blood glucose has been labile. A1C 9.9. BG now stabilized. Dyslipidemia --cont statin Acute hypoxic respiratory failure --currently on 2L via NC. cont Decadron. Hypotension --hold BP meds, IVF Penile discharge --cultures positive for enterococcus and MRSA --cont Zosyn/Vanc empirically, follow sensitivity Sepsis d/t COVID-19 or above problem --poa, resolved. Moderate protein calorie malnutrition, POA --Patient has not been eating, will start him on tube feeding. Nutrition consult. SP is following
--- NOTE | 2020-07-12 17:03 | RAD ---
KUB INDICATION: Confirm Dobbhoff tube placement COMPARISON: None FINDINGS: Bowel gas: Dobbhoff feeding tube tip is seen within the region of the gastric antrum Lung bases: Clear. Additional findings: There are calcifications in the region of the pancreas likely related to chronic pancreatitis. There is a dialysis catheter within the lower central pelvis. There are severe vascular calcifications seen involving the visualized vasculature. Osseous structures: No acute osseous abnormality is demonstrated. IMPRESSION: 1. Dobbhoff feeding tube tip as above.
[2020-07-12] MEDS: Insulin Regular 300 UNITS/3 ML VIAL SC PRN (17:51)
[2020-07-12] MEDS: Metoclopramide HCl 10 MG/2 ML VIAL IVP SCH (17:51)
[2020-07-12] MEDS: Aspirin 300 MG Suppository PR SCH (20:45)
[2020-07-12] MEDS: Insulin Glargine 15 UNITS in Pre-Filled Syringe 1 EACH SC SCH (20:47)
[2020-07-13] MEDS: Metoclopramide HCl 10 MG/2 ML VIAL IVP SCH ×2 (00:47→05:55)
[2020-07-13] MEDS: Insulin Regular 300 UNITS/3 ML VIAL SC PRN ×5 (01:04→23:50)
[2020-07-13 05:41] LABS: #Lymphocytes 0.5 thou/uL (1.20-3.40); #Monocytes 0.4 thou/uL (0.11-0.59); #Neutrophils 9.3 thou/uL (1.40-6.50); %Basophils 0.1 % (0.0-1.0); %Monocytes 3.6 % (0.0-10.0); %Neutrophils 91.2 % (42.0-75.0); Hemoglobin 9.6 g/dL (14.0-18.0); Mean Corpuscular HGB CONC 31.5 g/dL (32.0-36.0); Mean Corpuscular Hemoglobin 28.7 pg (27.0-31.0); Mean Platelet Volume 10.1 fL (7.4-10.4); Platelet Count 247 thou/uL (130-400); Red Blood Cell (RBC) Count 3.34 mill/uL (4.70-6.10); White Blood Cell (WBC) Count 10.2 thou/uL (4.8-10.8)
[2020-07-13] MEDS: Dextrose 5 % And 0.9 % NaCl 1,000 ML IV SCH (05:45)
[2020-07-13 05:55] LABS: Anion Gap 20 mmol/L (10-20); BUN (Urea Nitrogen) 59 mg/dL (8.4-25.7); CRP (Inflammatory) 18.82 mg/dL (= or < 0.5); Calc. Creatinine Clearance 8 mL/min (70-130); Carbon Dioxide 20 mmol/L (22-29); Chloride 104 mmol/L (98-107); Glucose 504 mg/dL (70-105); Potassium 3.3 mmol/L (3.5-5.1); Sodium 141 mmol/L (136-145)
[2020-07-13] MEDS: Piperacillin/Tazobactam 2.25 GM in Sodium Chloride 0.9% 100 ML IVPB SCH ×3 (05:55→20:54)
--- NOTE | 2020-07-13 08:56 | RAD ---
KUB: COMPARISON: 07/12/2020. HISTORY: Dobbhoff tube placement. FINDINGS: A single view of the upper abdomen shows a Dobbhoff tube with its tip in the midline likely within th e pyloric region of the stomach. This has not changed significantly compared to the prior exam. The re is a nonobstructed bowel gas pattern. IMPRESSION: Dobbhoff tube located in the stomach. POS: EAA
[2020-07-13] MEDS: Ascorbic Acid 500 mg Chewable Tablet PO SCH (09:44)
[2020-07-13] MEDS: Atorvastatin Calcium 10 MG TAB PO SCH (09:44)
[2020-07-13] MEDS: Zinc Sulfate 220 MG CAP PO SCH (09:45)
[2020-07-13] MEDS: Dexamethasone 4 mg/ml Vial SLOW IVP SCH (09:45)
[2020-07-13] MEDS: Heparin 5,000 UNITS/ML VIAL SC SCH ×3 (09:45→19:46)
[2020-07-13] MEDS: Insulin Glargine 20 UNITS in Pre-Filled Syringe 1 EACH SC SCH (10:26)
--- NOTE | 2020-07-13 12:11 | PDOC.HOSPP ---
- Subjective Subjective: Patient was seen examined at bedside. He is doing much better today, his oxygen had weaned down to 1 L via nasal cannula. Patient was started on tube feeding yesterday, to supplement his nutrition, as patient had not been eating for the past several weeks. He is out for tolerated tube feeding well. He is also n.p.o. due to his mental status, speech therapy is following. His BG elevated d/t steroid and IVF. - Objective Vital Signs & Weight: Vital Signs (12 hours) Temp Pulse Resp BP Pulse Ox 07/13/20 09:45 99 F 81 21 H 139/69 97 07/13/20 03:53 98.2 F 74 18 150/68 H 100 Weight Admit Weight 128 lb 8 oz Weight 128 lb 8.472 oz Most Recent Monitor Data Heart Rate from ECG 87 NIBP 160/131 NIBP BP-Mean 140 Respiration from ECG 31 SpO2 91 I&O: 07/12/20 07/13/20 07/14/20 06:59 06:59 06:59 Intake Total 700 958 Balance 700 958 Result Diagrams: 07/13/20 05:03 07/13/20 05:03 Additional Labs: Accuchecks 07/13/20 07/12/20 07/12/20 06:02 23:38 20:54 POC Glucose 455 H 439 H 444 H 07/12/20 16:59 POC Glucose 447 H Radiology Reviewed by me: Yes EKG Reviewed by me: Yes Hospitalist ROS - Medication Medications: Active Medications Generic Name Dose Route Start Last Admin Trade Name Freq PRN Reason Stop Dose Admin Ascorbic Acid 1,000 mg 07/07/20 09:00 07/13/20 09:44 Ascorbic Acid 500 Mg Chewable Tablet PO 1,000 mg DAILY CAROLYNN Administration Aspirin 300 mg 07/11/20 21:00 07/12/20 20:45 Aspirin 300 Mg Suppository PA 300 mg HS CAROLYNN Administration Atorvastatin Calcium 10 mg 07/07/20 09:00 07/13/20 09:44 Atorvastatin Calcium 10 Mg Tab PO 10 mg DAILY CAROLYNN Administration Cholecalciferol 5,000 units 07/06/20 21:00 07/12/20 20:45 Cholecalciferol 1,000 Units (25 Mcg) Tab PO Not Given HS CAROLYNN Dexamethasone 6 mg 07/11/20 09:00 07/13/20 09:45 Dexamethasone 4 Mg/Ml Vial SLOW IVP 6 mg DAILY CAROLYNN Administration Dextrose/Water 25 gm 07/07/20 02:30 07/10/20 20:30 Dextrose 50% Abboject 50 Ml Syringe IVP 25 gm PRN PRN Administration HYPOGLYCEMIA PROTOCOL Epoetin Quincy-epbx 10,000 unit 07/08/20 12:15 07/08/20 13:48 Epoetin Quincy-Epbx (Esrd) 10,000 Unit/Ml Vial SC 10,000 unit Q7D CARLOYNN Administration Heparin Sodium (Porcine) 5,000 units 07/06/20 21:00 07/13/20 09:45 Heparin 5,000 Units/Ml Vial SC 5,000 units TID CAROLYNN Administration Dextrose/Water 1,000 mls @ 0 mls/hr 07/07/20 02:30 07/10/20 23:00 D5w IV 1,000 mls INF PRN Administration HYPOGLYCEMIA PROTOCOL As Directed Piperacillin Sod/Tazobactam 100 mls @ 200 mls/hr 07/10/20 14:00 07/13/20 05:55 Sod 2.25 gm/ Sodium Chloride IVPB 100 mls Q8HR CAROLYNN Administration Insulin Glargine 15 units/ 0.15 mls @ 0 mls/hr 07/12/20 21:00 07/12/20 20:47 Miscellaneous Medication SC 0.15 mls HS CAROLYNN Administration Insulin Glargine 20 units/ 0.2 mls @ 0 mls/hr 07/13/20 09:00 07/13/20 10:26 Miscellaneous Medication SC 0.2 mls QAM CAROLYNN Administration Insulin Human Regular 0 units 07/07/20 02:30 07/13/20 06:37 Insulin Regular 300 Units/3 Ml Vial SC 13 unit .AGGRESSIVE SLIDING PRN Administration AGGRESSIVE SLIDING SCALE Protocol Sodium Chloride 10 ml 07/07/20 21:00 07/13/20 09:46 Flush - Normal Saline 10 Ml Syringe IVF 10 ml Q12HR CAROLYNN Administration Zinc Sulfate 220 mg 07/07/20 09:00 07/13/20 09:45 Zinc Sulfate 220 Mg Cap PO 220 mg DAILY CAROLYNN Administration - Exam General Appearance: NAD Eye: PERRL ENT: normocephalic atraumatic Neck: supple Heart: RRR Respiratory: rhonchi Gastrointestinal: soft Extremities: no cyanosis Skin: normal turgor Neurological: cranial nerve grossly intact Musculoskeletal: normal tone, generalized weakness Psychiatric: normal affect, oriented to person, oriented to place Hosp A/P - Plan Pt is a 60 years old -[place] gentleman with multiple comorbidities including ESRD on PD, hypertension, dyslipidemia, congestive heart failure, who was recently discharged from the hospital for acute respiratory failure and altered mental status. Patient was transferred from [facility], for evaluation of acute hypoxic respiratory failure. He was found to have severe short of breath and hypoxemia with O2 sat reportedly in the 70s. CTA was neg for PE. Acute metabolic encephalopathy - much improved. --likely multifactorial. Mental status slowly improving. --CT showed no acute, but prior pontine infarction. Unable to obtain MRI or EEG d/t COVID positive --cont him on ASA PA, and statin when able to ronnie PO --cont supportive cares. Updated family ESRD on PD --Pt is temporarily converted PD to HD. Further mgt as per nephrology COVID-19 infection --Decadron was resume. Oxygenation has improved. CRP trending down. follow clinically Acute hypoxic respiratory failure --currently on 1L via NC. cont Decadron as above. Diabetes type 2, insulin-dependent with hyperglycemia --Blood glucose has been labile. A1C 9.9. BG elevated, adjusted Lantus, cont ISS Dyslipidemia --cont statin Hypotension - resolved --hold BP meds, IVF Penile discharge --cultures positive for enterococcus and MRSA --cont Zosyn/Vanc to complete 1 week course. Sepsis d/t COVID-19 or above problem --poa, resolved. Moderate protein calorie malnutrition, POA --Patient has not been eating. started on TF as pt is NPO d/t his mental status and supplement his nutrition. SP is following.
--- NOTE | 2020-07-13 18:01 | PRG ---
DATE OF SERVICE: 07/13/2020 SUBJECTIVE: The patient is in COVID isolation. OBJECTIVE: VITAL SIGNS: Temperature 98.4, pulse 85, respiratory rate 20, blood pressure 136/60. LABORATORY DATA: Potassium 3.3, BUN is 59, and creatinine is 7.7. ASSESSMENT AND PLAN: 1. End-stage renal disease, we will continue on hemodialysis. 2. Fever. 3. Hypokalemia. 4. COVID-19 infection. 5. Altered mentation. When I saw the patient yesterday, his mentation was getting better. We will continue dialysis today and monitor mentation status. Job ID: [id number]
[2020-07-13] MEDS: Aspirin 300 MG Suppository PR SCH (19:47)
[2020-07-13] MEDS: Cholecalciferol 1,000 UNITS (25 MCG) TAB PO SCH (19:47)
[2020-07-13] MEDS: Insulin Glargine 15 UNITS in Pre-Filled Syringe 1 EACH SC SCH (19:50)
--- NOTE | 2020-07-13 20:52 | RAD ---
Abdomen one view HISTORY: Dobbhoff adjustment. COMPARISON: Earlier exam on the same date. FINDINGS: Metallic tip of the Dobbhoff feeding catheter now projects over the left upper quadrant, di rected towards the gastric fundus. It appears to have been pulled back slightly since the prior study and flipped leftward. Other findings are stable.
[2020-07-14 05:46] LABS: #Eosinphils 0.1 thou/uL (0.0-0.7); #Lymphocytes 0.7 thou/uL (1.20-3.40); #Monocytes 0.5 thou/uL (0.11-0.59); #Neutrophils 9.4 thou/uL (1.40-6.50); %Basophils 0.2 % (0.0-1.0); %Eosinophils 0.5 % (0.0-10.0); %Lymphocytes 6.6 % (21.0-51.0); %Monocytes 4.6 % (0.0-10.0); %Neutrophils 88.1 % (42.0-75.0); Hemoglobin 8.8 g/dL (14.0-18.0); Mean Corpuscular HGB CONC 30.2 g/dL (32.0-36.0); Mean Corpuscular Hemoglobin 27.8 pg (27.0-31.0); Mean Corpuscular Volume 91.9 fL (78.0-98.0); Mean Platelet Volume 10.3 fL (7.4-10.4); Platelet Count 242 thou/uL (130-400); RBC Distribution Width 15.2 % (11.5-14.5); Red Blood Cell (RBC) Count 3.18 mill/uL (4.70-6.10); White Blood Cell (WBC) Count 10.6 thou/uL (4.8-10.8)
[2020-07-14 06:10] LABS: Anion Gap 17 mmol/L (10-20); BUN (Urea Nitrogen) 38 mg/dL (8.4-25.7); CRP (Inflammatory) 10.57 mg/dL (= or < 0.5); Calc. Creatinine Clearance 11 mL/min (70-130); Calcium 6.6 mg/dL (7.8-10.44); Carbon Dioxide 24 mmol/L (22-29); Chloride 103 mmol/L (98-107); Glucose 264 mg/dL (70-105); Potassium 3.3 mmol/L (3.5-5.1); Sodium 141 mmol/L (136-145)
[2020-07-14] MEDS: Piperacillin/Tazobactam 2.25 GM in Sodium Chloride 0.9% 100 ML IVPB SCH ×3 (06:22→21:11)
--- NOTE | 2020-07-14 08:41 | RAD ---
ABDOMEN 1 VIEW: Date: 07/14/2020 HISTORY: Pulled out Dobbhoff tube again. Placement check. COMPARISON: Previous day. FINDINGS/IMPRESSION: The metallic tip of the feeding tube is directed superiorly in the left upper quadrant, likely within the gastric fundus. Remainder of findings are otherwise stable. POS: OFF
[2020-07-14] MEDS: Heparin 5,000 UNITS/ML VIAL SC SCH ×3 (09:43→21:11)
[2020-07-14] MEDS: Insulin Glargine 20 UNITS in Pre-Filled Syringe 1 EACH SC SCH (09:44)
[2020-07-14] MEDS: Ascorbic Acid 500 mg Chewable Tablet PO SCH (09:45)
[2020-07-14] MEDS: Zinc Sulfate 220 MG CAP PO SCH (09:45)
[2020-07-14] MEDS: Atorvastatin Calcium 10 MG TAB PO SCH (09:45)
[2020-07-14] MEDS: Dexamethasone 4 mg/ml Vial SLOW IVP SCH (09:46)
--- NOTE | 2020-07-14 12:48 | PDOC.HOSPP ---
- Subjective Encounter Date: 07/14/20 Encounter Time: 11:30 Subjective: Patient seen this morning. He appears quite somnolent but able to talk. Talked to the nurse. He has a Dobbhoff tube feed. Is tolerating well. He had 2 episodes of asymptomatic NSVT. - Objective Vital Signs & Weight: Vital Signs (12 hours) Temp Pulse Resp BP Pulse Ox 07/14/20 11:40 98.3 F 92 16 135/59 L 100 07/14/20 07:28 98.6 F 89 18 119/64 100 07/14/20 03:38 98.3 F 91 17 130/65 100 07/14/20 03:25 100 Weight Admit Weight 128 lb 8 oz Weight 128 lb 8.472 oz Most Recent Monitor Data Heart Rate from ECG 87 NIBP 160/131 NIBP BP-Mean 140 Respiration from ECG 31 SpO2 91 I&O: 07/13/20 07/14/20 07/15/20 06:59 06:59 06:59 Intake Total 958 1600 Output Total 600 Balance 958 1000 Result Diagrams: 07/14/20 04:54 07/14/20 04:54 Additional Labs: Accuchecks 07/14/20 07/13/20 07/13/20 11:35 23:37 18:00 POC Glucose 153 H 195 H 203 H 07/13/20 12:35 POC Glucose 285 H Hospitalist ROS - Medication Medications: Active Medications Generic Name Dose Route Start Last Admin Trade Name Freq PRN Reason Stop Dose Admin Ascorbic Acid 1,000 mg 07/07/20 09:00 07/14/20 09:45 Ascorbic Acid 500 Mg Chewable Tablet PO 1,000 mg DAILY CAROLYNN Administration Aspirin 300 mg 07/11/20 21:00 07/13/20 19:47 Aspirin 300 Mg Suppository SC 300 mg HS CAROLYNN Administration Atorvastatin Calcium 10 mg 07/07/20 09:00 07/14/20 09:45 Atorvastatin Calcium 10 Mg Tab PO 10 mg DAILY CAROLYNN Administration Cholecalciferol 5,000 units 07/06/20 21:00 07/13/20 19:47 Cholecalciferol 1,000 Units (25 Mcg) Tab PO 5,000 units HS CAROLYNN Administration Dexamethasone 6 mg 07/11/20 09:00 07/14/20 09:46 Dexamethasone 4 Mg/Ml Vial SLOW IVP 6 mg DAILY CAROLYNN Administration Dextrose/Water 25 gm 07/07/20 02:30 07/10/20 20:30 Dextrose 50% Abboject 50 Ml Syringe IVP 25 gm PRN PRN Administration HYPOGLYCEMIA PROTOCOL Epoetin Quincy-epbx 10,000 unit 07/08/20 12:15 07/08/20 13:48 Epoetin Quincy-Epbx (Esrd) 10,000 Unit/Ml Vial SC 10,000 unit Q7D CAROLYNN Administration Heparin Sodium (Porcine) 5,000 units 07/06/20 21:00 07/14/20 09:43 Heparin 5,000 Units/Ml Vial SC 5,000 units TID CAROLYNN Administration Dextrose/Water 1,000 mls @ 0 mls/hr 07/07/20 02:30 07/10/20 23:00 D5w IV 1,000 mls INF PRN Administration HYPOGLYCEMIA PROTOCOL As Directed Piperacillin Sod/Tazobactam 100 mls @ 200 mls/hr 07/10/20 14:00 07/14/20 06:22 Sod 2.25 gm/ Sodium Chloride IVPB 100 mls Q8HR CAROLYNN Administration Vancomycin HCl 500 mg/ Sodium 100 mls @ 100 mls/hr 07/10/20 14:15 07/13/20 16:01 Chloride IVPB 100 mls WILLCALL CAROLYNN Administration Insulin Glargine 15 units/ 0.15 mls @ 0 mls/hr 07/12/20 21:00 07/13/20 19:50 Miscellaneous Medication SC 0.15 mls HS CAROLYNN Administration Insulin Glargine 20 units/ 0.2 mls @ 0 mls/hr 07/13/20 09:00 07/14/20 09:44 Miscellaneous Medication SC 0.2 mls QAM CAROLYNN Administration Insulin Human Regular 0 units 07/07/20 02:30 07/13/20 23:50 Insulin Regular 300 Units/3 Ml Vial SC 3 unit .AGGRESSIVE SLIDING PRN Administration AGGRESSIVE SLIDING SCALE Protocol Sodium Chloride 10 ml 07/07/20 21:00 07/14/20 09:46 Flush - Normal Saline 10 Ml Syringe IVF 10 ml Q12HR CAROLYNN Administration Zinc Sulfate 220 mg 07/07/20 09:00 07/14/20 09:45 Zinc Sulfate 220 Mg Cap PO 220 mg DAILY CAROLYNN Administration - Exam General Appearance: awake alert, ill appearing Eye: PERRL, scleral icterus ENT: normocephalic atraumatic Neck: supple Heart: RRR, normal peripheral pulses Respiratory: CTAB, normal chest expansion Gastrointestinal: soft, normal bowel sounds Neurological: no focal deficits Psychiatric: A&O x 3 Hosp A/P - Plan 60 years old -Thai gentleman with multiple comorbidities including ESRD on PD, hypertension, dyslipidemia, congestive heart failure, who was recently discharged from the hospital for acute respiratory failure and altered mental status. Patient was transferred from [place] [facility], for evaluation of acute hypoxic respiratory failure. He was found to have severe short of breath and hypoxemia with O2 sat reportedly in the 70s. CTA was neg for PE. COVID-19 infection --Decadron - Oxygenation has improved. CRP trending down. Acute metabolic encephalopathy - much improved. --likely multifactorial. Mental status slowly improving. --CT showed no acute, but prior pontine infarction. Unable to obtain MRI or EEG d/t COVID positive --cont him on ASA SC, and statin when able to ronnie PO --cont supportive cares. ESRD on PD --Pt is temporarily converted PD to HD. Further mgt as per nephrology Diabetes type 2, insulin-dependent with hyperglycemia --Blood glucose has been labile. A1C 9.9. BG elevated, adjusted Lantus, cont ISS Dyslipidemia --cont statin Hypotension - resolved --hold BP meds, IVF Penile discharge --cultures positive for enterococcus and MRSA --cont Zosyn/Vanc to complete 1 week course. Sepsis d/t COVID-19 or above problem --poa, resolved. Moderate protein calorie malnutrition, POA --Patient has not been eating. started on TF as pt is NPO d/t his mental status and supplement his nutrition. SP is following. Full code
--- NOTE | 2020-07-14 17:36 | PRG ---
DATE OF SERVICE: 07/14/2020 SUBJECTIVE: Patient was seen and examined at bedside and overnight events noted. Patient denies any shortness of breath or chest pain or palpitation. No history of nausea or vomiting or diarrhea or fever or chills or cramps. OBJECTIVE: GENERAL: This is a well-built male, in no apparent distress. VITAL SIGNS: Temperature 97.8. Heart rate 80. Respiratory rate 20. Blood pressure 124/67. HEENT: Atraumatic, normocephalic. Oral mucosa is moist NECK: Supple. CARDIOVASCULAR: S1, S2 heard. Rate and rhythm regular. RESPIRATORY: Clear to auscultation. GASTROINTESTINAL: Abdomen is soft. MUSCULOSKELETAL: No tenderness. No edema. DERMATOLOGIC: No skin rash. NEUROLOGIC: Alert and awake and oriented X3. No focal neurologic deficits. Moving all the extremities. PSYCHIATRIC: Mood and affect normal. LABORATORY DATA: Potassium 3.3, BUN is 38, creatinine is 5.8. ASSESSMENT AND PLAN: 1. End-stage renal disease. The patient is seen during dialysis, tolerating dialysis well. He is more awake. 2. Altered mentation, much better. 3. Hypokalemia. 4. COVID-19 infection, resolved. 5. Edema, controlled. 6. Hypertension, stable. Overall tolerating hemodialysis well and is more awake. We will follow. Job ID: [id number]
[2020-07-14] MEDS: Cholecalciferol 1,000 UNITS (25 MCG) TAB PO SCH (21:11)
[2020-07-14] MEDS: Aspirin 300 MG Suppository PR SCH (21:11)
[2020-07-14] MEDS: Insulin Glargine 15 UNITS in Pre-Filled Syringe 1 EACH SC SCH (21:11)
--- NOTE | 2020-07-14 22:13 | RAD ---
Abdomen one view HISTORY: Dobbhoff feeding catheter placement. COMPARISON: Earlier exam on the same date. FINDINGS: Metallic tip of the Dobbhoff feeding catheter overlies the left upper quadrant, directed to wards the lateral margin of the gastric fundus, not significantly changed from the previous exam. Lung base infiltrates are unchanged. Lower abdomen is excluded from the image.
[2020-07-15 05:00] LABS: #Basophils 0.1 thou/uL (0.0-0.2); #Eosinphils 0.1 thou/uL (0.0-0.7); #Monocytes 0.5 thou/uL (0.11-0.59); #Neutrophils 10.5 thou/uL (1.40-6.50); %Basophils 0.5 % (0.0-1.0); %Eosinophils 0.5 % (0.0-10.0); %Lymphocytes 8.6 % (21.0-51.0); %Monocytes 3.9 % (0.0-10.0); %Neutrophils 86.5 % (42.0-75.0); Mean Corpuscular HGB CONC 31.4 g/dL (32.0-36.0); Mean Corpuscular Hemoglobin 28.6 pg (27.0-31.0); Mean Corpuscular Volume 91.2 fL (78.0-98.0); Mean Platelet Volume 10.2 fL (7.4-10.4); Platelet Count 197 thou/uL (130-400); RBC Distribution Width 15.3 % (11.5-14.5); White Blood Cell (WBC) Count 12.2 thou/uL (4.8-10.8)
[2020-07-15 05:10] LABS: Anion Gap 15 mmol/L (10-20); BUN (Urea Nitrogen) 33 mg/dL (8.4-25.7); CRP (Inflammatory) 8.46 mg/dL (= or < 0.5); Calc. Creatinine Clearance 12 mL/min (70-130); Calcium 6.5 mg/dL (7.8-10.44); Carbon Dioxide 29 mmol/L (22-29); Chloride 101 mmol/L (98-107); Glucose 299 mg/dL (70-105); Potassium 3.3 mmol/L (3.5-5.1); Sodium 142 mmol/L (136-145)
[2020-07-15] MEDS: Insulin Regular 300 UNITS/3 ML VIAL SC PRN ×3 (06:10→17:49)
[2020-07-15] MEDS: Piperacillin/Tazobactam 2.25 GM in Sodium Chloride 0.9% 100 ML IVPB SCH ×3 (06:15→21:24)
[2020-07-15] MEDS: Heparin 5,000 UNITS/ML VIAL SC SCH ×3 (09:13→19:49)
[2020-07-15] MEDS: Insulin Glargine 20 UNITS in Pre-Filled Syringe 1 EACH SC SCH (09:14)
[2020-07-15] MEDS: Dexamethasone 4 mg/ml Vial SLOW IVP SCH (09:16)
[2020-07-15] MEDS: Atorvastatin Calcium 10 MG TAB PO SCH (09:17)
[2020-07-15] MEDS: Ascorbic Acid 500 mg Chewable Tablet PO SCH (09:17)
[2020-07-15] MEDS: Zinc Sulfate 220 MG CAP PO SCH (09:17)
[2020-07-15 11:21] LABS: Vancomycin, Random 13.3 ug/mL (See Comment)
[2020-07-15] MEDS: EPOETIN ALFA-EPBX (ESRD) 10,000 UNIT/ML VIAL SC SCH (14:35)
--- NOTE | 2020-07-15 15:02 | PDOC.HOSPP ---
- Subjective Encounter Date: 07/15/20 Encounter Time: 14:35 Subjective: Patient is resting. He is satting around 96% with 4 L oxygen tolerating his Dobbhoff tube feed. We will check with the speech therapist tomorrow and if okay then hopefully we can start him on p.o. diet - Objective Vital Signs & Weight: Vital Signs (12 hours) Temp Pulse Resp BP Pulse Ox 07/15/20 12:00 98.6 F 91 16 128/60 96 07/15/20 07:45 98.6 F 91 20 124/59 L 100 07/15/20 03:05 98.5 F 91 17 125/60 99 Weight Admit Weight 128 lb 8 oz Weight 122 lb 9.232 oz Most Recent Monitor Data Heart Rate from ECG 87 NIBP 160/131 NIBP BP-Mean 140 Respiration from ECG 31 SpO2 91 I&O: 07/14/20 07/15/20 07/16/20 06:59 06:59 06:59 Intake Total 1600 1563 60 Output Total 600 Balance 1000 1563 60 Result Diagrams: 07/15/20 04:35 07/15/20 04:35 Additional Labs: Accuchecks 07/15/20 07/15/20 07/14/20 06:04 00:07 17:18 POC Glucose 295 H 182 H 135 H Hospitalist ROS - Medication Medications: Active Medications Generic Name Dose Route Start Last Admin Trade Name Mauricioq PRN Reason Stop Dose Admin Ascorbic Acid 1,000 mg 07/07/20 09:00 07/15/20 09:17 Ascorbic Acid 500 Mg Chewable Tablet PO 1,000 mg DAILY CAROLYNN Administration Aspirin 300 mg 07/11/20 21:00 07/14/20 21:11 Aspirin 300 Mg Suppository HI 300 mg HS CAROLYNN Administration Atorvastatin Calcium 10 mg 07/07/20 09:00 07/15/20 09:17 Atorvastatin Calcium 10 Mg Tab PO 10 mg DAILY CAROLYNN Administration Cholecalciferol 5,000 units 07/06/20 21:00 07/14/20 21:11 Cholecalciferol 1,000 Units (25 Mcg) Tab PO 5,000 units HS CAROLYNN Administration Dexamethasone 6 mg 07/11/20 09:00 07/15/20 09:16 Dexamethasone 4 Mg/Ml Vial SLOW IVP 6 mg DAILY CAROLYNN Administration Dextrose/Water 25 gm 07/07/20 02:30 07/10/20 20:30 Dextrose 50% Abboject 50 Ml Syringe IVP 25 gm PRN PRN Administration HYPOGLYCEMIA PROTOCOL Heparin Sodium (Porcine) 5,000 units 07/06/20 21:00 07/15/20 13:57 Heparin 5,000 Units/Ml Vial SC 5,000 units TID CAROLYNN Administration Dextrose/Water 1,000 mls @ 0 mls/hr 07/07/20 02:30 07/10/20 23:00 D5w IV 1,000 mls INF PRN Administration HYPOGLYCEMIA PROTOCOL As Directed Piperacillin Sod/Tazobactam 100 mls @ 200 mls/hr 07/10/20 14:00 07/15/20 13:53 Sod 2.25 gm/ Sodium Chloride IVPB 100 mls Q8HR CAROLYNN Administration Vancomycin HCl 500 mg/ Sodium 100 mls @ 100 mls/hr 07/10/20 14:15 07/13/20 16:01 Chloride IVPB 100 mls WILLCALL CAROLYNN Administration Insulin Glargine 15 units/ 0.15 mls @ 0 mls/hr 07/12/20 21:00 07/14/20 21:11 Miscellaneous Medication SC 0.15 mls HS CAROLYNN Administration Insulin Glargine 20 units/ 0.2 mls @ 0 mls/hr 07/13/20 09:00 07/15/20 09:14 Miscellaneous Medication SC 0.2 mls QAM CAROLYNN Administration Insulin Human Regular 0 units 07/07/20 02:30 07/15/20 14:03 Insulin Regular 300 Units/3 Ml Vial SC 9 unit .AGGRESSIVE SLIDING PRN Administration AGGRESSIVE SLIDING SCALE Protocol Sodium Chloride 10 ml 07/07/20 21:00 07/15/20 09:18 Flush - Normal Saline 10 Ml Syringe IVF 10 ml Q12HR CAROLYNN Administration Zinc Sulfate 220 mg 07/07/20 09:00 07/15/20 09:17 Zinc Sulfate 220 Mg Cap PO 220 mg DAILY CAROLYNN Administration - Exam General Appearance: NAD, awake alert, ill appearing Eye: PERRL, anicteric sclera ENT: normocephalic atraumatic Neck: supple Skin: normal turgor Neurological: cranial nerve grossly intact, no focal deficits Musculoskeletal: generalized weakness Psychiatric: A&O x 3 Hosp A/P - Plan 60 years old -[place] gentleman with multiple comorbidities including ES RD on PD, hypertension, dyslipidemia, congestive heart failure, who was recently discharged from the hospital for acute respiratory failure and altered mental status. Patient was transferred from [place] [facility], for evaluation of acute hypoxic respiratory failure. He was found to have severe short of breath and hypoxemia with O2 sat reportedly in the 70s. CTA was neg for PE. COVID-19 infection --Decadron - Oxygenation has improved. CRP trending down. Acute metabolic encephalopathy - much improved. --likely multifactorial. Mental status slowly improving. --CT showed no acute, but prior pontine infarction. Unable to obtain MRI or EEG d/t COVID positive --cont him on ASA HI, and statin when able to ronnie PO --cont supportive cares. ESRD on PD --Pt is temporarily converted PD to HD. Further mgt as per nephrology Diabetes type 2, insulin-dependent with hyperglycemia --Blood glucose has been labile. A1C 9.9. BG elevated, adjusted Lantus, cont ISS Dyslipidemia --cont statin Hypotension - resolved --hold BP meds, IVF Penile discharge --cultures positive for enterococcus and MRSA --cont Zosyn/Vanc to complete 1 week course. Sepsis d/t COVID-19 or above problem --poa, resolved. Moderate protein calorie malnutrition, POA --Patient has not been eating. started on TF as pt is NPO d/t his mental status and supplement his nutrition. SP is following. will check with the speech therapist tomorrow and if okay then hopefully we can start him on p.o. diet Full code
--- NOTE | 2020-07-15 16:18 | PRG ---
DATE OF SERVICE: 07/15/2020 SUBJECTIVE: The patient is on COVID isolation. OBJECTIVE: VITAL SIGNS: Temperature 98.6, pulse 71, respiratory rate 16, blood pressure 128/60. LABORATORY DATA: Potassium 3.3, BUN is 33, creatinine is 5.19. ASSESSMENT AND PLAN: 1. End-stage renal disease, on hemodialysis. Continue on hemodialysis Thursday, Thursday, and Thursday. The patient is doing PD at home, but could consider switching back to PD once the mentation is clear. Continue PD catheter care. 2. Anemia of chronic disease. 3. Edema. 4. Hypertension. 5. Altered mentation, better. 6. Currently on hemo, consider switching back to PD when mentation clears. We will follow. Mentation seems to be getting better. Job ID: [id number]
[2020-07-15] MEDS: Insulin Glargine 15 UNITS in Pre-Filled Syringe 1 EACH SC SCH (19:48)
[2020-07-15] MEDS: Cholecalciferol 1,000 UNITS (25 MCG) TAB PO SCH (19:50)
[2020-07-15] MEDS: Aspirin 300 MG Suppository PR SCH (19:50)
[2020-07-16] MEDS: Insulin Regular 300 UNITS/3 ML VIAL SC PRN ×3 (00:11→13:07)
[2020-07-16 05:12] LABS: #Eosinphils 0.1 thou/uL (0.0-0.7); #Monocytes 0.6 thou/uL (0.11-0.59); #Neutrophils 13.8 thou/uL (1.40-6.50); %Basophils 0.2 % (0.0-1.0); %Eosinophils 0.3 % (0.0-10.0); %Lymphocytes 6.6 % (21.0-51.0); %Neutrophils 88.9 % (42.0-75.0); Hemoglobin 8.1 g/dL (14.0-18.0); Mean Corpuscular HGB CONC 31.5 g/dL (32.0-36.0); Mean Corpuscular Hemoglobin 28.7 pg (27.0-31.0); Mean Corpuscular Volume 91.1 fL (78.0-98.0); Mean Platelet Volume 10.2 fL (7.4-10.4); Platelet Count 197 thou/uL (130-400); RBC Distribution Width 15.2 % (11.5-14.5); Red Blood Cell (RBC) Count 2.81 mill/uL (4.70-6.10); White Blood Cell (WBC) Count 15.5 thou/uL (4.8-10.8)
[2020-07-16 05:29] LABS: Anion Gap 17 mmol/L (10-20); BUN (Urea Nitrogen) 51 mg/dL (8.4-25.7); CRP (Inflammatory) 11.87 mg/dL (= or < 0.5); Calc. Creatinine Clearance 9 mL/min (70-130); Carbon Dioxide 27 mmol/L (22-29); Chloride 101 mmol/L (98-107); Glucose 174 mg/dL (70-105); Potassium 3.1 mmol/L (3.5-5.1); Sodium 142 mmol/L (136-145)
[2020-07-16] MEDS: Piperacillin/Tazobactam 2.25 GM in Sodium Chloride 0.9% 100 ML IVPB SCH ×3 (06:04→20:37)
--- NOTE | 2020-07-16 08:20 | PRG ---
DATE OF SERVICE: 07/16/2020 SUBJECTIVE: A 60-year-old gentleman, being seen for end-stage renal disease. The patient denies nausea, vomiting, or chest pain. OBJECTIVE: GENERAL: The patient is awake and alert. VITAL SIGNS: Afebrile, pulse 75, breathing at 16, blood pressure was 140/67. HEENT: Head normocephalic and atraumatic. Eyes intact, no ulcers. Nose intact, no ulcers. Ears intact, no ulcers. Neck: Supple. No JVD. Chest: Symmetrical and clear. Cardiovascular: Shows S1 and S2, no rub, no murmur. Gastrointestinal: Abdomen is soft, bowel sounds positive. Extremities: Show no edema or ulcers. Skin: Shows no rash or petechiae. Musculoskeletal: Shows no joint swelling or stiffness. Genitourinary: Shows no Duran or CVA tenderness. Neurologic: Motor intact. Cranial nerves intact. LABORATORY DATA: Reviewed. ASSESSMENT AND PLAN: 1. Stage 6 chronic kidney disease. Plan dialysis. 2. Hypertension, stable. 3. Anemia, stable. 4. Medication based on GFR appropriate. Job ID: [id number]
[2020-07-16] MEDS: Heparin 5,000 UNITS/ML VIAL SC SCH ×3 (08:56→20:37)
[2020-07-16] MEDS: Insulin Glargine 20 UNITS in Pre-Filled Syringe 1 EACH SC SCH (08:57)
[2020-07-16] MEDS: Atorvastatin Calcium 10 MG TAB PO SCH (08:59)
[2020-07-16] MEDS: Zinc Sulfate 220 MG CAP PO SCH (08:59)
[2020-07-16] MEDS: Ascorbic Acid 500 mg Chewable Tablet PO SCH (08:59)
[2020-07-16] MEDS: Dexamethasone 4 mg/ml Vial SLOW IVP SCH (08:59)
[2020-07-16] MEDS ORDERED: EPOETIN ALFA-EPBX (ESRD) 10,000 UNIT/ML VIAL IVP SCH ×2 (09:00→15:00)
--- NOTE | 2020-07-16 13:05 | PDOC.HOSPP ---
- Subjective Encounter Date: 07/16/20 Encounter Time: 09:20 Subjective: Patient seen this morning. He is resting. Tolerating Dobbhoff tube feed. Speech therapy evaluation reconsulted and see whether he would be able to swallow this time. If so then we can discontinue dubhoff tube - Objective Vital Signs & Weight: Vital Signs (12 hours) Temp Pulse Resp BP Pulse Ox 07/16/20 12:00 98.8 F 86 16 153/69 H 94 L 07/16/20 08:15 98.4 F 90 20 147/71 H 93 L 07/16/20 03:48 98.1 F 84 16 153/67 H 95 Weight Admit Weight 128 lb 8 oz Weight 122 lb 9.232 oz Most Recent Monitor Data Heart Rate from ECG 87 NIBP 160/131 NIBP BP-Mean 140 Respiration from ECG 31 SpO2 91 I&O: 07/15/20 07/16/20 07/17/20 06:59 06:59 06:59 Intake Total 1563 1707 60 Output Total 0 Balance 1563 1707 60 Result Diagrams: 07/16/20 04:56 07/16/20 04:56 Additional Labs: Accuchecks 07/16/20 07/16/20 07/15/20 12:02 00:13 17:39 POC Glucose 174 H 212 H 234 H Hospitalist ROS - Medication Medications: Active Medications Generic Name Dose Route Start Last Admin Trade Name Freq PRN Reason Stop Dose Admin Ascorbic Acid 1,000 mg 07/07/20 09:00 07/16/20 08:59 Ascorbic Acid 500 Mg Chewable Tablet PO 1,000 mg DAILY CAROLYNN Administration Aspirin 300 mg 07/11/20 21:00 07/15/20 19:50 Aspirin 300 Mg Suppository ME 300 mg HS CAROLYNN Administration Atorvastatin Calcium 10 mg 07/07/20 09:00 07/16/20 08:59 Atorvastatin Calcium 10 Mg Tab PO 10 mg DAILY CAROLYNN Administration Cholecalciferol 5,000 units 07/06/20 21:00 07/15/20 19:50 Cholecalciferol 1,000 Units (25 Mcg) Tab PO 5,000 units HS CAROLYNN Administration Dexamethasone 6 mg 07/11/20 09:00 07/16/20 08:59 Dexamethasone 4 Mg/Ml Vial SLOW IVP 6 mg DAILY CAROLYNN Administration Dextrose/Water 25 gm 07/07/20 02:30 07/10/20 20:30 Dextrose 50% Abboject 50 Ml Syringe IVP 25 gm PRN PRN Administration HYPOGLYCEMIA PROTOCOL Heparin Sodium (Porcine) 5,000 units 07/06/20 21:00 07/16/20 08:56 Heparin 5,000 Units/Ml Vial SC 5,000 units TID CAROLYNN Administration Dextrose/Water 1,000 mls @ 0 mls/hr 07/07/20 02:30 07/10/20 23:00 D5w IV 1,000 mls INF PRN Administration HYPOGLYCEMIA PROTOCOL As Directed Piperacillin Sod/Tazobactam 100 mls @ 200 mls/hr 07/10/20 14:00 07/16/20 06:04 Sod 2.25 gm/ Sodium Chloride IVPB 100 mls Q8HR CAROLYNN Administration Vancomycin HCl 500 mg/ Sodium 100 mls @ 100 mls/hr 07/10/20 14:15 07/13/20 16:01 Chloride IVPB 100 mls WILLCALL CAROLYNN Administration Insulin Glargine 15 units/ 0.15 mls @ 0 mls/hr 07/12/20 21:00 07/15/20 19:48 Miscellaneous Medication SC 0.15 mls HS CAROLYNN Administration Insulin Glargine 20 units/ 0.2 mls @ 0 mls/hr 07/13/20 09:00 07/16/20 08:57 Miscellaneous Medication SC 0.2 mls QAM CAROLYNN Administration Insulin Human Regular 0 units 07/07/20 02:30 07/16/20 06:04 Insulin Regular 300 Units/3 Ml Vial SC 3 unit .AGGRESSIVE SLIDING PRN Administration AGGRESSIVE SLIDING SCALE Protocol Sodium Chloride 10 ml 07/07/20 21:00 07/16/20 09:00 Flush - Normal Saline 10 Ml Syringe IVF 10 ml Q12HR CAROLYNN Administration Zinc Sulfate 220 mg 07/07/20 09:00 07/16/20 08:59 Zinc Sulfate 220 Mg Cap PO 220 mg DAILY CAROLYNN Administration - Exam General Appearance: NAD, awake alert Eye: PERRL ENT: normocephalic atraumatic Neck: supple Heart: RRR Respiratory: CTAB, normal chest expansion Gastrointestinal: soft, normal bowel sounds Neurological: cranial nerve grossly intact, no focal deficits Psychiatric: normal affect, A&O x 3 Hosp A/P - Plan 60 years old -[place] gentleman with multiple comorbidities including ESRD on PD, hypertension, dyslipidemia, congestive heart failure, who was recently discharged from the hospital for acute respiratory failure and altered mental status. Patient was transferred from [place] [facility], for evaluation of acute hypoxic respiratory failure. He was found to have severe short of breath and hypoxemia with O2 sat reportedly in the 70s. CTA was neg for PE. COVID-19 infection --Decadron - Oxygenation has improved. CRP trending down. Acute metabolic encephalopathy - much improved. --likely multifactorial. Mental status slowly improving. --CT showed no acute, but prior pontine infarction. Unable to obtain MRI or EEG d/t COVID positive --cont him on ASA ME, and statin when able to ronnie PO --cont supportive cares. ESRD on PD --Pt is temporarily converted PD to HD. Further mgt as per nephrology Diabetes type 2, insulin-dependent with hyperglycemia --Blood glucose has been labile. A1C 9.9. BG elevated, adjusted Lantus, cont ISS Dyslipidemia --cont statin Hypotension - resolved --hold BP meds, IVF Penile discharge --cultures positive for enterococcus and MRSA --cont Zosyn/Vanc to complete 1 week course. Sepsis d/t COVID-19 or above problem --poa, resolved. Moderate protein calorie malnutrition, POA --Patient has not been eating. started on TF as pt is NPO d/t his mental status and supplement his nutrition. SP is following. Reconsulted his speech therapy for evaluation. If so he can come off the Dobbhoff tube feed. Full code
[2020-07-16] MEDS: Aspirin 300 MG Suppository PR SCH (20:38)
--- NOTE | 2020-07-16 22:50 | RAD ---
Exam: 1 view abdomen COMPARISON: 07/14/2020 History: Evaluate Dobbhoff feeding tube placement. FINDINGS: Single view the abdomen demonstrates a Dobbhoff feeding tube in the gastric cardia. Reposit ioning and advancement is recommended. IMPRESSION: As above.
[2020-07-16 23:01] LABS: Hemoglobin 8.4 g/dL (14.0-18.0)
[2020-07-16 23:22] LABS: Anion Gap 13 mmol/L (10-20); BUN (Urea Nitrogen) 28 mg/dL (8.4-25.7); Calc. Creatinine Clearance 15 mL/min (70-130); Calcium 7.3 mg/dL (7.8-10.44); Carbon Dioxide 29 mmol/L (22-29); Chloride 100 mmol/L (98-107); Glucose 158 mg/dL (70-105); Magnesium 2.1 mg/dL (1.6-2.6); Potassium 3.4 mmol/L (3.5-5.1); Sodium 139 mmol/L (136-145)
[2020-07-16 23:25] LABS: Phosphorus 1.8 mg/dL (2.3-4.7)
[2020-07-16] MEDS: Cholecalciferol 1,000 UNITS (25 MCG) TAB PO SCH (23:59)
[2020-07-16] MEDS: Insulin Glargine 15 UNITS in Pre-Filled Syringe 1 EACH SC SCH (23:59)
[2020-07-17] MEDS: Piperacillin/Tazobactam 2.25 GM in Sodium Chloride 0.9% 100 ML IVPB SCH ×3 (05:30→20:42)
[2020-07-17 06:49] LABS: Anisocytosis MODERATE=16-30 cells (100X) (0-5/hpf); Band 15 % (5-11); Hemoglobin 7.9 g/dL (14.0-18.0); Lymphocytes 10 % (21-51); MDiff Complete? YES; Mean Corpuscular HGB CONC 32.3 g/dL (32.0-36.0); Mean Corpuscular Hemoglobin 29.7 pg (27.0-31.0); Mean Corpuscular Volume 92.1 fL (78.0-98.0); Mean Platelet Volume 10.6 fL (7.4-10.4); Monocytes 3 % (0-10); Neutrophil 70 % (42-75); Platelet Count 195 thou/uL (130-400); Platelet Morphology Comment Appears Adequate; Polychromasia SLIGHT = 2-3 cells (100X) (0-2/hpf); Reactive Lymphocytes 2 % (0-10); Red Blood Cell (RBC) Count 2.64 mill/uL (4.70-6.10); Schistocytes SLIGHT = 2-5 cells (100X) (0-1/hpf); White Blood Cell (WBC) Count 14.3 thou/uL (4.8-10.8)
[2020-07-17] MEDS: Insulin Glargine 20 UNITS in Pre-Filled Syringe 1 EACH SC SCH ×2 (08:26→12:00)
[2020-07-17] MEDS: Heparin 5,000 UNITS/ML VIAL SC SCH ×3 (08:26→20:46)
[2020-07-17] MEDS: Dexamethasone 4 mg/ml Vial SLOW IVP SCH (08:27)
--- NOTE | 2020-07-17 08:38 | RAD ---
EXAM: XR Abdomen 1 View/KUB PROVIDED CLINICAL HISTORY: Check placement of Dobbhoff feeding tube COMPARISON: November 15, 2019. FINDINGS: Dobbhoff feeding tube is again noted in place, but the tip now overlies the region of the expected lo cation of the distal body of the stomach. The gaseous distention of the stomach has improved from the prior exam. Drainage catheter overlies the pelvis. Vascular calcifications are seen in the abdomi nal aorta and iliac arteries. IMPRESSION: Dobbhoff feeding tube remains in place, but the tip now overlies the distal body of the stomach.
[2020-07-17 09:34] LABS: Vancomycin, Random 9.7 ug/mL (See Comment)
--- NOTE | 2020-07-17 11:27 | PRG ---
DATE OF SERVICE: 07/17/2020 SUBJECTIVE: A 60-year-old gentleman being seen for end-stage renal disease. The patient denied nausea, vomiting, or chest pain. PHYSICAL EXAMINATION: General: The patient is awake and alert. Vital Signs: Afebrile, pulse 75, breathing 16, blood pressure 135/64. HEENT: Head normocephalic and atraumatic. Eyes intact, no ulcers. Nose intact, no ulcers. Ears intact, no ulcers. Neck: Supple. No JVD. Chest: Symmetrical and clear. Cardiovascular: Shows S1 and S2, no rub, no murmur. Gastrointestinal: Abdomen is soft, bowel sounds positive. Extremities: Show no edema or ulcers. Skin: Shows no rash or petechiae. Musculoskeletal: Shows no joint swelling or stiffness. Genitourinary: Shows no Duran or CVA tenderness. Neurologic: Motor intact. Cranial nerves intact. LABORATORY DATA: Reviewed. ASSESSMENT AND PLAN: 1. Chronic kidney disease stage 6, continue hemodialysis. 2. Hypertension, stable. 3. Anemia, stable. 4. Medication based on GFR appropriate. Job ID: [id number]
[2020-07-17] MEDS: Ascorbic Acid 500 mg Chewable Tablet PO SCH (11:58)
[2020-07-17] MEDS: Atorvastatin Calcium 10 MG TAB PO SCH (11:58)
[2020-07-17] MEDS: Zinc Sulfate 220 MG CAP PO SCH (11:59)
--- NOTE | 2020-07-17 14:02 | PDOC.HOSPP ---
- Subjective Encounter Date: 07/17/20 Encounter Time: 09:40 Subjective: Patient failed the swallow study. We will continue with tube feed for now. - Objective Vital Signs & Weight: Vital Signs (12 hours) Temp Pulse Resp BP Pulse Ox 07/17/20 12:10 98.6 F 84 16 148/69 H 93 L 07/17/20 08:26 98.4 F 88 18 141/65 H 94 L 07/17/20 04:30 98.5 F 79 16 150/69 H 100 07/17/20 03:27 100 Weight Admit Weight 128 lb 8 oz Weight 122 lb 9.232 oz Most Recent Monitor Data Heart Rate from ECG 87 NIBP 160/131 NIBP BP-Mean 140 Respiration from ECG 31 SpO2 91 I&O: 07/16/20 07/17/20 07/18/20 06:59 06:59 06:59 Intake Total 1707 960 Output Total 0 Balance 1707 960 Result Diagrams: 07/17/20 04:51 07/16/20 22:44 Additional Labs: Accuchecks 07/17/20 07/17/20 07/17/20 12:08 05:34 00:12 POC Glucose 114 H 116 H 149 H 07/15/20 12:07 POC Glucose 280 H Hospitalist ROS - Medication Medications: Active Medications Generic Name Dose Route Start Last Admin Trade Name Freq PRN Reason Stop Dose Admin Ascorbic Acid 1,000 mg 07/07/20 09:00 07/17/20 11:58 Ascorbic Acid 500 Mg Chewable Tablet PO 1,000 mg DAILY CAROLYNN Administration Aspirin 300 mg 07/11/20 21:00 07/16/20 20:38 Aspirin 300 Mg Suppository ID 300 mg HS CAROLYNN Administration Atorvastatin Calcium 10 mg 07/07/20 09:00 07/17/20 11:58 Atorvastatin Calcium 10 Mg Tab PO 10 mg DAILY CAROLYNN Administration Cholecalciferol 5,000 units 07/06/20 21:00 07/16/20 23:59 Cholecalciferol 1,000 Units (25 Mcg) Tab PO Not Given HS CAROLYNN Dexamethasone 6 mg 07/11/20 09:00 07/17/20 08:27 Dexamethasone 4 Mg/Ml Vial SLOW IVP 6 mg DAILY CAROLYNN Administration Dextrose/Water 25 gm 07/07/20 02:30 07/10/20 20:30 Dextrose 50% Abboject 50 Ml Syringe IVP 25 gm PRN PRN Administration HYPOGLYCEMIA PROTOCOL Heparin Sodium (Porcine) 5,000 units 07/06/20 21:00 07/17/20 08:26 Heparin 5,000 Units/Ml Vial SC 5,000 units TID CAROLYNN Administration Dextrose/Water 1,000 mls @ 0 mls/hr 07/07/20 02:30 07/10/20 23:00 D5w IV 1,000 mls INF PRN Administration HYPOGLYCEMIA PROTOCOL As Directed Piperacillin Sod/Tazobactam 100 mls @ 200 mls/hr 07/10/20 14:00 07/17/20 05:30 Sod 2.25 gm/ Sodium Chloride IVPB 100 mls Q8HR CAROLYNN Administration Vancomycin HCl 500 mg/ Sodium 100 mls @ 100 mls/hr 07/10/20 14:15 07/13/20 16:01 Chloride IVPB 100 mls WILLCALL CAROLYNN Administration Insulin Glargine 15 units/ 0.15 mls @ 0 mls/hr 07/12/20 21:00 07/16/20 23:59 Miscellaneous Medication SC Not Given HS CAROLYNN Insulin Glargine 20 units/ 0.2 mls @ 0 mls/hr 07/13/20 09:00 07/17/20 12:00 Miscellaneous Medication SC 0.2 mls QAM CAROLYNN Administration Insulin Human Regular 0 units 07/07/20 02:30 07/16/20 13:07 Insulin Regular 300 Units/3 Ml Vial SC 3 unit .AGGRESSIVE SLIDING PRN Administration AGGRESSIVE SLIDING SCALE Protocol Sodium Chloride 10 ml 07/07/20 21:00 07/17/20 08:26 Flush - Normal Saline 10 Ml Syringe IVF 10 ml Q12HR CAROLYNN Administration Zinc Sulfate 220 mg 07/07/20 09:00 07/17/20 11:59 Zinc Sulfate 220 Mg Cap PO 220 mg DAILY CAROLYNN Administration - Exam General Appearance: NAD, awake alert Eye: PERRL ENT: normocephalic atraumatic Neck: supple Heart: RRR Respiratory: CTAB, normal chest expansion Gastrointestinal: soft, normal bowel sounds Neurological: no new deficit Musculoskeletal: generalized weakness Psychiatric: A&O x 3 Hosp A/P - Plan 60 years old -[place] gentleman with multiple comorbidities including ESRD on PD, hypertension, dyslipidemia, congestive heart failure, who was recently discharged from the hospital for acute respiratory failure and altered mental status. Patient was transferred from [place] [facility], for evaluation of acute hypoxic respiratory failure. He was found to have severe short of breath and hypoxemia with O2 sat reportedly in the 70s. CTA was neg for PE. COVID-19 infection --Decadron - Oxygenation has improved. CRP trending down. Acute metabolic encephalopathy - much improved. --likely multifactorial. Mental status slowly improving. --CT showed no acute, but prior pontine infarction. Unable to obtain MRI or EEG d/t COVID positive --cont him on ASA ID, and statin when able to ronnie PO --cont supportive cares. ESRD on PD --Pt is temporarily converted PD to HD. Further mgt as per nephrology Diabetes type 2, insulin-dependent with hyperglycemia --Blood glucose has been labile. A1C 9.9. BG elevated, adjusted Lantus, cont ISS Dyslipidemia --cont statin Hypotension - resolved --hold BP meds, IVF Penile discharge --cultures positive for enterococcus and MRSA --cont Zosyn/Vanc to complete 1 week course. Sepsis d/t COVID-19 or above problem --poa, resolved. Moderate protein calorie malnutrition, POA --Patient has not been eating. started on TF as pt is NPO d/t his mental status and supplement his nutrition. SP is following. Reconsulted his speech therapy for evaluation. If so he can come off the Dobbhoff tube feed. Full code failed speech eval. He may need to be on Dobbhoff tube feed for some time. Question is can we try to place him in the swing bed as I anticipate that his recovery could be delayed.
[2020-07-17] MEDS: Insulin Regular 300 UNITS/3 ML VIAL SC PRN (17:57)
[2020-07-17] MEDS: Aspirin 300 MG Suppository PR SCH (20:42)
--- NOTE | 2020-07-17 21:54 | RAD ---
Exam: Chest one view Abdomen 1 view HISTORY: Evaluate Dobbhoff feeding tube FINDINGS: Chest 1 view: Atherosclerosis aorta. Normal cardiac silhouette. Chronic changes of the lung parenchym a. Left lower lobe infiltrate is suspected. No pneumothorax or acute osseous abnormalities. Dobbhoff feeding tube extends beyond the diaphragm. Distal tip is not included 1 view abdomen: Nonspecific bowel gas pattern. Dobbhoff feeding tube is at the level of the gastric a ntrum. IMPRESSION: Dobbhoff feeding tube at the level of gastric antrum. Additional findings as above.
[2020-07-18] MEDS: Cholecalciferol 1,000 UNITS (25 MCG) TAB PO SCH ×3 (00:24→21:57)
[2020-07-18] MEDS: Insulin Glargine 15 UNITS in Pre-Filled Syringe 1 EACH SC SCH ×2 (00:47→22:07)
[2020-07-18] MEDS ORDERED: Ondansetron ODT 4 MG TAB PO PRN (01:44)
[2020-07-18] MEDS: Ondansetron PF 4 MG/2 ML Vial IVP PRN ×2 (01:53→10:39)
[2020-07-18] MEDS ORDERED: Pantoprazole 40 MG VIAL IVP SCH (02:00)
[2020-07-18] MEDS ORDERED: Sodium Chloride 0.9% (PF) 10 ML VIAL FS PRN (02:00)
[2020-07-18] MEDS ORDERED: Lidocaine 2% Viscous Solution 10 ML, Aluminum & Magnesium Hydroxide 30 ML SSW SCH (03:00)
[2020-07-18 03:33] LABS: #Basophils 0.1 thou/uL (0.0-0.2); #Lymphocytes 1.1 thou/uL (1.20-3.40); #Monocytes 0.6 thou/uL (0.11-0.59); #Neutrophils 12.3 thou/uL (1.40-6.50); %Basophils 0.5 % (0.0-1.0); %Eosinophils 0.3 % (0.0-10.0); %Lymphocytes 7.6 % (21.0-51.0); %Monocytes 4.3 % (0.0-10.0); %Neutrophils 87.3 % (42.0-75.0); Hemoglobin 8.1 g/dL (14.0-18.0); Mean Corpuscular HGB CONC 31.6 g/dL (32.0-36.0); Mean Corpuscular Hemoglobin 28.9 pg (27.0-31.0); Mean Corpuscular Volume 91.4 fL (78.0-98.0); Mean Platelet Volume 10.3 fL (7.4-10.4); Platelet Count 233 thou/uL (130-400); RBC Distribution Width 16.5 % (11.5-14.5)
[2020-07-18 03:52] LABS: ALT (SGPT) 28 U/L (8-55); AST (SGOT) 34 U/L (5-34); Albumin 2.4 g/dL (3.5-5.0); Alkaline Phosphatase 67 U/L (40-110); Anion Gap 17 mmol/L (10-20); BUN (Urea Nitrogen) 51 mg/dL (8.4-25.7); Bilirubin, Total 0.2 mg/dL (0.2-1.2); Calc. Creatinine Clearance 9 mL/min (70-130); Calcium 6.9 mg/dL (7.8-10.44); Carbon Dioxide 26 mmol/L (22-29); Chloride 101 mmol/L (98-107); Globulin 4.2 g/dL (2.4-3.5); Glucose 163 mg/dL (70-105); Potassium 3.3 mmol/L (3.5-5.1); Protein, Total 6.6 g/dL (6.0-8.3); Sodium 141 mmol/L (136-145)
[2020-07-18] MEDS ORDERED: Metoclopramide HCl 10 MG/2 ML VIAL IVP SCH (04:15)
[2020-07-18] MEDS ORDERED: Guaifenesin DM 100-10/5 ML UDCUP PO PRN (05:24)
[2020-07-18] MEDS: Piperacillin/Tazobactam 2.25 GM in Sodium Chloride 0.9% 100 ML IVPB SCH (05:44)
[2020-07-18] MEDS ORDERED: Potassium Chloride 20 MEQ TAB PO SCH (09:45)
[2020-07-18 10:02] LABS: #Monocytes 0.3 thou/uL (0.11-0.59); #Neutrophils 10.3 thou/uL (1.40-6.50); %Basophils 0.1 % (0.0-1.0); %Eosinophils 0.3 % (0.0-10.0); %Lymphocytes 8.3 % (21.0-51.0); %Monocytes 2.6 % (0.0-10.0); %Neutrophils 88.7 % (42.0-75.0); Hemoglobin 7.3 g/dL (14.0-18.0); Mean Corpuscular HGB CONC 31.7 g/dL (32.0-36.0); Mean Corpuscular Hemoglobin 28.7 pg (27.0-31.0); Mean Corpuscular Volume 90.4 fL (78.0-98.0); Mean Platelet Volume 10.6 fL (7.4-10.4); Platelet Count 232 thou/uL (130-400); RBC Distribution Width 16.8 % (11.5-14.5); Red Blood Cell (RBC) Count 2.54 mill/uL (4.70-6.10); White Blood Cell (WBC) Count 11.6 thou/uL (4.8-10.8)
[2020-07-18] MEDS: Atorvastatin Calcium 10 MG TAB PO SCH (10:33)
[2020-07-18] MEDS: Ascorbic Acid 500 mg Chewable Tablet PO SCH (10:33)
[2020-07-18] MEDS: Pantoprazole 40 MG VIAL IVP SCH ×2 (10:35→21:47)
[2020-07-18] MEDS: Zinc Sulfate 220 MG CAP PO SCH (10:35)
[2020-07-18] MEDS: Dexamethasone 4 mg/ml Vial SLOW IVP SCH (10:36)
[2020-07-18] MEDS: Insulin Glargine 20 UNITS in Pre-Filled Syringe 1 EACH SC SCH (10:36)
[2020-07-18] MEDS: Heparin 5,000 UNITS/ML VIAL SC SCH (10:43)
[2020-07-18] MEDS ORDERED: Potassium Chloride 40 MEQ in Sodium Chloride 0.9% 250 ML 250 ML IVPB SCH (11:00)
[2020-07-18 11:52] LABS: Actual Bicarbonate (HCO3a) 21.8 mEq/L (22-28); CO2 Tension 33.6 mmHg (35.0-45.0); Calcium, Ionized (arterial) 0.98 mmol/L (1.12-1.30); Carboxyhemoglobin (COHb) 0.3 gm% (0.0-3.0); Hemoglobin (Hb) 10.9 g/dL (14.0-18.0); Potassium - ABG Lab 3.67 mmol/L (3.70-5.30); pH, Arterial 7.43 (7.35-7.45)
[2020-07-18 11:56] LABS: O2 Tension (PaO2), arterial 44.4 mmHg (> 80.0); Puncture Site LRA
--- NOTE | 2020-07-18 12:45 | RAD ---
PORTABLE CHEST 1 VIEW: Date: 07/18/2020 Time: 1145 hours HISTORY: Respiratory distress. FINDINGS/IMPRESSION: Comparison made with exam of 07/11/2020. There has been interval placement of a feeding tube which can be traced into the stomach with tip exc luded from the film. The heart size is stable. Patchy opacities in the lungs bilaterally, left greate r than right, are again seen. No pneumothoraces or pleural effusions are identified. POS: AH
--- NOTE | 2020-07-18 13:03 | PRG ---
DATE OF SERVICE: 07/18/2020 TIME SPENT: 30 minutes of critical care time. SUBJECTIVE: I was asked to see this patient again because he is decompensated this morning. He is more hypoxic than he has been. I am told he has been vomiting some blood, although that is not apparent while I am examining him. OBJECTIVE: VITAL SIGNS: His O2 saturations were running in the 90s on 100% non-rebreather - poor waveform, temperature 98.9, pulse 110, and blood pressure 152/69. HEENT: Unremarkable. NECK: No JVD. LUNGS: Coarse breath sounds. CARDIAC: S1 and S2. Regular. ABDOMEN: Soft. EXTREMITIES: No edema. LABORATORY DATA: ABG, pH of 7.43, pCO2 of 33, and pO2 of 44 - I am not sure this is arterial or venous gas. White blood cell count 11.6, hematocrit 23.0, and platelet count 232. Sodium 141, potassium 3.3, chloride 101, CO2 of 26, BUN 51, creatinine 6.6, and glucose 163. Chest x-ray really does not look that much different from earlier. ASSESSMENT: 1. Increased dyspnea - cause not apparent. He may have some aspects of COVID or this could be fluid overloaded. 2. End-stage renal disease, requiring hemodialysis. 3. Hematemesis. PLAN: 1. Withhold aspirin and anticoagulation. 2. Trial of BiPAP. 3. The patient is presently on antibiotics. He has had 7 days, so I would advocate stopping those at this time. 4. Further disposition to follow. Job ID: [id number]
--- NOTE | 2020-07-18 13:07 | PDOC.HOSPP ---
- Subjective Encounter Date: 07/18/20 Encounter Time: 10:20 Subjective: Patient is in respiratory distress. He had an episode of emesis this morning about a tablespoon hemoglobin around 7.3. He is consistently on the low side hemoglobin for the last few days. Given the emesis I put him on PPI IV as well as unit transfusion. Later in the day he becomes more tachypneic blood gas shows hypoxia. X-ray showed bilateral opacity with the left greater than the right no pneumothorax or pleural effusion. - Objective Vital Signs & Weight: Vital Signs (12 hours) Temp Pulse Resp BP BP Pulse Ox 07/18/20 11:50 98.4 F 120 H 24 H 119/58 L 91 L 07/18/20 11:20 123/63 07/18/20 11:18 96/54 L 07/18/20 11:15 84/66 L 07/18/20 11:10 122 H 116/71 07/18/20 07:55 98.9 F 119 H 20 141/69 H 96 07/18/20 03:52 98.9 F 110 H 22 H 152/69 H 95 Weight Admit Weight 128 lb 8 oz Weight 122 lb 9.232 oz Most Recent Monitor Data Heart Rate from ECG 87 NIBP 160/131 NIBP BP-Mean 140 Respiration from ECG 31 SpO2 91 I&O: 07/17/20 07/18/20 07/19/20 06:59 06:59 06:59 Intake Total 960 1329 Output Total 1 Balance 960 1328 Result Diagrams: 07/18/20 09:21 07/18/20 03:00 Additional Labs: Accuchecks 07/18/20 07/18/20 07/18/20 12:02 05:47 00:06 POC Glucose 122 H 159 H 125 H 07/17/20 17:48 POC Glucose 236 H Hospitalist ROS - Medication Medications: Active Medications Generic Name Dose Route Start Last Admin Trade Name Freq PRN Reason Stop Dose Admin Ascorbic Acid 1,000 mg 07/07/20 09:00 07/18/20 10:33 Ascorbic Acid 500 Mg Chewable Tablet PO Not Given DAILY [facility] Atorvastatin Calcium 10 mg 07/07/20 09:00 07/18/20 10:33 Atorvastatin Calcium 10 Mg Tab PO Not Given DAILY CAROLYNN Cholecalciferol 5,000 units 07/06/20 21:00 07/18/20 00:24 Cholecalciferol 1,000 Units (25 Mcg) Tab PO 5,000 units HS CAROLYNN Administration Dexamethasone 6 mg 07/11/20 09:00 07/18/20 10:36 Dexamethasone 4 Mg/Ml Vial SLOW IVP 6 mg DAILY CAROLYNN Administration Dextrose/Water 25 gm 07/07/20 02:30 07/10/20 20:30 Dextrose 50% Abboject 50 Ml Syringe IVP 25 gm PRN PRN Administration HYPOGLYCEMIA PROTOCOL Guaifenesin/Dextromethorphan 5 ml 07/18/20 05:24 07/18/20 05:44 Guaifenesin Dm 100-10/5 Ml Udcup PO 5 ml Q4H PRN Administration Cough Dextrose/Water 1,000 mls @ 0 mls/hr 07/07/20 02:30 07/10/20 23:00 D5w IV 1,000 mls INF PRN Administration HYPOGLYCEMIA PROTOCOL As Directed Insulin Glargine 15 units/ 0.15 mls @ 0 mls/hr 07/12/20 21:00 07/18/20 00:47 Miscellaneous Medication SC Not Given HS [facility] Insulin Glargine 20 units/ 0.2 mls @ 0 mls/hr 07/13/20 09:00 07/18/20 10:36 Miscellaneous Medication SC Not Given QAM [facility] Insulin Human Regular 0 units 07/07/20 02:30 07/17/20 17:57 Insulin Regular 300 Units/3 Ml Vial SC 6 unit .AGGRESSIVE SLIDING PRN Administration AGGRESSIVE SLIDING SCALE Protocol Ondansetron HCl 4 mg 07/18/20 01:44 07/18/20 10:39 Ondansetron Pf 4 Mg/2 Ml Vial IVP 4 mg Q6H PRN Administration Nausea/Vomiting Pantoprazole Sodium 40 mg 07/18/20 09:00 07/18/20 10:35 Pantoprazole 40 Mg Vial IVP 40 mg BID CAROLYNN Administration Sodium Chloride 10 ml 07/07/20 21:00 07/18/20 10:35 Flush - Normal Saline 10 Ml Syringe IVF 10 ml Q12HR CAROLYNN Administration Zinc Sulfate 220 mg 07/07/20 09:00 07/18/20 10:35 Zinc Sulfate 220 Mg Cap PO Not Given DAILY CAROLYNN - Exam General Appearance: NAD, awake alert, ill appearing Eye: PERRL, anicteric sclera ENT: normocephalic atraumatic Neck: supple, no JVD Heart: RRR, normal peripheral pulses Respiratory: CTAB, normal chest expansion Gastrointestinal: soft Neurological: no focal deficits Musculoskeletal: generalized weakness Psychiatric: normal affect, normal behavior, A&O x 3 Hosp A/P - Plan 60 years old -[place] gentleman with multiple comorbidities including ESRD on PD, hypertension, dyslipidemia, congestive heart failure, who was recently discharged from the hospital for acute respiratory failure and altered mental status. Patient was transferred from [place] [facility], for evaluation of acute hypoxic respiratory failure. He was found to have severe short of breath and hypoxemia with O2 sat reportedly in the 70s. CTA was neg for PE. COVID-19 infection --Decadron - Oxygenation has improved. CRP trending down. Acute metabolic encephalopathy - much improved. --likely multifactorial. Mental status slowly improving. --CT showed no acute, but prior pontine infarction. Unable to obtain MRI or EEG d/t COVID positive --cont him on ASA CO, and statin when able to ronnie PO --cont supportive cares. ESRD on PD --Pt is temporarily converted PD to HD. Further mgt as per nephrology Diabetes type 2, insulin-dependent with hyperglycemia --Blood glucose has been labile. A1C 9.9. BG elevated, adjusted Lantus, cont ISS Dyslipidemia --cont statin Hypotension - resolved --hold BP meds, IVF Penile discharge --cultures positive for enterococcus and MRSA --cont Zosyn/Vanc to complete 1 week course. Sepsis d/t COVID-19 or above problem --poa, resolved. Moderate protein calorie malnutrition, POA --Patient has not been eating. started on TF as pt is NPO d/t his mental status and supplement his nutrition. SP is following. Reconsulted his speech therapy for evaluation. If so he can come off the Dobbhoff tube feed. Full code failed speech eval. He may need to be on Dobbhoff tube feed for some time. Question is can we try to place him in the swing bed as I anticipate that his r ecovery could be delayed. 16th Hematemesis, -?May be related to the Dobbhoff tube -Transfusing hemoglobin as he had low hemoglobin during the last few days and with emesis, will transfuse to be on the safe side -PPI IV twice daily, GI saw him very recently will reconsult them. -Heparin DVT prophylaxis as well as aspirin discontinued Hypoxia and worsening infiltrate in the left greater than the right - chest x- ray -Trial of BiPAP -Off antibiotics as he completed a course; he is afebrile and his white count is not highly elevated as it was trending down the last few days.
[2020-07-18] MEDS: EPOETIN ALFA-EPBX (ESRD) 10,000 UNIT/ML VIAL IVP SCH (13:15)
--- NOTE | 2020-07-18 16:06 | PDOC.BPN ---
- Brief Progress Note afib -he is noted to have heart rate in 120s and in A. fib. -We will schedule the IV Cardizem -patient is n.p.o. due to hematemesis; -Scheduled Cardizem is not controlling his heart rate we need to start him on Cardizem drip. Patient will likely be moved to [facility] given his respiratory distress. -Cannot anticoagulate given his hematemesis. -Getting 2D echo as well -cardiology consult placed.
[2020-07-18 16:18] LABS: Hemoglobin 8.1 g/dL (14.0-18.0)
[2020-07-19 07:55] LABS: Anion Gap 16 mmol/L (10-20); BUN (Urea Nitrogen) 51 mg/dL (8.4-25.7); Calc. Creatinine Clearance 10 mL/min (70-130); Calcium 6.8 mg/dL (7.8-10.44); Carbon Dioxide 29 mmol/L (22-29); Chloride 101 mmol/L (98-107); Glucose 133 mg/dL (70-105); Magnesium 2.1 mg/dL (1.6-2.6); Potassium 4.7 mmol/L (3.5-5.1); Sodium 141 mmol/L (136-145)
[2020-07-19 08:38] LABS: #Basophils 0.1 thou/uL (0.0-0.2); #Lymphocytes 1.2 thou/uL (1.20-3.40); #Monocytes 0.5 thou/uL (0.11-0.59); #Neutrophils 14.5 thou/uL (1.40-6.50); %Basophils 0.3 % (0.0-1.0); %Eosinophils 0.2 % (0.0-10.0); %Lymphocytes 7.5 % (21.0-51.0); %Monocytes 3.1 % (0.0-10.0); %Neutrophils 88.9 % (42.0-75.0); Hemoglobin 6.5 g/dL (14.0-18.0); Hypochromia SLIGHT = 6-15 cells (100X) (0-5/hpf); MDiff Complete? YES; Mean Corpuscular HGB CONC 31.4 g/dL (32.0-36.0); Mean Corpuscular Hemoglobin 28.9 pg (27.0-31.0); Mean Corpuscular Volume 91.8 fL (78.0-98.0); Mean Platelet Volume 9.7 fL (7.4-10.4); Platelet Count 221 thou/uL (130-400); Platelet Morphology Comment Appears Adequate; Polychromasia MODERATE = 3-4 cells (100X) (0-2/hpf); RBC Distribution Width 16.9 % (11.5-14.5); Red Blood Cell (RBC) Count 2.24 mill/uL (4.70-6.10); Schistocytes SLIGHT = 2-5 cells (100X) (0-1/hpf); White Blood Cell (WBC) Count 16.4 thou/uL (4.8-10.8)
[2020-07-19] MEDS: Atorvastatin Calcium 10 MG TAB PO SCH (09:14)
[2020-07-19] MEDS: Ascorbic Acid 500 mg Chewable Tablet PO SCH (09:14)
[2020-07-19] MEDS: Zinc Sulfate 220 MG CAP PO SCH (09:15)
--- NOTE | 2020-07-19 10:30 | PRG ---
DATE OF SERVICE: 07/19/2020 DISCUSSION: The patient is actually doing a little better today. OBJECTIVE: VITAL SINGS: He has not had his FiO2 weaned on his BiPAP, but he is saturating 100%. His temperature 97.8, pulse rate 77, and blood pressure 125/62. HEENT: Unremarkable. NECK: No adenopathy or JVD. LUNGS: Fairly clear anteriorly. CARDIAC: S1 and S2, regular. ABDOMEN: Soft. EXTREMITIES: Trace edema. LABORATORY DATA: Hemoglobin 6.5, hematocrit 20.6, white blood cell count 16.4, and platelet count 221. Sodium 141, potassium 4.7, chloride 101, CO2 of 29, BUN 51, creatinine 5.9, and glucose 133. ASSESSMENT: 1. Gastrointestinal bleeding. 2. COVID infection. 3. Acute hypoxic respiratory failure. PLAN: 1. I would recommend giving this patient some blood during dialysis. 2. Wean down to nasal cannula as tolerated. Job ID: [id number]
[2020-07-19] MEDS: Insulin Glargine 20 UNITS in Pre-Filled Syringe 1 EACH SC SCH (11:20)
[2020-07-19] MEDS: Dexamethasone 4 mg/ml Vial SLOW IVP SCH (11:22)
[2020-07-19] MEDS: Pantoprazole 40 MG VIAL IVP SCH ×2 (11:23→19:42)
--- NOTE | 2020-07-19 12:18 | PRG ---
DATE OF SERVICE: 07/19/2020 SUBJECTIVE: A 60-year-old gentleman, being seen for end-stage renal disease. The patient denied any nausea, vomiting, or chest pain. PHYSICAL EXAMINATION: General: The patient is awake and alert. Vital Signs: Afebrile, pulse 75, breathing at 16, blood pressure 125/62. HEENT: Head normocephalic and atraumatic. Eyes intact, no ulcers. Nose intact, no ulcers. Ears intact, no ulcers. Neck: Supple. No JVD. Chest: Symmetrical and clear. Cardiovascular: Shows S1 and S2, no rub, no murmur. Gastrointestinal: Abdomen is soft, bowel sounds positive. Extremities: Show no edema or ulcers. Skin: Shows no rash or petechiae. Musculoskeletal: Shows no joint swelling or stiffness. Genitourinary: Shows no Duran or CVA tenderness. Neurologic: Motor intact. Cranial nerves intact. LABORATORY DATA: Reviewed. ASSESSMENT AND PLAN: 1. Stage 6 chronic kidney disease, stable. 2. Hypertension, stable. 3. Anemia. We would recommend 2 units of packed red blood cell transfusion with dialysis. Job ID: [id number]
--- NOTE | 2020-07-19 13:20 | PRG ---
DATE OF SERVICE: 07/18/2020 SUBJECTIVE: A 60-year-old gentleman, being seen for end-stage renal disease. PHYSICAL EXAMINATION: General: The patient is resting. Vital Signs: Afebrile, pulse 75, breathing at 16, blood pressure 123/62. HEENT: Head normocephalic and atraumatic. Eyes intact, no ulcers. Nose intact, no ulcers. Ears intact, no ulcers. Neck: Supple. No JVD. Chest: Symmetrical and clear. Cardiovascular: Shows S1 and S2, no rub, no murmur. Gastrointestinal: Abdomen is soft, bowel sounds positive. Extremities: Show no edema or ulcers. Skin: Shows no rash or petechiae. Musculoskeletal: Shows no joint swelling or stiffness. Genitourinary: Shows no Duran or CVA tenderness. Neurologic: Motor intact. Cranial nerves intact. LABORATORY DATA: Reviewed. ASSESSMENT AND PLAN: 1. Stage 3 chronic kidney disease. Plan dialysis. 2. Hypertension, stable. 3. Anemia, stable. 4. Hypokalemia. Recommend high potassium bath. Job ID: [id number]
--- NOTE | 2020-07-19 14:02 | PDOC.HOSPP ---
- Subjective Encounter Date: 07/19/20 Encounter Time: 11:20 Subjective: Patient seen in the IMCU he looks much better he is conversing. He is not on BiPAP. He pulled off his Dobbhoff tube. He supposed to get dialysis today Thursday I believe the schedule. His hemoglobin dropped around 6.5 will give a unit transfusion. - Objective Vital Signs & Weight: Vital Signs (12 hours) Temp Pulse Pulse Ox 07/19/20 12:00 97.7 F 07/19/20 08:00 97.8 F 07/19/20 07:43 100 07/19/20 04:00 97.8 F 07/19/20 02:23 80 Weight Admit Weight 128 lb 8 oz Weight 122 lb 9.232 oz Most Recent Monitor Data Heart Rate from ECG 92 NIBP 124/57 NIBP BP-Mean 79 Respiration from ECG 17 SpO2 95 I&O: 07/18/20 07/19/20 07/20/20 06:59 06:59 06:59 Intake Total 1329 15 Output Total 1 Balance 1328 15 Result Diagrams: 07/19/20 07:16 07/19/20 07:16 Additional Labs: Accuchecks 07/19/20 07/19/20 07/19/20 13:50 06:33 00:18 POC Glucose 113 H 139 H 239 H 07/18/20 07/18/20 22:04 18:04 POC Glucose 220 H 170 H Hospitalist ROS - Medication Medications: Active Medications Generic Name Dose Route Start Last Admin Trade Name Freq PRN Reason Stop Dose Admin Ascorbic Acid 1,000 mg 07/07/20 09:00 07/19/20 09:14 Ascorbic Acid 500 Mg Chewable Tablet PO Not Given DAILY CAROLYNN Atorvastatin Calcium 10 mg 07/07/20 09:00 07/19/20 09:14 Atorvastatin Calcium 10 Mg Tab PO Not Given DAILY CAROLYNN Cholecalciferol 5,000 units 07/06/20 21:00 07/18/20 21:57 Cholecalciferol 1,000 Units (25 Mcg) Tab PO Not Given HS CAROLYNN Dexamethasone 6 mg 07/11/20 09:00 07/19/20 11:22 Dexamethasone 4 Mg/Ml Vial SLOW IVP 6 mg DAILY CAROLYNN Administration Dextrose/Water 25 gm 07/07/20 02:30 07/10/20 20:30 Dextrose 50% Abboject 50 Ml Syringe IVP 25 gm PRN PRN Administration HYPOGLYCEMIA PROTOCOL Diltiazem HCl 15 mg 07/18/20 17:00 07/19/20 13:23 Diltiazem Hcl 25 Mg/5 Ml Vial SLOW IVP 15 mg QID CAROLYNN Administration Epoetin Quincy-epbx 10,000 unit 07/18/20 09:00 07/18/20 13:15 Epoetin Quincy-Epbx (Esrd) 10,000 Unit/Ml Vial IVP Not Given MWF CAROLYNN Guaifenesin/Dextromethorphan 5 ml 07/18/20 05:24 07/18/20 05:44 Guaifenesin Dm 100-10/5 Ml Udcup PO 5 ml Q4H PRN Administration Cough Dextrose/Water 1,000 mls @ 0 mls/hr 07/07/20 02:30 07/10/20 23:00 D5w IV 1,000 mls INF PRN Administration HYPOGLYCEMIA PROTOCOL As Directed Insulin Glargine 15 units/ 0.15 mls @ 0 mls/hr 07/12/20 21:00 07/18/20 22:07 Miscellaneous Medication SC 0.15 mls HS CAROLYNN Administration Insulin Glargine 20 units/ 0.2 mls @ 0 mls/hr 07/13/20 09:00 07/19/20 11:20 Miscellaneous Medication SC Not Given [facility] Insulin Human Regular 0 units 07/07/20 02:30 07/17/20 17:57 Insulin Regular 300 Units/3 Ml Vial SC 6 unit .AGGRESSIVE SLIDING PRN Administration AGGRESSIVE SLIDING SCALE Protocol Ondansetron HCl 4 mg 07/18/20 01:44 07/18/20 10:39 Ondansetron Pf 4 Mg/2 Ml Vial IVP 4 mg Q6H PRN Administration Nausea/Vomiting Pantoprazole Sodium 40 mg 07/18/20 09:00 07/19/20 11:23 Pantoprazole 40 Mg Vial IVP 40 mg BID CAROLYNN Administration Sodium Chloride 10 ml 07/07/20 21:00 07/19/20 11:23 Flush - Normal Saline 10 Ml Syringe IVF 10 ml Q12HR CAROLYNN Administration Zinc Sulfate 220 mg 07/07/20 09:00 07/19/20 09:15 Zinc Sulfate 220 Mg Cap PO Not Given DAILY CAROLYNN - Exam General Appearance: NAD, awake alert Eye: PERRL ENT: normocephalic atraumatic Neck: supple Heart: RRR, normal peripheral pulses Respiratory: CTAB, normal chest expansion Gastrointestinal: soft, normal bowel sounds Neurological: no focal deficits Musculoskeletal: generalized weakness Psychiatric: A&O x 3 Hosp A/P - Plan 60 years old -[place] gentleman with multiple comorbidities including ESRD on PD, hypertension, dyslipidemia, congestive heart failure, who was recently discharged from the hospital for acute respiratory failure and altered mental status. Patient was transferred from [place] [facility], for evaluation of acute hypoxic respiratory failure. He was found to have severe short of breath and hypoxemia with O2 sat reportedly in the 70s. CTA was neg for PE. COVID-19 infection --Decadron - Oxygenation has improved. CRP trending down. Acute metabolic encephalopathy - much improved. --likely multifactorial. Mental status slowly improving. --CT showed no acute, but prior pontine infarction. Unable to obtain MRI or EEG d/t COVID positive --cont him on ASA [place], and statin when able to ronnie PO --cont supportive cares. ESRD on PD --Pt is temporarily converted PD to HD. Further mgt as per nephrology Diabetes type 2, insulin-dependent with hyperglycemia --Blood glucose has been labile. A1C 9.9. BG elevated, adjusted Lantus, cont ISS Dyslipidemia --cont statin Hypotension - resolved --hold BP meds, IVF Penile discharge --cultures positive for enterococcus and MRSA --cont Zosyn/Vanc to complete 1 week course. Sepsis d/t COVID-19 or above problem --poa, resolved. Moderate protein calorie malnutrition, POA --Patient has not been eating. started on TF as pt is NPO d/t his mental status and supplement his nutrition. SP is following. Reconsulted his speech therapy for evaluation. If so he can come off the Dobbhoff tube feed. Full code failed speech eval. He may need to be on Dobbhoff tube feed for some time. Question is can we try to place him in the swing bed as I anticipate that his recovery could be delayed. 16th Hematemesis, -?May be related to the Dobbhoff tube -Transfusing hemoglobin as he had low hemoglobin during the last few days and with emesis, will transfuse to be on the safe side -PPI IV twice daily, GI saw him very recently will reconsult them. -Heparin DVT prophylaxis as well as aspirin discontinued Hypoxia and worsening infiltrate in the left greater than the right - chest x- ray -Trial of BiPAP -Off antibiotics as he completed a course; he is afebrile and his white count is not highly elevated as it was trending down the last few days. 17th He looks much better-- he is off BiPAP. GI consult pending. He will get 1 unit transfusion today. After the GI consult evaluation he can possibly transfer back to medical floor.
[2020-07-19] MEDS: Cholecalciferol 1,000 UNITS (25 MCG) TAB PO SCH (19:13)
[2020-07-19] MEDS: Insulin Glargine 15 UNITS in Pre-Filled Syringe 1 EACH SC SCH (19:43)
--- NOTE | 2020-07-20 02:34 | CON ---
DATE OF CONSULTATION: 07/19/2020 REASON FOR CONSULTATION: Hematemesis. HISTORY OF PRESENT ILLNESS: Randall Montero is a very pleasant 60-year-old man with a history of end-stage renal disease and CHF, on peritoneal dialysis. He has had multiple recent hospitalizations here last month. During hospitalization with CHF exacerbation, he was found to have significant anemia and underwent EGD on 06/21/2020. This showed LA grade D erosive esophagitis as well as a 7 mm ulcer in the greater curvature of the gastric body. Gastric biopsies were negative for H pylori. The patient was readmitted here on 07/06/2020, a couple of weeks ago, with hypoxic respiratory failure and found to have COVID pneumonia. Over the past couple of weeks this admission, he has been treated aggressively with Decadron, antibiotics. He has required varying levels of respiratory support. He had failed a swallow study and has been getting feeds per a Dobbhoff tube. Yesterday, the patient somewhat acutely had worsening shortness of breath and respiratory status was found to be in atrial fibrillation with RVR and had several episodes of hematemesis. He pulled out his Dobbhoff tube. He had to be transferred to the [facility] and was placed on BiPAP through this morning. Laboratory studies this morning showed hemoglobin had declined from 8.1 down to 6.5 with baseline over the past week basically ranging between 8 and 9. He did not have any melena noted. He has not had any further hematemesis over the course of today. His respiratory status is dramatically improved. He is now just on nasal cannula oxygen and not having any respiratory distress. He is wide awake and not complaining of any abdominal pain or nausea at this time. He has remained n.p.o. as he has not been cleared by Speech for safe swallow and they were unable to re-evaluate him today. REVIEW OF SYSTEMS: Full review of systems including constitutional, head, eyes, ears, nose, throat, GI, , cardiovascular, respiratory, musculoskeletal, and neurologic systems is negative except as noted in the HPI. PAST MEDICAL HISTORY: Diabetes; chronic renal failure, now on peritoneal dialysis; congestive heart failure; hypertensive urgency; peritoneal dialysis catheter placement; and right hemicolectomy. SOCIAL HISTORY: He is a former smoker. Drinks socially. FAMILY HISTORY: Noncontributory. ALLERGIES: NO KNOWN DRUG ALLERGIES. CURRENT MEDICATIONS: 1. Vitamin C. 2. Lipitor. 3. Vitamin D3. 4. Decadron 6 mg IV daily. 5. Diltiazem IV q.i.d. 6. Robitussin. 7. Zofran. 8. Protonix 40 mg IV b.i.d. PHYSICAL EXAMINATION: VITAL SIGNS: Temperature 98.0, pulse 83, blood pressure 125/63, and 100% oxygen saturation on 5 L nasal cannula. GENERAL: A 60-year-old man, sitting up in bed comfortably, in no distress. MENTAL: He is alert, pleasant, and conversational. He is in no distress. SKIN: No jaundice. No rashes were palpable. EYES: No scleral icterus. Extraocular movements intact. ENT: Mucous membranes moist. No oral lesions. LYMPH: No submandibular or supraclavicular lymphadenopathy. THYROID: Nontender to palpation. HEART: bibasilar crackles, but no respiratory distress. ABDOMEN: Soft. Bowel sounds present. Nontender to palpation. EXTREMITIES: No peripheral edema. VESSELS: Radial pulses 2+ bilaterally. NEUROLOGIC: Cranial nerves 2 through 12 intact bilaterally. No focal deficits. LABORATORY STUDIES: Hemoglobin 6.5, this is down from 8.1 the day prior. WBC 16.4, platelets 221. He did get 1 unit of RBCs today. BUN 51, creatinine 5.90, sodium 141, potassium 4.7. TSH 1.97. LFTs normal with total bilirubin 0.2, alkaline phosphatase 67, AST 34, ALT 28. Ferritin elevated to 2745. CRP elevated to 11.87. COVID PCR was positive on admission. ASSESSMENT AND PLAN: 1. Acute hematemesis yesterday, has resolved today. 2. Acute on chronic anemia. He is status post 1 unit RBC transfusion today. There has been no further evidence of overt bleeding and he has remained hemodynamically stable. 3. Gastric ulcer, visualized on June 2020 EGD. 4. LA grade D erosive esophagitis, visualized on recent June 2020 EGD. 5. Severe COVID pneumonia. The patient had several episodes of hematemesis yesterday and indeed a drop in his hemoglobin at that time, but there has been no further evidence of any overt bleeding today. He does not have any symptoms of nausea or abdominal pain at this time. There has been no melena. I think the bleeding has likely resolved. This was probably related to his known erosive esophagitis or possibly that a small gastric ulcer, versus irritation from the Dobbhoff tube, which has now been discontinued. The patient does need to stay on IV PPI 40 mg every 12 hours for the remainder of this hospitalization, and on discharge needs to stay on PPI twice daily, but we are not going to plan on any repeat endoscopy at this time, as the risks would certainly outweigh the potential benefit with low probability of any endoscopically treatable lesion. Continue to trend H and H, and transfuse as needed. We can follow along tomorrow. Monitor for any signs of recurrent bleeding. 6. Oropharyngeal dysphagia. The patient had been receiving feeds per Dobbhoff tube, but this was discontinued yesterday. The patient is feeling hungry. He is going to need repeat speech pathology evaluation tomorrow, and will hopefully be able to start taking diet orally. I would prefer to avoid repeat Dobbhoff tube placement if possible, given his erosive esophagitis and gastric ulcer, but this could be done if needed based on speech pathology recommendations. Thank you for the consultation. Please call anytime with questions or concerns. Job ID: [id number]
[2020-07-20 04:33] LABS: Anion Gap 23 mmol/L (10-20); BUN (Urea Nitrogen) 69 mg/dL (8.4-25.7); Calc. Creatinine Clearance 8 mL/min (70-130); Calcium 6.7 mg/dL (7.8-10.44); Carbon Dioxide 22 mmol/L (22-29); Chloride 99 mmol/L (98-107); Glucose 210 mg/dL (70-105); Magnesium 2.3 mg/dL (1.6-2.6); Potassium 5.7 mmol/L (3.5-5.1); Sodium 138 mmol/L (136-145)
[2020-07-20 05:14] LABS: #Lymphocytes 0.6 thou/uL (1.20-3.40); #Monocytes 0.2 thou/uL (0.11-0.59); #Neutrophils 11.6 thou/uL (1.40-6.50); %Basophils 0.1 % (0.0-1.0); %Eosinophils 0.1 % (0.0-10.0); %Lymphocytes 4.8 % (21.0-51.0); %Monocytes 1.8 % (0.0-10.0); %Neutrophils 93.2 % (42.0-75.0); Mean Corpuscular HGB CONC 32.9 g/dL (32.0-36.0); Mean Corpuscular Volume 88.4 fL (78.0-98.0); Mean Platelet Volume 9.8 fL (7.4-10.4); Platelet Count 196 thou/uL (130-400); RBC Distribution Width 16.5 % (11.5-14.5); Red Blood Cell (RBC) Count 2.77 mill/uL (4.70-6.10); White Blood Cell (WBC) Count 12.4 thou/uL (4.8-10.8)
--- NOTE | 2020-07-20 08:36 | RAD ---
AP CHEST: HISTORY: Pneumonia. CCU followup. COMPARISON: 07/18/2020. FINDINGS: Interstitial and hazy alveolar infiltrates are again seen in the left mid and lower lung and in the r ight lower lung. The NG tube has been removed. No significant change in appearance of the lung morgan. POS: AGW
[2020-07-20] MEDS: Atorvastatin Calcium 10 MG TAB PO SCH (09:20)
[2020-07-20] MEDS: Ascorbic Acid 500 mg Chewable Tablet PO SCH (09:20)
[2020-07-20] MEDS: Zinc Sulfate 220 MG CAP PO SCH (09:20)
[2020-07-20] MEDS: Insulin Glargine 20 UNITS in Pre-Filled Syringe 1 EACH SC SCH (09:21)
[2020-07-20] MEDS: Dexamethasone 4 mg/ml Vial SLOW IVP SCH (09:21)
[2020-07-20] MEDS: Pantoprazole 40 MG VIAL IVP SCH ×2 (09:22→19:38)
[2020-07-20] MEDS ORDERED: Dexamethasone 4 mg/ml Vial SLOW IVP SCH (10:31)
--- NOTE | 2020-07-20 10:34 | PDOC.HOSPP ---
- Subjective Encounter Date: 07/20/20 Encounter Time: 10:20 Subjective: Patient doing well. Speech therapy recommended we can start him on pured diet with honey thick nectar liquid consistency he is stable to come to the telemetry. He lives with the family. I think he would benefit with the going to the rehab when we are ready to discharge him. On the other hand, being Covid positive he would not be able to find the placement - Objective Vital Signs & Weight: Vital Signs (12 hours) Temp Pulse Ox 07/20/20 08:00 98.1 F 07/20/20 07:18 97 07/20/20 04:00 97.8 F 07/20/20 00:00 98.2 F Weight Admit Weight 128 lb 8 oz Weight 122 lb 9.232 oz Most Recent Monitor Data Heart Rate from ECG 84 NIBP 140/65 NIBP BP-Mean 90 Respiration from ECG 23 SpO2 100 I&O: 07/19/20 07/20/20 07/21/20 06:59 06:59 06:59 Intake Total 15 870 Output Total 0 Balance 15 870 Result Diagrams: 07/20/20 03:53 07/20/20 03:53 Additional Labs: Accuchecks 07/20/20 07/19/20 07/19/20 05:43 17:22 13:50 POC Glucose 187 H 126 H 113 H Hospitalist ROS - Medication Medications: Active Medications Generic Name Dose Route Start Last Admin Trade Name Freq PRN Reason Stop Dose Admin Ascorbic Acid 1,000 mg 07/07/20 09:00 07/20/20 09:20 Ascorbic Acid 500 Mg Chewable Tablet PO Not Given DAILY CAROLYNN Atorvastatin Calcium 10 mg 07/07/20 09:00 07/20/20 09:20 Atorvastatin Calcium 10 Mg Tab PO Not Given DAILY CAROLYNN Cholecalciferol 5,000 units 07/06/20 21:00 07/19/20 19:13 Cholecalciferol 1,000 Units (25 Mcg) Tab PO Not Given HS CAROLYNN Dexamethasone 6 mg 07/11/20 09:00 07/20/20 09:21 Dexamethasone 4 Mg/Ml Vial SLOW IVP 6 mg DAILY CAROLYNN Administration Dextrose/Water 25 gm 07/07/20 02:30 07/10/20 20:30 Dextrose 50% Abboject 50 Ml Syringe IVP 25 gm PRN PRN Administration HYPOGLYCEMIA PROTOCOL Diltiazem HCl 15 mg 07/18/20 17:00 07/20/20 09:21 Diltiazem Hcl 25 Mg/5 Ml Vial SLOW IVP 15 mg QID CAROLYNN Administration Epoetin Quincy-epbx 10,000 unit 07/18/20 09:00 07/18/20 13:15 Epoetin Quincy-Epbx (Esrd) 10,000 Unit/Ml Vial IVP Not Given MWF CAROLYNN Guaifenesin/Dextromethorphan 5 ml 07/18/20 05:24 07/18/20 05:44 Guaifenesin Dm 100-10/5 Ml Udcup PO 5 ml Q4H PRN Administration Cough Dextrose/Water 1,000 mls @ 0 mls/hr 07/07/20 02:30 07/10/20 23:00 D5w IV 1,000 mls INF PRN Administration HYPOGLYCEMIA PROTOCOL As Directed Insulin Glargine 15 units/ 0.15 mls @ 0 mls/hr 07/12/20 21:00 07/19/20 19:43 Miscellaneous Medication SC Not Given HS [facility] Insulin Glargine 20 units/ 0.2 mls @ 0 mls/hr 07/13/20 09:00 07/20/20 09:21 Miscellaneous Medication SC 0.2 mls QAM CAROLYNN Administration Insulin Human Regular 0 units 07/07/20 02:30 07/17/20 17:57 Insulin Regular 300 Units/3 Ml Vial SC 6 unit .AGGRESSIVE SLIDING PRN Administration AGGRESSIVE SLIDING SCALE Protocol Ondansetron HCl 4 mg 07/18/20 01:44 07/18/20 10:39 Ondansetron Pf 4 Mg/2 Ml Vial IVP 4 mg Q6H PRN Administration Nausea/Vomiting Pantoprazole Sodium 40 mg 07/18/20 09:00 07/20/20 09:22 Pantoprazole 40 Mg Vial IVP 40 mg BID CAROLYNN Administration Sodium Chloride 10 ml 07/07/20 21:00 07/20/20 09:23 Flush - Normal Saline 10 Ml Syringe IVF 10 ml Q12HR CAROLYNN Administration Zinc Sulfate 220 mg 07/07/20 09:00 07/20/20 09:20 Zinc Sulfate 220 Mg Cap PO Not Given DAILY CAROLYNN - Exam General Appearance: NAD, awake alert Eye: PERRL, anicteric sclera ENT: normocephalic atraumatic Neck: supple Heart: RRR, normal peripheral pulses Respiratory: CTAB, normal chest expansion Gastrointestinal: soft, normal bowel sounds Neurological: cranial nerve grossly intact, no focal deficits Psychiatric: normal affect, A&O x 3 Hosp A/P - Plan 60 years old -[place] gentleman with multiple comorbidities including ESRD on PD, hypertension, dyslipidemia, congestive heart failure, who was recently discharged from the hospital for acute respiratory failure and altered mental status. Patient was transferred from [place] [facility], for evaluation of acute hypoxic respiratory failure. He was found to have severe short of breath and hypoxemia with O2 sat reportedly in the 70s. CTA was neg for PE. COVID-19 infection Sepsis d/t COVID-19 or above problem --poa, resolved. --Decadron - Oxygenation has improved. CRP trending down. Acute metabolic encephalopathy - much improved. --likely multifactorial. Mental status slowly improving. --CT showed no acute, but prior pontine infarction. Unable to obtain MRI or EEG d/t COVID positive --cont him on ASA [place], and statin when able to ronnie PO --cont supportive cares. ESRD on PD --Pt is temporarily converted PD to HD. Further mgt as per nephrology Diabetes type 2, insulin-dependent with hyperglycemia --Blood glucose has been labile. A1C 9.9. BG elevated, adjusted Lantus, cont ISS Dyslipidemia --cont statin Hypotension - resolved --hold BP meds, IVF Penile discharge --cultures positive for enterococcus and MRSA --cont Zosyn/Vanc to complete 1 week course. Moderate protein calorie malnutrition, POA -Status post Dobbhoff tube feed 18th Hematemesis, History of erosive esophagitis with the recent EGD; gastric ulcer cannot be ruled out; follow H&H closely. -?May be related to the irritation from the Dobbhoff tube--he pulled out.cara -PPI IV twice daily, -and when we are ready to discharge him he needs to be on IV PPI p.o. twice a day Speech therapy recommended we can start him on pured diet with honey thick nectar liquid consistency he is stable to come to the telemetry. dispo - He lives with the family. I think he would benefit with the going to the rehab when we are ready to discharge him. On the other hand, being Covid positive he would not be able to find the placement.
--- NOTE | 2020-07-20 10:45 | PRG ---
DATE OF SERVICE: 07/20/2020 Mr. Montero is doing fantastically well this morning. He is eating. He is on oxygen at 2 L nasal cannula and looks comfortable. He has not required BiPAP since yesterday. OBJECTIVE: VITAL SIGNS: Temperature 98.1, pulse 84, blood pressure 140/65. HEENT: Unremarkable. NECK: No JVD. CHEST: Clear. CARDIAC: S1 and S2, regular. ABDOMEN: Soft. EXTREMITIES: No edema. LABORATORY DATA: Sodium 138, potassium 5.7, BUN 69, creatinine 7.3, glucose 210. White blood cell count 12.4, hematocrit 24.4, and platelet count 196. His x-ray is clearing. ASSESSMENT: 1. COVID-19 pneumonia. 2. Hypoxemia, which probably was not secondary to the COVID but rather related to fluid status. 3. Chronic renal failure. PLAN: 1. He can transfer back to telemetry. 2. Dialysis today with fluid removal. 3. Increase activity as tolerated. 4. Start weaning steroids. Job ID: [id number]
--- NOTE | 2020-07-20 10:54 | PRG ---
DATE OF SERVICE: 07/20/2020 SUBJECTIVE: 60-year-old gentleman being seen for end-stage renal disease. Patient denies any nausea, vomiting, or chest pain. PHYSICAL EXAMINATION: GENERAL: Patient is awake and alert. VITAL SIGNS: Afebrile. Pulse 82, breathing 16, blood pressure 140/65. HEENT: Head normocephalic and atraumatic. Eyes intact, no ulcers. Nose intact, no ulcers. Ears intact, no ulcers. NECK: Supple. No JVD. CHEST: Symmetrical and clear. CARDIOVASCULAR: Shows S1 and S2, no rub, no murmur. GASTROINTESTINAL: Abdomen is soft, bowel sounds positive. EXTREMITIES: Show no edema or ulcers. SKIN: Shows no rash or petechiae. MUSCULOSKELETAL: Shows no joint swelling or stiffness. GENITOURINARY: Shows no Duran or CVA tenderness. NEUROLOGIC: Motor intact. Cranial nerves intact. LABORATORY DATA: Hemoglobin 8, potassium 5.7. ASSESSMENT AND PLAN: 1. Stage 6 chronic kidney disease, plan dialysis. 2. Hyperkalemia, plan dialysis. 3. Anemia, stable. 4. Medication based on GFR appropriate. Job ID: [id number]
--- NOTE | 2020-07-20 11:42 | PRG ---
DATE OF SERVICE: 07/20/2020 SUBJECTIVE: Mr. Montero has not had any recurrence of nausea or vomiting or hematemesis. There has been no melena reported. With 1 unit RBC transfusion yesterday, hemoglobin came up from 6.5 to 8.0. He was cleared by Speech Therapy to have a pureed diet with honey-thickened liquids, which he is tolerating just fine. OBJECTIVE: VITAL SIGNS: Temperature 98.1, blood pressure 143/64, pulse 93, and oxygen saturation 90% on 3 L by nasal cannula. GENERAL: Sitting up in bed comfortably, in no acute distress. Undergoing dialysis. HEART: Regular rate and rhythm. LUNGS: Bibasilar crackles. No respiratory distress. ABDOMEN: Soft, nontender to palpation. EXTREMITIES: No peripheral edema. LABORATORY STUDIES: Hemoglobin 8.0, WBC 12.4, and platelets 196. Sodium 138, potassium 5.7, BUN 69, and creatinine 7.37. ASSESSMENT AND PLAN: 1. Acute hematemesis, resolved over more than 24 hours now. 2. Acute on chronic blood loss anemia, stabilized, responded well to 1 unit RBC transfusion yesterday. There is no evidence of ongoing bleeding. 3. Erosive esophagitis, demonstrated on recent esophagogastroduodenoscopy. 4. Gastric ulcer, demonstrated on recent esophagogastroduodenoscopy. 5. Severe COVID pneumonia. Continue with the IV PPI every 12 hours for the remainder of this hospitalization and discharged on PPI twice daily. No plan for repeat endoscopy. 6. Oropharyngeal dysphagia. He is working with speech pathology. Dobhoff tube has been removed. He is now on pureed diet. GI will sign off at this time, but please call back anytime with questions or concerns. Dr. Millard is covering this weekend. Job ID: [id number]
[2020-07-20] MEDS: EPOETIN ALFA-EPBX (ESRD) 10,000 UNIT/ML VIAL IVP SCH (15:49)
[2020-07-20] MEDS: Cholecalciferol 1,000 UNITS (25 MCG) TAB PO SCH (19:36)
[2020-07-20] MEDS: Insulin Glargine 15 UNITS in Pre-Filled Syringe 1 EACH SC SCH (19:59)
[2020-07-21 05:05] LABS: #Lymphocytes 0.6 thou/uL (1.20-3.40); #Monocytes 0.4 thou/uL (0.11-0.59); #Neutrophils 10.7 thou/uL (1.40-6.50); %Eosinophils 0.1 % (0.0-10.0); %Lymphocytes 5.2 % (21.0-51.0); %Monocytes 3.5 % (0.0-10.0); %Neutrophils 91.2 % (42.0-75.0); Hemoglobin 8.3 g/dL (14.0-18.0); Mean Corpuscular HGB CONC 32.2 g/dL (32.0-36.0); Mean Corpuscular Hemoglobin 28.5 pg (27.0-31.0); Mean Corpuscular Volume 88.6 fL (78.0-98.0); Mean Platelet Volume 9.5 fL (7.4-10.4); Platelet Count 224 thou/uL (130-400); RBC Distribution Width 16.2 % (11.5-14.5); Red Blood Cell (RBC) Count 2.92 mill/uL (4.70-6.10); White Blood Cell (WBC) Count 11.7 thou/uL (4.8-10.8)
[2020-07-21 05:13] LABS: Anion Gap 17 mmol/L (10-20); BUN (Urea Nitrogen) 42 mg/dL (8.4-25.7); Calc. Creatinine Clearance 12 mL/min (70-130); Calcium 7.1 mg/dL (7.8-10.44); Carbon Dioxide 27 mmol/L (22-29); Chloride 98 mmol/L (98-107); Glucose 179 mg/dL (70-105); Magnesium 2.2 mg/dL (1.6-2.6); Potassium 4.3 mmol/L (3.5-5.1); Sodium 138 mmol/L (136-145)
[2020-07-21] MEDS: Insulin Regular 300 UNITS/3 ML VIAL SC PRN ×3 (05:49→17:09)
[2020-07-21] MEDS: Ascorbic Acid 500 mg Chewable Tablet PO SCH (10:18)
[2020-07-21] MEDS: Zinc Sulfate 220 MG CAP PO SCH (10:18)
[2020-07-21] MEDS: Atorvastatin Calcium 10 MG TAB PO SCH (10:18)
[2020-07-21] MEDS: Insulin Glargine 20 UNITS in Pre-Filled Syringe 1 EACH SC SCH (10:19)
--- NOTE | 2020-07-21 10:29 | PRG ---
DATE OF SERVICE: 07/21/2020 SUBJECTIVE: A 60-year-old gentleman being seen for end-stage renal disease. The patient denied nausea or chest pain. PHYSICAL EXAMINATION: GENERAL: The patient is awake, alert. VITAL SIGNS: Pulse 87, breathing is 16, blood pressure was 130/68. HEENT: Head normocephalic and atraumatic. Eyes intact, no ulcers. Nose intact, no ulcers. Ears intact, no ulcers. NECK: Supple. No JVD. CHEST: Symmetrical and clear. CARDIOVASCULAR: Shows S1 and S2, no rub, no murmur. GASTROINTESTINAL: Abdomen is soft, bowel sounds positive. EXTREMITIES: Show no edema or ulcers. SKIN: Shows no rash or petechiae. MUSCULOSKELETAL: Shows no joint swelling or stiffness. GENITOURINARY: Shows no Duran or CVA tenderness. NEUROLOGIC: Motor intact. Cranial nerves intact. LABORATORY DATA: Hemoglobin 8.3 and potassium 4.3. ASSESSMENT AND PLAN: Stage 2 chronic kidney disease. Continue hemodialysis. Hypertension stable. Anemia stable. Medication based on GFR appropriate. Job ID: [id number]
[2020-07-21] MEDS: Pantoprazole 40 MG VIAL IVP SCH (11:33)
--- NOTE | 2020-07-21 20:07 | PDOC.HOSPP ---
- Subjective Encounter Date: 07/21/20 Encounter Time: 14:00 Subjective: F/u: COVID THe patient has no cough or shortness of breath. He does not know the year, and is unsure of the month. He states that he lives in [place] with his , he is unsure how he ended up in [place] - Objective Vital Signs & Weight: Vital Signs (12 hours) Temp Pulse Resp BP Pulse Ox 07/21/20 17:27 98 07/21/20 17:04 98.4 F 82 18 139/67 100 07/21/20 11:26 98.6 F 79 16 150/71 H 96 07/21/20 08:26 97.8 F 87 18 177/79 H 93 L Weight Admit Weight 128 lb 8.472 oz Weight 122 lb 9.232 oz Most Recent Monitor Data Heart Rate from ECG 93 NIBP 146/67 NIBP BP-Mean 93 Respiration from ECG 25 SpO2 100 I&O: 07/20/20 07/21/20 07/22/20 06:59 06:59 06:59 Intake Total 870 940 960 Output Total 0 Balance 870 940 960 Result Diagrams: 07/21/20 04:33 07/21/20 04:33 Additional Labs: Accuchecks 07/21/20 07/21/20 07/21/20 17:02 11:06 05:38 POC Glucose 288 H 267 H 174 H Hospitalist ROS - Review of Systems Constitutional: denies: fever, chills - Medication Medications: Active Medications Generic Name Dose Route Start Last Admin Trade Name Freq PRN Reason Stop Dose Admin Ascorbic Acid 1,000 mg 07/07/20 09:00 07/21/20 10:18 Ascorbic Acid 500 Mg Chewable Tablet PO 1,000 mg DAILY CAROLYNN Administration Atorvastatin Calcium 10 mg 07/07/20 09:00 07/21/20 10:18 Atorvastatin Calcium 10 Mg Tab PO 10 mg DAILY CAROLYNN Administration Cholecalciferol 5,000 units 07/06/20 21:00 07/20/20 19:36 Cholecalciferol 1,000 Units (25 Mcg) Tab PO 5,000 units HS CAROLYNN Administration Dexamethasone 2 mg 07/20/20 10:31 07/21/20 13:43 Dexamethasone 4 Mg/Ml Vial SLOW IVP 2 mg DAILY CAROLYNN Administration Dextrose/Water 25 gm 07/07/20 02:30 07/10/20 20:30 Dextrose 50% Abboject 50 Ml Syringe IVP 25 gm PRN PRN Administration HYPOGLYCEMIA PROTOCOL Diltiazem HCl 15 mg 07/18/20 17:00 07/21/20 17:09 Diltiazem Hcl 25 Mg/5 Ml Vial SLOW IVP 15 mg QID CAROLYNN Administration Epoetin Quincy-epbx 10,000 unit 07/18/20 09:00 07/20/20 15:49 Epoetin Quincy-Epbx (Esrd) 10,000 Unit/Ml Vial IVP 10,000 unit MWF CAROLYNN Administration Guaifenesin/Dextromethorphan 5 ml 07/18/20 05:24 07/18/20 05:44 Guaifenesin Dm 100-10/5 Ml Udcup PO 5 ml Q4H PRN Administration Cough Dextrose/Water 1,000 mls @ 0 mls/hr 07/07/20 02:30 07/10/20 23:00 D5w IV 1,000 mls INF PRN Administration HYPOGLYCEMIA PROTOCOL As Directed Insulin Glargine 15 units/ 0.15 mls @ 0 mls/hr 07/12/20 21:00 07/20/20 19:59 Miscellaneous Medication SC 0.15 mls HS CAROLYNN Administration Insulin Glargine 20 units/ 0.2 mls @ 0 mls/hr 07/13/20 09:00 07/21/20 10:19 Miscellaneous Medication SC 0.2 mls QAM CAROLYNN Administration Insulin Human Regular 0 units 07/07/20 02:30 07/21/20 17:09 Insulin Regular 300 Units/3 Ml Vial SC 9 unit .AGGRESSIVE SLIDING PRN Administration AGGRESSIVE SLIDING SCALE Protocol Ondansetron HCl 4 mg 07/18/20 01:44 07/18/20 10:39 Ondansetron Pf 4 Mg/2 Ml Vial IVP 4 mg Q6H PRN Administration Nausea/Vomiting Pantoprazole Sodium 40 mg 07/21/20 09:00 07/21/20 10:18 Pantoprazole 40 Mg Tab PO 40 mg BID CAROLYNN Administration Sodium Chloride 10 ml 07/07/20 21:00 07/21/20 10:18 Flush - Normal Saline 10 Ml Syringe IVF 10 ml Q12HR CAROLYNN Administration Zinc Sulfate 220 mg 07/07/20 09:00 07/21/20 10:18 Zinc Sulfate 220 Mg Cap PO 220 mg DAILY CAROLYNN Administration - Exam General Appearance: NAD, awake alert Eye: PERRL, anicteric sclera ENT: normocephalic atraumatic, no oropharyngeal lesions Neck: no JVD Heart: RRR, no murmur, no gallops, no rubs Respiratory: CTAB, no wheezes, no rales, no ronchi Gastrointestinal: soft, non-tender, non-distended, normal bowel sounds Extremities: no cyanosis, no clubbing, no edema Skin: normal turgor, no lesions, no rashes Neurological: cranial nerve grossly intact, normal sensation to touch, no weakness, no focal deficits, no new deficit Musculoskeletal: normal tone, normal strength, no muscle wasting Hosp A/P - Plan Chest x ray 07/07: ground glass infiltrates right lower and left mid and lower lungs Chest X ray 07/20: hazy and interstitial alveolar infiltrates in left mid and lower lung and right lower lung CT head 07/10: no acute hemorrhage. Prior pontine infarctions This is a 60 year-old male with a past medical history of ESRD who presented to the emergency room with hypoxia from [place] [facility]. Patient did require intubation and has subsequently been extubated. He also had an episode of hematemesis on 07/19. He was transferred back to [facility] and placed on BiPAP. He has had no further episodes of hematemesis and has been transferred back to the floor Acute hypoxic respiratory failure secondary to Covid pneumonia -Patient is currently on room air. I will discontinue dexamethasone - he is likely stable to go to rehab at this point #Acute encephalopathy #History of stroke - still slightly confused, but may be his baseline. CT head 07/10 showed old pontine infarction Acute GI bleed secondary to grade D erosive esophagitis and gastric ulcer -Patient had recent EGD June 2020 showing gastric ulcer and erosive esophagitis. Continue PPI #Penile discharge - grew enterococcus and MRSA rare. This has resolved and patient has no abdominal pain, so will hold off on antibiotics Leukocytosis - WBC down to 11, downtrending, will monitor. Check UA ESRD -Continue peritoneal dialysis Type II diabetes - continue nepro. Will add consistent carb diet. Continue home lantus
[2020-07-21] MEDS: Insulin Glargine 15 UNITS in Pre-Filled Syringe 1 EACH SC SCH (21:49)
[2020-07-21] MEDS: Cholecalciferol 1,000 UNITS (25 MCG) TAB PO SCH (21:49)
[2020-07-22 05:03] LABS: Anion Gap 17 mmol/L (10-20); BUN (Urea Nitrogen) 57 mg/dL (8.4-25.7); Calc. Creatinine Clearance 9 mL/min (70-130); Calcium 7.3 mg/dL (7.8-10.44); Carbon Dioxide 23 mmol/L (22-29); Chloride 99 mmol/L (98-107); Glucose 221 mg/dL (70-105); Potassium 4.1 mmol/L (3.5-5.1); Sodium 135 mmol/L (136-145)
[2020-07-22 05:04] LABS: #Monocytes 0.6 thou/uL (0.11-0.59); %Basophils 0.2 % (0.0-1.0); %Eosinophils 0.3 % (0.0-10.0); %Lymphocytes 7.7 % (21.0-51.0); %Monocytes 4.7 % (0.0-10.0); %Neutrophils 87.2 % (42.0-75.0); Hemoglobin 8.9 g/dL (14.0-18.0); Mean Corpuscular HGB CONC 31.4 g/dL (32.0-36.0); Mean Corpuscular Hemoglobin 28.8 pg (27.0-31.0); Mean Corpuscular Volume 91.5 fL (78.0-98.0); Mean Platelet Volume 9.4 fL (7.4-10.4); Platelet Count 232 thou/uL (130-400); RBC Distribution Width 16.5 % (11.5-14.5); Red Blood Cell (RBC) Count 3.11 mill/uL (4.70-6.10); White Blood Cell (WBC) Count 12.6 thou/uL (4.8-10.8)
[2020-07-22] MEDS: Insulin Regular 300 UNITS/3 ML VIAL SC PRN ×2 (05:33→17:47)
[2020-07-22] MEDS ORDERED: Carvedilol 25 MG TAB PO SCH (09:15)
[2020-07-22] MEDS: Zinc Sulfate 220 MG CAP PO SCH (10:10)
[2020-07-22] MEDS: Atorvastatin Calcium 10 MG TAB PO SCH (10:11)
[2020-07-22] MEDS: Ascorbic Acid 500 mg Chewable Tablet PO SCH (10:11)
[2020-07-22] MEDS: Insulin Glargine 20 UNITS in Pre-Filled Syringe 1 EACH SC SCH (10:12)
--- NOTE | 2020-07-22 12:38 | PDOC.HOSPP ---
- Subjective Encounter Date: 07/22/20 Encounter Time: 12:20 Subjective: F/u: COVID, hematemesis The patient has no cough or shortness of breath. STraight cath urine sample unable to be done. The patient states the date is the , does not know the month, year or place He has no abdominal pain, no blood in vomit. The patient is agreeable to rehab placement - Objective Vital Signs & Weight: Vital Signs (12 hours) Temp Pulse Resp BP Pulse Ox 07/22/20 10:00 98.7 F 87 18 156/75 H 92 L 07/22/20 03:55 98.3 F 77 20 159/82 H 96 Weight Admit Weight 128 lb 8.472 oz Weight 122 lb 9.232 oz Most Recent Monitor Data Heart Rate from ECG 93 NIBP 146/67 NIBP BP-Mean 93 Respiration from ECG 25 SpO2 100 I&O: 07/21/20 07/22/20 07/23/20 06:59 06:59 06:59 Intake Total 940 1200 Output Total 0 Balance 940 1200 0 Result Diagrams: 07/22/20 04:29 07/22/20 04:29 Additional Labs: Accuchecks 07/22/20 07/21/20 07/21/20 09:55 21:07 17:02 POC Glucose 87 236 H 288 H Hospitalist ROS - Review of Systems Constitutional: denies: fever, chills - Medication Medications: Active Medications Generic Name Dose Route Start Last Admin Trade Name Freq PRN Reason Stop Dose Admin Ascorbic Acid 1,000 mg 07/07/20 09:00 07/22/20 10:11 Ascorbic Acid 500 Mg Chewable Tablet PO 1,000 mg DAILY CAROLYNN Administration Atorvastatin Calcium 10 mg 07/07/20 09:00 07/22/20 10:11 Atorvastatin Calcium 10 Mg Tab PO 10 mg DAILY CAROLYNN Administration Cholecalciferol 5,000 units 07/06/20 21:00 07/21/20 21:49 Cholecalciferol 1,000 Units (25 Mcg) Tab PO 5,000 units HS CAROLYNN Administration Dextrose/Water 25 gm 07/07/20 02:30 07/10/20 20:30 Dextrose 50% Abboject 50 Ml Syringe IVP 25 gm PRN PRN Administration HYPOGLYCEMIA PROTOCOL Epoetin Quincy-epbx 10,000 unit 07/18/20 09:00 07/20/20 15:49 Epoetin Quincy-Epbx (Esrd) 10,000 Unit/Ml Vial IVP 10,000 unit MWF CAROLYNN Administration Guaifenesin/Dextromethorphan 5 ml 07/18/20 05:24 07/18/20 05:44 Guaifenesin Dm 100-10/5 Ml Udcup PO 5 ml Q4H PRN Administration Cough Dextrose/Water 1,000 mls @ 0 mls/hr 07/07/20 02:30 07/10/20 23:00 D5w IV 1,000 mls INF PRN Administration HYPOGLYCEMIA PROTOCOL As Directed Insulin Glargine 15 units/ 0.15 mls @ 0 mls/hr 07/12/20 21:00 07/21/20 21:49 Miscellaneous Medication SC 0.15 mls HS CAROLYNN Administration Insulin Glargine 20 units/ 0.2 mls @ 0 mls/hr 07/13/20 09:00 07/22/20 10:12 Miscellaneous Medication SC 0.2 mls QAM CAROLYNN Administration Insulin Human Regular 0 units 07/07/20 02:30 07/22/20 05:33 Insulin Regular 300 Units/3 Ml Vial SC 6 unit .AGGRESSIVE SLIDING PRN Administration AGGRESSIVE SLIDING SCALE Protocol Ondansetron HCl 4 mg 07/18/20 01:44 07/18/20 10:39 Ondansetron Pf 4 Mg/2 Ml Vial IVP 4 mg Q6H PRN Administration Nausea/Vomiting Pantoprazole Sodium 40 mg 07/21/20 09:00 07/22/20 10:11 Pantoprazole 40 Mg Tab PO 40 mg BID CAROLYNN Administration Sodium Chloride 10 ml 07/07/20 21:00 07/22/20 10:11 Flush - Normal Saline 10 Ml Syringe IVF 10 ml Q12HR CAROLYNN Administration Zinc Sulfate 220 mg 07/07/20 09:00 07/22/20 10:10 Zinc Sulfate 220 Mg Cap PO 220 mg DAILY CAROLYNN Administration - Exam General Appearance: NAD, awake alert Eye: PERRL, anicteric sclera ENT: normocephalic atraumatic, no oropharyngeal lesions Neck: no JVD Heart: RRR, no murmur, no gallops, no rubs Respiratory: CTAB, no wheezes, no rales, no ronchi Gastrointestinal: soft, non-tender, non-distended, normal bowel sounds Extremities: no cyanosis, no clubbing, no edema Skin: normal turgor, no lesions, no rashes Hosp A/P - Plan Chest x ray 07/07: ground glass infiltrates right lower and left mid and lower lungs Chest X ray 07/20: hazy and interstitial alveolar infiltrates in left mid and lower lung and right lower lung CT head 07/10: no acute hemorrhage. Prior pontine infarctions This is a 60 year-old male with a past medical history of ESRD who presented to the emergency room with hypoxia from [place] [facility]. Patient did require intubation and has subsequently been extubated. He also had an episode of hematemesis on 07/19. He was transferred back to [facility] and placed on BiPAP. He has had no further episodes of hematemesis and has been transferred back to the floor Acute hypoxic respiratory failure secondary to Covid pneumonia -Patient is currently on room air. - he is stable for rehab, will place case management consult for rehab placement #Acute encephalopathy #History of stroke - still slightly confused, but may be his baseline. CT head 07/10 showed old pontine infarction Acute GI bleed secondary to grade D erosive esophagitis and gastric ulcer -Patient had recent EGD June 2020 showing gastric ulcer and erosive esophagitis. Continue PPI #Penile discharge - grew enterococcus and MRSA rare. This has resolved and patient has no abdominal pain, so will hold off on antibiotics Leukocytosis - WBC up to 12.6. Unable to get a UA. This could be from steroids which were dis continued 07/21. Will continue to monitor ESRD -Continue peritoneal dialysis Type II diabetes - continue nepro. Will add consistent carb diet. Continue home lantus Dispo: case management consult for rehab placement
--- NOTE | 2020-07-22 12:42 | PDOC.BPN ---
- Brief Progress Note Encounter Date: 07/22/20 Encounter Time: 12:42 Subjective: Patient is seen in the room. No acute overnight events. Patient had hemodialysis on Thursday. Review of systems Gen.: No fever, no chills All the 14 systems reviewed except for the ones mentioned above are negative Physical examination Vital Signs (24 hours) Temp Pulse Resp BP Pulse Ox Pulse Ox Pulse Ox 07/22/20 16:50 98.2 F 82 18 111/57 L 96 07/22/20 13:52 90 L 74 L 07/22/20 13:34 98.7 F 82 20 122/65 92 L 07/22/20 10:00 98.7 F 87 18 156/75 H 92 L 07/22/20 03:55 98.3 F 77 20 159/82 H 96 07/21/20 20:59 98.6 F 82 19 122/60 97 Pulse Ox 07/22/20 16:50 07/22/20 13:52 91 L 07/22/20 13:34 07/22/20 10:00 07/22/20 03:55 07/21/20 20:59 Intake & Output - 24 hours 07/22/20 07/23/20 06:59 06:59 Intake Total 1200 Output Total 0 Balance 1200 0 Intake: Oral 1200 Output: Output, Duran 0 Other: Voiding Method Diaper # Bowel Movements 1 # Bowel Movement Diapers 1 Patient is currently on airborne isolation Constitutional: comfortable, not in pain HEENT: On supplemental oxygen Neck: Trachea midline, Heart: Regular rate and rhythm on monitor Abdomen: Not distended, PD catheter noted Extremities: No edema, Neurological: Patient is awake, following commands Skin: No rash, no ulcers Psychological: Not agitated Labs and Imaging reviewed Laboratory Results - last 24 hr 07/21/20 07/22/20 07/22/20 21:07 04:29 04:29 WBC 12.6 H RBC 3.11 L Hgb 8.9 L Hct 28.4 L MCV 91.5 MCH 28.8 MCHC 31.4 L RDW 16.5 H Plt Count 232 MPV 9.4 Neutrophils % 87.2 H Lymphocytes % 7.7 L Monocytes % 4.7 Eosinophils % 0.3 Basophils % 0.2 Neutrophils # 11.0 H Lymphocytes # 1.0 L Monocytes # 0.6 H Eosinophils # 0.0 Basophils # 0.0 Sodium 135 L Potassium 4.1 Chloride 99 Carbon Dioxide 23 Anion Gap 17 BUN 57 H Creatinine 7.04 H Estimated GFR (MDRD) 10 Glucose 221 H POC Glucose 236 H Calcium 7.3 L 07/22/20 07/22/20 09:55 16:47 WBC RBC Hgb Hct MCV MCH MCHC RDW Plt Count MPV Neutrophils % Lymphocytes % Monocytes % Eosinophils % Basophils % Neutrophils # Lymphocytes # Monocytes # Eosinophils # Basophils # Sodium Potassium Chloride Carbon Dioxide Anion Gap BUN Creatinine Estimated GFR (MDRD) Glucose POC Glucose 87 229 H Calcium Active Medications Generic Name Dose Route Start Last Admin Trade Name Freq PRN Reason Stop Dose Admin Acetaminophen 650 mg 07/06/20 16:31 Acetaminophen 325 Mg Tab PO Q4H PRN Headache/Fever/Mild Pain (1-3) Acetaminophen 650 mg 07/11/20 09:48 Acetaminophen 650 Mg Suppository MS Q4H PRN Headache/Fever or Pain Ascorbic Acid 1,000 mg 07/07/20 09:00 07/22/20 10:11 Ascorbic Acid 500 Mg Chewable Tablet PO 1,000 mg DAILY CAROLYNN Administration Atorvastatin Calcium 10 mg 07/07/20 09:00 07/22/20 10:11 Atorvastatin Calcium 10 Mg Tab PO 10 mg DAILY CAROLYNN Administration Carvedilol 25 mg 07/22/20 17:00 07/22/20 17:50 Carvedilol 25 Mg Tab PO 25 mg BID-WM CAROLYNN Administration Cholecalciferol 5,000 units 07/06/20 21:00 07/21/20 21:49 Cholecalciferol 1,000 Units (25 Mcg) Tab PO 5,000 units HS CAROLYNN Administration Dextrose/Water 25 gm 07/07/20 02:30 07/10/20 20:30 Dextrose 50% Abboject 50 Ml Syringe IVP 25 gm PRN PRN Administration HYPOGLYCEMIA PROTOCOL Epoetin Quincy-epbx 10,000 unit 07/18/20 09:00 07/20/20 15:49 Epoetin Quincy-Epbx (Esrd) 10,000 Unit/Ml Vial IVP 10,000 unit MWF ACROLYNN Administration Glucagon 1 mg 07/07/20 02:30 Glucagon 1 Mg/Ml Vial IM PRN PRN HYPOGLYCEMIA PROTOCOL Guaifenesin/Dextromethorphan 5 ml 07/18/20 05:24 07/18/20 05:44 Guaifenesin Dm 100-10/5 Ml Udcup PO 5 ml Q4H PRN Administration Cough Dextrose/Water 1,000 mls @ 0 mls/hr 07/07/20 02:30 07/10/20 23:00 D5w IV 1,000 mls INF PRN Administration HYPOGLYCEMIA PROTOCOL As Directed Insulin Glargine 15 units/ 0.15 mls @ 0 mls/hr 07/12/20 21:00 07/21/20 21:49 Miscellaneous Medication SC 0.15 mls HS CARLOYNN Administration Insulin Glargine 20 units/ 0.2 mls @ 0 mls/hr 07/13/20 09:00 07/22/20 10:12 Miscellaneous Medication SC 0.2 mls QAM CAROLYNN Administration Insulin Human Regular 0 units 07/07/20 02:30 07/22/20 17:47 Insulin Regular 300 Units/3 Ml Vial SC 6 unit .AGGRESSIVE SLIDING PRN Administration AGGRESSIVE SLIDING SCALE Protocol Ondansetron HCl 4 mg 07/18/20 01:44 07/18/20 10:39 Ondansetron Pf 4 Mg/2 Ml Vial IVP 4 mg Q6H PRN Administration Nausea/Vomiting Ondansetron HCl 4 mg 07/18/20 01:44 Ondansetron Odt 4 Mg Tab PO Q6H PRN Nausea/Vomiting Pantoprazole Sodium 40 mg 07/21/20 09:00 07/22/20 10:11 Pantoprazole 40 Mg Tab PO 40 mg BID CAROLYNN Administration Sodium Chloride 10 ml 07/07/20 21:00 07/22/20 10:11 Flush - Normal Saline 10 Ml Syringe IVF 10 ml Q12HR CAROLYNN Administration Sodium Chloride 10 ml 07/07/20 09:45 Flush - Normal Saline 10 Ml Syringe IVF PRN PRN Saline Flush Zinc Sulfate 220 mg 07/07/20 09:00 07/22/20 10:10 Zinc Sulfate 220 Mg Cap PO 220 mg DAILY CAROLYNN Administration Assessment and plan CKD stage Anemia Hypertension Pneumonia due to COVID-19 Patient had hemodialysis on Thursday, anticipate dialysis tomorrow. Peritoneal dialysis on hold. Monitor hemoglobin hematocrit and transfuse PRBC as needed with target hemoglobin greater than 8. Patient is currently on the erythropoietin injections. Patient's blood pressure is stable, continue to monitor. Thank you for allowing me to participate in the management of this pt
[2020-07-22] MEDS: Carvedilol 25 MG TAB PO SCH (17:50)
[2020-07-22] MEDS: Insulin Glargine 15 UNITS in Pre-Filled Syringe 1 EACH SC SCH (20:57)
[2020-07-22] MEDS: Cholecalciferol 1,000 UNITS (25 MCG) TAB PO SCH (20:57)
[2020-07-23 05:06] LABS: Anion Gap 20 mmol/L (10-20); BUN (Urea Nitrogen) 82 mg/dL (8.4-25.7); Calc. Creatinine Clearance 7 mL/min (70-130); Calcium 7.5 mg/dL (7.8-10.44); Carbon Dioxide 19 mmol/L (22-29); Chloride 103 mmol/L (98-107); Glucose 298 mg/dL (70-105); Potassium 4.5 mmol/L (3.5-5.1); Sodium 137 mmol/L (136-145)
[2020-07-23] MEDS: Insulin Regular 300 UNITS/3 ML VIAL SC PRN ×2 (05:10→18:00)
[2020-07-23 05:22] LABS: Anisocytosis SLIGHT = 6-15 cells (100X) (0-5/hpf); Band 11 % (5-11); Eosinophils 1 % (0-10); Lymphocytes 2 % (21-51); MDiff Complete? YES; Macrocytosis SLIGHT = 6-15 cells (100X) (0-5/hpf); Mean Corpuscular Hemoglobin 27.9 pg (27.0-31.0); Mean Corpuscular Volume 89.9 fL (78.0-98.0); Monocytes 7 % (0-10); Neutrophil 79 % (42-75); Platelet Count 248 thou/uL (130-400); RBC Distribution Width 17.4 % (11.5-14.5); Red Blood Cell (RBC) Count 3.21 mill/uL (4.70-6.10); White Blood Cell (WBC) Count 11.9 thou/uL (4.8-10.8)
[2020-07-23] MEDS: Carvedilol 25 MG TAB PO SCH ×2 (08:10→18:42)
[2020-07-23] MEDS: Zinc Sulfate 220 MG CAP PO SCH (08:10)
[2020-07-23] MEDS: Atorvastatin Calcium 10 MG TAB PO SCH (08:10)
--- NOTE | 2020-07-23 12:11 | PRG ---
DATE OF SERVICE: 07/23/2020 SUBJECTIVE: A 60-year-old male being seen for end-stage renal disease. The patient denies nausea, vomiting, or chest pain. PHYSICAL EXAMINATION: GENERAL: Patient is awake and alert. VITAL SIGNS: Afebrile, pulse 85, breathing 16, blood pressure 132/62. HEENT: Head normocephalic and atraumatic. Eyes intact, no ulcers. Nose intact, no ulcers. Ears intact, no ulcers. NECK: Supple. No JVD. CHEST: Symmetrical and clear. CARDIOVASCULAR: Shows S1 and S2, no rub, no murmur. GASTROINTESTINAL: Abdomen is soft, bowel sounds positive. EXTREMITIES: Show no edema or ulcers. SKIN: Shows no rash or petechiae. MUSCULOSKELETAL: Shows no joint swelling or stiffness. GENITOURINARY: Shows no Duran or CVA tenderness. NEUROLOGIC: Motor intact. Cranial nerves intact. LABORATORY DATA: Reviewed. ASSESSMENT AND PLAN: 1. Stage 6 chronic kidney disease, stable. 2. Hypertension, stable. 3. Anemia, stable. 4. Medication based on GFR appropriate. Job ID: [id number]
[2020-07-23] MEDS: Dextrose 50% Abboject 50 ML SYRINGE IVP PRN (12:29)
[2020-07-23] MEDS: Ascorbic Acid 500 mg Chewable Tablet PO SCH (12:43)
[2020-07-23] MEDS: Insulin Glargine 20 UNITS in Pre-Filled Syringe 1 EACH SC SCH (12:44)
--- NOTE | 2020-07-23 16:26 | PDOC.HOSPP ---
- Subjective Encounter Date: 07/23/20 Encounter Time: 12:00 Subjective: F/u: COVID The patient is doing well and has no complaints. He is pending placement at rehab still. He does not know the month or the year - Objective Vital Signs & Weight: Vital Signs (12 hours) Temp Pulse Resp BP BP Pulse Ox 07/23/20 12:19 98.4 F 78 18 118/64 90 L 07/23/20 09:09 97.2 F L 85 20 145/85 H 93 L 07/23/20 07:44 95 Weight Admit Weight 128 lb 8.472 oz Weight 122 lb 9.232 oz Most Recent Monitor Data Heart Rate from ECG 93 NIBP 146/67 NIBP BP-Mean 93 Respiration from ECG 25 SpO2 100 I&O: 07/22/20 07/23/20 07/24/20 06:59 06:59 06:59 Intake Total 1200 920 700 Output Total 0 3000 Balance 1200 920 -2300 Result Diagrams: 07/23/20 04:26 07/23/20 04:26 Additional Labs: Accuchecks 07/23/20 07/22/20 07/22/20 13:58 21:00 16:47 POC Glucose 192 H 268 H 229 H 07/20/20 17:31 POC Glucose 187 H Hospitalist ROS - Review of Systems Constitutional: denies: fever, chills - Medication Medications: Active Medications Generic Name Dose Route Start Last Admin Trade Name Freq PRN Reason Stop Dose Admin Ascorbic Acid 1,000 mg 07/07/20 09:00 07/23/20 12:43 Ascorbic Acid 500 Mg Chewable Tablet PO 1,000 mg DAILY CAROLYNN Administration Atorvastatin Calcium 10 mg 07/07/20 09:00 07/23/20 08:10 Atorvastatin Calcium 10 Mg Tab PO 10 mg DAILY CAROLYNN Administration Carvedilol 25 mg 07/22/20 17:00 07/23/20 08:10 Carvedilol 25 Mg Tab PO 25 mg BID-WM CAROLYNN Administration Cholecalciferol 5,000 units 07/06/20 21:00 07/22/20 20:57 Cholecalciferol 1,000 Units (25 Mcg) Tab PO 5,000 units HS CAROLYNN Administration Dextrose/Water 25 gm 07/07/20 02:30 07/23/20 12:29 Dextrose 50% Abboject 50 Ml Syringe IVP 25 gm PRN PRN Administration HYPOGLYCEMIA PROTOCOL Epoetin Quincy-epbx 10,000 unit 07/18/20 09:00 07/20/20 15:49 Epoetin Quincy-Epbx (Esrd) 10,000 Unit/Ml Vial IVP 10,000 unit MWF CAROLYNN Administration Guaifenesin/Dextromethorphan 5 ml 07/18/20 05:24 07/18/20 05:44 Guaifenesin Dm 100-10/5 Ml Udcup PO 5 ml Q4H PRN Administration Cough Dextrose/Water 1,000 mls @ 0 mls/hr 07/07/20 02:30 07/10/20 23:00 D5w IV 1,000 mls INF PRN Administration HYPOGLYCEMIA PROTOCOL As Directed Insulin Glargine 15 units/ 0.15 mls @ 0 mls/hr 07/12/20 21:00 07/22/20 20:57 Miscellaneous Medication SC 0.15 mls HS CAROLYNN Administration Insulin Glargine 20 units/ 0.2 mls @ 0 mls/hr 07/13/20 09:00 07/23/20 12:44 Miscellaneous Medication SC Not Given QAM [facility] Insulin Human Regular 0 units 07/07/20 02:30 07/23/20 05:10 Insulin Regular 300 Units/3 Ml Vial SC 9 unit .AGGRESSIVE SLIDING PRN Administration AGGRESSIVE SLIDING SCALE Protocol Ondansetron HCl 4 mg 07/18/20 01:44 07/18/20 10:39 Ondansetron Pf 4 Mg/2 Ml Vial IVP 4 mg Q6H PRN Administration Nausea/Vomiting Pantoprazole Sodium 40 mg 07/21/20 09:00 07/23/20 08:09 Pantoprazole 40 Mg Tab PO 40 mg BID CAROLYNN Administration Sodium Chloride 10 ml 07/07/20 21:00 07/23/20 08:11 Flush - Normal Saline 10 Ml Syringe IVF 10 ml Q12HR CAROLYNN Administration Zinc Sulfate 220 mg 07/07/20 09:00 07/23/20 08:10 Zinc Sulfate 220 Mg Cap PO 220 mg DAILY CAROLYNN Administration - Exam General Appearance: NAD, awake alert Eye: PERRL, anicteric sclera ENT: normocephalic atraumatic Neck: no JVD Heart: RRR, no murmur, no gallops, no rubs Respiratory: CTAB, no wheezes, no rales, no ronchi Gastrointestinal: soft, non-tender, non-distended, normal bowel sounds, no palpable masses Extremities: no cyanosis, no clubbing, no edema Skin: normal turgor, no lesions, no rashes Hosp A/P - Plan Chest x ray 07/07: ground glass infiltrates right lower and left mid and lower lungs Chest X ray 07/20: hazy and interstitial alveolar infiltrates in left mid and lower lung and right lower lung CT head 07/10: no acute hemorrhage. Prior pontine infarctions This is a 60 year-old male with a past medical history of ESRD who presented to the emergency room with hypoxia from [place] [facility]. Patient did require intubation and has subsequently been extubated. He also had an episode of he matemesis on 07/19. He was transferred back to [facility] [place] and placed on BiPAP. He has had no further episodes of hematemesis and has been transferred back to the floor Acute hypoxic respiratory failure secondary to Covid pneumonia- resolved -Patient is currently on room air. - he is stable for rehab, case management consult for rehab placement pending #Acute encephalopathy #History of stroke - confused, but seems to be his baseline. 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 Continue PPI #Penile discharge - grew enterococcus and MRSA rare. This has resolved and patient has no abdominal pain, so will hold off on antibiotics Leukocytosis - WBC down to 11.9 Unable to get a UA. This could be from steroids which were discontinued 07/21. Will continue to monitor ESRD -Continue peritoneal dialysis Type II diabetes - continue nepro. Continue consistent carb diet. Continue home lantus Dispo: case management consult for rehab placement
[2020-07-23] MEDS: EPOETIN ALFA-EPBX (ESRD) 10,000 UNIT/ML VIAL IVP SCH (18:42)
[2020-07-23] MEDS: Cholecalciferol 1,000 UNITS (25 MCG) TAB PO SCH (20:06)
[2020-07-23] MEDS: Insulin Glargine 15 UNITS in Pre-Filled Syringe 1 EACH SC SCH (21:30)
[2020-07-24 05:05] LABS: #Eosinphils 0.1 thou/uL (0.0-0.7); #Lymphocytes 0.8 thou/uL (1.20-3.40); #Monocytes 0.4 thou/uL (0.11-0.59); #Neutrophils 9.1 thou/uL (1.40-6.50); %Basophils 0.1 % (0.0-1.0); %Eosinophils 1.4 % (0.0-10.0); %Lymphocytes 7.8 % (21.0-51.0); %Monocytes 4.2 % (0.0-10.0); %Neutrophils 86.5 % (42.0-75.0); Hemoglobin 8.4 g/dL (14.0-18.0); Mean Corpuscular HGB CONC 31.8 g/dL (32.0-36.0); Mean Corpuscular Volume 91.2 fL (78.0-98.0); Mean Platelet Volume 9.7 fL (7.4-10.4); Platelet Count 195 thou/uL (130-400); RBC Distribution Width 17.9 % (11.5-14.5); Red Blood Cell (RBC) Count 2.88 mill/uL (4.70-6.10); White Blood Cell (WBC) Count 10.6 thou/uL (4.8-10.8)
[2020-07-24 05:25] LABS: Anion Gap 14 mmol/L (10-20); BUN (Urea Nitrogen) 38 mg/dL (8.4-25.7); Calc. Creatinine Clearance 11 mL/min (70-130); Carbon Dioxide 29 mmol/L (22-29); Chloride 97 mmol/L (98-107); Glucose 107 mg/dL (70-105); Potassium 3.7 mmol/L (3.5-5.1); Sodium 136 mmol/L (136-145)
[2020-07-24] MEDS: Atorvastatin Calcium 10 MG TAB PO SCH (08:42)
[2020-07-24] MEDS: Zinc Sulfate 220 MG CAP PO SCH (08:42)
[2020-07-24] MEDS: Carvedilol 25 MG TAB PO SCH ×2 (08:42→17:43)
[2020-07-24] MEDS: Insulin Glargine 20 UNITS in Pre-Filled Syringe 1 EACH SC SCH (08:42)
[2020-07-24] MEDS: Ascorbic Acid 500 mg Chewable Tablet PO SCH (08:42)
--- NOTE | 2020-07-24 09:11 | PRG ---
DATE OF SERVICE: 07/24/2020 SUBJECTIVE: A 60-year-old gentleman, being seen for end-stage renal disease. The patient denies any nausea, vomiting, or chest pain. OBJECTIVE: GENERAL: The patient is awake and alert. VITAL SIGNS: Afebrile, pulse 75, breathing at 16, blood pressure 138/64. HEENT: Head normocephalic and atraumatic. Eyes intact, no ulcers. Nose intact, no ulcers. Ears intact, no ulcers. NECK: Supple. No JVD. CHEST: Symmetrical and clear. CARDIOVASCULAR: Shows S1 and S2, no rub, no murmur. GASTROINTESTINAL: Abdomen is soft, bowel sounds positive. EXTREMITIES: Show no edema or ulcers. SKIN: Shows no rash or petechiae. MUSCULOSKELETAL: Shows no joint swelling or stiffness. GENITOURINARY: Shows no Duran or CVA tenderness. NEUROLOGIC: Motor intact. Cranial nerves intact. LABORATORY DATA: Reviewed. ASSESSMENT AND PLAN: 1. Stage 6 chronic kidney disease, plan dialysis. 2. Hypertension, stable. 3. Anemia, stable. Medication based on GFR appropriate. Job ID: [id number]
--- NOTE | 2020-07-24 14:33 | PDOC.HOSPP ---
- Subjective Encounter Date: 07/24/20 Encounter Time: 11:00 Subjective: F/u: COVID The patient has no complaints. He is sleeping and wanting to take a nap. He is pending placement, which is difficult given COVID status - Objective Vital Signs & Weight: Vital Signs (12 hours) Temp Pulse Resp BP BP Pulse Ox Pulse Ox 07/24/20 13:25 95 07/24/20 12:05 99.0 F 75 18 105/55 L 97 07/24/20 08:48 98.3 F 72 15 132/64 98 07/24/20 02:40 99.1 F 75 17 131/67 93 L Pulse Ox Pulse Ox 07/24/20 13:25 86 L 96 07/24/20 12:05 07/24/20 08:48 07/24/20 02:40 Weight Admit Weight 128 lb 8.472 oz Weight 122 lb 9.232 oz Most Recent Monitor Data Heart Rate from ECG 93 NIBP 146/67 NIBP BP-Mean 93 Respiration from ECG 25 SpO2 100 I&O: 07/23/20 07/24/20 07/25/20 06:59 06:59 06:59 Intake Total 920 830 Output Total 0 3000 Balance 920 -2170 Result Diagrams: 07/24/20 04:22 07/24/20 04:22 Additional Labs: Accuchecks 07/24/20 07/23/20 07/23/20 12:04 20:27 17:17 POC Glucose 210 H 190 H 189 H 07/23/20 07/23/20 12:24 12:08 POC Glucose 43 L* 45 L* Hospitalist ROS - Review of Systems Constitutional: denies: fever, chills - Medication Medications: Active Medications Generic Name Dose Route Start Last Admin Trade Name Freq PRN Reason Stop Dose Admin Ascorbic Acid 1,000 mg 07/07/20 09:00 07/24/20 08:42 Ascorbic Acid 500 Mg Chewable Tablet PO 1,000 mg DAILY CAROLYNN Administration Atorvastatin Calcium 10 mg 07/07/20 09:00 07/24/20 08:42 Atorvastatin Calcium 10 Mg Tab PO 10 mg DAILY CAROLYNN Administration Carvedilol 25 mg 07/22/20 17:00 07/24/20 08:42 Carvedilol 25 Mg Tab PO 25 mg BID- CAROLYNN Administration Cholecalciferol 5,000 units 07/06/20 21:00 07/23/20 20:06 Cholecalciferol 1,000 Units (25 Mcg) Tab PO 5,000 units HS CAROLYNN Administration Dextrose/Water 25 gm 07/07/20 02:30 07/23/20 12:29 Dextrose 50% Abboject 50 Ml Syringe IVP 25 gm PRN PRN Administration HYPOGLYCEMIA PROTOCOL Epoetin Quincy-epbx 10,000 unit 07/18/20 09:00 07/23/20 18:42 Epoetin Quincy-Epbx (Esrd) 10,000 Unit/Ml Vial IVP 10,000 unit [facility] CAROLYNN Administration Guaifenesin/Dextromethorphan 5 ml 07/18/20 05:24 07/18/20 05:44 Guaifenesin Dm 100-10/5 Ml Udcup PO 5 ml Q4H PRN Administration Cough Dextrose/Water 1,000 mls @ 0 mls/hr 07/07/20 02:30 07/10/20 23:00 D5w IV 1,000 mls INF PRN Administration HYPOGLYCEMIA PROTOCOL As Directed Insulin Glargine 15 units/ 0.15 mls @ 0 mls/hr 07/12/20 21:00 07/23/20 21:30 Miscellaneous Medication SC Not Given HS [facility] Insulin Glargine 20 units/ 0.2 mls @ 0 mls/hr 07/13/20 09:00 07/24/20 08:42 Miscellaneous Medication SC Not Given [facility] Insulin Human Regular 0 units 07/07/20 02:30 07/23/20 18:00 Insulin Regular 300 Units/3 Ml Vial SC 3 unit .AGGRESSIVE SLIDING PRN Administration AGGRESSIVE SLIDING SCALE Protocol Ondansetron HCl 4 mg 07/18/20 01:44 07/18/20 10:39 Ondansetron Pf 4 Mg/2 Ml Vial IVP 4 mg Q6H PRN Administration Nausea/Vomiting Pantoprazole Sodium 40 mg 07/21/20 09:00 07/24/20 08:42 Pantoprazole 40 Mg Tab PO 40 mg BID CAROLYNN Administration Sodium Chloride 10 ml 07/07/20 21:00 07/24/20 08:44 Flush - Normal Saline 10 Ml Syringe IVF 10 ml Q12HR CAROLYNN Administration Zinc Sulfate 220 mg 07/07/20 09:00 07/24/20 08:42 Zinc Sulfate 220 Mg Cap PO 220 mg DAILY CAROLYNN Administration - Exam General Appearance: NAD, awake alert Eye: PERRL, anicteric sclera ENT: normocephalic atraumatic, no oropharyngeal lesions Neck: no JVD Heart: RRR, no murmur, no gallops, no rubs Respiratory: CTAB, no wheezes, no rales, no ronchi Gastrointestinal: soft, non-tender, non-distended, normal bowel sounds, no palpable masses Extremities: no cyanosis, no clubbing, no edema Skin: normal turgor, no lesions, no rashes Neurological: cranial nerve grossly intact, normal sensation to touch, no weakness Hosp A/P - Plan Chest x ray 07/07: ground glass infiltrates right lower and left mid and lower lungs Chest X ray 07/20: hazy and interstitial alveolar infiltrates in left mid and lower lung and right lower lung CT head 07/10: no acute hemorrhage. Prior pontine infarctions This is a 60 year-old male with a past medical history of ESRD who presented to the emergency room with hypoxia from [place] [facility]. Patient did require intubation and has subsequently been extubated. He also had an episode of hematemesis on 07/19. He was transferred back to [facility] and placed on BiPAP. He has had no further episodes of hematemesis and has been transferred back to the floor Acute hypoxic respiratory failure secondary to Covid pneumonia- resolved -Patient is currently on room air. - he is stable for rehab, case management consult for rehab placement pending #Acute encephalopathy #History of stroke - confused, but seems to be his baseline. 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 Continue PPI #Penile discharge - grew enterococcus and MRSA rare. This has resolved and patient has no abdomi nal pain, so held off on antibiotics Leukocytosis - resolved ESRD -Continue peritoneal dialysis Type II diabetes - continue nepro. Continue consistent carb diet. Continue home lantus Dispo: case management consult for rehab placement
[2020-07-24] MEDS: Insulin Regular 300 UNITS/3 ML VIAL SC PRN (17:43)
[2020-07-24] MEDS: Cholecalciferol 1,000 UNITS (25 MCG) TAB PO SCH (20:17)
[2020-07-24] MEDS: Insulin Glargine 15 UNITS in Pre-Filled Syringe 1 EACH SC SCH (20:30)
[2020-07-25] MEDS: Dextrose 50% Abboject 50 ML SYRINGE IVP PRN (05:54)
[2020-07-25] MEDS: Carvedilol 25 MG TAB PO SCH ×2 (10:18→17:36)
[2020-07-25] MEDS: Ascorbic Acid 500 mg Chewable Tablet PO SCH (10:18)
[2020-07-25] MEDS: Atorvastatin Calcium 10 MG TAB PO SCH (10:18)
[2020-07-25] MEDS: EPOETIN ALFA-EPBX (ESRD) 10,000 UNIT/ML VIAL IVP SCH (10:19)
--- NOTE | 2020-07-25 10:50 | PRG ---
DATE OF SERVICE: 07/25/2020 SUBJECTIVE: A 60-year-old gentleman, being seen for end-stage renal disease. The patient denied nausea, vomiting, or chest pain. OBJECTIVE: General: The patient is awake and alert. Vital Signs: Afebrile, pulse 70, breathing at 16, blood pressure 137/66. HEENT: Head normocephalic and atraumatic. Eyes intact, no ulcers. Nose intact, no ulcers. Ears intact, no ulcers. Neck: Supple. No JVD. Chest: Symmetrical and clear. Cardiovascular: Shows S1 and S2, no rub, no murmur. Gastrointestinal: Abdomen is soft, bowel sounds positive. Extremities: Show no edema or ulcers. Skin: Shows no rash or petechiae. Musculoskeletal: Shows no joint swelling or stiffness. Genitourinary: Shows no Duran or CVA tenderness. Neurologic: Motor intact. Cranial nerves intact. LABORATORY DATA: Reviewed. ASSESSMENT AND PLAN: 1. Stage 6 chronic kidney disease, stable. 2. Hypertension, stable. 3. Anemia, stable. 4. Medication based on GFR appropriate. Job ID: [id number]
[2020-07-25] MEDS: Insulin Glargine 20 UNITS in Pre-Filled Syringe 1 EACH SC SCH (11:08)
[2020-07-25] MEDS: Zinc Sulfate 220 MG CAP PO SCH (11:10)
--- NOTE | 2020-07-25 15:34 | PDOC.HOSPP ---
- Subjective Encounter Date: 07/25/20 Encounter Time: 11:30 Subjective: F/u: COVID THe patient states he is tired and wants to get rest. He has not slept all night. Blood sugar was 33 this morning, lantus was held. He is still pending placement - Objective Vital Signs & Weight: Vital Signs (12 hours) Pulse Resp BP Pulse Ox 07/25/20 08:45 73 20 137/66 97 Weight Admit Weight 128 lb 8.472 oz Weight 122 lb 9.232 oz Most Recent Monitor Data Heart Rate from ECG 93 NIBP 146/67 NIBP BP-Mean 93 Respiration from ECG 25 SpO2 100 I&O: 07/24/20 07/25/20 07/26/20 06:59 06:59 06:59 Intake Total 830 1090 Output Total 3000 0 Balance -2170 1090 Result Diagrams: 07/24/20 04:22 07/25/20 04:40 Additional Labs: Accuchecks 07/25/20 07/25/20 07/24/20 06:26 05:50 20:21 POC Glucose 145 H 33 L* 210 H 07/24/20 16:33 POC Glucose 310 H Hospitalist ROS - Review of Systems Constitutional: denies: fever, chills - Medication Medications: Active Medications Generic Name Dose Route Start Last Admin Trade Name Freq PRN Reason Stop Dose Admin Ascorbic Acid 1,000 mg 07/07/20 09:00 07/25/20 10:18 Ascorbic Acid 500 Mg Chewable Tablet PO 1,000 mg DAILY CAROLYNN Administration Atorvastatin Calcium 10 mg 07/07/20 09:00 07/25/20 10:18 Atorvastatin Calcium 10 Mg Tab PO 10 mg DAILY CAROLYNN Administration Carvedilol 25 mg 07/22/20 17:00 07/25/20 10:18 Carvedilol 25 Mg Tab PO Not Given BID- CAROLYNN Cholecalciferol 5,000 units 07/06/20 21:00 07/24/20 20:17 Cholecalciferol 1,000 Units (25 Mcg) Tab PO 5,000 units HS CAROLYNN Administration Dextrose/Water 25 gm 07/07/20 02:30 07/25/20 05:54 Dextrose 50% Abboject 50 Ml Syringe IVP 25 gm PRN PRN Administration HYPOGLYCEMIA PROTOCOL Epoetin Quincy-epbx 10,000 unit 07/18/20 09:00 07/25/20 10:19 Epoetin Quincy-Epbx (Esrd) 10,000 Unit/Ml Vial IVP 10,000 unit MWF CAROLYNN Administration Guaifenesin/Dextromethorphan 5 ml 07/18/20 05:24 07/18/20 05:44 Guaifenesin Dm 100-10/5 Ml Udcup PO 5 ml Q4H PRN Administration Cough Dextrose/Water 1,000 mls @ 0 mls/hr 07/07/20 02:30 07/10/20 23:00 D5w IV 1,000 mls INF PRN Administration HYPOGLYCEMIA PROTOCOL As Directed Insulin Human Regular 0 units 07/07/20 02:30 07/24/20 17:43 Insulin Regular 300 Units/3 Ml Vial SC 11 unit .AGGRESSIVE SLIDING PRN Administration AGGRESSIVE SLIDING SCALE Protocol Ondansetron HCl 4 mg 07/18/20 01:44 07/18/20 10:39 Ondansetron Pf 4 Mg/2 Ml Vial IVP 4 mg Q6H PRN Administration Nausea/Vomiting Pantoprazole Sodium 40 mg 07/21/20 09:00 07/25/20 11:09 Pantoprazole 40 Mg Tab PO 40 mg BID CAROLYNN Administration Sodium Chloride 10 ml 07/07/20 21:00 07/25/20 11:09 Flush - Normal Saline 10 Ml Syringe IVF 10 ml Q12HR CAROLYNN Administration Zinc Sulfate 220 mg 07/07/20 09:00 07/25/20 11:10 Zinc Sulfate 220 Mg Cap PO 220 mg DAILY CAROLYNN Administration - Exam General Appearance: NAD, awake alert Eye: PERRL, anicteric sclera ENT: normocephalic atraumatic, no oropharyngeal lesions Neck: no JVD Heart: RRR, no murmur, no gallops, no rubs Respiratory: CTAB, no wheezes, no rales, no ronchi Gastrointestinal: soft, non-tender, non-distended, normal bowel sounds Extremities: no cyanosis, no clubbing, no edema Skin: normal turgor, no lesions, no rashes Hosp A/P - Plan Chest x ray 07/07: ground glass infiltrates right lower and left mid and lower lungs Chest X ray 07/20: hazy and interstitial alveolar infiltrates in left mid and lower lung and right lower lung CT head 07/10: no acute hemorrhage. Prior pontine infarctions This is a 60 year-old male with a past medical history of ESRD who presented to the emergency room with hypoxia from [place] [facility]. Patient did require intubation and has subsequently been extubated. He also had an episode of hematemesis on 07/19. He was transferred back to [facility] and placed on BiPAP. He has had no further episodes of hematemesis and has been transferred back to the floor Acute hypoxic respiratory failure secondary to Covid pneumonia- resolved -Patient is currently on room air. - he is stable for rehab, case management consult for rehab placement pending Hypoglycemia - blood sugar 33 this morning. Will discontinue scheduled lantus and re-evaluate how blood sugars are #Acute on chronic encephalopathy #History of stroke - at his baseline. 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 Continue PPI #Penile discharge - grew enterococcus and MRSA rare. This has resolved and patient has no abdominal pain, so held off on antibiotics Leukocytosis - resolved ESRD -Continue peritoneal dialysis Type II diabetes - continue nepro. Continue consistent carb diet. Continue home lantus Dispo: case management consult for rehab placement
[2020-07-25] MEDS: Insulin Regular 300 UNITS/3 ML VIAL SC PRN (17:39)
[2020-07-25] MEDS: Cholecalciferol 1,000 UNITS (25 MCG) TAB PO SCH (20:11)
[2020-07-25] MEDS ORDERED: Insulin Glargine 10 UNITS in Pre-Filled Syringe 1 EACH SC SCH (21:00)
[2020-07-26 05:39] LABS: Calc. Creatinine Clearance 12 mL/min (70-130); Potassium 4.7 mmol/L (3.5-5.1)
[2020-07-26] MEDS: Atorvastatin Calcium 10 MG TAB PO SCH (08:51)
[2020-07-26] MEDS: Carvedilol 25 MG TAB PO SCH ×2 (08:51→16:44)
[2020-07-26] MEDS: Ascorbic Acid 500 mg Chewable Tablet PO SCH (08:51)
[2020-07-26] MEDS: Zinc Sulfate 220 MG CAP PO SCH (08:51)
--- NOTE | 2020-07-26 10:16 | PRG ---
DATE OF SERVICE: 07/26/2020 SUBJECTIVE: A 60-year-old gentleman being seen for end-stage renal disease. The patient denies nausea, vomiting, or chest pain. OBJECTIVE: GENERAL: The patient is awake and alert. VITAL SIGNS: Afebrile, pulse 73, breathing at 16, blood pressure 128/62. HEENT: Head normocephalic and atraumatic. Eyes intact, no ulcers. Nose intact, no ulcers. Ears intact, no ulcers. NECK: Supple. No JVD. CHEST: Symmetrical and clear. CARDIOVASCULAR: Shows S1 and S2, no rub, no murmur. GASTROINTESTINAL: Abdomen is soft, bowel sounds positive. EXTREMITIES: Show no edema or ulcers. SKIN: Shows no rash or petechiae. MUSCULOSKELETAL: Shows no joint swelling or stiffness. GENITOURINARY: Shows no Duran or CVA tenderness. NEUROLOGIC: Motor intact. Cranial nerves intact. LABORATORY DATA: Reviewed. ASSESSMENT AND PLAN: 1. Chronic kidney disease, stage 6, stable. 2. Hypertension, stable. 3. Anemia, stable. 4. Medication based on GFR, appropriate. Job ID: [id number]
--- NOTE | 2020-07-26 16:31 | PDOC.HOSPP ---
- Subjective Encounter Date: 07/26/20 Encounter Time: 12:00 Subjective: F/u: COVID, encephalopathy The patient is more awake today. He has no complaints. He is very weak when working with physical therapy . Still working on placement He will come off isolation today - Objective Vital Signs & Weight: Vital Signs (12 hours) Temp Pulse Resp BP Pulse Ox Pulse Ox Pulse Ox 07/26/20 14:46 92 L 84 L 07/26/20 12:00 98.8 F 71 20 112/60 92 L 07/26/20 08:50 99.0 F 73 18 128/62 99 Pulse Ox 07/26/20 14:46 96 07/26/20 12:00 07/26/20 08:50 Weight Admit Weight 128 lb 8.472 oz Weight 122 lb 9.232 oz Most Recent Monitor Data Heart Rate from ECG 93 NIBP 146/67 NIBP BP-Mean 93 Respiration from ECG 25 SpO2 100 I&O: 07/25/20 07/26/20 07/27/20 06:59 06:59 06:59 Intake Total 1090 960 Output Total 0 0 Balance 1090 960 Result Diagrams: 07/24/20 04:22 07/26/20 04:50 Additional Labs: Accuchecks 07/26/20 07/26/20 07/25/20 11:42 05:59 19:51 POC Glucose 154 H 111 H 188 H Hospitalist ROS - Review of Systems Constitutional: denies: fever, chills - Medication Medications: Active Medications Generic Name Dose Route Start Last Admin Trade Name Mauricioq PRN Reason Stop Dose Admin Ascorbic Acid 1,000 mg 07/07/20 09:00 07/26/20 08:51 Ascorbic Acid 500 Mg Chewable Tablet PO 1,000 mg DAILY CAROLYNN Administration Atorvastatin Calcium 10 mg 07/07/20 09:00 07/26/20 08:51 Atorvastatin Calcium 10 Mg Tab PO 10 mg DAILY CAROLYNN Administration Carvedilol 25 mg 07/22/20 17:00 07/26/20 08:51 Carvedilol 25 Mg Tab PO 25 mg BID-WM CAROLYNN Administration Cholecalciferol 5,000 units 07/06/20 21:00 07/25/20 20:11 Cholecalciferol 1,000 Units (25 Mcg) Tab PO 5,000 units HS CAROLYNN Administration Dextrose/Water 25 gm 07/07/20 02:30 07/25/20 05:54 Dextrose 50% Abboject 50 Ml Syringe IVP 25 gm PRN PRN Administration HYPOGLYCEMIA PROTOCOL Epoetin Quincy-epbx 10,000 unit 07/18/20 09:00 07/25/20 10:19 Epoetin Quincy-Epbx (Esrd) 10,000 Unit/Ml Vial IVP 10,000 unit MWF CAROLYNN Administration Guaifenesin/Dextromethorphan 5 ml 07/18/20 05:24 07/18/20 05:44 Guaifenesin Dm 100-10/5 Ml Udcup PO 5 ml Q4H PRN Administration Cough Dextrose/Water 1,000 mls @ 0 mls/hr 07/07/20 02:30 07/10/20 23:00 D5w IV 1,000 mls INF PRN Administration HYPOGLYCEMIA PROTOCOL As Directed Insulin Human Regular 0 units 07/07/20 02:30 07/25/20 17:39 Insulin Regular 300 Units/3 Ml Vial SC 6 unit .AGGRESSIVE SLIDING PRN Administration AGGRESSIVE SLIDING SCALE Protocol Ondansetron HCl 4 mg 07/18/20 01:44 07/18/20 10:39 Ondansetron Pf 4 Mg/2 Ml Vial IVP 4 mg Q6H PRN Administration Nausea/Vomiting Pantoprazole Sodium 40 mg 07/21/20 09:00 07/26/20 08:51 Pantoprazole 40 Mg Tab PO 40 mg BID CAROLYNN Administration Sodium Chloride 10 ml 07/07/20 21:00 07/26/20 08:52 Flush - Normal Saline 10 Ml Syringe IVF 10 ml Q12HR CAROLYNN Administration Zinc Sulfate 220 mg 07/07/20 09:00 07/26/20 08:51 Zinc Sulfate 220 Mg Cap PO 220 mg DAILY CAROLYNN Administration - Exam General Appearance: NAD, awake alert Eye: PERRL, anicteric sclera ENT: normocephalic atraumatic, no oropharyngeal lesions ENT - other findings: Neck: no JVD Heart: RRR, no murmur, no gallops, no rubs Respiratory: CTAB, no wheezes, no rales, no ronchi Gastrointestinal: soft, non-tender, non-distended, normal bowel sounds Extremities: no cyanosis, no clubbing, no edema Skin: normal turgor, no lesions, no rashes Neurological: cranial nerve grossly intact, normal sensation to touch, no weakness Musculoskeletal: normal tone, normal strength, no muscle wasting Psychiatric: A&O x 3 Hosp A/P - Plan Chest x ray 07/07: ground glass infiltrates right lower and left mid and lower lungs Chest X ray 07/20: hazy and interstitial alveolar infiltrates in left mid and lower lung and right lower lung CT head 07/10: no acute hemorrhage. Prior pontine infarctions This is a 60 year-old male with a past medical history of ESRD who presented to the emergency room with hypoxia from [place] [facility]. Patient did require intubation and has subsequently been extubated. He also had an episode of hematemesis on 07/19. He was transferred back to [facility] and placed on BiPAP. He has had no further episodes of hematemesis and has been transferred back to the floor Acute hypoxic respiratory failure secondary to Covid pneumonia- resolved -Patient is currently on room air. - he is stable for rehab, case management consult for rehab placement pending Physical deconditioning - PT is working with him and recommending rehab - OT ordered today Hypoglycemia - resolved. Blood sugars 100-200 #Acute on chronic encephalopathy #History of stroke - at his baseline. 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 Continue PPI #Penile discharge - grew enterococcus and MRSA rare. This has resolved and patient has no abdominal pain, so held off on antibiotics Leukocytosis - resolved ESRD -Continue peritoneal dialysis Type II diabetes - continue nepro. Continue consistent carb diet. Lantus discontinued due to hypoglycemia Dispo: pending rehab placement still
[2020-07-26] MEDS: Cholecalciferol 1,000 UNITS (25 MCG) TAB PO SCH (21:14)
[2020-07-27 05:42] LABS: Hemoglobin 9.1 g/dL (14.0-18.0); Mean Corpuscular HGB CONC 32.1 g/dL (32.0-36.0); Mean Corpuscular Hemoglobin 29.3 pg (27.0-31.0); Mean Corpuscular Volume 91.3 fL (78.0-98.0); Mean Platelet Volume 10.1 fL (7.4-10.4); Platelet Count 198 thou/uL (130-400); RBC Distribution Width 17.2 % (11.5-14.5); White Blood Cell (WBC) Count 8.1 thou/uL (4.8-10.8)
[2020-07-27 06:01] LABS: Anion Gap 17 mmol/L (10-20); BUN (Urea Nitrogen) 42 mg/dL (8.4-25.7); Calc. Creatinine Clearance 9 mL/min (70-130); Calcium 6.9 mg/dL (7.8-10.44); Carbon Dioxide 23 mmol/L (22-29); Chloride 97 mmol/L (98-107); Glucose 132 mg/dL (70-105); Potassium 4.9 mmol/L (3.5-5.1); Sodium 132 mmol/L (136-145)
[2020-07-27] MEDS: Atorvastatin Calcium 10 MG TAB PO SCH (07:52)
[2020-07-27] MEDS: Carvedilol 25 MG TAB PO SCH ×2 (07:52→17:51)
[2020-07-27] MEDS: Ascorbic Acid 500 mg Chewable Tablet PO SCH (07:52)
[2020-07-27] MEDS: Zinc Sulfate 220 MG CAP PO SCH (07:52)
[2020-07-27] MEDS: EPOETIN ALFA-EPBX (ESRD) 10,000 UNIT/ML VIAL IVP SCH (09:08)
--- NOTE | 2020-07-27 11:05 | PRG ---
DATE OF SERVICE: 07/27/2020 SUBJECTIVE: A 60-year-old gentleman, being seen for end-stage renal disease. The patient denies nausea, vomiting, or chest pain. PHYSICAL EXAMINATION: GENERAL: The patient is awake and alert. VITAL SIGNS: Pulse 75, breathing 16, blood pressure 137/68. HEENT: Head normocephalic and atraumatic. Eyes intact, no ulcers. Nose intact, no ulcers. Ears intact, no ulcers. Neck: Supple. No JVD. Chest: Symmetrical and clear. Cardiovascular: Shows S1 and S2, no rub, no murmur. Gastrointestinal: Abdomen is soft, bowel sounds positive. Extremities: Show no edema or ulcers. Skin: Shows no rash or petechiae. Musculoskeletal: Shows no joint swelling or stiffness. Genitourinary: Shows no Duran or CVA tenderness. Neurologic: Motor intact. Cranial nerves intact. LABS: Reviewed. ASSESSMENT AND PLAN: 1. Stage 6 chronic kidney disease. Continue hemodialysis. 2. Hypertension, stable. 3. Anemia, stable. Medication based on GFR appropriate. Job ID: [id number]
--- NOTE | 2020-07-27 15:49 | PDOC.HOSPP ---
- Subjective Encounter Date: 07/27/20 Encounter Time: 15:48 Subjective: F/u: COVID THe patient has no complaints. He is still pending placement. He denies nausea, vomiting, pain - Objective Vital Signs & Weight: Vital Signs (12 hours) Temp Pulse Resp BP Pulse Ox 07/27/20 14:30 98.4 F 75 16 137/66 95 07/27/20 11:58 98 F 73 15 128/69 94 L 07/27/20 07:30 98.7 F 70 16 150/71 H 98 Weight Admit Weight 128 lb 8.472 oz Weight 122 lb 9.232 oz Most Recent Monitor Data Heart Rate from ECG 93 NIBP 146/67 NIBP BP-Mean 93 Respiration from ECG 25 SpO2 100 I&O: 07/26/20 07/27/20 07/28/20 06:59 06:59 06:59 Intake Total 960 440 100 Output Total 0 0 Balance 960 440 100 Result Diagrams: 07/27/20 04:38 07/27/20 04:38 Additional Labs: Accuchecks 07/27/20 07/26/20 07/26/20 10:59 19:29 16:56 POC Glucose 206 H 193 H 161 H Hospitalist ROS - Review of Systems Constitutional: denies: fever, chills - Medication Medications: Active Medications Generic Name Dose Route Start Last Admin Trade Name Freq PRN Reason Stop Dose Admin Ascorbic Acid 1,000 mg 07/07/20 09:00 07/27/20 07:52 Ascorbic Acid 500 Mg Chewable Tablet PO 1,000 mg DAILY CAROLYNN Administration Atorvastatin Calcium 10 mg 07/07/20 09:00 07/27/20 07:52 Atorvastatin Calcium 10 Mg Tab PO 10 mg DAILY CAROLYNN Administration Carvedilol 25 mg 07/22/20 17:00 07/27/20 07:52 Carvedilol 25 Mg Tab PO 25 mg BID-WM CAROLYNN Administration Cholecalciferol 5,000 units 07/06/20 21:00 07/26/20 21:14 Cholecalciferol 1,000 Units (25 Mcg) Tab PO 5,000 units HS CAROLYNN Administration Dextrose/Water 25 gm 07/07/20 02:30 07/25/20 05:54 Dextrose 50% Abboject 50 Ml Syringe IVP 25 gm PRN PRN Administration HYPOGLYCEMIA PROTOCOL Epoetin Quincy-epbx 10,000 unit 07/18/20 09:00 07/27/20 09:08 Epoetin Quincy-Epbx (Esrd) 10,000 Unit/Ml Vial IVP 10,000 unit MWF CAROLYNN Administration Guaifenesin/Dextromethorphan 5 ml 07/18/20 05:24 07/18/20 05:44 Guaifenesin Dm 100-10/5 Ml Udcup PO 5 ml Q4H PRN Administration Cough Dextrose/Water 1,000 mls @ 0 mls/hr 07/07/20 02:30 07/10/20 23:00 D5w IV 1,000 mls INF PRN Administration HYPOGLYCEMIA PROTOCOL As Directed Insulin Human Regular 0 units 07/07/20 02:30 07/25/20 17:39 Insulin Regular 300 Units/3 Ml Vial SC 6 unit .AGGRESSIVE SLIDING PRN Administration AGGRESSIVE SLIDING SCALE Protocol Ondansetron HCl 4 mg 07/18/20 01:44 07/18/20 10:39 Ondansetron Pf 4 Mg/2 Ml Vial IVP 4 mg Q6H PRN Administration Nausea/Vomiting Pantoprazole Sodium 40 mg 07/21/20 09:00 07/27/20 07:52 Pantoprazole 40 Mg Tab PO 40 mg BID CAROLYNN Administration Sodium Chloride 10 ml 07/07/20 21:00 07/27/20 07:56 Flush - Normal Saline 10 Ml Syringe IVF 10 ml Q12HR CAROLYNN Administration Zinc Sulfate 220 mg 07/07/20 09:00 07/27/20 07:52 Zinc Sulfate 220 Mg Cap PO 220 mg DAILY CAROLYNN Administration - Exam General Appearance: NAD, awake alert Eye: PERRL, anicteric sclera ENT: normocephalic atraumatic, no oropharyngeal lesions Neck: no JVD Heart: RRR, no murmur, no gallops, no rubs Respiratory: CTAB, no wheezes, no rales, no ronchi Gastrointestinal: soft, non-distended, normal bowel sounds Extremities: no cyanosis, no clubbing, no edema Skin: normal turgor, no lesions, no rashes Hosp A/P - Plan Chest x ray 07/07: ground glass infiltrates right lower and left mid and lower lungs Chest X ray 07/20: hazy and interstitial alveolar infiltrates in left mid and lower lung and right lower lung CT head 12/8: no acute hemorrhage. Prior pontine infarctions This is a 60 year-old male with a past medical history of ESRD who presented to the emergency room with hypoxia from [place] [facility]. Patient did require intubation and has subsequently been extubated. He also had an episode of hematemesis on 07/19. He was transferred back to [facility] and placed on BiPAP. He has had no further episodes of hematemesis and has been transferred back to the floor. He is pending placement Acute hypoxic respiratory failure secondary to Covid pneumonia- resolved -Patient is currently on room air. - he is stable for rehab, case management consult for rehab placement pending. He was removed off isolation on 07/26 Physical deconditioning - PT is working with him and recommending rehab - OT ordered 07/26 Hypoglycemia - resolved. Blood sugars 100-200. He is off lantus #Acute on chronic encephalopathy #History of stroke - at his baseline. 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 Continue PPI #Penile discharge - grew enterococcus and MRSA rare. This has resolved and patient has no abdominal pain, so held off on antibiotics Leukocytosis - resolved ESRD -Continue peritoneal dialysis Type II diabetes - continue nepro. Continue consistent carb diet. Lantus discontinued due to hypoglycemia Dispo: pending rehab placement still
[2020-07-27] MEDS: Cholecalciferol 1,000 UNITS (25 MCG) TAB PO SCH (20:10)
[2020-07-28 05:14] LABS: Anion Gap 20 mmol/L (10-20); BUN (Urea Nitrogen) 58 mg/dL (8.4-25.7); Calc. Creatinine Clearance 7 mL/min (70-130); Calcium 6.9 mg/dL (7.8-10.44); Carbon Dioxide 23 mmol/L (22-29); Chloride 95 mmol/L (98-107); Glucose 193 mg/dL (70-105); Potassium 5.5 mmol/L (3.5-5.1); Sodium 132 mmol/L (136-145)
--- NOTE | 2020-07-28 11:25 | PRG ---
DATE OF SERVICE: 07/28/2020 SUBJECTIVE: A 60-year-old gentleman, being seen for end-stage renal disease. The patient denies any nausea, vomiting, or chest pain. PHYSICAL EXAMINATION: General: The patient is awake and alert. Vital Signs: Afebrile, pulse 72, breathing at 16, blood pressure 112/63. HEENT: Head normocephalic and atraumatic. Eyes intact, no ulcers. Nose intact, no ulcers. Ears intact, no ulcers. Neck: Supple. No JVD. Chest: Symmetrical and clear. Cardiovascular: Shows S1 and S2, no rub, no murmur. Gastrointestinal: Abdomen is soft, bowel sounds positive. Extremities: Show no edema or ulcers. Skin: Shows no rash or petechiae. Musculoskeletal: Shows no joint swelling or stiffness. Genitourinary: Shows no Duran or CVA tenderness. Neurologic: Motor intact. Cranial nerves intact. LABORATORY DATA: Reviewed. ASSESSMENT AND PLAN: 1. Stage 6 chronic kidney disease. Plan dialysis. 2. Hypertension, stable. 3. Anemia, stable. 4. Medication based on GFR, appropriate. Job ID: [id number]
[2020-07-28] MEDS: Ascorbic Acid 500 mg Chewable Tablet PO SCH (14:44)
[2020-07-28] MEDS: Atorvastatin Calcium 10 MG TAB PO SCH (14:44)
[2020-07-28] MEDS: Zinc Sulfate 220 MG CAP PO SCH (14:44)
[2020-07-28] MEDS: Carvedilol 25 MG TAB PO SCH ×2 (14:44→16:38)
--- NOTE | 2020-07-28 15:47 | PDOC.HOSPP ---
- Subjective Encounter Date: 07/28/20 Encounter Time: 11:00 Subjective: pt seen on f/u for covid 19 pneumonia. patient is stable and has no complains. denies fever chills cough or sob - Objective Vital Signs & Weight: Vital Signs (12 hours) Temp Pulse Resp BP Pulse Ox 07/28/20 14:35 98.9 F 84 16 146/70 H 95 07/28/20 07:50 98.7 F 72 16 112/63 96 Weight Admit Weight 128 lb 8.472 oz Weight 122 lb 9.232 oz Most Recent Monitor Data Heart Rate from ECG 93 NIBP 146/67 NIBP BP-Mean 93 Respiration from ECG 25 SpO2 100 I&O: 07/27/20 07/28/20 07/29/20 06:59 06:59 06:59 Intake Total 440 750 Output Total 0 Balance 440 750 Result Diagrams: 07/27/20 04:38 07/28/20 04:00 Additional Labs: Accuchecks 07/28/20 07/27/20 05:37 19:54 POC Glucose 166 H 199 H Hospitalist ROS - Review of Systems All other systems reviewed; all pertinent +/- noted in HPI/Subj - Medication Medications: Active Medications Generic Name Dose Route Start Last Admin Trade Name Freq PRN Reason Stop Dose Admin Ascorbic Acid 1,000 mg 07/07/20 09:00 07/28/20 14:44 Ascorbic Acid 500 Mg Chewable Tablet PO 1,000 mg DAILY CAROLYNN Administration Atorvastatin Calcium 10 mg 07/07/20 09:00 07/28/20 14:44 Atorvastatin Calcium 10 Mg Tab PO 10 mg DAILY CAROLYNN Administration Carvedilol 25 mg 07/22/20 17:00 07/28/20 14:44 Carvedilol 25 Mg Tab PO 25 mg BID- CAROLYNN Administration Cholecalciferol 5,000 units 07/06/20 21:00 07/27/20 20:10 Cholecalciferol 1,000 Units (25 Mcg) Tab PO 5,000 units HS CAROLYNN Administration Dextrose/Water 25 gm 07/07/20 02:30 07/25/20 05:54 Dextrose 50% Abboject 50 Ml Syringe IVP 25 gm PRN PRN Administration HYPOGLYCEMIA PROTOCOL Epoetin Quincy-epbx 10,000 unit 07/18/20 09:00 07/27/20 09:08 Epoetin Quincy-Epbx (Esrd) 10,000 Unit/Ml Vial IVP 10,000 unit MWF CAROLYNN Administration Guaifenesin/Dextromethorphan 5 ml 07/18/20 05:24 07/18/20 05:44 Guaifenesin Dm 100-10/5 Ml Udcup PO 5 ml Q4H PRN Administration Cough Dextrose/Water 1,000 mls @ 0 mls/hr 07/07/20 02:30 07/10/20 23:00 D5w IV 1,000 mls INF PRN Administration HYPOGLYCEMIA PROTOCOL As Directed Insulin Human Regular 0 units 07/07/20 02:30 07/25/20 17:39 Insulin Regular 300 Units/3 Ml Vial SC 6 unit .AGGRESSIVE SLIDING PRN Administration AGGRESSIVE SLIDING SCALE Protocol Ondansetron HCl 4 mg 07/18/20 01:44 07/18/20 10:39 Ondansetron Pf 4 Mg/2 Ml Vial IVP 4 mg Q6H PRN Administration Nausea/Vomiting Pantoprazole Sodium 40 mg 07/21/20 09:00 07/28/20 14:44 Pantoprazole 40 Mg Tab PO 40 mg BID CAROLYNN Administration Sodium Chloride 10 ml 07/07/20 21:00 07/28/20 14:43 Flush - Normal Saline 10 Ml Syringe IVF Not Given Q12HR CAROLYNN Zinc Sulfate 220 mg 07/07/20 09:00 07/28/20 14:44 Zinc Sulfate 220 Mg Cap PO 220 mg DAILY CAROLYNN Administration - Exam General Appearance: NAD Eye: PERRL, anicteric sclera ENT: normocephalic atraumatic, no oropharyngeal lesions Neck: supple, symmetric, no JVD Heart: RRR, no murmur, no gallops Respiratory: CTAB, no wheezes, no rales Gastrointestinal: soft, non-tender, non-distended Extremities: no cyanosis, no clubbing Skin: normal turgor, no lesions Neurological: cranial nerve grossly intact, normal sensation to touch Musculoskeletal: normal tone, normal strength Psychiatric: normal affect, normal behavior, A&O x 3 Hosp A/P (1) COVID-19 Code(s): U07.1 - COVID-19 Status: Acute (2) Acute respiratory failure Code(s): J96.00 - ACUTE RESPIRATORY FAILURE, UNSP W HYPOXIA OR HYPERCAPNIA Status: Acute (3) GI bleed Code(s): K92.2 - GASTROINTESTINAL HEMORRHAGE, UNSPECIFIED Status: Acute (4) HLD (hyperlipidemia) Code(s): E78.5 - HYPERLIPIDEMIA, UNSPECIFIED Status: Acute (5) ESRD (end stage renal disease) on dialysis Code(s): N18.6 - END STAGE RENAL DISEASE; Z99.2 - DEPENDENCE ON RENAL DIALYSIS Status: Chronic - Plan Acute hypoxic respiratory failure secondary to Covid pneumonia- resolved -Patient is currently on room air. - he is stable for rehab, case management consult for rehab placement pending. He was removed off isolation on 07/26 Physical deconditioning - PT is working with him and recommending rehab - OT ordered 07/26 Hypoglycemia - resolved. Blood sugars 100-200. He is off lantus #Acute on chronic encephalopathy #History of stroke - at his baseline. 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 Continue PPI #Penile discharge - grew enterococcus and MRSA rare. This has resolved and patient has no abdominal pain, so held off on antibiotics Leukocytosis - resolved ESRD -Continue peritoneal dialysis Type II diabetes - continue nepro. Continue consistent carb diet. Lantus discontinued due to hypoglycemia Dispo: pending rehab placement still
[2020-07-28] MEDS: Cholecalciferol 1,000 UNITS (25 MCG) TAB PO SCH (20:36)
[2020-07-29 05:13] LABS: Anion Gap 15 mmol/L (10-20); BUN (Urea Nitrogen) 24 mg/dL (8.4-25.7); Band 6 % (5-11); Calc. Creatinine Clearance 11 mL/min (70-130); Calcium 6.9 mg/dL (7.8-10.44); Carbon Dioxide 26 mmol/L (22-29); Chloride 98 mmol/L (98-107); Eosinophils 1 % (0-10); Glucose 115 mg/dL (70-105); Hemoglobin 8.3 g/dL (14.0-18.0); Hypochromia SLIGHT = 6-15 cells (100X) (0-5/hpf); Lymphocytes 9 % (21-51); MDiff Complete? YES; Mean Corpuscular HGB CONC 30.5 g/dL (32.0-36.0); Mean Corpuscular Hemoglobin 28.1 pg (27.0-31.0); Mean Corpuscular Volume 92.2 fL (78.0-98.0); Mean Platelet Volume 9.3 fL (7.4-10.4); Neutrophil 84 % (42-75); Platelet Count 196 thou/uL (130-400); Potassium 4.4 mmol/L (3.5-5.1); RBC Distribution Width 17.2 % (11.5-14.5); Red Blood Cell (RBC) Count 2.94 mill/uL (4.70-6.10); Sodium 135 mmol/L (136-145)
[2020-07-29] MEDS: Zinc Sulfate 220 MG CAP PO SCH (09:10)
[2020-07-29] MEDS: Atorvastatin Calcium 10 MG TAB PO SCH (09:10)
[2020-07-29] MEDS: Carvedilol 25 MG TAB PO SCH ×2 (09:10→16:10)
[2020-07-29] MEDS: Ascorbic Acid 500 mg Chewable Tablet PO SCH (09:10)
--- NOTE | 2020-07-29 09:58 | PDOC.HOSPP ---
- Subjective Encounter Date: 07/29/20 Encounter Time: 09:56 Subjective: patient in bed, no chest pain or shortness of breath, thinks he is improved enough to perhaps not need rehab placement anymore - Objective Vital Signs & Weight: Vital Signs (12 hours) Temp Pulse Resp BP Pulse Ox 07/29/20 04:51 96 07/29/20 03:23 99.1 F 77 18 119/57 L 97 07/29/20 00:30 99.3 F 83 16 127/60 94 L Weight Admit Weight 128 lb 8.472 oz Weight 116 lb Most Recent Monitor Data Heart Rate from ECG 93 NIBP 146/67 NIBP BP-Mean 93 Respiration from ECG 25 SpO2 100 I&O: 07/28/20 07/29/20 07/30/20 06:59 06:59 06:59 Intake Total 750 400 Output Total 125 Balance 750 275 Result Diagrams: 07/29/20 04:18 07/29/20 04:18 Additional Labs: Accuchecks 07/29/20 07/28/20 07/28/20 05:49 20:21 16:43 POC Glucose 120 H 144 H 149 H Hospitalist ROS - Medication Medications: Active Medications Generic Name Dose Route Start Last Admin Trade Name Freq PRN Reason Stop Dose Admin Ascorbic Acid 1,000 mg 07/07/20 09:00 07/29/20 09:10 Ascorbic Acid 500 Mg Chewable Tablet PO 1,000 mg DAILY CAROLYNN Administration Atorvastatin Calcium 10 mg 07/07/20 09:00 07/29/20 09:10 Atorvastatin Calcium 10 Mg Tab PO 10 mg DAILY CAROLYNN Administration Carvedilol 25 mg 07/22/20 17:00 07/29/20 09:10 Carvedilol 25 Mg Tab PO 25 mg BID- CAROLYNN Administration Cholecalciferol 5,000 units 07/06/20 21:00 07/28/20 20:36 Cholecalciferol 1,000 Units (25 Mcg) Tab PO 5,000 units HS CAROLYNN Administration Dextrose/Water 25 gm 07/07/20 02:30 07/25/20 05:54 Dextrose 50% Abboject 50 Ml Syringe IVP 25 gm PRN PRN Administration HYPOGLYCEMIA PROTOCOL Epoetin Quincy-epbx 10,000 unit 07/18/20 09:00 07/27/20 09:08 Epoetin Quincy-Epbx (Esrd) 10,000 Unit/Ml Vial IVP 10,000 unit MWF CAROLYNN Administration Guaifenesin/Dextromethorphan 5 ml 07/18/20 05:24 07/18/20 05:44 Guaifenesin Dm 100-10/5 Ml Udcup PO 5 ml Q4H PRN Administration Cough Dextrose/Water 1,000 mls @ 0 mls/hr 07/07/20 02:30 07/10/20 23:00 D5w IV 1,000 mls INF PRN Administration HYPOGLYCEMIA PROTOCOL As Directed Insulin Human Regular 0 units 07/07/20 02:30 07/25/20 17:39 Insulin Regular 300 Units/3 Ml Vial SC 6 unit .AGGRESSIVE SLIDING PRN Administration AGGRESSIVE SLIDING SCALE Protocol Ondansetron HCl 4 mg 07/18/20 01:44 07/18/20 10:39 Ondansetron Pf 4 Mg/2 Ml Vial IVP 4 mg Q6H PRN Administration Nausea/Vomiting Pantoprazole Sodium 40 mg 07/21/20 09:00 07/29/20 09:10 Pantoprazole 40 Mg Tab PO 40 mg BID CAROLYNN Administration Sodium Chloride 10 ml 07/07/20 21:00 07/29/20 09:10 Flush - Normal Saline 10 Ml Syringe IVF Not Given Q12HR CAROLYNN Zinc Sulfate 220 mg 07/07/20 09:00 07/29/20 09:10 Zinc Sulfate 220 Mg Cap PO 220 mg DAILY CRAOLYNN Administration - Exam General Appearance: NAD, awake alert Eye: PERRL, anicteric sclera ENT: normocephalic atraumatic, no oropharyngeal lesions, moist mucosa Neck: supple, symmetric, no JVD, no thyromegaly, no lymphadenopathy, no carotid bruit Heart: RRR, no murmur, no gallops, no rubs, normal peripheral pulses Respiratory: CTAB, no wheezes, no rales, no ronchi, normal chest expansion, no tachypnea, normal percussion Gastrointestinal: soft, non-tender, non-distended, normal bowel sounds, no palpable masses, no hepatomegaly, no splenomegaly, no bruit Extremities: no cyanosis, no clubbing, no edema Skin: normal turgor, no lesions, no rashes Neurological: cranial nerve grossly intact, normal sensation to touch, no weakness, no focal deficits, no new deficit Musculoskeletal: normal tone, normal strength, no muscle wasting Psychiatric: normal affect, normal behavior, A&O x 3 Hosp A/P - Plan Acute hypoxic respiratory failure secondary to Covid pneumonia- resolved -Patient is currently on room air. - he is stable for rehab, case management consult for rehab placement pending. He was removed off isolation on 07/26 - reconsult PT/OT to see if perhaps patient can be discharged on pt/ot or ot her arrangement. he will need RW too. may end up needing to wait for SNF/rehab if he fails this eval. Physical deconditioning - PT/ot is working with him and recommending snf/rehab Hypoglycemia - resolved. Blood sugars 100-200. He is off lantus #Acute on chronic encephalopathy #History of stroke - at his baseline. 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 Continue PPI #Penile discharge - grew enterococcus and MRSA rare. This has resolved and patient has no abdominal pain, so held off on antibiotics Leukocytosis - resolved ESRD -Continue peritoneal dialysis Type II diabetes - continue nepro. Continue consistent carb diet. Lantus discontinued due to hypoglycemia Dispo: pending rehab placement still
--- NOTE | 2020-07-29 11:08 | PRG ---
DATE OF SERVICE: 07/29/2020 SUBJECTIVE: 60-year-old gentleman being seen for end-stage renal disease. The patient denies any nausea, vomiting, or chest pain. PHYSICAL EXAMINATION: GENERAL: The patient is awake, alert. VITAL SIGNS: Afebrile, pulse 75, breathing at 16, blood pressure 119/57. HEENT: Head normocephalic and atraumatic. Eyes intact, no ulcers. Nose intact, no ulcers. Ears intact, no ulcers. NECK: Supple. No JVD. CHEST: Symmetrical and clear. CARDIOVASCULAR: Shows S1 and S2, no rub, no murmur. GASTROINTESTINAL: Abdomen is soft, bowel sounds positive. EXTREMITIES: Show no edema or ulcers. SKIN: Shows no rash or petechiae. MUSCULOSKELETAL: Shows no joint swelling or stiffness. GENITOURINARY: Shows no Duran or CVA tenderness. NEUROLOGIC: Motor intact. Cranial nerves intact. LABORATORY DATA: Reviewed. ASSESSMENT AND PLAN: 1. Stage 6 chronic kidney disease, plan dialysis. 2. Hypertension, stable. 3. Anemia, stable. 4. Medication based on GFR appropriate. Job ID: [id number]
[2020-07-29] MEDS: Insulin Regular 300 UNITS/3 ML VIAL SC PRN (18:05)
[2020-07-29] MEDS: Cholecalciferol 1,000 UNITS (25 MCG) TAB PO SCH (20:56)
[2020-07-30 05:00] LABS: #Eosinphils 0.4 thou/uL (0.0-0.7); #Lymphocytes 0.9 thou/uL (1.20-3.40); #Monocytes 0.6 thou/uL (0.11-0.59); #Neutrophils 6.4 thou/uL (1.40-6.50); %Basophils 0.6 % (0.0-1.0); %Eosinophils 4.8 % (0.0-10.0); %Lymphocytes 10.6 % (21.0-51.0); %Neutrophils 77.1 % (42.0-75.0); Hemoglobin 8.4 g/dL (14.0-18.0); Mean Corpuscular HGB CONC 31.8 g/dL (32.0-36.0); Mean Corpuscular Hemoglobin 29.2 pg (27.0-31.0); Mean Corpuscular Volume 91.9 fL (78.0-98.0); Platelet Count 201 thou/uL (130-400); RBC Distribution Width 16.8 % (11.5-14.5); Red Blood Cell (RBC) Count 2.86 mill/uL (4.70-6.10); White Blood Cell (WBC) Count 8.3 thou/uL (4.8-10.8)
[2020-07-30 05:32] LABS: Anion Gap 17 mmol/L (10-20); BUN (Urea Nitrogen) 33 mg/dL (8.4-25.7); Calc. Creatinine Clearance 8 mL/min (70-130); Calcium 6.9 mg/dL (7.8-10.44); Carbon Dioxide 27 mmol/L (22-29); Chloride 97 mmol/L (98-107); Glucose 148 mg/dL (70-105); Magnesium 1.9 mg/dL (1.6-2.6); Potassium 4.5 mmol/L (3.5-5.1); Sodium 136 mmol/L (136-145)
[2020-07-30] MEDS: Carvedilol 25 MG TAB PO SCH ×2 (11:19→16:52)
[2020-07-30] MEDS: Ascorbic Acid 500 mg Chewable Tablet PO SCH (11:20)
[2020-07-30] MEDS: Zinc Sulfate 220 MG CAP PO SCH (11:20)
[2020-07-30] MEDS: Atorvastatin Calcium 10 MG TAB PO SCH (11:21)
--- NOTE | 2020-07-30 13:08 | PDOC.HOSPP ---
- Subjective Encounter Date: 07/30/20 Encounter Time: 12:00 Subjective: patient in bed, no chest pain/shortness of breath, awaiting PT ot eval to ensure home needs met before d/c, returned from HD this AM - Objective Vital Signs & Weight: Vital Signs (12 hours) Temp Pulse Pulse Pulse Resp BP BP 07/30/20 12:08 85 82 160/74 H 169/74 H 07/30/20 11:05 98.2 F 67 16 07/30/20 04:00 98.8 F 75 16 BP Pulse Ox 07/30/20 12:08 07/30/20 11:05 138/63 92 L 07/30/20 04:00 130/62 95 Weight Admit Weight 128 lb 8.472 oz Weight 114 lb 12.8 oz Most Recent Monitor Data Heart Rate from ECG 93 NIBP 146/67 NIBP BP-Mean 93 Respiration from ECG 25 SpO2 100 I&O: 07/29/20 07/30/20 07/31/20 06:59 06:59 06:59 Intake Total 400 1000 Output Total 125 0 Balance 275 1000 Result Diagrams: 07/30/20 04:24 07/30/20 04:24 Additional Labs: Accuchecks 07/30/20 07/30/20 07/29/20 11:13 05:42 20:34 POC Glucose 142 H 156 H 194 H 07/29/20 07/27/20 16:49 17:50 POC Glucose 200 H 184 H Radiology Reviewed by me: Yes Hospitalist ROS - Medication Medications: Active Medications Generic Name Dose Route Start Last Admin Trade Name Freq PRN Reason Stop Dose Admin Ascorbic Acid 1,000 mg 07/07/20 09:00 07/30/20 11:20 Ascorbic Acid 500 Mg Chewable Tablet PO 1,000 mg DAILY CAROLYNN Administration Atorvastatin Calcium 10 mg 07/07/20 09:00 07/30/20 11:21 Atorvastatin Calcium 10 Mg Tab PO 10 mg DAILY CAROLYNN Administration Carvedilol 25 mg 07/22/20 17:00 07/30/20 11:19 Carvedilol 25 Mg Tab PO Not Given BID- CAROLYNN Cholecalciferol 5,000 units 07/06/20 21:00 07/29/20 20:56 Cholecalciferol 1,000 Units (25 Mcg) Tab PO 5,000 units CAROLYNN Administration Dextrose/Water 25 gm 07/07/20 02:30 07/25/20 05:54 Dextrose 50% Abboject 50 Ml Syringe IVP 25 gm PRN PRN Administration HYPOGLYCEMIA PROTOCOL Epoetin Quincy-epbx 10,000 unit 07/18/20 09:00 07/27/20 09:08 Epoetin Quincy-Epbx (Esrd) 10,000 Unit/Ml Vial IVP 10,000 unit MWF CAROLYNN Administration Guaifenesin/Dextromethorphan 5 ml 07/18/20 05:24 07/18/20 05:44 Guaifenesin Dm 100-10/5 Ml Udcup PO 5 ml Q4H PRN Administration Cough Dextrose/Water 1,000 mls @ 0 mls/hr 07/07/20 02:30 07/10/20 23:00 D5w IV 1,000 mls INF PRN Administration HYPOGLYCEMIA PROTOCOL As Directed Insulin Human Regular 0 units 07/07/20 02:30 07/29/20 18:05 Insulin Regular 300 Units/3 Ml Vial SC 3 unit .AGGRESSIVE SLIDING PRN Administration AGGRESSIVE SLIDING SCALE Protocol Ondansetron HCl 4 mg 07/18/20 01:44 07/18/20 10:39 Ondansetron Pf 4 Mg/2 Ml Vial IVP 4 mg Q6H PRN Administration Nausea/Vomiting Pantoprazole Sodium 40 mg 07/21/20 09:00 07/30/20 11:20 Pantoprazole 40 Mg Tab PO 40 mg BID CAROLYNN Administration Sodium Chloride 10 ml 07/07/20 21:00 07/30/20 11:21 Flush - Normal Saline 10 Ml Syringe IVF 10 ml Q12HR CAROLYNN Administration Zinc Sulfate 220 mg 07/07/20 09:00 07/30/20 11:20 Zinc Sulfate 220 Mg Cap PO 220 mg DAILY CAROLYNN Administration - Exam General Appearance: NAD, awake alert Eye: PERRL, anicteric sclera ENT: normocephalic atraumatic, no oropharyngeal lesions, moist mucosa Neck: supple, symmetric, no JVD, no thyromegaly, no lymphadenopathy, no carotid bruit Heart: RRR, no murmur, no gallops, no rubs, normal peripheral pulses Respiratory: CTAB, no wheezes, no rales, no ronchi, normal chest expansion, no tachypnea, normal percussion Gastrointestinal: soft, non-tender, non-distended, normal bowel sounds, no palpable masses, no hepatomegaly, no splenomegaly, no bruit Extremities: no cyanosis, no clubbing, no edema Skin: normal turgor, no lesions, no rashes Neurological: cranial nerve grossly intact, normal sensation to touch, no weakness, no focal deficits, no new deficit Musculoskeletal: normal tone, normal strength, no muscle wasting Psychiatric: normal affect, normal behavior, A&O x 3 Hosp A/P (1) COVID-19 Code(s): U07.1 - COVID-19 Status: Acute (2) Acute metabolic encephalopathy Code(s): G93.41 - METABOLIC ENCEPHALOPATHY Status: Acute (3) Acute respiratory failure Code(s): J96.00 - ACUTE RESPIRATORY FAILURE, UNSP W HYPOXIA OR HYPERCAPNIA Status: Acute (4) CHF (congestive heart failure) Code(s): I50.9 - HEART FAILURE, UNSPECIFIED Status: Acute (5) Chronic kidney disease (CKD) Code(s): N18.9 - CHRONIC KIDNEY DISEASE, UNSPECIFIED Status: Acute (6) Diabetes mellitus Code(s): E11.9 - TYPE 2 DIABETES MELLITUS WITHOUT COMPLICATIONS Status: Chronic (7) ESRD (end stage renal disease) on dialysis Code(s): N18.6 - END STAGE RENAL DISEASE; Z99.2 - DEPENDENCE ON RENAL DIALYSIS Status: Chronic - Plan Acute hypoxic respiratory failure secondary to Covid pneumonia- resolved -Patient is currently on room air. - he is stable for rehab, case management consult for rehab placement pending. He was removed off isolation on 07/26 - reconsult PT/OT to see if perhaps patient can be discharged on pt/ot or other arrangement. he will need RW too. Physical deconditioning - PT/ot consulted, appreciate assistance Hypoglycemia - resolved. Blood sugars 100-200. He is off lantus #Acute on chronic encephalopathy #History of stroke - at his baseline. 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 Continue PPI #Penile discharge - grew enterococcus and MRSA rare. This has resolved and patient has no abdominal pain, so held off on antibiotics Leukocytosis - resolved ESRD -Continue peritoneal dialysis Type II diabetes - continue nepro. Continue consistent carb diet. Lantus discontinued due to hypoglycemia Dispo: more likely to go home given clinical improvement. over 30 minutes discharge efforts
[2020-07-30] MEDS: EPOETIN ALFA-EPBX (ESRD) 10,000 UNIT/ML VIAL IVP SCH (16:52)
[2020-07-30] MEDS: Insulin Regular 300 UNITS/3 ML VIAL SC PRN (16:53)
--- NOTE | 2020-07-30 16:56 | PDOC.BPN ---
- Brief Progress Note Encounter Date: 07/30/20 Encounter Time: 16:56 Subjective: Patient seen and examined in the room. He had hemodialysis today Review of systems Gen.: No fever, no chills All the 14 systems reviewed except for the ones mentioned above are negative Physical examination Vital Signs (24 hours) Temp Pulse Pulse Pulse Pulse Resp BP 07/30/20 16:36 98.8 F 77 16 07/30/20 13:15 84 83 07/30/20 12:08 85 82 160/74 H 07/30/20 11:05 98.2 F 67 16 07/30/20 04:00 98.8 F 75 16 07/30/20 00:00 75 16 07/29/20 20:51 98.7 F 73 16 BP BP BP Pulse Ox Pulse Ox Pulse Ox 07/30/20 16:36 128/60 94 L 07/30/20 13:15 175/81 H 132/63 85 L 89 L 07/30/20 12:08 169/74 H 07/30/20 11:05 138/63 92 L 07/30/20 04:00 130/62 95 07/30/20 00:00 122/66 100 07/29/20 20:51 115/57 L 99 Intake & Output - 24 hours 07/30/20 07/31/20 06:59 06:59 Intake Total 1000 840 Output Total 0 900 Balance 1000 -60 Weight 114 lb 12.8 oz 114 lb 12.8 oz Intake: Oral 1000 840 Output: Urine 0 Dialysate 900 Other: Voiding Method Diaper Diaper # Bowel Movements 0 # Bowel Movement Diapers 2 Constitutional: comfortable, not in pain; thin built HEENT: Mucous membranes moist, no icterus Neck: Trachea midline, no lymphadenopathy Heart: Regular rate and rhythm; no murmurs Lungs: Air entry equal bilateral; no wheezes Abdomen: Soft; nontender; no guarding/tenderness/rebound Extremities: Left upper extremity AV fistula Neurological: Patient is awake, following commands Skin: No rash, no ulcers Psychological: Not agitated Labs and Imaging reviewed Laboratory Results - last 24 hr 07/27/20 07/29/20 07/30/20 17:50 20:34 04:24 WBC RBC Hgb Hct MCV MCH MCHC RDW Plt Count MPV Neutrophils % Lymphocytes % Monocytes % Eosinophils % Basophils % Neutrophils # Lymphocytes # Monocytes # Eosinophils # Basophils # Sodium 136 Potassium 4.5 Chloride 97 L Carbon Dioxide 27 Anion Gap 17 BUN 33 H Creatinine 7.09 H Estimated GFR (MDRD) 10 Glucose 148 H POC Glucose 184 H 194 H Calcium 6.9 L Magnesium 1.9 07/30/20 07/30/20 07/30/20 04:24 05:42 11:13 WBC 8.3 RBC 2.86 L Hgb 8.4 L Hct 26.3 L MCV 91.9 MCH 29.2 MCHC 31.8 L RDW 16.8 H Plt Count 201 MPV 9.0 Neutrophils % 77.1 H Lymphocytes % 10.6 L Monocytes % 7.0 Eosinophils % 4.8 Basophils % 0.6 Neutrophils # 6.4 Lymphocytes # 0.9 L Monocytes # 0.6 H Eosinophils # 0.4 Basophils # 0.0 Sodium Potassium Chloride Carbon Dioxide Anion Gap BUN Creatinine Estimated GFR (MDRD) Glucose POC Glucose 156 H 142 H Calcium Magnesium 07/30/20 16:26 WBC RBC Hgb Hct MCV MCH MCHC RDW Plt Count MPV Neutrophils % Lymphocytes % Monocytes % Eosinophils % Basophils % Neutrophils # Lymphocytes # Monocytes # Eosinophils # Basophils # Sodium Potassium Chloride Carbon Dioxide Anion Gap BUN Creatinine Estimated GFR (MDRD) Glucose POC Glucose 220 H Calcium Magnesium Active Medications Generic Name Dose Route Start Last Admin Trade Name Freq PRN Reason Stop Dose Admin Acetaminophen 650 mg 07/06/20 16:31 Acetaminophen 325 Mg Tab PO Q4H PRN Headache/Fever/Mild Pain (1-3) Acetaminophen 650 mg 07/11/20 09:48 Acetaminophen 650 Mg Suppository TN Q4H PRN Headache/Fever or Pain Ascorbic Acid 1,000 mg 07/07/20 09:00 07/30/20 11:20 Ascorbic Acid 500 Mg Chewable Tablet PO 1,000 mg DAILY CAROLYNN Administration Atorvastatin Calcium 10 mg 07/07/20 09:00 07/30/20 11:21 Atorvastatin Calcium 10 Mg Tab PO 10 mg DAILY CAROLYNN Administration Carvedilol 25 mg 07/22/20 17:00 07/30/20 16:52 Carvedilol 25 Mg Tab PO 25 mg BID- CAROLYNN Administration Cholecalciferol 5,000 units 07/06/20 21:00 07/29/20 20:56 Cholecalciferol 1,000 Units (25 Mcg) Tab PO 5,000 units CAROLYNN Administration Dextrose/Water 25 gm 07/07/20 02:30 07/25/20 05:54 Dextrose 50% Abboject 50 Ml Syringe IVP 25 gm PRN PRN Administration HYPOGLYCEMIA PROTOCOL Epoetin Quincy-epbx 10,000 unit 07/18/20 09:00 07/30/20 16:52 Epoetin Quincy-Epbx (Esrd) 10,000 Unit/Ml Vial IVP Not Given MWF CAROLYNN Glucagon 1 mg 07/07/20 02:30 Glucagon 1 Mg/Ml Vial IM PRN PRN HYPOGLYCEMIA PROTOCOL Guaifenesin/Dextromethorphan 5 ml 07/18/20 05:24 07/18/20 05:44 Guaifenesin Dm 100-10/5 Ml Udcup PO 5 ml Q4H PRN Administration Cough Dextrose/Water 1,000 mls @ 0 mls/hr 07/07/20 02:30 07/10/20 23:00 D5w IV 1,000 mls INF PRN Administration HYPOGLYCEMIA PROTOCOL As Directed Insulin Human Regular 0 units 07/07/20 02:30 07/30/20 16:53 Insulin Regular 300 Units/3 Ml Vial SC 6 unit .AGGRESSIVE SLIDING PRN Administration AGGRESSIVE SLIDING SCALE Protocol Insulin Human Regular 0 units 07/23/20 21:22 Insulin Regular 300 Units/3 Ml Vial SC .BEDTIME SLIDING SC PRN Bedtime Correctional Scale Ondansetron HCl 4 mg 07/18/20 01:44 07/18/20 10:39 Ondansetron Pf 4 Mg/2 Ml Vial IVP 4 mg Q6H PRN Administration Nausea/Vomiting Ondansetron HCl 4 mg 07/18/20 01:44 Ondansetron Odt 4 Mg Tab PO Q6H PRN Nausea/Vomiting Pantoprazole Sodium 40 mg 07/21/20 09:00 07/30/20 11:20 Pantoprazole 40 Mg Tab PO 40 mg BID CAROLYNN Administration Sodium Chloride 10 ml 07/07/20 21:00 07/30/20 11:21 Flush - Normal Saline 10 Ml Syringe IVF 10 ml Q12HR CAROLYNN Administration Sodium Chloride 10 ml 07/07/20 09:45 Flush - Normal Saline 10 Ml Syringe IVF PRN PRN Saline Flush Zinc Sulfate 220 mg 07/07/20 09:00 07/30/20 11:20 Zinc Sulfate 220 Mg Cap PO 220 mg DAILY CAROLYNN Administration Assessment and plan CKD stage Hypertension Anemia Secondary hyperparathyroidism -Patient tolerated HD today with UF of 900 mL. Anticipate dialysis on Thursday. Blood pressure is volume dependent and is stable after hemodialysis. Continue with Coreg. Patient needs complete evaluation of anemia including iron studies, stool studies and colonoscopy if necessary as outpatient. Continue to monitor and transfuse PRBC as needed. Patient is currently on cholecalciferol Thank you for allowing me to participate in the management of this pt
[2020-07-30] MEDS: Cholecalciferol 1,000 UNITS (25 MCG) TAB PO SCH (21:40)
[2020-07-31 04:55] LABS: #Eosinphils 0.4 thou/uL (0.0-0.7); #Lymphocytes 0.9 thou/uL (1.20-3.40); #Monocytes 0.6 thou/uL (0.11-0.59); #Neutrophils 6.7 thou/uL (1.40-6.50); %Basophils 0.3 % (0.0-1.0); %Eosinophils 5.2 % (0.0-10.0); %Lymphocytes 10.1 % (21.0-51.0); %Monocytes 6.5 % (0.0-10.0); %Neutrophils 77.9 % (42.0-75.0); Hemoglobin 8.1 g/dL (14.0-18.0); Mean Corpuscular HGB CONC 31.7 g/dL (32.0-36.0); Mean Corpuscular Hemoglobin 29.3 pg (27.0-31.0); Mean Corpuscular Volume 92.4 fL (78.0-98.0); Mean Platelet Volume 8.7 fL (7.4-10.4); Platelet Count 179 thou/uL (130-400); RBC Distribution Width 16.8 % (11.5-14.5); Red Blood Cell (RBC) Count 2.75 mill/uL (4.70-6.10); White Blood Cell (WBC) Count 8.5 thou/uL (4.8-10.8)
[2020-07-31 05:23] LABS: Anion Gap 14 mmol/L (10-20); BUN (Urea Nitrogen) 22 mg/dL (8.4-25.7); Calc. Creatinine Clearance 12 mL/min (70-130); Calcium 6.9 mg/dL (7.8-10.44); Carbon Dioxide 29 mmol/L (22-29); Chloride 95 mmol/L (98-107); Glucose 186 mg/dL (70-105); Magnesium 1.8 mg/dL (1.6-2.6); Potassium 3.8 mmol/L (3.5-5.1); Sodium 134 mmol/L (136-145)
[2020-07-31] MEDS: Zinc Sulfate 220 MG CAP PO SCH (09:07)
[2020-07-31] MEDS: Carvedilol 25 MG TAB PO SCH ×2 (09:07→17:21)
[2020-07-31] MEDS: Atorvastatin Calcium 10 MG TAB PO SCH (09:07)
[2020-07-31] MEDS: Ascorbic Acid 500 mg Chewable Tablet PO SCH (09:07)
--- NOTE | 2020-07-31 10:11 | PRG ---
DATE OF SERVICE: 07/31/2020 SUBJECTIVE: A 60-year-old male, being seen for end-stage renal disease. The patient denies any nausea, vomiting, or chest pain. OBJECTIVE: General: The patient is awake and alert. Vital Signs: Afebrile, pulse 75, breathing at 16, blood pressure 103/53. HEENT: Head normocephalic and atraumatic. Eyes intact, no ulcers. Nose intact, no ulcers. Ears intact, no ulcers. Neck: Supple. No JVD. Chest: Symmetrical and clear. Cardiovascular: Shows S1 and S2, no rub, no murmur. Gastrointestinal: Abdomen is soft, bowel sounds positive. Extremities: Show no edema or ulcers. Skin: Shows no rash or petechiae. Musculoskeletal: Shows no joint swelling or stiffness. Genitourinary: Shows no Duran or CVA tenderness. Neurologic: Motor intact. Cranial nerves intact. LABORATORY DATA: Reviewed. ASSESSMENT AND PLAN: 1. Stage 6 chronic kidney disease, plan dialysis. 2. Hypertension, stable. 3. Anemia, stable. 4. Medication based on GFR appropriate. Job ID: [id number]
[2020-07-31] MEDS: Insulin Regular 300 UNITS/3 ML VIAL SC PRN (12:13)
--- NOTE | 2020-07-31 20:33 | PDOC.HOSPP ---
- Subjective Encounter Date: 07/31/20 Encounter Time: 13:00 Subjective: patient could not stand or walk without assistance, also denied from all rehab/snf so plan for outpatient rehab once enough strength to go home. no chest pain or shortness of breath. - Objective Vital Signs & Weight: Vital Signs (12 hours) Temp Pulse Pulse Pulse Resp BP BP 07/31/20 16:09 73 73 145/70 H 120/58 L 07/31/20 16:00 98.9 F 71 16 07/31/20 12:00 98.5 F 73 16 07/31/20 08:35 99.0 F 75 16 BP BP Pulse Ox Pulse Ox Pulse Ox Pulse Ox 07/31/20 16:09 95 76 L 95 07/31/20 16:00 115/64 95 07/31/20 12:00 115/57 L 94 L 07/31/20 08:35 103/53 L 94 L Weight Admit Weight 128 lb 8.472 oz Weight 119 lb 7.849 oz Most Recent Monitor Data Heart Rate from ECG 93 NIBP 146/67 NIBP BP-Mean 93 Respiration from ECG 25 SpO2 100 I&O: 07/30/20 07/31/20 08/01/20 06:59 06:59 06:59 Intake Total 1000 1040 400 Output Total 0 901 0 Balance 1000 139 400 Result Diagrams: 07/31/20 04:38 07/31/20 04:38 Additional Labs: Accuchecks 07/31/20 07/31/20 07/31/20 16:40 11:20 05:20 POC Glucose 116 H 187 H 168 H Radiology Reviewed by me: Yes Hospitalist ROS - Review of Systems Constitutional: denies: fever, chills, sweats, weakness, malaise, other Eyes: denies: pain, vision change, conjunctivae inflammation, eyelid inflammation, redness, other ENT: denies: ear pain, ear discharge, nose pain, nose discharge, nose congestion, mouth pain, mouth swelling, throat pain, throat swelling, other Respiratory: denies: cough, dry, shortness of breath, hemoptysis, SOB with excertion, pleuritic pain, sputum, wheezing, other Cardiovascular: denies: chest pain, palpitations, orthopnea, paroxysmal noc. dyspnea, edema, light headedness, other Gastrointestinal: denies: nausea, vomiting, abdominal pain, diarrhea, constipation, melena, hematochezia, other - Medication Medications: Active Medications Generic Name Dose Route Start Last Admin Trade Name Freq PRN Reason Stop Dose Admin Ascorbic Acid 1,000 mg 07/07/20 09:00 07/31/20 09:07 Ascorbic Acid 500 Mg Chewable Tablet PO 1,000 mg DAILY CAROLYNN Administration Atorvastatin Calcium 10 mg 07/07/20 09:00 07/31/20 09:07 Atorvastatin Calcium 10 Mg Tab PO 10 mg DAILY CAROLYNN Administration Carvedilol 25 mg 07/22/20 17:00 07/31/20 17:21 Carvedilol 25 Mg Tab PO 25 mg BID-WM CAROLYNN Administration Cholecalciferol 5,000 units 07/06/20 21:00 07/30/20 21:40 Cholecalciferol 1,000 Units (25 Mcg) Tab PO 5,000 units HS CAROLYNN Administration Dextrose/Water 25 gm 07/07/20 02:30 07/25/20 05:54 Dextrose 50% Abboject 50 Ml Syringe IVP 25 gm PRN PRN Administration HYPOGLYCEMIA PROTOCOL Epoetin [place]-epbx 10,000 unit 07/18/20 09:00 07/30/20 16:52 Epoetin [place]-Epbx (Esrd) 10,000 Unit/Ml Vial IVP Not Given MW CAROLYNN Guaifenesin/Dextromethorphan 5 ml 07/18/20 05:24 07/18/20 05:44 Guaifenesin Dm 100-10/5 Ml Udcup PO 5 ml Q4H PRN Administration Cough Dextrose/Water 1,000 mls @ 0 mls/hr 07/07/20 02:30 07/10/20 23:00 D5w IV 1,000 mls INF PRN Administration HYPOGLYCEMIA PROTOCOL As Directed Insulin Human Regular 0 units 07/07/20 02:30 07/31/20 12:13 Insulin Regular 300 Units/3 Ml Vial SC 3 unit .AGGRESSIVE SLIDING PRN Administration AGGRESSIVE SLIDING SCALE Protocol Ondansetron HCl 4 mg 07/18/20 01:44 07/18/20 10:39 Ondansetron Pf 4 Mg/2 Ml Vial IVP 4 mg Q6H PRN Administration Nausea/Vomiting Pantoprazole Sodium 40 mg 07/21/20 09:00 07/31/20 09:07 Pantoprazole 40 Mg Tab PO 40 mg BID CAROLYNN Administration Sodium Chloride 10 ml 07/07/20 21:00 07/31/20 09:08 Flush - Normal Saline 10 Ml Syringe IVF Not Given Q12HR CAROLYNN Zinc Sulfate 220 mg 07/07/20 09:00 07/31/20 09:07 Zinc Sulfate 220 Mg Cap PO 220 mg DAILY CAROLYNN Administration - Exam General Appearance: NAD, awake alert Eye: PERRL, anicteric sclera ENT: normocephalic atraumatic, no oropharyngeal lesions, moist mucosa Neck: supple, symmetric, no JVD, no thyromegaly, no lymphadenopathy, no carotid bruit Heart: RRR, no murmur, no gallops, no rubs, normal peripheral pulses Respiratory: CTAB, no wheezes, no rales, no ronchi, normal chest expansion, no tachypnea, normal percussion Gastrointestinal: soft, non-tender, non-distended, normal bowel sounds, no palpable masses, no hepatomegaly, no splenomegaly, no bruit Extremities: no cyanosis, no clubbing, no edema Skin: normal turgor, no lesions, no rashes Neurological: cranial nerve grossly intact, normal sensation to touch, no weakness, no focal deficits, no new deficit Musculoskeletal: normal tone, normal strength, no muscle wasting Psychiatric: normal affect, normal behavior, A&O x 3 Hosp A/P (1) COVID-19 Code(s): U07.1 - COVID-19 Status: Acute (2) Acute metabolic encephalopathy Code(s): G93.41 - METABOLIC ENCEPHALOPATHY Status: Acute (3) Acute respiratory failure Code(s): J96.00 - ACUTE RESPIRATORY FAILURE, UNSP W HYPOXIA OR HYPERCAPNIA S tatus: Acute (4) CHF (congestive heart failure) Code(s): I50.9 - HEART FAILURE, UNSPECIFIED Status: Acute (5) Chronic kidney disease (CKD) Code(s): N18.9 - CHRONIC KIDNEY DISEASE, UNSPECIFIED Status: Acute (6) Diabetes mellitus Code(s): E11.9 - TYPE 2 DIABETES MELLITUS WITHOUT COMPLICATIONS Status: Chronic (7) ESRD (end stage renal disease) on dialysis Code(s): N18.6 - END STAGE RENAL DISEASE; Z99.2 - DEPENDENCE ON RENAL DIALYSIS Status: Chronic - Plan Acute hypoxic respiratory failure secondary to Covid pneumonia- resolved -Patient is currently on room air. - patient could not stand or walk without assistance, also denied from all rehab/snf so plan for outpatient rehab once enough strength to go home. no chest pain or shortness of breath. Physical deconditioning - PT/ot consulted, appreciate assistance Hypoglycemia - resolved. Blood sugars 100-200. He is off lantus #Acute on chronic encephalopathy #History of stroke - at his baseline. 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 Continue PPI #Penile discharge - grew enterococcus and MRSA rare. This has resolved and patient has no abdom inal pain, so held off on antibiotics Leukocytosis - resolved ESRD -Continue peritoneal dialysis Type II diabetes - continue nepro. Continue consistent carb diet. Lantus discontinued due to hypoglycemia Dispo: dc once able to go home from PT/Ot perspective, plan for outpatient rehab
[2020-07-31] MEDS: Cholecalciferol 1,000 UNITS (25 MCG) TAB PO SCH (21:25)
[2020-08-01 05:29] LABS: #Basophils 0.1 thou/uL (0.0-0.2); #Eosinphils 0.4 thou/uL (0.0-0.7); #Lymphocytes 0.8 thou/uL (1.20-3.40); #Monocytes 0.5 thou/uL (0.11-0.59); #Neutrophils 6.2 thou/uL (1.40-6.50); %Basophils 0.8 % (0.0-1.0); %Eosinophils 5.6 % (0.0-10.0); %Lymphocytes 9.8 % (21.0-51.0); %Monocytes 5.9 % (0.0-10.0); Hemoglobin 8.3 g/dL (14.0-18.0); Mean Corpuscular HGB CONC 30.8 g/dL (32.0-36.0); Mean Corpuscular Hemoglobin 28.2 pg (27.0-31.0); Mean Corpuscular Volume 91.6 fL (78.0-98.0); Mean Platelet Volume 8.8 fL (7.4-10.4); Platelet Count 197 thou/uL (130-400); Red Blood Cell (RBC) Count 2.92 mill/uL (4.70-6.10); White Blood Cell (WBC) Count 7.9 thou/uL (4.8-10.8)
[2020-08-01 05:44] LABS: Anion Gap 19 mmol/L (10-20); BUN (Urea Nitrogen) 32 mg/dL (8.4-25.7); Calc. Creatinine Clearance 9 mL/min (70-130); Calcium 6.8 mg/dL (7.8-10.44); Carbon Dioxide 22 mmol/L (22-29); Chloride 94 mmol/L (98-107); Glucose 260 mg/dL (70-105); Magnesium 1.9 mg/dL (1.6-2.6); Sodium 131 mmol/L (136-145)
[2020-08-01] MEDS: Insulin Regular 300 UNITS/3 ML VIAL SC PRN ×2 (05:46→17:52)
--- NOTE | 2020-08-01 12:15 | PRG ---
DATE OF SERVICE: 08/01/2020 SUBJECTIVE: A 60-year-old gentleman being seen for end-stage renal disease. The patient denied any nausea, vomiting, or chest pain. PHYSICAL EXAMINATION: General: The patient is awake and alert. Vital Signs: Afebrile, pulse 78, breathing at 16, blood pressure 119/62. HEENT: Head normocephalic and atraumatic. Eyes intact, no ulcers. Nose intact, no ulcers. Ears intact, no ulcers. Neck: Supple. No JVD. Chest: Symmetrical and clear. Cardiovascular: Shows S1 and S2, no rub, no murmur. Gastrointestinal: Abdomen is soft, bowel sounds positive. Extremities: Show no edema or ulcers. Skin: Shows no rash or petechiae. Musculoskeletal: Shows no joint swelling or stiffness. Genitourinary: Shows no Duran or CVA tenderness. Neurologic: Motor intact. Cranial nerves intact. LABORATORY DATA: Labs reviewed. ASSESSMENT AND PLAN: 1. Stage 6 chronic kidney disease, plan dialysis. 2. Hypertension, stable. 3. Anemia, stable. 4. Medication based on GFR appropriate. Job ID: [id number]
[2020-08-01] MEDS: Atorvastatin Calcium 10 MG TAB PO SCH (12:26)
[2020-08-01] MEDS: Ascorbic Acid 500 mg Chewable Tablet PO SCH (12:26)
[2020-08-01] MEDS: Zinc Sulfate 220 MG CAP PO SCH (12:26)
[2020-08-01] MEDS: Carvedilol 25 MG TAB PO SCH ×2 (12:26→16:48)
[2020-08-01] MEDS: EPOETIN ALFA-EPBX (ESRD) 10,000 UNIT/ML VIAL IVP SCH ×2 (12:36→13:17)
[2020-08-01] MEDS ORDERED: EPOETIN ALFA-EPBX (ESRD) 10,000 UNIT/ML VIAL SC SCH (13:30)
--- NOTE | 2020-08-01 16:17 | PDOC.HOSPP ---
- Subjective Encounter Date: 08/01/20 Encounter Time: 08:00 Subjective: patient in bed, wants to go home but to weak per physical therapy eval recently. patient denies chest pain/shortness of breath - Objective Vital Signs & Weight: Vital Signs (12 hours) Temp Pulse Resp BP Pulse Ox 08/01/20 15:43 100.0 F H 88 17 127/60 92 L 08/01/20 12:00 97.8 F 67 17 131/60 90 L 08/01/20 07:18 99.1 F 78 17 119/62 91 L 08/01/20 05:18 98.3 F 75 20 138/69 94 L 08/01/20 05:15 100 Weight Admit Weight 128 lb 8.472 oz Weight 121 lb 4.068 oz Most Recent Monitor Data Heart Rate from ECG 93 NIBP 146/67 NIBP BP-Mean 93 Respiration from ECG 25 SpO2 100 I&O: 07/31/20 08/01/20 08/02/20 06:59 06:59 06:59 Intake Total 1040 880 Output Total 901 0 Balance 139 880 Result Diagrams: 08/01/20 05:11 08/01/20 05:11 Additional Labs: Accuchecks 08/01/20 08/01/20 08/01/20 12:48 05:43 00:57 POC Glucose 99 251 H 242 H 07/31/20 07/31/20 20:56 16:40 POC Glucose 175 H 116 H Hospitalist ROS - Medication Medications: Active Medications Generic Name Dose Route Start Last Admin Trade Name Freq PRN Reason Stop Dose Admin Ascorbic Acid 1,000 mg 07/07/20 09:00 08/01/20 12:26 Ascorbic Acid 500 Mg Chewable Tablet PO 1,000 mg DAILY CAROLYNN Administration Atorvastatin Calcium 10 mg 07/07/20 09:00 08/01/20 12:26 Atorvastatin Calcium 10 Mg Tab PO 10 mg DAILY CAROLYNN Administration Carvedilol 25 mg 07/22/20 17:00 08/01/20 12:26 Carvedilol 25 Mg Tab PO 25 mg BID-WM CAROLYNN Administration Cholecalciferol 5,000 units 07/06/20 21:00 07/31/20 21:25 Cholecalciferol 1,000 Units (25 Mcg) Tab PO 5,000 units HS CAROLYNN Administration Dextrose/Water 25 gm 07/07/20 02:30 12/23/20 05:54 Dextrose 50% Abboject 50 Ml Syringe IVP 25 gm PRN PRN Administration HYPOGLYCEMIA PROTOCOL Epoetin [place]-epbx 10,000 unit 08/01/20 13:30 08/01/20 13:35 Epoetin [place]-Epbx (Esrd) 10,000 Unit/Ml Vial SC 08/01/20 21:00 10,000 unit NOW CAROLYNN Administration Guaifenesin/Dextromethorphan 5 ml 07/18/20 05:24 07/18/20 05:44 Guaifenesin Dm 100-10/5 Ml Udcup PO 5 ml Q4H PRN Administration Cough Dextrose/Water 1,000 mls @ 0 mls/hr 07/07/20 02:30 07/10/20 23:00 D5w IV 1,000 mls INF PRN Administration HYPOGLYCEMIA PROTOCOL As Directed Insulin Human Regular 0 units 07/07/20 02:30 08/01/20 05:46 Insulin Regular 300 Units/3 Ml Vial SC 9 unit .AGGRESSIVE SLIDING PRN Administration AGGRESSIVE SLIDING SCALE Protocol Ondansetron HCl 4 mg 07/18/20 01:44 07/18/20 10:39 Ondansetron Pf 4 Mg/2 Ml Vial IVP 4 mg Q6H PRN Administration Nausea/Vomiting Pantoprazole Sodium 40 mg 07/21/20 09:00 08/01/20 12:26 Pantoprazole 40 Mg Tab PO 40 mg BID CAROLYNN Administration Sodium Chloride 10 ml 07/07/20 21:00 08/01/20 12:27 Flush - Normal Saline 10 Ml Syringe IVF Not Given Q12HR CAROLYNN Zinc Sulfate 220 mg 07/07/20 09:00 08/01/20 12:26 Zinc Sulfate 220 Mg Cap PO 220 mg DAILY CAROLYNN Administration - Exam General Appearance: NAD, awake alert Eye: PERRL, anicteric sclera ENT: normocephalic atraumatic, no oropharyngeal lesions, moist mucosa Neck: supple, symmetric, no JVD, no thyromegaly, no lymphadenopathy, no carotid bruit Heart: RRR, no murmur, no gallops, no rubs, normal peripheral pulses Respiratory: CTAB, no wheezes, no rales, no ronchi, normal chest expansion, no tachypnea, normal percussion Gastrointestinal: soft, non-tender, non-distended, normal bowel sounds, no palpable masses, no hepatomegaly, no splenomegaly, no bruit Extremities: no cyanosis, no clubbing, no edema Skin: normal turgor, no lesions, no rashes Neurological: cranial nerve grossly intact, normal sensation to touch, no weakness, no focal deficits, no new deficit Musculoskeletal: normal tone, normal strength, no muscle wasting Psychiatric: normal affect, normal behavior, A&O x 3 Hosp A/P (1) COVID-19 Code(s): U07.1 - COVID-19 Status: Acute (2) Acute metabolic encephalopathy Code(s): G93.41 - METABOLIC ENCEPHALOPATHY Status: Acute (3) Acute respiratory failure Code(s): J96.00 - ACUTE RESPIRATORY FAILURE, UNSP W HYPOXIA OR HYPERCAPNIA Status: Acute (4) CHF (congestive heart failure) Code(s): I50.9 - HEART FAILURE, UNSPECIFIED Status: Acute (5) Chronic kidney disease (CKD) Code(s): N18.9 - CHRONIC KIDNEY DISEASE, UNSPECIFIED Status: Acute (6) Diabetes mellitus Code(s): E11.9 - TYPE 2 DIABETES MELLITUS WITHOUT COMPLICATIONS Status: C hronic (7) ESRD (end stage renal disease) on dialysis Code(s): N18.6 - END STAGE RENAL DISEASE; Z99.2 - DEPENDENCE ON RENAL DIALYSIS Status: Chronic - Plan Acute hypoxic respiratory failure secondary to Covid pneumonia- resolved -Patient is currently on room air. - patient could not stand or walk without assistance, also denied from all rehab/snf so plan for outpatient rehab once enough strength to go home. no chest pain or shortness of breath. Physical deconditioning - PT/ot consulted, appreciate assistance Hypoglycemia - resolved. Blood sugars 100-200. start small dose of lantus back up #Acute on chronic encephalopathy #History of stroke - at his baseline. 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 Continue PPI #Penile discharge - grew enterococcus and MRSA rare. This has resolved and patient has no abdomina l pain, so held off on antibiotics Leukocytosis - resolved ESRD -Continue peritoneal dialysis Type II diabetes - continue nepro. Continue consistent carb diet. Lantus discontinued due to hypoglycemia Dispo: dc once able to go home from PT/Ot perspective, plan for outpatient rehab
[2020-08-01] MEDS: Cholecalciferol 1,000 UNITS (25 MCG) TAB PO SCH (21:33)
[2020-08-02] MEDS: Insulin Regular 300 UNITS/3 ML VIAL SC PRN ×3 (01:14→23:50)
[2020-08-02] MEDS: Atorvastatin Calcium 10 MG TAB PO SCH (10:02)
[2020-08-02] MEDS: Ascorbic Acid 500 mg Chewable Tablet PO SCH (10:02)
[2020-08-02] MEDS: Carvedilol 25 MG TAB PO SCH ×2 (10:02→17:25)
[2020-08-02] MEDS: Insulin Glargine 8 UNITS in Pre-Filled Syringe 1 EACH SC SCH (10:03)
[2020-08-02] MEDS: Zinc Sulfate 220 MG CAP PO SCH (10:03)
--- NOTE | 2020-08-02 10:30 | PRG ---
DATE OF SERVICE: 08/02/2020 SUBJECTIVE: A 60-year-old gentleman being seen for end-stage renal disease. The patient denies nausea, vomiting, or chest pain. OBJECTIVE: GENERAL: The patient is awake and alert. VITAL SIGNS: Pulse 85, breathing 16, blood pressure 119/58. HEENT: Head normocephalic and atraumatic. Eyes intact, no ulcers. Nose intact, no ulcers. Ears intact, no ulcers. Neck: Supple. No JVD. Chest: Symmetrical and clear. Cardiovascular: Shows S1 and S2, no rub, no murmur. Gastrointestinal: Abdomen is soft, bowel sounds positive. Extremities: Show no edema or ulcers. Skin: Shows no rash or petechiae. Musculoskeletal: Shows no joint swelling or stiffness. Genitourinary: Shows no Duran or CVA tenderness. Neurologic: Motor intact. Cranial nerves intact. LABORATORY DATA: Hemoglobin 8.3. ASSESSMENT: 1. Stage 6 chronic kidney disease, stable. 2. Hypertensive. 3. Anemia, stable. 4. Medication based on GFR appropriate. Job ID: [id number]
--- NOTE | 2020-08-02 11:58 | PDOC.HOSPP ---
- Subjective Encounter Date: 08/02/20 Encounter Time: 11:54 Subjective: Patient was seen and examined in bed. He notes having improved significantly. He has generalized weakness, no cough or shortness of breath. No significant events overnight - Objective Vital Signs & Weight: Vital Signs (12 hours) Temp Pulse Pulse Pulse Resp BP BP 08/02/20 09:55 81 81 123/60 118/58 L 08/02/20 07:50 98.5 F 71 18 08/02/20 04:00 98.8 F 85 14 BP BP Pulse Ox Pulse Ox Pulse Ox Pulse Ox 08/02/20 09:55 95 85 L 95 08/02/20 07:50 159/74 H 93 L 08/02/20 04:00 119/58 L 94 L Weight Admit Weight 128 lb 8.472 oz Weight 115 lb 8.356 oz Most Recent Monitor Data Heart Rate from ECG 93 NIBP 146/67 NIBP BP-Mean 93 Respiration from ECG 25 SpO2 100 I&O: 08/01/20 08/02/20 08/03/20 06:59 06:59 06:59 Intake Total 880 1580 Output Total 0 0 Balance 880 1580 Result Diagrams: 08/01/20 05:11 08/01/20 05:11 Additional Labs: Accuchecks 08/02/20 08/02/20 08/01/20 06:37 00:31 17:38 POC Glucose 209 H 209 H 243 H 08/01/20 12:48 POC Glucose 99 Hospitalist ROS - Review of Systems All other systems reviewed; all pertinent +/- noted in HPI/Subj - Medication Medications: Active Medications Generic Name Dose Route Start Last Admin Trade Name Nena PRN Reason Stop Dose Admin Ascorbic Acid 1,000 mg 07/07/20 09:00 08/02/20 10:02 Ascorbic Acid 500 Mg Chewable Tablet PO 1,000 mg DAILY CAROLYNN Administration Atorvastatin Calcium 10 mg 07/07/20 09:00 08/02/20 10:02 Atorvastatin Calcium 10 Mg Tab PO 10 mg DAILY CAROLYNN Administration Carvedilol 25 mg 07/22/20 17:00 08/02/20 10:02 Carvedilol 25 Mg Tab PO 25 mg BID-WM CAROLYNN Administration Cholecalciferol 5,000 units 07/06/20 21:00 08/01/20 21:33 Cholecalciferol 1,000 Units (25 Mcg) Tab PO 5,000 units HS CAROLYNN Administration Dextrose/Water 25 gm 07/07/20 02:30 07/25/20 05:54 Dextrose 50% Abboject 50 Ml Syringe IVP 25 gm PRN PRN Administration HYPOGLYCEMIA PROTOCOL Guaifenesin/Dextromethorphan 5 ml 07/18/20 05:24 07/18/20 05:44 Guaifenesin Dm 100-10/5 Ml Udcup PO 5 ml Q4H PRN Administration Cough Dextrose/Water 1,000 mls @ 0 mls/hr 07/07/20 02:30 07/10/20 23:00 D5w IV 1,000 mls INF PRN Administration HYPOGLYCEMIA PROTOCOL As Directed Insulin Glargine 8 units/ 0.08 mls @ 0 mls/hr 08/02/20 09:00 08/02/20 10:03 Miscellaneous Medication SC 0.08 mls QAM CAROLYNN Administration Insulin Human Regular 0 units 07/07/20 02:30 08/02/20 06:39 Insulin Regular 300 Units/3 Ml Vial SC 6 unit .AGGRESSIVE SLIDING PRN Administration AGGRESSIVE SLIDING SCALE Protocol Insulin Human Regular 0 units 07/23/20 21:22 08/02/20 01:14 Insulin Regular 300 Units/3 Ml Vial SC 2 unit .BEDTIME SLIDING SC PRN Administration Bedtime Correctional Scale Ondansetron HCl 4 mg 07/18/20 01:44 07/18/20 10:39 Ondansetron Pf 4 Mg/2 Ml Vial IVP 4 mg Q6H PRN Administration Nausea/Vomiting Pantoprazole Sodium 40 mg 07/21/20 09:00 08/02/20 10:02 Pantoprazole 40 Mg Tab PO 40 mg BID CAROLYNN Administration Sodium Chloride 10 ml 07/07/20 21:00 08/02/20 10:03 Flush - Normal Saline 10 Ml Syringe IVF 10 ml Q12HR CAROLYNN Administration Zinc Sulfate 220 mg 07/07/20 09:00 08/02/20 10:03 Zinc Sulfate 220 Mg Cap PO 220 mg DAILY CAROLYNN Administration - Exam General Appearance: awake alert General - other findings: Chronically ill looking Eye: PERRL, anicteric sclera Heart: RRR, no murmur, no gallops, no rubs Respiratory: CTAB, no wheezes, no rales, no ronchi Gastrointestinal: soft, non-tender, non-distended, normal bowel sounds Extremities: no cyanosis, no clubbing, no edema Neurological: cranial nerve grossly intact, no focal deficits Psychiatric: normal affect, A&O x 3 Hosp A/P - Plan This is a 60-year-old male patient with a history of diabetes mellitus type 2, BPH, hyperlipidemia and CHF, ESRD on peritoneal dialysis was admitted on 07/06/2020 on account of pneumonia due to Covid. He is currently off contact precautions and on 2 L oxygen per nasal cannula. Has made significant improvement otherwise he is generally weak and needs rehab Acute hypoxic respiratory failure In the setting of Covid Oxygen as needed. Pneumonia due to Covid Off steroids Monitor Hypoglycemia Resolved Acute on chronic encephalopathy Patient is stable back to baseline Continue monitor. Acute GI bleed secondary to erosive esophagitis and gastric ulcerresolved EGD showing gastric ulcer and erosive esophagitiscontinue PPI Penile discharge grew Enterococcus and MRSA Resolved ESRD Continue peritoneal dialysis Type 2 diabetes mellitus Continue glucose monitoring Continue insulin Physical deconditioning PT followingrehab recommend Anemia Volume 8.3 Multifactorial CODE STATUSfull code VTE prophylaxisLovenox Dispositionrehab
[2020-08-02] MEDS: Cholecalciferol 1,000 UNITS (25 MCG) TAB PO SCH (21:21)
[2020-08-03 05:13] LABS: #Basophils 0.1 thou/uL (0.0-0.2); #Eosinphils 0.5 thou/uL (0.0-0.7); #Lymphocytes 0.9 thou/uL (1.20-3.40); #Monocytes 0.6 thou/uL (0.11-0.59); #Neutrophils 7.7 thou/uL (1.40-6.50); %Basophils 0.6 % (0.0-1.0); %Eosinophils 5.4 % (0.0-10.0); %Lymphocytes 9.4 % (21.0-51.0); %Monocytes 6.2 % (0.0-10.0); %Neutrophils 78.5 % (42.0-75.0); Hemoglobin 8.4 g/dL (14.0-18.0); Mean Corpuscular HGB CONC 29.4 g/dL (32.0-36.0); Mean Corpuscular Hemoglobin 27.1 pg (27.0-31.0); Mean Corpuscular Volume 92.4 fL (78.0-98.0); Mean Platelet Volume 8.8 fL (7.4-10.4); Platelet Count 192 thou/uL (130-400); RBC Distribution Width 16.9 % (11.5-14.5); Red Blood Cell (RBC) Count 3.08 mill/uL (4.70-6.10); White Blood Cell (WBC) Count 9.8 thou/uL (4.8-10.8)
[2020-08-03 05:21] LABS: Anion Gap 14 mmol/L (10-20); BUN (Urea Nitrogen) 30 mg/dL (8.4-25.7); Calc. Creatinine Clearance 9 mL/min (70-130); Calcium 6.9 mg/dL (7.8-10.44); Carbon Dioxide 26 mmol/L (22-29); Chloride 99 mmol/L (98-107); Glucose 127 mg/dL (70-105); Potassium 3.8 mmol/L (3.5-5.1); Sodium 135 mmol/L (136-145)
--- NOTE | 2020-08-03 10:07 | PRG ---
DATE OF SERVICE: 08/03/2020 SUBJECTIVE: A 60-year-old male being seen for end-stage renal disease. The patient denies any nausea, vomiting, or chest pain. OBJECTIVE: GENERAL: The patient is awake, alert. VITAL SIGNS: Afebrile. Pulse 71, breathing 16, blood pressure 120/67. HEENT: Head normocephalic and atraumatic. Eyes intact, no ulcers. Nose intact, no ulcers. Ears intact, no ulcers. NECK: Supple. No JVD. CHEST: Symmetrical and clear. CARDIOVASCULAR: Shows S1 and S2, no rub, no murmur. GASTROINTESTINAL: Abdomen is soft, bowel sounds positive. EXTREMITIES: Show no edema or ulcers. SKIN: Shows no rash or petechiae. MUSCULOSKELETAL: Shows no joint swelling or stiffness. GENITOURINARY: Shows no Duran or CVA tenderness. NEUROLOGIC: Motor intact. Cranial nerves intact. LABORATORY DATA: Reviewed. ASSESSMENT AND PLAN: 1. Stage 6 chronic kidney disease. Plan dialysis. 2. Hypertension, stable. 3. Anemia, stable. 4. Medication based on GFR appropriate. Job ID: [id number]
[2020-08-03] MEDS: Ascorbic Acid 500 mg Chewable Tablet PO SCH (12:50)
[2020-08-03] MEDS: Atorvastatin Calcium 10 MG TAB PO SCH (12:50)
[2020-08-03] MEDS: Carvedilol 25 MG TAB PO SCH ×2 (12:50→17:42)
[2020-08-03] MEDS: EPOETIN ALFA-EPBX (ESRD) 10,000 UNIT/ML VIAL SC SCH (12:51)
[2020-08-03] MEDS: Insulin Glargine 8 UNITS in Pre-Filled Syringe 1 EACH SC SCH (12:51)
[2020-08-03] MEDS: Zinc Sulfate 220 MG CAP PO SCH (12:51)
--- NOTE | 2020-08-03 19:17 | PDOC.HOSPP ---
- Subjective Encounter Date: 08/03/20 Subjective: Patient was seen and examined in bed He is off oxygen and says he feels well He has no chest pain or SOB No significant events overnight - Objective Vital Signs & Weight: Vital Signs (12 hours) Temp Pulse Resp BP Pulse Ox 08/03/20 16:00 97.8 F 71 18 136/73 95 08/03/20 07:31 98.1 F 78 18 136/63 94 L 08/03/20 07:30 94 L Weight Admit Weight 128 lb 8.472 oz Weight 110 lb 7.225 oz Most Recent Monitor Data Heart Rate from ECG 93 NIBP 146/67 NIBP BP-Mean 93 Respiration from ECG 25 SpO2 100 I&O: 08/02/20 08/03/20 08/04/20 06:59 06:59 06:59 Intake Total 1580 1330 600 Output Total 0 200 Balance 1580 1330 400 Result Diagrams: 08/03/20 04:55 08/03/20 04:55 Additional Labs: Accuchecks 08/03/20 08/03/20 08/02/20 17:43 06:03 23:49 POC Glucose 239 H 129 H 223 H 08/02/20 20:38 POC Glucose 167 H Hospitalist ROS - Review of Systems All other systems reviewed; all pertinent +/- noted in HPI/Subj - Medication Medications: Active Medications Generic Name Dose Route Start Last Admin Trade Name Freq PRN Reason Stop Dose Admin Ascorbic Acid 1,000 mg 07/07/20 09:00 08/03/20 12:50 Ascorbic Acid 500 Mg Chewable Tablet PO 1,000 mg DAILY CAROLYNN Administration Atorvastatin Calcium 10 mg 07/07/20 09:00 08/03/20 12:50 Atorvastatin Calcium 10 Mg Tab PO 10 mg DAILY CAROLYNN Administration Carvedilol 25 mg 07/22/20 17:00 08/03/20 17:42 Carvedilol 25 Mg Tab PO Not Given BID- CAROLYNN Cholecalciferol 5,000 units 07/06/20 21:00 08/02/20 21:21 Cholecalciferol 1,000 Units (25 Mcg) Tab PO 5,000 units HS CAROLYNN Administration Dextrose/Water 25 gm 07/07/20 02:30 07/25/20 05:54 Dextrose 50% Abboject 50 Ml Syringe IVP 25 gm PRN PRN Administration HYPOGLYCEMIA PROTOCOL Epoetin Quincy-epbx 10,000 unit 08/03/20 09:00 08/03/20 12:51 Epoetin Quincy-Epbx (Esrd) 10,000 Unit/Ml Vial SC 10,000 unit MWF CAROLYNN Administration Guaifenesin/Dextromethorphan 5 ml 07/18/20 05:24 07/18/20 05:44 Guaifenesin Dm 100-10/5 Ml Udcup PO 5 ml Q4H PRN Administration Cough Dextrose/Water 1,000 mls @ 0 mls/hr 07/07/20 02:30 07/10/20 23:00 D5w IV 1,000 mls INF PRN Administration HYPOGLYCEMIA PROTOCOL As Directed Insulin Glargine 8 units/ 0.08 mls @ 0 mls/hr 08/02/20 09:00 08/03/20 12:51 Miscellaneous Medication SC Not Given Q[facility] Insulin Human Regular 0 units 07/07/20 02:30 08/02/20 06:39 Insulin Regular 300 Units/3 Ml Vial SC 6 unit .AGGRESSIVE SLIDING PRN Administration AGGRESSIVE SLIDING SCALE Protocol Insulin Human Regular 0 units 07/23/20 21:22 08/02/20 23:50 Insulin Regular 300 Units/3 Ml Vial SC 2 unit .BEDTIME SLIDING SC PRN Administration Bedtime Correctional Scale Ondansetron HCl 4 mg 07/18/20 01:44 07/18/20 10:39 Ondansetron Pf 4 Mg/2 Ml Vial IVP 4 mg Q6H PRN Administration Nausea/Vomiting Pantoprazole Sodium 40 mg 07/21/20 09:00 08/03/20 12:51 Pantoprazole 40 Mg Tab PO 40 mg BID CAROLYNN Administration Sodium Chloride 10 ml 07/07/20 21:00 08/03/20 12:51 Flush - Normal Saline 10 Ml Syringe IVF 10 ml Q12HR CAROLYNN Administration Zinc Sulfate 220 mg 07/07/20 09:00 08/03/20 12:51 Zinc Sulfate 220 Mg Cap PO 220 mg DAILY CAROLYNN Administration - Exam General Appearance: awake alert Neck: supple, symmetric Heart: RRR, no murmur, no gallops, no rubs Respiratory: CTAB, no wheezes, no rales, no ronchi Gastrointestinal: soft, non-tender, non-distended, normal bowel sounds Extremities: no cyanosis, no clubbing, no edema Neurological: cranial nerve grossly intact, no focal deficits Musculoskeletal: generalized weakness Psychiatric: normal affect, normal behavior, A&O x 3 Hosp A/P - Plan This is a 60-year-old male patient with a history of diabetes mellitus type 2, BPH, hyperlipidemia and CHF, ESRD on peritoneal dialysis was admitted on 07/06/2020 on account of pneumonia due to Covid. Also had upper GI bleeding. He is currently off contact precautions was on 2 L now tolerating room air. Decision was made to discharge him today however it was noted that he was very weak and discharged today with O2 sats at 85 when trying to walk around. case managegement said his insurance would not cover rehab or SNF so considered out patient PT. We will keep him for evaluation by PT tomorrow and see whether he can get case management can help in other ways to get placement at SNF or rehab facility Acute hypoxic respiratory failure In the setting of Covid significantly improved Oxygen as needed. Pneumonia due to Covid Off steroids Monitor Hypoglycemia Resolved Acute on chronic encephalopathy Patient is stable back to baseline Continue monitor. Acute GI bleed secondary to erosive esophagitis and gastric ulcerresolved EGD showing gastric ulcer and erosive esophagitiscontinue PPI Penile discharge grew Enterococcus and MRSA Resolved ESRD Continue peritoneal dialysis Type 2 diabetes mellitus Continue glucose monitoring Continue insulin Physical deconditioning PT followingrehab recommend Anemia Hemoglobin stable above 8 Multifactorial Continue monitor CODE STATUSfull code VTE prophylaxisLovenox Dispositionrehab
[2020-08-03] MEDS: Insulin Regular 300 UNITS/3 ML VIAL SC PRN (21:29)
[2020-08-03] MEDS: Cholecalciferol 1,000 UNITS (25 MCG) TAB PO SCH (21:43)
[2020-08-04 05:01] LABS: Anion Gap 16 mmol/L (10-20); BUN (Urea Nitrogen) 19 mg/dL (8.4-25.7); Calc. Creatinine Clearance 13 mL/min (70-130); Calcium 7.1 mg/dL (7.8-10.44); Carbon Dioxide 26 mmol/L (22-29); Chloride 98 mmol/L (98-107); Glucose 201 mg/dL (70-105); Phosphorus 2.8 mg/dL (2.3-4.7); Potassium 3.9 mmol/L (3.5-5.1); Sodium 136 mmol/L (136-145)
[2020-08-04 06:05] LABS: Band 9 % (5-11); Eosinophils 3 % (0-10); Hemoglobin 9.3 g/dL (14.0-18.0); Lymphocytes 8 % (21-51); MDiff Complete? YES; Mean Corpuscular HGB CONC 31.2 g/dL (32.0-36.0); Mean Corpuscular Hemoglobin 28.9 pg (27.0-31.0); Mean Corpuscular Volume 92.9 fL (78.0-98.0); Mean Platelet Volume 9.5 fL (7.4-10.4); Monocytes 4 % (0-10); Neutrophil 76 % (42-75); Platelet Count 177 thou/uL (130-400); RBC Distribution Width 16.3 % (11.5-14.5); Red Blood Cell (RBC) Count 3.21 mill/uL (4.70-6.10); White Blood Cell (WBC) Count 12.3 thou/uL (4.8-10.8)
[2020-08-04] MEDS: Acetaminophen 325 MG TAB PO PRN ×3 (07:59→21:14)
[2020-08-04] MEDS: Ascorbic Acid 500 mg Chewable Tablet PO SCH (08:00)
[2020-08-04] MEDS: Atorvastatin Calcium 10 MG TAB PO SCH (08:00)
[2020-08-04] MEDS: Zinc Sulfate 220 MG CAP PO SCH (08:01)
[2020-08-04] MEDS: Carvedilol 25 MG TAB PO SCH (08:01)
[2020-08-04] MEDS: Insulin Glargine 8 UNITS in Pre-Filled Syringe 1 EACH SC SCH (08:04)
--- NOTE | 2020-08-04 09:33 | PRG ---
DATE OF SERVICE: 08/04/2020 SUBJECTIVE: A 60-year-old gentleman, being seen for end-stage renal disease. The patient denies any nausea, vomiting, or chest pain. OBJECTIVE: General: The patient is awake and alert. Vital Signs: Afebrile, pulse 75, breathing at 16, blood pressure 131/63. HEENT: Head normocephalic and atraumatic. Eyes intact, no ulcers. Nose intact, no ulcers. Ears intact, no ulcers. Neck: Supple. No JVD. Chest: Symmetrical and clear. Cardiovascular: Shows S1 and S2, no rub, no murmur. Gastrointestinal: Abdomen is soft, bowel sounds positive. Extremities: Show no edema or ulcers. Skin: Shows no rash or petechiae. Musculoskeletal: Shows no joint swelling or stiffness. Genitourinary: Shows no Duran or CVA tenderness. Neurologic: Motor intact. Cranial nerves intact. LABORATORY DATA: Reviewed. ASSESSMENT AND PLAN: 1. Stage 6 chronic kidney disease, plan dialysis. 2. Hypertension, stable. 3. Anemia, stable. 4. Medication based on GFR appropriate. Job ID: [id number]
[2020-08-04] MEDS: Insulin Regular 300 UNITS/3 ML VIAL SC PRN (11:59)
--- NOTE | 2020-08-04 16:48 | PDOC.HOSPP ---
- Subjective Encounter Date: 08/04/20 Encounter Time: 10:00 Subjective: F/u: COVID/weakness When I saw the patient this afternoon, I found him laying down on the floor and he was unable to get up. Patient states he was laying down for approximately 30 minutes. He denied hitting his head or passing out. He denied any dizziness. He states that he fell while walking from the chair to his bed. Fingerstick glucose was 69. Patient was given orange juice Patient did spike a temperature to 102 this afternoon. His oxygen saturation was 80% on room air and he was bumped up to 4 L of oxygen. Patient complains of mild shortness of breath. He denies cough. He was extremely weak while we were trying to stand him up - Objective Vital Signs & Weight: Vital Signs (12 hours) Temp Pulse Pulse Pulse Resp BP BP 08/04/20 16:35 101.8 F H 92 22 H 08/04/20 14:45 08/04/20 12:03 99.9 F H 77 20 08/04/20 11:04 08/04/20 10:18 81 88 94/53 L 08/04/20 08:00 08/04/20 07:59 100.5 F H 91 20 131/63 08/04/20 07:48 100.5 F H 91 20 BP BP BP Pulse Ox Pulse Ox Pulse Ox 08/04/20 16:35 125/60 80 L 08/04/20 14:45 145/67 H 08/04/20 12:03 106/55 L 96 08/04/20 11:04 92/50 L 08/04/20 10:18 84/47 L 96 95 08/04/20 08:00 94 L 08/04/20 07:59 08/04/20 07:48 131/63 94 L Weight Admit Weight 128 lb 8.472 oz Weight 113 lb 8.609 oz Most Recent Monitor Data Heart Rate from ECG 93 NIBP 146/67 NIBP BP-Mean 93 Respiration from ECG 25 SpO2 100 I&O: 08/03/20 08/04/20 08/05/20 06:59 06:59 06:59 Intake Total 1330 800 Output Total 201 Balance 1330 599 Result Diagrams: 08/04/20 04:09 08/04/20 04:09 Additional Labs: Accuchecks 08/04/20 08/04/20 08/04/20 15:44 11:12 06:07 POC Glucose 68 L 302 H 215 H 08/03/20 08/03/20 21:26 17:43 POC Glucose 281 H 239 H Hospitalist ROS - Review of Systems Constitutional: denies: fever, chills - Medication Medications: Active Medications Generic Name Dose Route Start Last Admin Trade Name Freq PRN Reason Stop Dose Admin Acetaminophen 650 mg 07/06/20 16:31 08/04/20 07:59 Acetaminophen 325 Mg Tab PO 650 mg Q4H PRN Administration Headache/Fever/Mild Pain (1-3) Ascorbic Acid 1,000 mg 07/07/20 09:00 08/04/20 08:00 Ascorbic Acid 500 Mg Chewable Tablet PO 1,000 mg DAILY CAROLYNN Administration Atorvastatin Calcium 10 mg 07/07/20 09:00 08/04/20 08:00 Atorvastatin Calcium 10 Mg Tab PO 10 mg DAILY CAROLYNN Administration Cholecalciferol 5,000 units 07/06/20 21:00 08/03/20 21:43 Cholecalciferol 1,000 Units (25 Mcg) Tab PO 5,000 units HS CAROLYNN Administration Dextrose/Water 25 gm 07/07/20 02:30 07/25/20 05:54 Dextrose 50% Abboject 50 Ml Syringe IVP 25 gm PRN PRN Administration HYPOGLYCEMIA PROTOCOL Epoetin Quincy-epbx 10,000 unit 08/03/20 09:00 08/03/20 12:51 Epoetin Quincy-Epbx (Esrd) 10,000 Unit/Ml Vial SC 10,000 unit MWF CAROLYNN Administration Guaifenesin/Dextromethorphan 5 ml 07/18/20 05:24 07/18/20 05:44 Guaifenesin Dm 100-10/5 Ml Udcup PO 5 ml Q4H PRN Administration Cough Dextrose/Water 1,000 mls @ 0 mls/hr 07/07/20 02:30 07/10/20 23:00 D5w IV 1,000 mls INF PRN Administration HYPOGLYCEMIA PROTOCOL As Directed Insulin Glargine 8 units/ 0.08 mls @ 0 mls/hr 08/02/20 09:00 08/04/20 08:04 Miscellaneous Medication SC 0.08 mls QAM CAROLYNN Administration Insulin Human Regular 0 units 07/07/20 02:30 08/04/20 11:59 Insulin Regular 300 Units/3 Ml Vial SC 11 unit .AGGRESSIVE SLIDING PRN Administration AGGRESSIVE SLIDING SCALE Protocol Insulin Human Regular 0 units 07/23/20 21:22 08/03/20 21:29 Insulin Regular 300 Units/3 Ml Vial SC 3 unit .BEDTIME SLIDING SC PRN Administration Bedtime Correctional Scale Ondansetron HCl 4 mg 07/18/20 01:44 07/18/20 10:39 Ondansetron Pf 4 Mg/2 Ml Vial IVP 4 mg Q6H PRN Administration Nausea/Vomiting Pantoprazole Sodium 40 mg 07/21/20 09:00 08/04/20 08:01 Pantoprazole 40 Mg Tab PO 40 mg BID CAROLYNN Administration Sodium Chloride 10 ml 07/07/20 21:00 08/04/20 08:02 Flush - Normal Saline 10 Ml Syringe IVF Not Given Q12HR CAROLYNN Zinc Sulfate 220 mg 07/07/20 09:00 08/04/20 08:01 Zinc Sulfate 220 Mg Cap PO 220 mg DAILY CAROLYNN Administration - Exam General Appearance: NAD, awake alert Eye: PERRL, anicteric sclera ENT: normocephalic atraumatic, no oropharyngeal lesions Neck: supple, symmetric, no JVD Heart: RRR, no murmur, no gallops, no rubs Respiratory: CTAB, no wheezes, no rales, no ronchi Gastrointestinal: soft, non-tender, non-distended, normal bowel sounds Extremities: no cyanosis, no clubbing, no edema Skin: normal turgor, no lesions, no rashes Neurological: cranial nerve grossly intact, normal sensation to touch Hosp A/P - Plan Chest x ray 07/07: ground glass infiltrates right lower and left mid and lower lungs Chest X ray 07/20: hazy and interstitial alveolar infiltrates in left mid and lower lung and right lower lung CT head 07/10: no acute hemorrhage. Prior pontine infarctions This is a 60 year-old male with a past medical history of ESRD who presented to the emergency room with hypoxia from [place] [facility]. Patient did require intubation and has subsequently been extubated. He also had an episode of hematemesis on 07/19. He was transferred back to [facility] and placed on BiPAP. He has had no further episodes of hematemesis and has been transferred back to the floor. He is pending placement Acute hypoxic respiratory failure secondary to Covid pneumonia- -Patient was on room air. He is now hypoxic with O2 saturation of 80% on room air. Will repeat chest x-ray. He was removed off isolation on 07/26, but may need to consider reinitiating if symptomatic and worsening x-ray findings SIRS -Patient is a temp of 102. Will repeat blood cultures. He is status post IV Zosyn from 07/10-07/18 -White blood cell count has increased to 12.3. Will obtain chest x-ray. Will resume IV Zosyn #Hypoglycemia #Type II diabetes - blood sugar 69. Will decrease sliding scale to mild sliding scale. #Hypotension -Blood pressures 80s to 140s. Considering fall, will stop Coreg for now and monitor S/p fall Physical deconditioning - PT is working with him and recommending rehab. He has been denied from multiple rehab facilities. - he is still very weak while standing. Plan to go home after discharge #Acute on chronic encephalopathy #History of stroke - at his baseline. 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 Continue PPI #Penile discharge - grew enterococcus and MRSA rare. This has resolved and patient has no abdominal pain, so held off on antibiotics ESRD -Continue peritoneal dialysis Dispo: pending rehab placement still
--- NOTE | 2020-08-04 17:19 | RAD ---
Chest one view HISTORY: COVID pneumonia. Follow-up. COMPARISON: 07/20/2020. FINDINGS: Cardiac silhouette is magnified and upper limits of normal in size. Pulmonary vasculature a re unremarkable. Mediastinum is midline with aortic calcification. Scattered patchy areas of ill-defined peripheral groundglass infiltrate involving the basilar portion s of each lung have become more dense than on the prior exam. Upper lobes relatively clear. No evidence of pneumothorax. IMPRESSION : Slight interval radiographic worsening of bilateral multifocal infiltrates.
[2020-08-04] MEDS: Dextrose 50% Abboject 50 ML SYRINGE IVP PRN (17:24)
[2020-08-04] MEDS: Piperacillin/Tazobactam 3.375 GM in Sodium Chloride 0.9% 100 ML IVPB SCH ×2 (17:25→23:47)
[2020-08-04] MEDS: Cholecalciferol 1,000 UNITS (25 MCG) TAB PO SCH (21:15)
[2020-08-05 04:41] LABS: Hemoglobin 8.9 g/dL (14.0-18.0); Mean Corpuscular HGB CONC 30.8 g/dL (32.0-36.0); Mean Corpuscular Hemoglobin 28.6 pg (27.0-31.0); Mean Platelet Volume 9.6 fL (7.4-10.4); Platelet Count 162 thou/uL (130-400); RBC Distribution Width 16.6 % (11.5-14.5); Red Blood Cell (RBC) Count 3.09 mill/uL (4.70-6.10); White Blood Cell (WBC) Count 12.4 thou/uL (4.8-10.8)
[2020-08-05 05:03] LABS: Anion Gap 17 mmol/L (10-20); BUN (Urea Nitrogen) 35 mg/dL (8.4-25.7); Calc. Creatinine Clearance 10 mL/min (70-130); Calcium 7.4 mg/dL (7.8-10.44); Carbon Dioxide 23 mmol/L (22-29); Chloride 97 mmol/L (98-107); Glucose 172 mg/dL (70-105); Potassium 4.4 mmol/L (3.5-5.1); Sodium 133 mmol/L (136-145)
[2020-08-05] MEDS: Piperacillin/Tazobactam 3.375 GM in Sodium Chloride 0.9% 100 ML IVPB SCH ×4 (06:24→23:39)
[2020-08-05] MEDS: HumaLOG 300 UNITS/3 ML VIAL SC PRN (06:24)
[2020-08-05] MEDS: Atorvastatin Calcium 10 MG TAB PO SCH (09:08)
[2020-08-05] MEDS: Ascorbic Acid 500 mg Chewable Tablet PO SCH (09:08)
[2020-08-05] MEDS: Zinc Sulfate 220 MG CAP PO SCH (09:08)
--- NOTE | 2020-08-05 11:18 | PRG ---
DATE OF SERVICE: 08/05/2020 SUBJECTIVE: A 60-year-old gentleman, being seen for end-stage renal disease. The patient denied any nausea, vomiting, or chest pain. OBJECTIVE: GENERAL: The patient is awake, alert. VITAL SIGNS: Afebrile, pulse 95, breathing at 16, blood pressure 134/62. HEENT: Head normocephalic and atraumatic. Eyes intact, no ulcers. Nose intact, no ulcers. Ears intact, no ulcers. NECK: Supple. No JVD. CHEST: Symmetrical and clear. CARDIOVASCULAR: Shows S1 and S2, no rub, no murmur. GASTROINTESTINAL: Abdomen is soft, bowel sounds positive. EXTREMITIES: Show no edema or ulcers. SKIN: Shows no rash or petechiae. MUSCULOSKELETAL: Shows no joint swelling or stiffness. GENITOURINARY: Shows no Duran or CVA tenderness. NEUROLOGIC: Motor intact. Cranial nerves intact. LABORATORY DATA: Labs show creatinine of 8.9. ASSESSMENT AND PLAN: 1. Stage 6 chronic kidney disease. Plan; dialysis tomorrow. 2. Hypertension, stable. 3. Anemia, stable. 4. Medication based on GFR appropriate. Job ID: [id number]
--- NOTE | 2020-08-05 18:49 | PDOC.HOSPP ---
- Subjective Encounter Date: 08/05/20 Encounter Time: 04:00 Subjective: F/u: COVID The patient is okay. No significant cough or shortness of breath. He is on oxygen. He is asking when he can go home. He had no falls today - Objective Vital Signs & Weight: Vital Signs (12 hours) Temp Pulse Resp BP Pulse Ox 08/05/20 17:00 99.4 F 75 18 96/52 L 97 08/05/20 12:00 99.7 F H 81 20 114/58 L 93 L 08/05/20 08:00 98 08/05/20 07:42 99.8 F H 98 20 95/52 L 98 Weight Admit Weight 128 lb 8.472 oz Weight 113 lb 8.609 oz Most Recent Monitor Data Heart Rate from ECG 93 NIBP 146/67 NIBP BP-Mean 93 Respiration from ECG 25 SpO2 100 I&O: 08/04/20 08/05/20 08/06/20 06:59 06:59 06:59 Intake Total 800 1160 Output Total 201 Balance 599 1160 Result Diagrams: 08/05/20 04:30 08/05/20 04:29 Additional Labs: Accuchecks 08/05/20 08/05/20 08/05/20 18:15 05:37 02:31 POC Glucose 160 H 168 H 192 H 08/04/20 20:53 POC Glucose 185 H Hospitalist ROS - Review of Systems Constitutional: denies: fever, chills - Medication Medications: Active Medications Generic Name Dose Route Start Last Admin Trade Name Freq PRN Reason Stop Dose Admin Acetaminophen 650 mg 07/06/20 16:31 08/04/20 21:14 Acetaminophen 325 Mg Tab PO 650 mg Q4H PRN Administration Headache/Fever/Mild Pain (1-3) Ascorbic Acid 1,000 mg 07/07/20 09:00 08/05/20 09:08 Ascorbic Acid 500 Mg Chewable Tablet PO 1,000 mg DAILY CAROLYNN Administration Atorvastatin Calcium 10 mg 07/07/20 09:00 08/05/20 09:08 Atorvastatin Calcium 10 Mg Tab PO 10 mg DAILY CAROLYNN Administration Cholecalciferol 5,000 units 07/06/20 21:00 08/04/20 21:15 Cholecalciferol 1,000 Units (25 Mcg) Tab PO 5,000 units HS CAROLYNN Administration Dextrose/Water 25 gm 07/07/20 02:30 08/04/20 17:24 Dextrose 50% Abboject 50 Ml Syringe IVP 25 gm PRN PRN Administration HYPOGLYCEMIA PROTOCOL Epoetin Quincy-epbx 10,000 unit 08/03/20 09:00 08/03/20 12:51 Epoetin Quincy-Epbx (Esrd) 10,000 Unit/Ml Vial SC 10,000 unit MWF CAROLYNN Administration Guaifenesin/Dextromethorphan 5 ml 07/18/20 05:24 07/18/20 05:44 Guaifenesin Dm 100-10/5 Ml Udcup PO 5 ml Q4H PRN Administration Cough Dextrose/Water 1,000 mls @ 0 mls/hr 07/07/20 02:30 07/10/20 23:00 D5w IV 1,000 mls INF PRN Administration HYPOGLYCEMIA PROTOCOL As Directed Piperacillin Sod/Tazobactam 100 mls @ 200 mls/hr 08/04/20 18:00 08/05/20 17:36 Sod 3.375 gm/ Sodium Chloride IVPB 100 mls Q6HR CAROLYNN Administration Insulin Human Lispro 0 units 08/04/20 16:47 08/05/20 06:24 Humalog 300 Units/3 Ml Vial SC 2 unit .MILD SLIDING SCALE PRN Administration Mild Correctional Scale Insulin Human Regular 0 units 07/23/20 21:22 08/03/20 21:29 Insulin Regular 300 Units/3 Ml Vial SC 3 unit .BEDTIME SLIDING SC PRN Administration Bedtime Correctional Scale Ondansetron HCl 4 mg 07/18/20 01:44 07/18/20 10:39 Ondansetron Pf 4 Mg/2 Ml Vial IVP 4 mg Q6H PRN Administration Nausea/Vomiting Pantoprazole Sodium 40 mg 07/21/20 09:00 08/05/20 09:07 Pantoprazole 40 Mg Tab PO 40 mg BID CAROLYNN Administration Sodium Chloride 10 ml 07/07/20 21:00 08/05/20 12:29 Flush - Normal Saline 10 Ml Syringe IVF 10 ml Q12HR CAROLYNN Administration Sodium Chloride 10 ml 07/07/20 09:45 08/05/20 17:37 Flush - Normal Saline 10 Ml Syringe IVF 10 ml PRN PRN Administration Saline Flush Zinc Sulfate 220 mg 07/07/20 09:00 08/05/20 09:08 Zinc Sulfate 220 Mg Cap PO 220 mg DAILY CAROLYNN Administration - Exam General Appearance: NAD, awake alert Eye: PERRL, anicteric sclera ENT: normocephalic atraumatic, no oropharyngeal lesions Neck: supple, symmetric, no JVD Heart: RRR, no murmur, no gallops, no rubs Respiratory: CTAB, no wheezes, no rales, no ronchi Gastrointestinal: soft, non-tender, non-distended, normal bowel sounds Extremities: no cyanosis, no clubbing, no edema Skin: normal turgor, no lesions, no rashes Neurological: cranial nerve grossly intact, normal sensation to touch, no weakness Hosp A/P - Plan Chest x ray 07/07: ground glass infiltrates right lower and left mid and lower lungs Chest X ray 07/20: hazy and interstitial alveolar infiltrates in left mid and lower lung and right lower lung CT head 07/10: no acute hemorrhage. Prior pontine infarctions This is a 60 year-old male with a past medical history of ESRD who presented to the emergency room with hypoxia from [place] [facility]. Patient did require intubation and has subsequently been extubated. He also had an episode of hematemesis on 07/19. He was transferred back to [facility] and placed on BiPAP. He has had no further episodes of hematemesis and has been transferred back to the floor. He is pending placement #Acute hypoxic respiratory failure secondary to Covid pneumonia #Sepsis from pneumonia - patient spiked fever to 102 on 08/05. Repeat chest X ray shows worsening multif ocal infiltrates. Zosyn started. WBC 12.4. Consider switching to oral antibiotics if WBC improves. Blood cultures repeated 08/04 and are normal - he is currently on oxygen, will need to be weaned off prior to discharge #Hypoglycemia- resolved #Type II diabetes - blood sugars 160's. Continue sliding scale #Hypotension -resolved S/p fall Physical deconditioning - PT is working with him and recommending rehab. He has been denied from multiple rehab facilities. - will check orthostatics #Acute on chronic encephalopathy #History of stroke - at his baseline. 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 Continue PPI #Penile discharge - grew enterococcus and MRSA rare. This has resolved and patient has no abdominal pain, so held off on antibiotics ESRD -Continue peritoneal dialysis Dispo: pending rehab placement still
[2020-08-05] MEDS: Cholecalciferol 1,000 UNITS (25 MCG) TAB PO SCH (20:56)
[2020-08-05] MEDS: Insulin Regular 300 UNITS/3 ML VIAL SC PRN (23:38)
[2020-08-06] MEDS: Piperacillin/Tazobactam 3.375 GM in Sodium Chloride 0.9% 100 ML IVPB SCH ×4 (05:32→23:39)
[2020-08-06] MEDS: HumaLOG 300 UNITS/3 ML VIAL SC PRN ×2 (06:00→18:09)
[2020-08-06 09:16] LABS: HBSAg Index 0.17 S/CO (0-0.99); Hep B Surf Ag Non-Reactive S/CO (NonReactive)
--- NOTE | 2020-08-06 11:54 | PRG ---
DATE OF SERVICE: 08/06/2020 SUBJECTIVE: Patient was seen and examined at bedside and overnight events noted. Patient denies any shortness of breath or chest pain or palpitation. No history of nausea or vomiting or diarrhea or fever or chills or cramps. OBJECTIVE: GENERAL: This is a well-built male, in no apparent distress. VITAL SIGNS: Temperature 99. Heart rate 78. Respiratory rate 18. Blood pressure . HEENT: Atraumatic, normocephalic. Oral mucosa is moist NECK: Supple. CARDIOVASCULAR: S1, S2 heard. Rate and rhythm regular. RESPIRATORY: Clear to auscultation. GASTROINTESTINAL: Abdomen is soft. MUSCULOSKELETAL: No tenderness. No edema. DERMATOLOGIC: No skin rash. NEUROLOGIC: Alert and awake and oriented X3. No focal neurologic deficits. Moving all the extremities. PSYCHIATRIC: Mood and affect normal. LABORATORY DATA: Not done today. ASSESSMENT AND PLAN: 1. End-stage renal disease. Continue dialysis on Thursday, Thursday, and Thursday. The patient is seen during dialysis. I also asked the nurse to have the PD catheter . 2. Hypertension. 3. Anemia. 4. Edema, controlled. 5. Continue dialysis on Thursday, Thursday, and Thursday. Job ID: [id number]
[2020-08-06] MEDS: Ascorbic Acid 500 mg Chewable Tablet PO SCH (13:20)
[2020-08-06] MEDS: Atorvastatin Calcium 10 MG TAB PO SCH (13:21)
[2020-08-06] MEDS: Fludrocortisone Acetate 0.1 MG TAB PO SCH (13:21)
[2020-08-06] MEDS: EPOETIN ALFA-EPBX (ESRD) 10,000 UNIT/ML VIAL SC SCH (13:21)
[2020-08-06] MEDS: Zinc Sulfate 220 MG CAP PO SCH (13:22)
[2020-08-06] MEDS ORDERED: Piperacillin/Tazobactam 3.375 GM VIAL ONE ×2 (13:31→17:30)
[2020-08-06 14:35] LABS: Hemoglobin 8.8 g/dL (14.0-18.0); Mean Corpuscular HGB CONC 30.3 g/dL (32.0-36.0); Mean Corpuscular Hemoglobin 28.1 pg (27.0-31.0); Mean Corpuscular Volume 92.9 fL (78.0-98.0); Mean Platelet Volume 9.7 fL (7.4-10.4); Platelet Count 218 thou/uL (130-400); RBC Distribution Width 17.2 % (11.5-14.5); Red Blood Cell (RBC) Count 3.14 mill/uL (4.70-6.10)
[2020-08-06 14:49] LABS: Anion Gap 16 mmol/L (10-20); BUN (Urea Nitrogen) 19 mg/dL (8.4-25.7); Calc. Creatinine Clearance 18 mL/min (70-130); Calcium 7.5 mg/dL (7.8-10.44); Carbon Dioxide 26 mmol/L (22-29); Chloride 99 mmol/L (98-107); Glucose 129 mg/dL (70-105); Potassium 3.5 mmol/L (3.5-5.1); Sodium 137 mmol/L (136-145)
[2020-08-06] MEDS ORDERED: Dexamethasone 4 mg/ml Vial SLOW IVP SCH (16:15)
--- NOTE | 2020-08-06 17:18 | PDOC.HOSPP ---
- Subjective Encounter Date: 08/06/20 Encounter Time: 08:00 Subjective: F/u: pneumonia The patient reports mild cough with green sputum. He has mild SOB. He worked with PT and desaturated to 70% on 2L. His blood pressure was low this morning 89 systolic and was started on fludrocortisone Home oxygen planned to be set up for patient - Objective Vital Signs & Weight: Vital Signs (12 hours) Temp Pulse Resp BP BP Pulse Ox 08/06/20 15:25 98.9 F 84 16 125/59 L 96 08/06/20 13:00 98.6 F 77 16 136/62 93 L 08/06/20 07:25 98.9 F 78 16 95/58 L 96 Weight Admit Weight 128 lb 8.472 oz Weight 120 lb 5.958 oz Most Recent Monitor Data Heart Rate from ECG 93 NIBP 146/67 NIBP BP-Mean 93 Respiration from ECG 25 SpO2 100 I&O: 08/05/20 08/06/20 08/07/20 06:59 06:59 06:59 Intake Total 1160 1140 Output Total 0 Balance 1160 1140 Result Diagrams: 08/06/20 14:19 08/06/20 14:19 Additional Labs: Accuchecks 08/06/20 08/05/20 08/05/20 05:15 23:31 20:47 POC Glucose 170 H 286 H 225 H 08/05/20 08/04/20 18:15 17:10 POC Glucose 160 H 51 L* Hospitalist ROS - Review of Systems Constitutional: denies: fever, chills - Medication Medications: Active Medications Generic Name Dose Route Start Last Admin Trade Name Nena PRN Reason Stop Dose Admin Acetaminophen 650 mg 07/06/20 16:31 08/04/20 21:14 Acetaminophen 325 Mg Tab PO 650 mg Q4H PRN Administration Headache/Fever/Mild Pain (1-3) Ascorbic Acid 1,000 mg 07/07/20 09:00 08/06/20 13:20 Ascorbic Acid 500 Mg Chewable Tablet PO 1,000 mg DAILY CAROLYNN Administration Atorvastatin Calcium 10 mg 07/07/20 09:00 08/06/20 13:21 Atorvastatin Calcium 10 Mg Tab PO 10 mg DAILY CAROLYNN Administration Cholecalciferol 5,000 units 07/06/20 21:00 08/05/20 20:56 Cholecalciferol 1,000 Units (25 Mcg) Tab PO 5,000 units HS CAROLYNN Administration Dextrose/Water 25 gm 07/07/20 02:30 08/04/20 17:24 Dextrose 50% Abboject 50 Ml Syringe IVP 25 gm PRN PRN Administration HYPOGLYCEMIA PROTOCOL Epoetin Quincy-epbx 10,000 unit 08/03/20 09:00 08/06/20 13:21 Epoetin Quincy-Epbx (Esrd) 10,000 Unit/Ml Vial SC 10,000 unit MWF CAROLYNN Administration Fludrocortisone Acetate 0.1 mg 08/06/20 09:00 08/06/20 13:21 Fludrocortisone Acetate 0.1 Mg Tab PO 0.1 mg DAILY CAROLYNN Administration Guaifenesin/Dextromethorphan 5 ml 07/18/20 05:24 07/18/20 05:44 Guaifenesin Dm 100-10/5 Ml Udcup PO 5 ml Q4H PRN Administration Cough Dextrose/Water 1,000 mls @ 0 mls/hr 07/07/20 02:30 07/10/20 23:00 D5w IV 1,000 mls INF PRN Administration HYPOGLYCEMIA PROTOCOL As Directed Piperacillin Sod/Tazobactam 100 mls @ 200 mls/hr 08/04/20 18:00 08/06/20 13:19 Sod 3.375 gm/ Sodium Chloride IVPB 100 mls Q6HR CAROLYNN Administration Insulin Human Lispro 0 units 08/04/20 16:47 08/06/20 06:00 Humalog 300 Units/3 Ml Vial SC 2 unit .MILD SLIDING SCALE PRN Administration Mild Correctional Scale Insulin Human Regular 0 units 07/23/20 21:22 08/05/20 23:38 Insulin Regular 300 Units/3 Ml Vial SC 3 unit .BEDTIME SLIDING SC PRN Administration Bedtime Correctional Scale Ondansetron HCl 4 mg 07/18/20 01:44 07/18/20 10:39 Ondansetron Pf 4 Mg/2 Ml Vial IVP 4 mg Q6H PRN Administration Nausea/Vomiting Pantoprazole Sodium 40 mg 07/21/20 09:00 08/06/20 13:22 Pantoprazole 40 Mg Tab PO 40 mg BID CAROLYNN Administration Sodium Chloride 10 ml 07/07/20 21:00 08/06/20 13:22 Flush - Normal Saline 10 Ml Syringe IVF 10 ml Q12HR CAROLYNN Administration Sodium Chloride 10 ml 07/07/20 09:45 08/05/20 17:37 Flush - Normal Saline 10 Ml Syringe IVF 10 ml PRN PRN Administration Saline Flush Zinc Sulfate 220 mg 07/07/20 09:00 08/06/20 13:22 Zinc Sulfate 220 Mg Cap PO 220 mg DAILY CAROLYNN Administration - Exam General Appearance: NAD, awake alert Eye: PERRL, anicteric sclera ENT: normocephalic atraumatic, no oropharyngeal lesions Neck: no JVD Heart: RRR, no murmur, no gallops, no rubs Respiratory: CTAB, no wheezes, no rales, no ronchi Gastrointestinal: soft, non-tender, non-distended, normal bowel sounds Extremities: no cyanosis, no clubbing, no edema Skin: normal turgor, no lesions, no rashes Neurological: cranial nerve grossly intact, normal sensation to touch, no weakness, no new deficit Musculoskeletal: normal tone, normal strength, no muscle wasting Hosp A/P - Plan Chest x ray 07/07: ground glass infiltrates right lower and left mid and lower melinda ngs Chest X ray 07/20: hazy and interstitial alveolar infiltrates in left mid and lower lung and right lower lung CT head 07/10: no acute hemorrhage. Prior pontine infarctions This is a 60 year-old male with a past medical history of ESRD who presented to the emergency room with hypoxia from [facility]. Patient did require intubation and has subsequently been extubated. He also had an episode of hematemesis on 07/19. He was transferred back to [facility] and placed on BiPAP. He has had no further episodes of hematemesis and has been transferred back to the floor. He is pending placement #Acute hypoxic respiratory failure secondary to Covid pneumonia #Sepsis from pneumonia - patient spiked fever to 102 F on 08/05. Repeat chest X ray shows worsening multifocal infiltrates, repeat blood cultures negative. Zosyn started. WBC up to 15. Symptom man he is stable. Will repeat CBC tomorrow. Continue current ant ibiotics. He has had variable leukocytosis in the past month which has self- resolved on its own - he is still requiring oxygen, will place consult with case management to set up home oxygen #Hypoglycemia- resolved #Type II diabetes - blood sugars 160's. Continue sliding scale #Orthostatic Hypotension -started fludrocortisone S/p fall Physical deconditioning - PT is working with him and recommending rehab. He has been denied from multiple rehab facilities, so will likely go home #Acute on chronic encephalopathy #History of stroke - at his baseline. 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 Continue PPI #Penile discharge - grew enterococcus and MRSA rare. This has resolved and patient has no abdominal pain, so held off on antibiotics ESRD -Continue peritoneal dialysis Dispo: pending setting up of home oxygen
[2020-08-06] MEDS: Cholecalciferol 1,000 UNITS (25 MCG) TAB PO SCH (20:41)
[2020-08-07] MEDS: Insulin Regular 300 UNITS/3 ML VIAL SC PRN (01:08)
[2020-08-07 04:41] LABS: Hemoglobin 7.5 g/dL (14.0-18.0); Mean Corpuscular HGB CONC 30.2 g/dL (32.0-36.0); Mean Corpuscular Hemoglobin 27.9 pg (27.0-31.0); Mean Corpuscular Volume 92.3 fL (78.0-98.0); Mean Platelet Volume 9.6 fL (7.4-10.4); Platelet Count 188 thou/uL (130-400); RBC Distribution Width 16.6 % (11.5-14.5); Red Blood Cell (RBC) Count 2.67 mill/uL (4.70-6.10); White Blood Cell (WBC) Count 10.5 thou/uL (4.8-10.8)
[2020-08-07] MEDS: Piperacillin/Tazobactam 3.375 GM in Sodium Chloride 0.9% 100 ML IVPB SCH ×3 (05:31→17:27)
[2020-08-07] MEDS: HumaLOG 300 UNITS/3 ML VIAL SC PRN ×2 (05:41→13:15)
[2020-08-07] MEDS: Ascorbic Acid 500 mg Chewable Tablet PO SCH (07:59)
[2020-08-07] MEDS: Atorvastatin Calcium 10 MG TAB PO SCH (07:59)
[2020-08-07] MEDS: Zinc Sulfate 220 MG CAP PO SCH (07:59)
[2020-08-07] MEDS: Fludrocortisone Acetate 0.1 MG TAB PO SCH (08:00)
--- NOTE | 2020-08-07 11:25 | PRG ---
DATE OF SERVICE: 08/07/2020 SUBJECTIVE: Patient was seen and examined at bedside and overnight events noted. Patient denies any shortness of breath or chest pain or palpitation. No history of nausea or vomiting or diarrhea or fever or chills or cramps. OBJECTIVE: General: This is well-built male in no apparent distress. Vital Signs: Temperature 97.9. Heart Rate 74. Respiratory rate 18. Blood pressure 91/52. HEENT: Atraumatic, normocephalic. Oral mucosa is moist. Neck: Supple. Cardiovascular: S1, S2 heard. Rate and rhythm regular. Respiratory: Clear to auscultation. Gastrointestinal: Abdomen is soft. Musculoskeletal: No tenderness. No edema. Dermatologic: No skin rash. Neurologic: Alert and awake and oriented x3. No focal neurologic deficits. Moving all the extremities. Psychiatric: Mood and affect normal. LABORATORY DATA: Not done today. ASSESSMENT AND PLAN: 1. End-stage renal disease. Continue dialysis Thursday, Thursday, Thursday as tolerated. 2. Edema. 3. Hypertension. 4. Anemia of chronic disease. Job ID: [id number]
[2020-08-07 14:25] VITALS: BMI 17.9
--- NOTE | 2020-08-07 18:53 | PDOC.HOSPP ---
- Subjective Encounter Date: 08/07/20 Encounter Time: 08:00 Subjective: Follow-up: Shortness of breath Patient denies any new complaints. He does occasionally complain of dizziness with standing. Orthostatics were negative. Patient did desaturate on room air this qualify for oxygen. Currently awaiting home O2 - Objective Vital Signs & Weight: Vital Signs (12 hours) Temp Pulse Pulse Pulse Resp BP BP 08/07/20 15:44 97.7 F 72 18 08/07/20 12:00 98.4 F 68 18 08/07/20 11:24 98.7 F 75 16 08/07/20 10:05 66 68 131/61 102/54 L 08/07/20 07:49 97.9 F 74 15 BP BP BP Pulse Ox Pulse Ox Pulse Ox 08/07/20 15:44 115/59 L 95 08/07/20 12:00 115/63 97 08/07/20 11:24 126/59 L 110/55 L 128/61 93 L 08/07/20 10:05 92 L 93 L 08/07/20 07:49 91/52 L 94 L Weight Admit Weight 128 lb 8.472 oz Weight 118 lb 2.684 oz Most Recent Monitor Data Heart Rate from ECG 93 NIBP 146/67 NIBP BP-Mean 93 Respiration from ECG 25 SpO2 100 I&O: 08/06/20 08/07/20 08/08/20 06:59 06:59 06:59 Intake Total 1140 940 834 Output Total 0 0 Balance 1140 940 834 Result Diagrams: 08/07/20 04:17 08/07/20 04:17 Additional Labs: Accuchecks 08/07/20 08/07/20 08/07/20 12:51 05:37 00:23 POC Glucose 201 H 214 H 296 H Hospitalist ROS - Review of Systems Constitutional: denies: fever, chills - Medication Medications: Active Medications Generic Name Dose Route Start Last Admin Trade Name Freq PRN Reason Stop Dose Admin Acetaminophen 650 mg 07/06/20 16:31 08/04/20 21:14 Acetaminophen 325 Mg Tab PO 650 mg Q4H PRN Administration Headache/Fever/Mild Pain (1-3) Ascorbic Acid 1,000 mg 07/07/20 09:00 08/07/20 07:59 Ascorbic Acid 500 Mg Chewable Tablet PO 1,000 mg DAILY CAROLYNN Administration Atorvastatin Calcium 10 mg 07/07/20 09:00 08/07/20 07:59 Atorvastatin Calcium 10 Mg Tab PO 10 mg DAILY CAROLYNN Administration Cholecalciferol 5,000 units 07/06/20 21:00 08/06/20 20:41 Cholecalciferol 1,000 Units (25 Mcg) Tab PO 5,000 units HS CAROLYNN Administration Dextrose/Water 25 gm 07/07/20 02:30 08/04/20 17:24 Dextrose 50% Abboject 50 Ml Syringe IVP 25 gm PRN PRN Administration HYPOGLYCEMIA PROTOCOL Epoetin Quincy-epbx 10,000 unit 08/03/20 09:00 08/06/20 13:21 Epoetin Quincy-Epbx (Esrd) 10,000 Unit/Ml Vial SC 10,000 unit MWF CAROLYNN Administration Fludrocortisone Acetate 0.1 mg 08/06/20 09:00 08/07/20 08:00 Fludrocortisone Acetate 0.1 Mg Tab PO 0.1 mg DAILY CAROLYNN Administration Guaifenesin/Dextromethorphan 5 ml 07/18/20 05:24 07/18/20 05:44 Guaifenesin Dm 100-10/5 Ml Udcup PO 5 ml Q4H PRN Administration Cough Dextrose/Water 1,000 mls @ 0 mls/hr 07/07/20 02:30 07/10/20 23:00 D5w IV 1,000 mls INF PRN Administration HYPOGLYCEMIA PROTOCOL As Directed Piperacillin Sod/Tazobactam 100 mls @ 200 mls/hr 08/04/20 18:00 08/07/20 17:27 Sod 3.375 gm/ Sodium Chloride IVPB 100 mls Q6HR CAROLYNN Administration Insulin Human Lispro 0 units 08/04/20 16:47 08/07/20 13:15 Humalog 300 Units/3 Ml Vial SC 3 unit .MILD SLIDING SCALE PRN Administration Mild Correctional Scale Insulin Human Regular 0 units 07/23/20 21:22 08/07/20 01:08 Insulin Regular 300 Units/3 Ml Vial SC 3 unit .BEDTIME SLIDING SC PRN Administration Bedtime Correctional Scale Ondansetron HCl 4 mg 07/18/20 01:44 07/18/20 10:39 Ondansetron Pf 4 Mg/2 Ml Vial IVP 4 mg Q6H PRN Administration Nausea/Vomiting Pantoprazole Sodium 40 mg 07/21/20 09:00 08/07/20 07:59 Pantoprazole 40 Mg Tab PO 40 mg BID CAROLYNN Administration Sodium Chloride 10 ml 07/07/20 21:00 08/07/20 07:59 Flush - Normal Saline 10 Ml Syringe IVF 10 ml Q12HR CAROLYNN Administration Sodium Chloride 10 ml 07/07/20 09:45 08/05/20 17:37 Flush - Normal Saline 10 Ml Syringe IVF 10 ml PRN PRN Administration Saline Flush Zinc Sulfate 220 mg 07/07/20 09:00 08/07/20 07:59 Zinc Sulfate 220 Mg Cap PO 220 mg DAILY CAROLYNN Administration - Exam General Appearance: NAD, awake alert Eye: PERRL, anicteric sclera ENT: normocephalic atraumatic, no oropharyngeal lesions Neck: no JVD Heart: RRR, no murmur, no gallops, no rubs Respiratory: CTAB, no wheezes, no rales, no ronchi Gastrointestinal: soft, non-tender, non-distended, normal bowel sounds Extremities: no cyanosis, no clubbing, no edema Hosp A/P - Plan Chest x ray 07/07: ground glass infiltrates right lower and left mid and lower lungs Chest X ray 07/20: hazy and interstitial alveolar infiltrates in left mid and lower lung and right lower lung CT head 07/10: no acute hemorrhage. Prior pontine infarctions This is a 60 year-old male with a past medical history of ESRD who presented to the emergency room with hypoxia from [facility]. Patient did require intubation and has subsequently been extubated. He also had an episode of hematemesis on 07/19. He was transferred back to [facility] and placed on BiPAP. He has had no further episodes of hematemesis and has been transferred back to the floor. He is pending placement #Acute hypoxic respiratory failure secondary to Covid pneumonia #Sepsis from pneumonia - patient spiked fever to 102 F on 08/05. Repeat chest X ray shows worsening multifocal infiltrates, repeat blood cultures negative. Zosyn started. - WBC has improved to 10. Will switch to oral Augmentin on discharge -- he is still requiring oxygen, he is pending home oxygen #Hypoglycemia- resolved #Type II diabetes - blood sugars 160's. Continue sliding scale #Orthostatic Hypotension -continue fludrocortisone. Repeat orthostatics negative S/p fall Physical deconditioning - PT is working with him and recommending rehab. He has been denied from multiple rehab facilities, so will likely go home #Acute on chronic encephalopathy #History of stroke - at his baseline. 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 Continue PPI #Penile discharge - grew enterococcus and MRSA rare. This has resolved and patient has no abdominal pain, so held off on antibiotics ESRD -Continue peritoneal dialysis Dispo: pending setting up of home oxygen
[2020-08-07] MEDS: Cholecalciferol 1,000 UNITS (25 MCG) TAB PO SCH (20:02)
[2020-08-08] MEDS: Piperacillin/Tazobactam 3.375 GM in Sodium Chloride 0.9% 100 ML IVPB SCH ×4 (00:34→18:41)
[2020-08-08] MEDS: Insulin Regular 300 UNITS/3 ML VIAL SC PRN (01:11)
[2020-08-08] MEDS: HumaLOG 300 UNITS/3 ML VIAL SC PRN (05:49)
[2020-08-08] MEDS: Ascorbic Acid 500 mg Chewable Tablet PO SCH (08:42)
[2020-08-08] MEDS: Atorvastatin Calcium 10 MG TAB PO SCH (08:42)
[2020-08-08] MEDS: Zinc Sulfate 220 MG CAP PO SCH (08:43)
[2020-08-08] MEDS: Fludrocortisone Acetate 0.1 MG TAB PO SCH (08:43)
[2020-08-08] MEDS: EPOETIN ALFA-EPBX (ESRD) 10,000 UNIT/ML VIAL SC SCH (11:00)
--- NOTE | 2020-08-08 11:21 | PRG ---
DATE OF SERVICE: 08/08/2020 SUBJECTIVE: Patient was seen and examined at bedside and overnight events noted. Patient denies any shortness of breath or chest pain or palpitation. No history of nausea or vomiting or diarrhea or fever or chills or cramps. OBJECTIVE: GENERAL: This is a well-built male in no acute distress. VITAL SIGNS: Temperature 98.7, pulse 70, respiratory rate 19, and blood pressure 139/62. HEENT: Atraumatic, normocephalic. Oral mucosa is moist NECK: Supple. CARDIOVASCULAR: S1, S2 heard. Rate and rhythm regular. RESPIRATORY: Clear to auscultation. GASTROINTESTINAL: Abdomen is soft. MUSCULOSKELETAL: No tenderness. No edema. DERMATOLOGIC: No skin rash. NEUROLOGIC: Alert and awake and oriented X3. No focal neurologic deficits. Moving all the extremities. PSYCHIATRIC: Mood and affect normal. LABORATORY DATA: Not done today. ASSESSMENT AND PLAN: 1. End-stage renal disease. Continue dialysis Thursday, Thursday, Thursday. The patient is seen during dialysis. 2. Edema, controlled. 3. Hypertension, stable. 4. Anemia. Continue dialysis on Thursday, Thursday, and Thursday. Job ID: [id number]
[2020-08-08 17:24] VITALS: BP 149/78; TEMP 98.5
--- NOTE | 2020-08-08 18:03 | PDOC.DS.DS ---
Provider - Provider Date of Admission: 07/06/20 15:39 Date of Discharge: 08/08/20 Admitting Provider: Vincenzo Barba MD Consultations: Cardiology (Dr Ayo Theodore), Gastroentrology (Dr. Milo Jackson), Pulmonary (Dr Júnior Flor) Primary Care Physician: Nathan Rodríguez Course - Hospital Course Hospital Course: Discharge Diagnoses: 1. Acute hypoxic respiratory failure secondary to Covid pneumonia 2. Sepsis from pneumonia 3. Hypoglycemia 4. Type 2 diabetes 5. Orthostatic hypotension 6. Status post fall, physical deconditioning 7. Acute encephalopathy 8. Acute GI bleed secondary to grade D erosive esophagitis and gastric ulcer 9. Penile discharge This is a 60 year-old male with a past medical history of ESRD who presented to the emergency room with hypoxia from [place] [facility]. Patient did require intubation and has subsequently been extubated. He also had an episode of hematemesis on 07/19. He was transferred back to [facility] and placed on BiPAP. He has had no further episodes of hematemesis and has been transferred back to the floor. He is pending placement Hospital Course: 1. Acute hypoxic respiratory failure secondary to COVID pneumonia: The patient did require intubation and was extubated shortly after that. He did receive Zosyn empirically from 07/10-07/18 for possible pneumonia. He was eventually weaned off oxygen and did not require oxygen at rest. However he does desaturate to 87% on exertion on room air and therefore was set-up with oxygen on discharge. He likely has some pulmonary damage from his COVID infection. 2. Sepsis from pneumonia: the patient spiked a fever on 08/04 and went from 2-5L of oxygen. Chest X ray showed worsneing multifocal infiltrates. He was started on zosyn. He remained afebrile and WBC has improved from 15 to 10. He will be discharged with augmentin to complete a seven day course of antibiotics. 3. Hypoglycemia/Diabetes: She initially had blood sugars of 600 always in the hospital and he was on an insulin drip empirically. Thereafter he was transitioned to Lantus 20 twice daily. However after the patient was on the floor he had multiple episodes of hypoglycemia with blood sugars in the 50s. His Lantus was discontinued. 2 days his blood sugars have ranged from 200s to 375. Will be discharged with Levemir 6 units subcutaneous nightly. His hem oglobin A1c was 9.9. 4. Acute GI bleed secondary to grade D erosive esophagitis and gastric ulcer: Patient did have a GI bleed on 07/19. He underwent upper endoscopy which showed erosive esophagitis and gastric ulcer. The patient was started on Protonix 40 mg p.o. twice daily. His aspirin was discontinued on discharge. Patient 5. Orthostatic hypotension/ physical deconditioning: The patient has been in the hospital for approximately 1 month. He is extremely weak while standing and is unable to stand without 2-3 people assisting him. Orthostatics showed blood pressure dropped to 80 systolic while standing. He was started on fludrocor tisone. Subsequent orthostatics were negative. We tried to get the patient into rehab however he was denied for multiple rehabs. Therefore he will be discharged home and will stay with his family. All of his blood pressure medications were discontinued on discharge due to hypotension while in the hospital. 6. Penile discharge: Patient did have one episode of penile discharge on 07/08. Genital culture grew MRSA and Enterococcus faecalis. The patient did receive Zosyn for 8 days from 07/10-07/18 . The MSRA was not treated due to the patient's symptoms resolving with zosyn. 7. Acute encephalopathy: The patient did have been some encephalopathy likely from his Covid was in the hospital. He is oriented x3 at the time of discharge. Pertinent Studies: Chest x ray 07/07: ground glass infiltrates right lower and left mid and lower lungs Chest X ray 07/20: hazy and interstitial alveolar infiltrates in left mid and lower lung and right lower lung CT head 07/10: no acute hemorrhage. Prior pontine infarctions Chest x ray 08/04: worsening multifocal infiltrates Resuscitation Status: 07/06/20 16:31 Resuscitation Status Routine Resuscitation Status: FULL: Full Resuscitation - Labs Lab Results: 08/07/20 04:17 08/07/20 04:17 Abnormal Lab Results - Last 48 hrs 08/07/20 04:17: RBC 2.67 L, Hgb 7.5 L, Hct 24.7 L, MCHC 30.2 L, RDW 16.6 H 08/07/20 04:17: Creatinine 4.78 H Microbiology - Entire Visit 08/04/20 17:15 Venous blood - Left Hand Blood Culture - Preliminary NO GROWTH AT 48 HOURS 08/04/20 17:15 Venous blood - Left Hand Blood Culture - Preliminary NO GROWTH AT 48 HOURS 07/08/20 11:00 Penis - Drainage Gram Stain - Final 07/08/20 11:00 Penis - Drainage Genital Culture - Final Enterococcus faecalis Methicillin resistant S.aureus - Physical Exam Vitals: Vital Signs (12 hours) Temp Pulse Resp BP Pulse Ox 08/08/20 16:00 98.5 F 78 19 149/78 H 97 08/08/20 13:26 98.3 F 80 19 134/67 97 08/08/20 07:50 98.7 F 78 19 130/61 93 L Weight Admit Weight 128 lb 8.472 oz Weight 124 lb 1.924 oz Most Recent Monitor Data Heart Rate from ECG 93 NIBP 146/67 NIBP BP-Mean 93 Respiration from ECG 25 SpO2 100 Physical Exam: The patient was seen and examined on the day of discharge. General: Patient is alert, awake, oriented times x3 CVS: Regular rate and rhythm with no murmurs rubs or gallops Lungs: Clear to auscultation bilaterally Abdomen: Positive bowel sounds, soft nontender nondistended Extremities: No edema Problem - Time spent with Patient (mins): 35 Plan - Discharge Medications Prescriptions: Amoxicillin/Potassium Clav [Augmentin 875-125 Tablet] 1 each PO BID #7 tablet Fludrocortisone Acetate [Florinef] 0.1 mg PO DAILY #30 tab Pantoprazole [Protonix] 40 mg PO DAILY #30 tab Home Medications: Medication Instructions Recorded Confirmed Type Aspirin [Ecotrin Low Strength] 81 mg PO DAILY #30 tab 06/18/20 07/13/20 Rx Calcium Acetate [Phoslo] 1,334 mg PO TID- #90 cap 06/23/20 07/13/20 Rx Pantoprazole [Protonix] 40 mg PO BID #60 tab 06/23/20 07/13/20 Rx Atorvastatin Calcium [Lipitor] 10 mg PO DAILY tab 08/03/20 Rx Pantoprazole [Protonix] 40 mg PO DAILY #30 tab 08/03/20 Rx Amoxicillin/Potassium Clav 1 each PO BID #7 tablet 08/08/20 Rx [Augmentin 875-125 Tablet] Fludrocortisone Acetate [Florinef] 0.1 mg PO DAILY #30 tab 08/08/20 Rx Insulin Detemir [Levemir Flextouch] 6 unit SQ HS #1 08/08/20 07/13/20 Rx Allergies: No Known Drug Allergies Allergy (Verified 06/19/20 01:13) PER ER NOTES - Discharge Instructions Discharge Instructions:: You were diagnosed with COVID. You recovered from this. You then developed a new pneumonia on 08/04. You were started on IV zosyn. Please take augmentin for three more days to complete a seven day course of antibiotics. Reduce your levemir to 6 units nightly due to low blood sugars you had while in the hospital. Start taking fludrocortisone daily for low blood pressures while standing. You had a GI bleed while in the hospital. Take protonix 40 mg daily. You will be discharged with oxygen. Please use 2L of oxygen on exertion. Please get a repeat chest Xray in 6 weeks. Follow up with your primary care doctor in a week. Activity:: Activity as Tolerated Nourishment:: Heart Healthy Diet, Renal Diet Therapies:: Physical Therapy - Follow up Plan Referrals: [facility] [Outside] (Home Oxygen.) Chaparrita Dacosta MD [Primary Care Provider] - (Please follow up with your primary care provider within 7 days. If you have any difficulty with the written prescription for physical therapy please follow up with your primary care provider for further assistance. ) Disposition: HOME Quality - Care Measures CORE MEASURES:: N/A
== END 2020-08-08 19:40 | disposition home or self-care (01) | DRG 871 ==
LOC: ERS 12:55 → CCU 15:39 → T4-B 07-09 20:30 → 2SW 07-10 21:04 → IMCU/EMU 07-18 14:45 → 2SW 07-20 20:09 → 2NO 07-27 14:40
PROVIDERS: ADMIT Student in an Organized Health Care Education/Training Program; ATTEND Internal Medicine
PROC: 8E0ZXY6 Isolation (ICD-10-PCS; principal; 2020-07-06)
PROC: 5A09457 Assistance with Respiratory Ventilation, 24-96 Consecutive Hours, Continuous Positive Airway Pressure (ICD-10-PCS; 2020-07-06)
PROC: 5A1D90Z Performance of Urinary Filtration, Continuous, Greater than 18 hours Per Day (ICD-10-PCS; 2020-07-06)
PROC: 30233N1 Transfusion of Nonautologous Red Blood Cells into Peripheral Vein, Percutaneous Approach (ICD-10-PCS; 2020-07-19)
DX: A41.89 Other specified sepsis (principal); U07.1 COVID-19; J12.82 Pneumonia due to coronavirus disease 2019; J96.01 Acute respiratory failure with hypoxia; G93.41 Metabolic encephalopathy; I21.A1 Myocardial infarction type 2; K25.4 Chronic or unspecified gastric ulcer with hemorrhage; K22.11 Ulcer of esophagus with bleeding; J18.9 Pneumonia, unspecified organism; N18.6 End stage renal disease; I13.2 Hypertensive heart and chronic kidney disease with heart failure and with stage 5 chronic kidney disease, or end stage renal disease; I50.22 Chronic systolic (congestive) heart failure; E87.2 Acidosis; N17.9 Acute kidney failure, unspecified; E87.1 Hypo-osmolality and hyponatremia; I42.9 Cardiomyopathy, unspecified; E44.0 Moderate protein-calorie malnutrition; Z68.1 Body mass index [BMI] 19.9 or less, adult; D62 Acute posthemorrhagic anemia; E11.22 Type 2 diabetes mellitus with diabetic chronic kidney disease; E78.5 Hyperlipidemia, unspecified; E78.00 Pure hypercholesterolemia, unspecified; E11.65 Type 2 diabetes mellitus with hyperglycemia; D63.1 Anemia in chronic kidney disease; E88.09 Other disorders of plasma-protein metabolism, not elsewhere classified; E83.51 Hypocalcemia; E87.5 Hyperkalemia; E11.649 Type 2 diabetes mellitus with hypoglycemia without coma; I95.1 Orthostatic hypotension; E87.6 Hypokalemia; B95.62 Methicillin resistant Staphylococcus aureus infection as the cause of diseases classified elsewhere; R36.9 Urethral discharge, unspecified; R13.12 Dysphagia, oropharyngeal phase; Z79.82 Long term (current) use of aspirin; Z79.899 Other long term (current) drug therapy; Z99.2 Dependence on renal dialysis; Z90.49 Acquired absence of other specified parts of digestive tract; I69.391 Dysphagia following cerebral infarction; Z79.4 Long term (current) use of insulin
CPT/HCPCS: 36415; 36416; 36430; 36600; 70450; 71045; 74018; 80048; 80053; 80202; 82010; 82565; 82728; 82805; 83036; 83605; 83735; 84100; 84132; 84443; 85007; 85025; 85027; 85652; 86140; 86850; 86900; 86901; 87040; 87070; 87077; 87186; 87340; 90935; 90945; 93005; 93010; 94660; 96365; 96375; C9113; G0257; J1100; J1644; J1815; J2405; J2543; J2765; J3370; J3480; J3490; J7050; P9016; P9047; Q5105; U0002